=== PATIENT | female | born 1960 | race Caucasian/White ===

== ENCOUNTER → 2017-07-05 14:53 | Outpatient (CLI) | payer BC, SELFPAY ==
[2017-04-24 12:37] VITALS: BMI 36.2
[2017-06-26 14:19] VITALS: BP 177/77; BMI 33.5
--- NOTE | 2017-07-05 14:54 | HPBD_ITS ---
STUDY: DUAL ENERGY X-RAY ABSORPTIOMETRY / DXA REASON FOR EXAM: Female, 56 years old. The patient is postmenopausal. No loss of height. TECHNIQUE: Bone Mineral Density (BMD) measurements of lumbar spine and bilateral hips were obtained. COMPARISON: Comparison is made with prior study dated July 25, 2012. FINDINGS: Lumbar Spine (L1-L4): g/cm2 (1.067) / T-score (-1.1) / Z-score (-0.2) Findings are suggestive of osteopenia with a low fracture risk. Left Femur Total: g/cm2 (0.844) / T-score (-1.3) / Z-score (-0.6) Left Femoral Neck: g/cm2 (0.759) / T-score (-2.0) / Z-score (-0.9) Right Femur Total: g/cm2 (0.770) / T-score (-1.9) / Z-score (-1.1) Right Femoral Neck: g/cm2 (0.729) / T-score (-2.2) / Z-score (-1.1) The T-Scores on the most recent prior examination were: Lumbar Spine (L1-L4): There has been improvement of bone density since the previous examination. Left Femur Total: which represents a worsening of 3.5%. Right Femur Total: which represents a worsening of 6.4%. HPBD/Dexa Bone Density Study (HP) IMPRESSION: The patient is considered osteopenic as outlined below according to World [employer] Organization (WHO) criteria with a moderate fracture risk. There has been worsening of bone density since the previous examination. Reference Information: The T-score is the number of standard deviations above or below the standard which is normal for young adults at their peak bone mineral density. The World Health Organization (WHO) interprets the T-scores as follows: Above -1 Normal bone density Between -1 and -2.5 Osteopenia Equal to / or below -2.5 Osteoporosis As a practical clinical guideline, osteopenia may be graded as follows: Mild -1 through -1.5 Moderate -1.6 through -2.0 Severe -2.1 through -2.4 The Z-score is the number of standard deviations above or below age-matched controls. A Z-score of less than -1.5 would be considered abnormal. References: 1. NIH Osteoporosis and Related Bone Diseases http://www.osteo.org 2. International Society for Clinical Densitometry http://www.iscd.org 3. National Osteoporosis Foundation http://www.nof.org Electronically Signed: Bhavesh Arechiga MD at 15:40 EST Tel [phone], Service support ,
== END ==
LOC: BD 14:53
PROVIDERS: Family Provider Family Medicine; PCP Family Medicine; Visit Provider Internal Medicine Medical Oncology
DX: C50.911 Malignant neoplasm of unspecified site of right female breast (principal); C50.912 Malignant neoplasm of unspecified site of left female breast; Z79.899 Other long term (current) drug therapy
CPT/HCPCS: 77080

== ENCOUNTER → 2017-07-25 15:47 | Outpatient (CLI) | payer BC, SELFPAY ==
[2017-04-24 12:37] VITALS: BMI 36.2
--- NOTE | 2017-07-25 15:49 | US_ITS ---
STUDY: ULTRASOUND TRANSVAGINAL CLINICAL: Female, 56 years old. Post coital bleeding. TECHNIQUE: Transvaginal COMPARISON: None. FINDINGS: Surgically absent uterus. Normal right ovary, measuring 2.3 x 2 x 1.9 cm. There are multiple follicles without a dominant cyst. Nonvisualized left ovary. No left adnexal mass There is no free fluid in the pelvis. Polycystic ovary disease: No. US/Transvaginal Non- IMPRESSION: Status post partial hysterectomy. Nonvisualized left ovary. Normal appearance of the right ovary. No suspicious masses Electronically Signed: Amaury Adler DO at 9:01 EST Tel , Service support ,
[2017-07-27 11:33] LABS: Cancer Antigen 125 11.6 U/mL (0.0-38.1)
== END ==
PROVIDERS: Family Provider Family Medicine; PCP Family Medicine; Visit Provider Obstetrics & Gynecology
DX: N93.0 Postcoital and contact bleeding (principal); Z90.710 Acquired absence of both cervix and uterus
CPT/HCPCS: 36415; 76830; 86304

== ENCOUNTER 2017-09-06 05:51 | Day surgery (SDC) | payer BC, SELFPAY ==
[2017-04-24 12:37] VITALS: BMI 36.2
[2017-09-06] VITALS (7 sets, daily range): BP systolic 111–127; BP diastolic 51–76; PULSE 68–82; RESP 16–18; TEMP 36.2–36.4; O2SAT 91–97; BMI 34.7
--- NOTE | 2017-09-06 | OV_PTH ---
PATIENT: PARVIN [place] [facility] [id number] AGE/SX: 57/F ROOM: RE09/06/[address]: Dr. Sherrie Dias MD : 1960 BED: DIS: 09/06/2017 SPEC #: [id number] RECD: 09/06/17 13:20 STATUS: MERE EDUARDO #: [id number] AKUA: 09/06/17 00:[address]: Sherrie Dias DEPT: SURGICAL PATHOLOGY RECD BY: Jose Nguyen ENTERED: 09/06/17 13:21 SP TYPE: OVARY OTHR DR: Dr. Sandro Bland, Tissues: Right ovary Procedures: Surgery Specimen Level IV HEADER OPERATION: Laparoscopic right salpingo-oophorectomy with cytologic washing PRE-OP DIAGNOSIS: Bilateral breast cancer TISSUE SUBMITTED: Right fallopian tube and ovary MICROSCOPIC DIAGNOSIS Right fallopian tube and ovary, salpingo-oophorectomy: Ovary with benign epithelial inclusion cysts and corpora albicantia. Tubo-ovarian adhesions. Fallopian tube with benign paratubal cysts. AM:luc 09/07/17 COMMENT Please correlate with cytology case ([id number]). MICROSCOPIC DESCRIPTION Slides are reviewed. GROSS DESCRIPTION Received in fixative is one container labeled with the patient's name and designated right tube and ovary. The specimen consists of a fallopian tube and ovary. The fallopian tube and ovary show tubo-ovarian adhesions. The fallopian tube measures 2 cm in length and 0.5 cm in diameter and the ovary measures 2 x 1.5 x 1.5 cm. No mass lesion is identified. The entire specimen is submitted in three cassettes. / SJ:luc 09/06/17 TC:5 CPT: 40259
--- NOTE | 2017-09-06 | FLU_PTH ---
PATIENT: PARVIN [place]ARRIS [place] [facility] [id number] AGE/SX: 57/F ROOM: RE09/06/[address]: Dr. Sherrie Dias MD : 1960 BED: DIS: 09/06/2017 SPEC #: [id number] RECD: 09/06/17 13:19 STATUS: MERE EDUARDO #: [id number] AKUA: 09/06/17 00:[address]: Sherrie Dias DEPT: CYTOLOGY RECD BY: Jose Nguyen ENTERED: 09/06/17 13:20 SP TYPE: Fluid OTHR DR: Dr. Sandro Bland, Tissues: Pelvis, NOS Procedures: Special Stain Group II Surgery Specimen Level IV Cytospin Fluid Comments: @ Specimen number changed from [id number] to [id number] @ on 09/06/17 at 1401 by RGOOD. HEADER OPERATION: Laparoscopic right salpingo-oophorectomy with cytologic washing PRE-OP DIAGNOSIS: Bilateral breast cancer TISSUE SUBMITTED: Pelvic washings for cytology DIAGNOSIS CYTOLOGY Pelvic washings for cytology (cytospin and cell block): Negative for malignant cells. AM:luc 09/07/17 COMMENT The specimen contains reactive mesothelial cells and minimal chronic inflammatory cells. Immunohistochemistry ([id number]) supports the above diagnosis. Please see associated surgical case ([id number]). CYTOLOGY STUDY Slides are reviewed. CYTOLOGY GROSS Received is 2 ml of pink cloudy fluid labeled with the patient's name and and designated per the requisition as pelvic washing. Submitted for cytology preparation including cell block. / 09/06/17 TC:5 CPT: 24334, 76272
--- NOTE | 2017-09-06 | IMM_PTH ---
PATIENT: PARVIN HARRIS [place] [facility] [place][id number] AGE/SX: 57/F ROOM: RE09/06/[address]: Dr. Sherrie Dias MD : 1960 BED: DIS: 09/06/2017 SPEC #: [id number] RECD: 09/07/17 14:23 STATUS: MERE REQ #: [id number] AKUA: 09/06/17 00:[address]: Sherrie Dias DEPT: IMMUNOHISTOCHEMISTRY RECD BY: Ning Valerio ENTERED: 09/07/17 14:24 SP TYPE: IMMUNO OTHR DR: Dr. Sandro Bland, DO Tissues: Pelvis, NOS Procedures: Calretinin (initial) P53 (add) Vimentin (add) Pankeratin (add) PHYSICIAN & INSTITUTION [place] [id number] SPECIMEN INFORMATION: Tissue Source: Pelvic washings Clinical Info: Breast cancer Specimen Number: [id number] CPT code: 35171, 22199 x3 METHODOLOGY: Deparaffinized sections of prefer/formalin-fixed tissue or PAP/DQ stained slides are incubated with monoclonal/polyclonal antibodies/oligonucleotide probes. Localization is made via biotin free immunoperoxidase method. Appropriate controls are performed and reacted as expected. Results on target cell population are indicated in the following table: RESULTS: ANTIBODY / CLONE RESULT CALRET (polyclonal) positive, dim Vimentin (V9) positive AE1-3 (AE1/AE3/PCK26) positive P53 (DO-7) negative These tests were developed and their performance characteristics determined by [facility]. They may not have been cleared or approved by the U.S. Food and Drug Administration. The FDA has determined that such clearance or approval is not necessary. INTERPRETATION: Pelvic washings: No evidence of malignancy. AM:luc 09/10/17
--- NOTE | 2017-09-06 05:57 | RAD_ITS ---
STUDY: X-RAY CHEST REASON FOR EXAM: Female, 57 years old. Preop. Smoker. TECHNIQUE: Frontal and lateral views of the chest. COMPARISON: 02/05/2017. CT scan chest 01/16/2017. FINDINGS: There are surgical clips overlying the axillae bilaterally. Patient has apparently undergone previous mastectomies. There is mild fibrosis or atelectasis overlying the lung bases. There are no demonstrated acute pulmonary infiltrates. There is no demonstrated pleural abnormality. Normal size heart. Normal mediastinum and jake. Normal visualized pulmonary arteries. Normal visualized aortic arch and descending thoracic aorta. There are diffuse degenerative changes of the visualized thoracic spine. Normal visualized ribs, clavicles, and shoulders. There is no demonstrated abnormality of the visualized soft tissue structures of the upper abdomen. RAD/Chest PA and Lateral IMPRESSION: No evidence for acute cardiopulmonary pathology. Electronically Signed: Efren Simeon MD at 6:25 EDT , Service support ,
--- NOTE | 2017-09-06 06:00 | EKG12_ITS ---
Test Reason : PRE OP Blood Pressure : / mmHG Vent. Rate : 067 BPM Atrial Rate : 067 BPM P-R Int : 198 ms QRS Dur : 088 ms QT Int : 432 ms P-R-T Axes : 054 021 023 degrees QTc Int : 456 ms Normal sinus rhythm Normal ECG Confirmed by ROME KAN, ANALI ([id number]), supervising editor news reel MELY KUMAR ([id number]) on 09/07/2017 1:45:14 PM Referred By: Sherrie Dias Confirmed By:ANALI PETER MD
[2017-09-06 06:51] LABS: Hemoglobin 12.9 g/dl (12.0-15.0); Mean Corp Hgb Conc 33.1 g/gl (32-36); Mean Corpuscular Hgb 33.3 pg (27.0-32.0); Mean Corpuscular Volume 100.8 fL (81-99); Mean Platelet Vol. 10.2 fl (6.2-12.0); Platelet Count 250 K/mm3 (150-450); RBC Distribution Width CV 13.5 % (11.6-14.6); RBC Distribution Width SD 49.5 fl (35.1-43.9); Red Blood Count 3.87 M/mm3 (4.2-5.4); White Blood Count 3.6 K/mm3 (4.4-11.0)
[2017-09-06 06:54] LABS: Scan Indicated on CBC? Y/N NO
--- NOTE | 2017-09-06 07:23 | HP.PCM_ITS ---
- Problem List (1) Breast cancer, right Status: Resolved Qualifiers: History and Physical Date of Admission: 09/06/17 Intake Vital Signs 3 07/16/17 Body Mass Index (BMI) 33.8 07/16/17 Blood Pressure 122/71 07/16/17 Height 5 ft 2 in 07/16/17 Weight: 185 lb 07/16/17 Body Mass Index (BMI) 33.8 07/16/17 Blood Pressure 122/71 Intake Visit Reasons: REFERRAL FROM [facility]. 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 Is patient in pain?: No Allergies Penicillins Allergy (Unknown, Verified 07/16/17 13:47) Unknown acetaminophen [From Vicodin] Adverse Reaction (Severe, Verified 07/16/17 13:47) Nausea adhesive tape Adverse Reaction (Severe, Verified 07/16/17 13:47) Unknown cephalexin Adverse Reaction (Severe, Verified 07/16/17 13:47) Upset Stomach hydrocodone [From Vicodin] Adverse Reaction (Severe, Verified 07/16/17 13:47) Other oxycodone [From Percocet] Adverse Reaction (Severe, Verified 07/16/17 13:47) Vomiting prednisone Adverse Reaction (Severe, Verified 07/16/17 13:47) Nausea/vomiting Medications Atenolol [Tenormin] 25 mg PO QHS 10/25/16 [History Confirmed 07/16/17] Calcium Carbonate/Vitamin D3 [Calcium 600-Vit D3 200 Tablet] 1 ea PO DAILY 10/25 [History Confirmed 07/16/17] Clonazepam [Klonopin] 1 mg PO QHS 10/25/16 [History Confirmed 07/16/17] Cyclobenzaprine HCl 5 mg PO DAILY 10/25/16 [History Confirmed 07/16/17] Famotidine [Acid Director Meetings] 10 mg PO DAILY 10/25/16 [History Confirmed 07/16/17] Fingolimod HCl [Gilenya] 0.5 mg PO DAILY 10/25/16 [History Confirmed 07/16/17] Gabapentin [Gralise] 600 mg PO DAILY 10/25/16 [History Confirmed 07/16/17] Lisinopril [Zestril] 10 mg PO DAILY 10/25/16 [History Confirmed 07/16/17] Multivitamin [Daily Multiple Vitamin] 1 ea PO DAILY 10/25/16 [History Confirmed 07/16/17] Rosuvastatin Calcium [Crestor] 40 mg PO QHS 10/25/16 [History Confirmed 07/16/17 ] Venlafaxine HCl [Venlafaxine HCl ER] 300 mg PO DAILY 10/25/16 [History Confirmed 07/16/17] Amantadine [Symmetrel] 100 mg PO QHS 11/09/16 [History Confirmed 07/16/17] Lactobacillus Acidophilus [Acidophilus] 1 ea PO BID 11/09/16 [History Confirmed 07/16/17] Buspirone HCl 7.5 mg PO BID 02/02/17 [History Confirmed 07/16/17] Lidocaine/Prilocaine [Lidocaine-Prilocaine Cream] 30 gm TP DAILY PRN PRN #1 cream..g. 02/06/17 [Rx Confirmed 07/16/17] Diazepam [Valium] 5 mg PO 4X/DAY PRN PRN 02/12/17 [History Confirmed 07/16/17] TraMADol [Ultram] 50 - 100 mg PO Q6H PRN PRN #30 tab 02/14/17 [Rx Confirmed ] Acetaminophen [Tylenol Tablet] 650 mg PO Q6H PRN PRN tab 04/14/17 [Rx Confirmed 07/16/17] Silver Sulfadiazine 1% Crm [Silvadene (BKC)] 1 applic TOPICAL TID #1 bottle [Rx Confirmed 07/16/17] Is last menstrual period known: No Patient : No : No PFSH Medical History Breast cancer (Acute) Chicken pox (Acute) GERD (gastroesophageal reflux disease) (Acute) Headaches (Acute) History of stomach ulcers (Acute) Surgical History History of appendectomy (Acute) History of bilateral mastectomy (Acute) History of section (Acute) History of hysterectomy (Acute) History of lumpectomy (Acute) History of right breast biopsy (Acute) Family History Mother Kidney disease Hypertension Hyperlipidemia Heart disease Diabetes Depression Arthritis Social History Smoking Status: Current every day smoker alcohol intake: never substance use type: does not use caffeine: Yes what type of physical activity do you participate in: none seatbelt use: always do you feel safe at home: Yes additional social history: Jordy- Retired Patient works at [employer] Pregancy History 2 3 Elective abortions Hx Para 2 Spontaneous abortions Hx # Term Pregnancies Ectopic pregnancies Hx # Pregnancies Multiple births # of living children Past Pregnancies Del. Date Name GA/Weeks Outcome Route Bth Weight Gen Labor Lgth Anesthesia Del Locatn Provider FOB Unknown 1983 ariana 5 month loss CI Unknown 1984 Pietro Deborah Unknown 1986 Carlos [facility] RE[facility] FROM [facility]. ANNUAL: Details: LINDA HARRIS is a 56 year old who presents for referral from oncologist for removal of her ovary. She had bilateral breast cancers. she sees dr reich. she is also having postcoital bleeding but minimal pain. she has had a hsyterectomy when she was in her 20s. ROS Const Constitutional: Reports as per HPI; denies poor appetite, fatigue, increased appetite, weight gain or weight loss Eyes Eyes: Reports system reviewed and no additional complaints, except as docu Cardio Card: Denies chest pain Resp Resp: Denies dyspnea or cough GI GI: Reports as per HPI; denies bloating, abdominal pain, constipation, vomiting or nausea : Reports as per HPI and other; denies blood in urine, vaginal odor, vaginal itching, vaginal dryness, vaginal discharge, urinary urgency, urinary incontinence, urinary frequency, pelvic pain , painful urination, difficulty urinating, prolapse symptoms or nipple discharge Musc Musc: Reports system reviewed and no additional complaints, except as docu Skin Skin/Breast: Denies breast pain, breast skin changes, nipple discharge, breast lump or changing lesions Neuro Neuro: Reports system reviewed and no additional complaints, except as docu Psych Psych: Reports system reviewed and no additional complaints, except as docu Endo Endo: Reports system reviewed and no additional complaints, except as docu Kanu/Lymph Hematologic/Lymphatic: Reports system reviewed and no additional complaints, except as docu Exam Const General: cooperative, healthy appearing, comfortable, no acute distress, well developed, well groomed HENMT Head: normal to inspection, normocephalic Ears: hearing grossly normal bilaterally, external ears normal Nose: external nose normal Face and sinus: normal facial exam Neck Neck: normal visual inspection, full ROM, no lymphadenopathy Thyroid: thyroid normal Chest Chest palpation & inspection: normal inspection of the chest Breast inspection: normal inspection of the breasts, normal inspection of the axillae Breast palpation: normal palpation of the breasts, normal palpation of the axillae, no axillary lymphadenopathy Resp Effort & Inspection: normal respiratory effort GI Inspection: normal to inspection, non-distended Palpation: no guarding, soft, no hepatosplenomegaly General: bladder normal to palpation External Female Exam: normal external appearance, normal appearance of the urethra, no lesions Urethra: normal appearance of the urethra, normal palpation Speculum Exam - Vagina: normal appearance of the vagina, normal vaginal discharge Speculum Exam - Cervix: normal appearance of the cervix, no cervical discharge, no lesions, nontender Bimanual Exam- Vagina & Uterus: No cervical tenderness, normal bimanual exam, uterine size normal, bladder normal to palpation, uterine mobility normal, uterine consistency normal, uterus non-tender, no cervical motion tenderness Bimanual Exam- Adnexa, other: normal adnexae, no adnexal masses, adnexae non- tender Skin General: no rashes or lesions noted Neuro General: alert, moves all extremities, no focal motor deficits Extrem General: no pedal edema, normal to inspection Psych Appearance: grossly normal Mental Status: mental status grossly normal Affect: normal affect Speech and Movement: speech and movement normal Attitude: cooperative Assessment & Plan Problems 1. Bilateral malignant neoplasm of breast in female, unspecified estrogen receptor status, unspecified site of breast C50.911; C50.912 bilateral 2. Postcoital bleeding N93.0 atrophy discussed kamlesh linda touch Plan plan laparoscopic salpingoophorectomy. Coding Level of Care Code Off vis,new,level 4 Diagnoses Bilateral malignant neoplasm of breast in female, unspecified estrogen receptor status, unspecified site of breast C50.911; C50.912 ??Breast location: unspecified site of breast ??Estrogen receptor status: unspecified ??Patient sex: female ??Laterality: bilateral Postcoital bleeding N93.0 09/06/17 730 i have seen the patient and made any clinically relevant updates
[2017-09-06] MEDS: Bupivacaine 0.25% 30 ML Vial (08:09)
--- NOTE | 2017-09-06 09:04 | PCM.DC.TUB ---
Discharge Diet: No Restrictions - Increase fluid intake for the next 48 hours. Discharge Activity: Return to Normal Activity, May Drive - when you are no longer taking narcotic pain medications., May Shower, May Take a Tub Bath - in 7 days Additional Activity Instructions:: Ambulate often the next week after surgery. Nothing in the vagina for 5 days. Call your doctor if your incision/area has: Continuous Slow Oozing, Sudden Increased Bleeding, Increased Pain/ Swelling, Increased Redness, Foul Smelling Discharge Call your doctor if you observe: Fever of 101 or Higher Allergies/Adverse Reactions: Allergies Penicillins Allergy (Unknown, Verified 09/03/17 10:14) Unknown states that mother told her she was allergic acetaminophen [From Vicodin] Adverse Reaction (Severe, Verified 09/03/17 10:14) Nausea adhesive tape Adverse Reaction (Severe, Verified 09/03/17 10:14) Unknown tears skin cephalexin Adverse Reaction (Severe, Verified 09/03/17 10:14) Upset Stomach hydrocodone [From Vicodin] Adverse Reaction (Severe, Verified 09/03/17 10:14) Other NUMBNESS TO LIPS oxycodone [From Percocet] Adverse Reaction (Severe, Verified 09/03/17 10:14) Vomiting prednisone Adverse Reaction (Severe, Verified 09/03/17 10:14) Nausea/vomiting Medications to take at Discharge Atenolol [Tenormin] 25 mg PO QHS 10/25/16 Calcium Carbonate/Vitamin D3 [Calcium 600-Vit D3 200 Tablet] 1 ea PO DAILY 10/25/16 Clonazepam [Klonopin] 1 mg PO QHS 10/25/16 Cyclobenzaprine HCl 5 mg PO DAILY 10/25/16 Famotidine [Acid Global Mobility Specialist] 10 mg PO DAILY 10/25/16 Fingolimod HCl [Gilenya] 0.5 mg PO DAILY 10/25/16 Gabapentin [Gralise] 600 mg PO DAILY 10/25/16 Lisinopril [Zestril] 10 mg PO DAILY 10/25/16 Multivitamin [Daily Multiple Vitamin] 1 ea PO DAILY 10/25/16 Rosuvastatin Calcium [Crestor] 40 mg PO QHS 10/25/16 Venlafaxine HCl [Venlafaxine HCl ER] 300 mg PO DAILY 10/25/16 Amantadine [Symmetrel] 100 mg PO QHS 11/09/16 Lactobacillus Acidophilus [Acidophilus] 1 ea PO BID 11/09/16 Buspirone HCl 7.5 mg PO BID 02/02/17 traMADol [Ultram] 50 - 100 mg PO Q6H PRN PRN #30 tab 02/14/17 Acetaminophen [Tylenol Tablet] 650 mg PO Q6H PRN PRN tab 04/14/17 Tamoxifen Citrate 20 mg PO DAILY 14 Days #14 tab 07/19/17 Naproxen [Naprosyn] 250 - 500 mg PO Q8H PRN PRN #30 tab 09/06/17 Tramadol HCl [Ultram] 50 mg PO 4X/DAY PRN PRN 3 Days #15 tablet 09/06/17 The following prescriptions were given: Naproxen [Naprosyn] 250 - 500 mg PO Q8H PRN PRN #30 tab PRN Reason: MILD PAIN Tramadol HCl [Ultram] 50 mg PO 4X/DAY PRN PRN 3 Days #15 tablet PRN Reason: Pain Primary Care Physician: Sandro Bland DO [Primary Care Provider] - Please Follow Up With: Sherrie Dias MD - [phone] When: 2 weeks
--- NOTE | 2017-09-07 06:12 | PCM.OPRPT ---
Problem List (1) Breast cancer Status: Chronic Qualifiers: Breast location: unspecified site of breast Estrogen receptor status: unspecified Patient sex: female Laterality: bilateral Qualified Code(s): C50.911 - Malignant neoplasm of unspecified site of right female breast; C50.912 - Malignant neoplasm of unspecified site of left female breast Comment: bilateral Report of Operation Date of Procedure: 09/06/17 Pre-Operative Diagnosis: breast cancer Post-Operative Diagnosis: same Surgery/Procedure Performed:: laparoscopic right oophorectomy and cytologic washings Description of Surgical Findings:: normal ovary carpenter: Urszula Carroll Type of Anesthesia:: General Specimen's removed: ovary fallopian tube Drains: none Estimated Blood Loss (mL): minimal Fluids Replaced: crystalloid Description of Procedure: Patient was taken in the operating room and was placed under general anesthesia was prepped and draped in normal sterile fashion in the dorsal lithotomy position. Bladder was drained of clear urine and SCDs were on preoperatively. Attention was then paid to the abdominal portion of the procedure and the umbilicus was elevated with towel clamps and injected with Marcaine and after a 5 mm incision was made and the Veress needle was entered into the abdomen confirmed to be intra-abdominal with a low opening pressure of less than 5 mmHg. Abdomen was insufflated with CO2 gas and a 12 mm optical trocar was placed under direct visualization. A right lower quadrant 5 mm port and an aligator clamp suprapubically were placed placed under direct visualization. ovary and fallopian tube were well visualized, noted to be within normal limits, and the then transected across the IP ligament and pelvic side wall using the ligasure device. Excellent hemostasis was noted. ovary was removed through the 12 mm port site in a bag, washings were collected, and the 12 mm port was closed with a a rachael javier and an 0 vicryl. Liver and upper abdomen were visualized notably within normal limits and no other gross abnomalities were seen in the abdomen. All instruments removed from the abdomen after gas was desufflated. Port sites were closed with 3-0 Monocryl Steri's and op sites were applied. All instruments removed from the vagina and patient was awoken and taken recovery in stable condition. Grafts/Implants Used: none - Complications none - Admit VTE Documentation VTE Present on Admission: No VTE Mechan Device Prophylaxis: SCD's
--- NOTE | 2017-09-07 06:17 | OP.PCM_ITS ---
Problem List (1) Breast cancer Status: Chronic Qualifiers: Breast location: unspecified site of breast Estrogen receptor status: unspecified Patient sex: female Laterality: bilateral Qualified Code(s): C50.911 - Malignant neoplasm of unspecified site of right female breast; C50.912 - Malignant neoplasm of unspecified site of left female breast Comment: bilateral Report of Operation Date of Procedure: 09/06/17 Pre-Operative Diagnosis: breast cancer Post-Operative Diagnosis: same Surgery/Procedure Performed:: laparoscopic right oophorectomy and cytologic washings Description of Surgical Findings:: normal ovary dealer accounts 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 Bladder was drained of clear urine and SCDs were on preoperatively. Attention was then paid to the abdominal portion of the procedure and the umbilicus was elevated with towel clamps and injected with Marcaine and after a 5 mm incision was made and the Veress needle was entered into the abdomen confirmed to be intra-abdominal with a low opening pressure of less than 5 mmHg. Abdomen was insufflated with CO2 gas and a 12 mm optical trocar was placed under direct visualization. A right lower quadrant 5 mm port and an aligator clamp suprapubically were placed placed under direct visualization. ovary and fallopian tube were well visualized, noted to be within normal limits , and the then transected across the IP ligament and pelvic side wall using the ligasure device. Excellent hemostasis was noted. ovary was removed through the 12 mm port site in a bag, washings were collected, and the 12 mm port was closed with a a rachael javier and an 0 vicryl. Liver and upper abdomen were visualized notably within normal limits and no other gross abnomalities were seen in the abdomen. All instruments removed from the abdomen after gas was desufflated. Port sites were closed with 3-0 Monocryl Steri's and op sites were applied. All instruments removed from the vagina and patient was awoken and taken recovery in stable condition. Grafts/Implants Used: none - Complications none - Admit VTE Documentation VTE Present on Admission: No VTE Mechan Device Prophylaxis: SCD's
== END 2017-09-06 10:19 | disposition home or self-care (01) ==
LOC: SDC 05:51 → AC 05:53
PROVIDERS: Family Provider Family Medicine; PCP Family Medicine; Visit Provider Obstetrics & Gynecology
PROC: (CPT 58720; principal; 2017-09-06 07:15)
DX: C50.911 Malignant neoplasm of unspecified site of right female breast (principal); C50.912 Malignant neoplasm of unspecified site of left female breast; N73.6 Female pelvic peritoneal adhesions (postinfective); N83.8 Other noninflammatory disorders of ovary, fallopian tube and broad ligament; N93.0 Postcoital and contact bleeding; K21.9 Gastro-esophageal reflux disease without esophagitis; Z87.11 Personal history of peptic ulcer disease; Z90.13 Acquired absence of bilateral breasts and nipples; F17.200 Nicotine dependence, unspecified, uncomplicated; I10 Essential (primary) hypertension
CPT/HCPCS: 58661; 71046; 82378; 85027; 86850; 86900; 88108; 88305; 88313; 88341; 88342; 93005; J7120; J2405

== ENCOUNTER → 2017-10-25 08:45 | Outpatient (CLI) | payer BC, SELFPAY ==
[2017-04-24 12:37] VITALS: BMI 36.2
--- NOTE | 2017-10-25 08:45 | DT_ITS ---
This patient was seen during an EMR downtime October 22, 2017 - October 29, 2017. This patient may have a combination of paper and electronic documentation or all paper documentation. All documentation is viewable within the e-chart portion of [employer] for each patient visit.
--- NOTE | 2017-10-25 09:00 | NM_ITS ---
CLINICAL: Female, 57 years old. Breast cancer. Multiple sclerosis. WHOLE BODY NUCLEAR BONE SCAN TECHNIQUE: Following the IV administration of 25.7 mCi of Tc MDP, whole body bone imaging was performed with a gamma camera following a three hour delay. COMPARISON STUDIES : NM - January 12, 2017 bone scan CR - chest x-ray August 27, 2017 CT - Not available for review at this time. MR - Not available for review at this time. US - Not available for review at this time. FINDINGS: There is a normal concentration of radiopharmaceutical throughout the axial and appendicular skeletal system. There are regions of degenerative increased uptake including of the shoulders, elbows, wrists, spine, hips and knees. There is nonspecific increased radiotracer uptake of the sternum.. There is increased uptake at the right 12th rib with osseous abnormality versus focal dilatation of upper pole renal collecting system. There are photopenic regions at the anterior aspect suggesting external prostheses or soft tissue attenuation. NM/Bone Scan Whole Body IMPRESSION: Regions of degenerative increased uptake are present. There is nonspecific increased uptake of the sternum with possible degenerative change. There is nonspecific increased activity at the right 12th rib with prior trauma or focal dilatation of the renal collecting system or less likely metastatic disease. Electronically Signed: Carlos Christianson MD at 9:32 EDT , Service support ,
== END ==
PROVIDERS: Family Provider Family Medicine; PCP Family Medicine; Visit Provider Internal Medicine Medical Oncology
DX: C50.912 Malignant neoplasm of unspecified site of left female breast (principal); C50.911 Malignant neoplasm of unspecified site of right female breast
CPT/HCPCS: 78306

== ENCOUNTER → 2017-10-31 07:47 | Outpatient (CLI) | payer BC, SELFPAY ==
[2017-04-24 12:37] VITALS: BMI 36.2
--- NOTE | 2017-10-31 07:49 | CT_ITS ---
STUDY: CT ABDOMEN AND PELVIS WITH CONTRAST REASON FOR EXAM: Female, 57 years old. Breast cancer follow-up RADIATION DOSAGE (If Supplied By Facility): CTDIvol = ( 11.47 ) mGy, DLP = ( 1179.62 ) mGycm TECHNIQUE: Transaxial images were obtained from the dome of the diaphragm to the symphysis pubis with oral contrast. 100 ml of Isovue 300 contrast was administered. Sagittal and coronal images were reconstructed. Individualized dose optimization techniques were used for this CT. COMPARISON: CT abdomen and pelvis April 14, 2017; pelvic ultrasound July 25, 2017. FINDINGS: There is minor stranding subsegmental atelectasis or scarring in the anterior-inferior margin of the right middle lobe and posterolateral inferior left lower lobe. The visualized portions of the heart are within normal limits. Normal liver. The patent portal vein diameter is 13.5 mm. Normal gallbladder and extrahepatic biliary system. Normal spleen. Normal pancreas. Normal bilateral adrenal glands. 2.0 x 1.5 x 1.35 cm cortical cyst again seen in the posterior upper pole of the right kidney, and there is a stable 1.2 cm cortical cyst in the anterior midpole. Exophytic 12.5 mm cortical cyst at the lateral lower pole of the left kidney. There are 2 stable nonobstructing right kidney stones, the larger measuring 5 mm diameter. No hydronephrosis. Incidental note of 2 accessory left renal arteries perfusing the lower pole, arising from the abdominal aorta at the level of the inferior L3 endplate. Normal visualized stomach. Normal small intestine. Normal colon. There is non-visualization of the appendix. There is stable mild atherosclerotic calcification of the abdominal aorta and proximal iliac arteries, without a demonstrated aneurysm. Normal inferior vena cava. Normal retroperitoneum. Normal urinary bladder. There is absence of the uterus consistent with a prior hysterectomy. There is atrophy of the ovaries. Densely rim calcified 6 to 7 mm structure just above the vaginal cuff may be chronic postsurgical change. Normal abdominal wall. There are stable multilevel degenerative changes of the visualized spine, with anterior endplate spondylosis more prominent in the thoracic region, and facet arthrosis more prominent in the lower lumbar spine. CT/Abdomen/Pelvis WITH Contrast IMPRESSION: 1. No CT findings of abdominal or pelvic metastatic disease. 2. Bilateral renal cortical cysts as well as 2 nonobstructing right renal calculi again noted. No hydronephrosis. 3. The bowel is unremarkable without sign of obstruction. The appendix is not visualized. 4. Prior hysterectomy. 5. Mild aortoiliac atherosclerotic calcification. No demonstrated aneurysm. 6. Stable degenerative changes of the spine. Electronically Signed: Dave Espinal MD at 9:28 EDT , Service support ,
--- NOTE | 2017-10-31 07:50 | CT_ITS ---
STUDY: CT CHEST/THORAX WITH CONTRAST REASON FOR EXAM: Female, 57 years old. Breast cancer follow-up. RADIATION DOSAGE (If Supplied By Facility): CTDIvol = ( 11.47 ) mGy, DLP = ( 1179.62 ) mGycm TECHNIQUE: Transaxial imaging was performed following intravenous administration of 100 ml of Isovue 300 contrast material. Multiplanar coronal and sagittal images were reformatted. Individualized dose optimization techniques were used for this CT. COMPARISON: PA and lateral chest x-ray September 06, 2017; CT chest/thorax January 16, 2017 FINDINGS: Subsegmental atelectasis in the posterior right base is resolved, while subsegmental atelectasis in the posterolateral basilar left lower lobe is mildly worsened. Subsegmental atelectasis in the anterior inferior right middle lobe and lingula of left upper lobe is mildly improved. Additional ill-defined airspace disease of subsegmental atelectasis versus inflammatory change now present in the anterior periphery of the right upper and middle lobes. A pair of 4-5 mm noncalcified nodules are seen in the anterior right upper lobe on series 6 images 32-34, and there is a third 4 mm nodular density in the posterior periphery of the right upper lobe on image 41. A 3-4 mm nodule seen in the mid right upper lobe on image 22. These are new. What was a 7 mm groundglass nodule in the right upper lobe on prior study now appears as a 17 x 8 x 5 mm ill-defined groundglass density. A similar appearing 7.5 mm groundglass nodule with a spiculation that extends to the posterolateral pleural surface also now present in the right superior sulcus on series 6 image 15. There are centrilobular emphysematous changes in the superior segment of the right lower lobe. There is no demonstrated pleural abnormality. Normal heart and pericardium. Normal mediastinum. Normal hilar regions. Normal enhanced pulmonary arteries. Normal aorta arch and descending thoracic aorta. There are stable multi-level degenerative changes of the thoracic spine. There is stable sclerotic densities in the T8 and T9 vertebrae. Clusters of surgical clips again seen in the tissues of the bilateral axillae. The patient has undergone prior bilateral mastectomies There is no demonstrated abnormality of the visualized upper abdomen. CT/Chest WITH Contrast IMPRESSION: 1. 7 mm groundglass nodule described on previous exam now appears as a 17 mm ill-defined groundglass density, and a similar appearing 7.5 mm groundglass nodule with spiculation extending to the posterolateral pleural surface is also now seen in the right upper lobe. 2. There are four new 4-5 mm noncalcified nodules in the right upper lobe, as described. 3. Mildly irregular subsegmental airspace disease of atelectasis or inflammatory change also now seen in the anterior periphery of the right upper and middle lobes. 4. Resolved atelectasis in the posterior right base, but atelectasis in the posterolateral left lower lobe is mildly worsened. Mildly improved atelectasis in the anterior inferior right middle lobe and lingula of left upper lobe. 5. Changes of bilateral mastectomies and axillary node dissections again noted. Electronically Signed: Dave Espinal MD at 9:42 EDT , Service support ,
[2017-10-31 08:01] LABS: CREATININE FINGERSTICK 0.8 mg/dL (0.55-1.02); EGFR FINGERSTICK > 60.0000 mL/min (>60)
== END ==
PROVIDERS: Family Provider Family Medicine; PCP Family Medicine; Visit Provider Internal Medicine Medical Oncology
DX: C50.911 Malignant neoplasm of unspecified site of right female breast (principal); C50.912 Malignant neoplasm of unspecified site of left female breast
CPT/HCPCS: 71260; 74177; Q9967

== ENCOUNTER → 2017-11-12 10:51 | Outpatient (CLI) | payer BC, SELFPAY ==
[2017-04-24 12:37] VITALS: BMI 36.2
--- NOTE | 2017-11-12 12:00 | PET_ITS ---
EXAMINATION: FDG PET CT INDICATIONS: A 57-year-old female with history of carcinoma of the breast presenting for restaging examination. COMPARISON EXAMINATION: Prior FDG PET study dated 01/25/17, CT of the chest, abdomen and pelvis reports dated 10/31/17, whole body bone scintigraphy report dated 10/25/17. INDEX LESION SIZE SUV INTERPRETATION NEW: Right upper posterior hemithorax pulmonary parenchyma, right upper lobe 14.8 mm (frame 216) 3.2 Fulfills quantitative criteria for viable neoplasm, histopathologic analysis recommended NON-INDEX LESION SIZE SUV INTERPRETATION NEW: Additional right hemithorax pulmonary parenchymal hypermetabolic foci 2.1 (max) Quantitative criteria for viable neoplasm are not fulfilled TECHNIQUE: Following the intravenous administration of 15.5 mCi of F-18 deoxyglucose via the right antecubital fossa, multiplanar image acquisitions of the neck, chest, abdomen and pelvis to level of mid thigh, obtained at one hour post radiopharmaceutical administration contemporaneously interpreted with the current CT of the neck, chest, abdomen and pelvis to level of mid thigh, dated 11/12/17 via coregistration and prior FDG PET study dated 01/25/17, CT of the chest, abdomen and pelvis reports dated 10/31/17, whole body bone scintigraphy report dated 10/25/17 reveal: SERUM GLUCOSE LEVEL: 118 mg/dl. HEIGHT: 62 inches. WEIGHT: 173 lbs. FINDINGS: 1. Newly identified increased glucose metabolism is manifest in the right upper posterior hemithorax pulmonary parenchyma, right upper lobe generating a calculated maximum standard uptake value of 3.2. The maximal axial diameter of the corresponding parenchymal density on review of CT of the thorax dated 11/12/17 is 14.8 mm (AP). 2. Several additional foci of enhanced radiopharmaceutical concentration are manifest in the right upper-mid hemithorax pulmonary parenchyma with a calculated maximum standard uptake value of 2.1 with a linear density defined in the right mid anterior lung field. 3. Normal physiologic distribution of the radiopharmaceutical is apparent in the hepatic (3.3) and splenic parenchyma, both renal units, bladder and visualized intestinal tract. There is uniform distribution of the radiopharmaceutical concentration compared on the cerebellar hemispheres and cerebral cortex. Diffuse intestinal tract activity is noted throughout all four quadrants of the abdominal-pelvic retroperitoneum, mesentery consistent with normal physiologic distribution of the radiopharmaceutical. The prior defined morphologic-anatomic changes noted on CT of the neck, chest, abdomen and pelvis manifest on the FDG PET CT study dated 01/25/17 are essentially unchanged on the present examination. PET/PET/CT Tumor Base -Thigh Init IMPRESSION: 1. Increased glucose metabolism newly identified in the right upper posterior hemithorax pulmonary parenchyma, right upper lobe fulfills quantitative criteria for viable neoplasm. Definitive histopathologic analysis is recommended. 2. Additional foci of facilitated radiotracer uptake manifest within the right hemithorax pulmonary parenchyma do not fulfill quantitative criteria for malignant transformation. 3. 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 Electronic Signature Kd Cox D.O. Electronically Signed: Kd Cox DO at 23:29 EDT Tel , Service support ,
== END ==
PROVIDERS: Family Provider Family Medicine; PCP Family Medicine; Visit Provider Internal Medicine Medical Oncology
DX: R91.1 Solitary pulmonary nodule (principal); C50.911 Malignant neoplasm of unspecified site of right female breast; C50.912 Malignant neoplasm of unspecified site of left female breast
CPT/HCPCS: 78815; A9552; A4216

== ENCOUNTER → 2018-01-29 06:45 | Outpatient (CLI) | payer BC, SELFPAY ==
[2017-04-24 12:37] VITALS: BMI 36.2
--- NOTE | 2018-01-29 06:56 | CT_ITS ---
STUDY: CT CHEST WITH CONTRAST REASON FOR EXAM: Female, 57 years old. Lung cancer RADIATION DOSAGE (If Supplied By Facility): CTDIvol = ( 14.14 ) mGy, DLP = ( 399.19 ) mGycm TECHNIQUE: Transaxial imaging was performed following intravenous administration of 100 ml of Isovue 300 contrast material. Individualized dose optimization techniques were used for this CT. COMPARISON: Previous study of 10/31/2017 FINDINGS: There is a spiculated mass of the right upper lobe apex measuring 1.8 x 2.0 cm with a tail extending to the anterior pleural surface. This represents a new interval finding. No discrete pulmonary nodules are identified at this time. There is a moderate-sized right-sided effusion, new in the interval. The heart size is within normal limits. There is no pericardial effusion. Normal mediastinum. There is a right suprahilar mass and/or adenopathy measuring 2.5 x 2.1 cm. This is also new in the interval. Normal enhanced pulmonary arteries. Normal aorta arch and descending thoracic aorta. There are dense sclerotic foci of the T8 and T9 vertebral bodies, stable in the interval. There are findings of bilateral mastectomy. Surgical clips are seen in both axillae. CT/Chest WITH Contrast IMPRESSION: Spiculated right upper lobe mass measuring 1.8 x 2.0 cm with a tail extending to the anterior pleural surface. This represents a new interval finding. A previously noted ill-defined groundglass right apical density is not currently seen. There is a right suprahilar mass and/or adenopathy measuring 2.5 x 2.1 cm, new in the interval. No discrete pulmonary nodules are seen on the current study. There are dense sclerotic foci of the T8 and T9 vertebral bodies, stable in the interval. There is a moderate right-sided pleural effusion, new in the interval. Status post bilateral mastectomy. Electronically Signed: Shaji Madison MD at 16:57 EDT , Service support ,
[2018-01-29 07:06] LABS: Absolute Lymphocyte Count 0.34 X10^3/ul (0.83-4.51); Absolute Neutrophil Count 2.8 X10^3/uL (2.0-7.7); Basophil# 0.02 X10^3/uL; Basophil% 0.5 % (0-1); Eosinophil# 0.19 X10^3/uL; Eosinophils% 4.8 % (0-5); Hematocrit 37.7 % (37-47); Hemoglobin 12.4 g/dl (12.0-15.0); Lymphocyte # 0.34 X10^3/ul (4.0); Lymphocyte % 8.7 % (19-41); Mean Corp Hgb Conc 32.9 g/gl (32-36); Mean Corpuscular Hgb 34.6 pg (27.0-32.0); Mean Corpuscular Volume 105.3 fL (81-99); Monocyte# 0.54 X10^3/uL; Monocyte% 13.7 % (0-10); Neutrophil # 2.82 X10^3/uL (2.7-7.7); Neutrophil % 71.8 % (47-70); Platelet Count 320 K/mm3 (150-450); RBC Distribution Width CV 13.5 % (11.6-14.6); RBC Distribution Width SD 51.2 fl (35.1-43.9); Red Blood Count 3.58 M/mm3 (4.2-5.4); White Blood Count 3.9 K/mm3 (4.4-11.0)
[2018-01-29 07:07] LABS: Differential Indicated SCAN CRITERIA MET; POSITIVE COUNT NO; POSITIVE DIFFERENTIAL YES; POSITIVE MORPHOLOGY NO
[2018-01-29 07:17] LABS: ALB/GLOB Ratio 0.8 RATIO (0.9-2.4); AST(SGOT) 35 U/L (15-37); Alanine Aminotransfer ALT/SGPT 47 U/L (13-56); Albumin, Serum 2.8 g/dL (3.2-5.0); Alkaline Phosphatase 88 U/L (45-117); Anion Gap 7 (5-15); BUN 12 mg/dL (7-18); Chloride 110 mmol/L (98-107); EST Glomerular Filtration Rate 61 mL/min (>60); Est Glom Filt Rate - Afr Amer 74 mL/min (>60); Globulin 3.6 g/dL (2.2-4.2); Glucose 127 mg/dL (74-106); Potassium 5.3 mmol/L (3.5-5.1); Protein, Total 6.4 g/dL (6.4-8.2); Sodium Level 148 mmol/L (136-145)
[2018-01-29 14:51] LABS: Xtra Tube EP Lab EXTRA TUBE
== END ==
PROVIDERS: Family Provider Family Medicine; PCP Family Medicine; Visit Provider Internal Medicine Medical Oncology
DX: C50.911 Malignant neoplasm of unspecified site of right female breast (principal); C50.912 Malignant neoplasm of unspecified site of left female breast
CPT/HCPCS: 36415; 71260; 80053; 85025; Q9967

== ENCOUNTER 2018-02-01 08:20 | Day surgery (SDC) | payer BC, SELFPAY ==
[2017-04-24 12:37] VITALS: BMI 36.2
[2018-02-01 08:37] VITALS: BP 124/63; PULSE 73; RESP 16; TEMP 36.7; O2SAT 94; BMI 32.1
[2018-02-01] MEDS: Bupivacaine Mpf 0.5% 30 ML VIAL (10:10)
--- NOTE | 2018-02-01 10:29 | PCM.OPRPT ---
Problem List (1) Lung cancer Status: Chronic Qualifiers: Laterality: unspecified laterality Lung location: unspecified part of lung Qualified Code(s): C34.90 - Malignant neoplasm of unspecified part of unspecified bronchus or lung (2) Encounter for adjustment or management of vascular access device Status: Inactive Report of Operation Date of Procedure: 02/01/18 Pre-Operative Diagnosis: 1. Lung cancer. 2. Need for vascular access for chemotherapy Post-Operative Diagnosis: Same Surgery/Procedure Performed:: Ultrasound and fluoroscopy-guided right chest port placement utilizing right IJ Description of Procedure: After obtaining informed consent patient was brought back to the operating room MAC anesthesia was induced and the right chest and neck were prepped in normal sterile fashion. Ultrasound was used to evaluate both IJ is in the right IJ was selected. Next, using a needle, the right IJ was accessed and a guidewire was passed on into the superior vena cava under fluoroscopy guidance. A small incision was made over the puncture site and the dilator introducer was placed over the guidewire. Next this was capped and the pocket was made for the port. 1% lidocaine with epinephrine was injected in the proposed port site. An incision was made with scalpel. Electrocautery was used to make a pocket under the skin and subcutaneous tissue. Hemostasis was obtained. Next, the catheter was tunneled up to the neck incision site and placed through the introducer. The peel-away introducer was removed and the position of the catheter was confirmed on fluoroscopy. Next, the catheter was trimmed and attached to the port with the locking device. Interrupted 2-0 Vicryl's were used to anchor the port to the chest wall and then the port was placed inside the pocket. The pocket was then flushed with saline and the port irrigated with saline. There was good blood return and the port flushed easily. Next, heparin was injected into the port. The skin was closed with subcutaneous interrupted 3-0 Vicryl sutures and interrupted skin 3-0 nylon sutures. A single 3-0 Vicryl sutures placed under the skin at the neck incision site. Steri-Strips were placed as well as op sites. Patient tolerated procedure well, was taken to PACU in stable condition. Chest x-ray will be obtained. Grafts/Implants Used: 8 [employer]
--- NOTE | 2018-02-01 10:31 | PCM.DC.POR ---
Discharge Diet: No Restrictions - Pain medication may cause nausea. You should typically eat light foods as you take your pain medication. Discharge Activity: Return to Normal Activity, May Shower - with your bandage in place in 1-2 days after surgery. DO NOT SHOWER WHEN YOUR PORT IS ACCESSED. Call your doctor if your incision/area has: Continuous Slow Oozing, Sudden Increased Bleeding, Increased Pain/ Swelling, Increased Redness Call your doctor if you observe: Fever of 101 or Higher Remove Dressing in (days):: 3 - When you remove the bandage, leave the steri-strips intact until they fall off. Allergies/Adverse Reactions: Allergies Penicillins Allergy (Unknown, Verified 01/28/18 14:43) Unknown states that mother told her she was allergic adhesive tape Adverse Reaction (Severe, Verified 01/28/18 14:43) Unknown tears skin cephalexin Adverse Reaction (Severe, Verified 01/28/18 14:43) Upset Stomach hydrocodone [From Vicodin] Adverse Reaction (Severe, Verified 01/28/18 14:43) Other NUMBNESS TO LIPS oxycodone [From Percocet] Adverse Reaction (Severe, Verified 01/28/18 14:43) Vomiting prednisone Adverse Reaction (Severe, Verified 01/28/18 14:43) Nausea/vomiting Medications to take at Discharge Atenolol [Tenormin] 25 mg PO QHS 10/25/16 Calcium Carbonate/Vitamin D3 [Calcium 600-Vit D3 200 Tablet] 1 ea PO DAILY 10/25/16 Clonazepam [Klonopin] 1 mg PO QHS 10/25/16 Cyclobenzaprine HCl 5 mg PO DAILY 10/25/16 Famotidine [Acid Z [employer]] 10 mg PO DAILY 10/25/16 Fingolimod HCl [Gilenya] 0.5 mg PO DAILY 10/25/16 Gabapentin [Gralise] 600 mg PO DAILY 10/25/16 Lisinopril [Zestril] 10 mg PO DAILY 10/25/16 Multivitamin [Daily Multiple Vitamin] 1 ea PO DAILY 10/25/16 Rosuvastatin Calcium [Crestor] 40 mg PO QHS 10/25/16 Venlafaxine HCl [Venlafaxine HCl ER] 300 mg PO DAILY 10/25/16 Amantadine [Symmetrel] 100 mg PO QHS 11/09/16 Lactobacillus Acidophilus [Acidophilus] 1 ea PO BID 11/09/16 Buspirone HCl 7.5 mg PO BID 02/02/17 traMADol [Ultram] 50 - 100 mg PO Q6H PRN PRN #30 tab 02/14/17 Acetaminophen [Tylenol Tablet] 650 mg PO Q6H PRN PRN tab 04/14/17 Tamoxifen Citrate 20 mg PO DAILY 14 Days #14 tab 07/19/17 Tramadol HCl [Ultram] 50 mg PO 4X/DAY PRN PRN 3 Days #15 tab 09/06/17 Mirtazapine [Remeron] 15 mg PO QHS #30 tab 10/18/17 Primary Care Physician: Sandro Bland DO [Primary Care Provider] - Test Results: Test results from this visit will be discussed in further detail at your follow-up appointment, if applicable. Please Follow Up With: Nagi Carballo MD When: Please call to schedule 2 week follow up appointment. [phone]
[2018-02-01 10:35] VITALS: BP 123/70; BP 124/63; PULSE 74; RESP 16; TEMP 36.5; O2SAT 95
--- NOTE | 2018-02-01 10:35 | RAD_ITS ---
STUDY: X-RAY CHEST REASON FOR EXAM: Female, 57 years old. Port placement. TECHNIQUE: Single AP portable view of the chest. COMPARISON: Comparison is made with prior study dated September 06, 2017. FINDINGS: A right-sided robert catheter as been placed. The tip is at the junction of the superior vena cava and right atrium. Surgical clips are seen in the right and left axilla. There is evidence of elevation and tenting of the right hemidiaphragm. There is evidence of increased markings in the right upper lobe and medial aspect of the right lung base most likely secondary to post radiation fibrosis and/or pneumonitis. Mild increased markings at the left lung base suggestive linear scarring. Normal size heart. Normal mediastinum and jake. Normal visualized pulmonary arteries. Normal visualized aortic arch and descending thoracic aorta. Normal visualized thoracic spine. Normal visualized ribs, clavicles, and shoulders. There is no demonstrated abnormality of the visualized soft tissue structures of the upper abdomen. RAD/CXR for Line Placement IMPRESSION: The tip of the right robert catheter is at the junction of the superior vena cava and right atrium. Elevation and tenting of the right hemidiaphragm with increased markings in the right lung as described most likely secondary to post radiation fibrosis and/or pneumonitis. Electronically Signed: Bhavesh Arechiga MD at 11:04 EDT Tel [phone], Service support ,
[2018-02-01 10:40] VITALS: BP 119/74; BP 124/63; PULSE 72; RESP 16; O2SAT 96
[2018-02-01 10:45] VITALS: BP 124/63; PULSE 72; RESP 16; O2SAT 95
[2018-02-01 10:50] VITALS: BP 116/65; BP 124/63; PULSE 72; RESP 16; TEMP 36.4; O2SAT 96
[2018-02-01 11:36] VITALS: BP 124/63
== END 2018-02-01 11:38 | disposition home or self-care (01) ==
LOC: SDC 08:21 → AC 08:21
PROVIDERS: Family Provider Family Medicine; PCP Family Medicine; Visit Provider Surgery
PROC: (CPT 36561; principal; 2018-02-01 09:55)
DX: Z45.2 Encounter for adjustment and management of vascular access device (principal); C34.90 Malignant neoplasm of unspecified part of unspecified bronchus or lung; G35 Multiple sclerosis; I10 Essential (primary) hypertension; E78.5 Hyperlipidemia, unspecified; F32.9 Major depressive disorder, single episode, unspecified; K21.9 Gastro-esophageal reflux disease without esophagitis; Z87.891 Personal history of nicotine dependence; Z85.3 Personal history of malignant neoplasm of breast
CPT/HCPCS: 36561; 71045; 77001; J7120; C1788; J2405

== ENCOUNTER → 2018-03-26 07:37 | Outpatient (CLI) | payer BC, SELFPAY ==
[2017-04-24 12:37] VITALS: BMI 36.2
--- NOTE | 2018-03-26 07:40 | CT_ITS ---
STUDY: CT CHEST WITH CONTRAST REASON FOR EXAM: Female, 57 years old. Lung cancer for follow-up. History of breast cancer with bilateral mastectomy. RADIATION DOSAGE (If Supplied By Facility): CTDIvol = ( 11.79 ) mGy, DLP = ( 478.21 ) mGycm TECHNIQUE: Transaxial imaging was performed following intravenous administration of 100mL ml of Isovue 300 contrast material. Individualized dose optimization techniques were used for this CT. COMPARISON: January 16, 2017. January 29, 2018. CT abdomen on February 11, 2017. FINDINGS: Small right pleural effusion significantly decreased in size. Significant decrease in size of previously noted right apical mass as well as right suprahilar mass/adenopathy. There is now soft tissue stranding in the right lung apex extending to the anterior pleural surface without a focal mass. Normal heart and pericardium. Otherwise normal mediastinal and jake. Normal enhanced pulmonary arteries. Normal aorta arch and descending thoracic aorta. Stable sclerotic densities within T8 and T9 since December 2016. The patient is status post bilateral mastectomy. Right renal cyst unchanged since January 2017. CT/Chest WITH Contrast IMPRESSION: Significant decrease in size of right apical mass, right suprahilar mass/adenopathy and right pleural effusion. Stable right renal cyst. Stable sclerotic densities within T8 and T9. Electronically Signed: Rolly Matos MD at 1:42 EST , Service support ,
== END ==
PROVIDERS: Family Provider Family Medicine; PCP Family Medicine; Referring Provider Internal Medicine Medical Oncology; Visit Provider Internal Medicine Medical Oncology
DX: C34.11 Malignant neoplasm of upper lobe, right bronchus or lung (principal); Z79.899 Other long term (current) drug therapy
CPT/HCPCS: 71260; Q9967; A4216

== ENCOUNTER → 2018-05-17 07:49 | Outpatient (CLI) | payer BC, SELFPAY ==
[2017-04-24 12:37] VITALS: BMI 36.2
[2018-04-23 09:39] VITALS: BMI 33.7
[2018-05-15 09:33] VITALS: BMI 33.2
--- NOTE | 2018-05-17 07:52 | CT_ITS ---
STUDY: CT CHEST WITH CONTRAST REASON FOR EXAM: Female, 57 years old. Lung cancer. History of breast cancer. RADIATION DOSAGE (If Supplied By Facility): CTDIvol = ( 11.41 ) mGy, DLP = ( 454.83 ) mGycm TECHNIQUE: Transaxial imaging was performed following intravenous administration of 100ml ml of Isovue 300 contrast material. Coronal and sagittal reconstructions were performed. Individualized dose optimization techniques were used for this CT. COMPARISON: 03/26/2018. FINDINGS: Linear scarring in the right medial apical mass site extends into the anterior surface of the right upper lobe. No visible mass. More decrease in right suprahilar adenopathy. Persistent right pleural fluid. No left pleural fluid. Normal heart and pericardium. Normal mediastinum. Normal hilar regions. Normal enhanced pulmonary arteries. Normal aorta arch and descending thoracic aorta. T8 sclerotic bone metastases is unchanged. Cysts in the right kidney are unchanged. CT/Chest WITH Contrast IMPRESSION: 1. Linear scarring of the right medial apical mass extends into the anterior surface of the right upper lobe. 2. More decrease in right posterior suprahilar adenopathy. 3. T8 sclerotic bone metastases is unchanged. 4. Right renal cysts are unchanged. 5. No other additional findings or changes since 03/26/2018. Electronically Signed: Kade Mathias MD at 10:48 EST , Service support ,
== END ==
PROVIDERS: Family Provider Family Medicine; PCP Family Medicine; Referring Provider Internal Medicine Medical Oncology; Visit Provider Internal Medicine Medical Oncology
DX: C34.11 Malignant neoplasm of upper lobe, right bronchus or lung (principal); Z79.899 Other long term (current) drug therapy
CPT/HCPCS: 71260; Q9967; A4216

== ENCOUNTER → 2018-05-24 13:42 | Outpatient (CLI) | payer BC, SELFPAY ==
[2017-04-24 12:37] VITALS: BMI 36.2
[2018-05-22 09:15] VITALS: BMI 33.3
== END ==
LOC: BFHLAB 13:42
PROVIDERS: Family Provider Family Medicine; PCP Family Medicine; Visit Provider Family Medicine
DX: J20.9 Acute bronchitis, unspecified (principal)
CPT/HCPCS: 87070; 87205

== ENCOUNTER → 2018-09-05 07:30 | Outpatient (CLI) | payer BC, SELFPAY ==
[2017-04-24 12:37] VITALS: BMI 36.2
[2018-06-06 11:49] VITALS: BMI 32.2
--- NOTE | 2018-09-05 07:32 | CT_ITS ---
STUDY: CT CHEST WITH CONTRAST REASON FOR EXAM: Female, 58 years old. History of breast cancer and lung cancer. RADIATION DOSAGE (If Supplied By Facility): CTDIvol = ( 12.26 ) mGy, DLP = ( 470.51 ) mGycm TECHNIQUE: Transaxial imaging was performed following intravenous administration of 100 IV Isovue 300. Individualized dose optimization techniques were used for this CT. COMPARISON: PET/CT dated 06/03/2018 FINDINGS: Scar formation within the right upper lung, unchanged. Dependent atelectasis versus scar formation at the left lung base, unchanged. No new confluent airspace opacity. 4 mm noncalcified nodule abutting the posterior right major fissure, unchanged Small right pleural effusion. No pneumothorax. Minimal emphysematous change within the superior segment right lower lobe. Normal heart and pericardium. Normal mediastinum. Normal hilar regions. Normal enhanced pulmonary arteries. No central pulmonary embolism. Normal aorta arch and descending thoracic aorta. Blastic foci within the T8 and T9 vertebral bodies which are unchanged from prior imaging. No evidence of acute rib fracture. Thoracic spine demonstrates mild multilevel degenerative change. Visualized images of the upper abdomen demonstrate diffuse homogeneous hypoattenuation of the liver parenchyma. CT/Chest WITH Contrast IMPRESSION: 1. Scar formation within the right upper lobe and left posterior lung base, unchanged. 2. Small right pleural effusion. 3. Minimal emphysematous change within the superior segment right lower lobe. 4. 4 mm noncalcified nodule abutting the posterior right major fissure, unchanged. 5. Mild fatty infiltration of the liver. Electronically Signed: Jose Watkins MD at 4:38 EDT Tel , Service support ,
[2018-09-05 07:46] LABS: CREATININE FINGERSTICK 0.9 mg/dL (0.55-1.02); EGFR FINGERSTICK > 60.0000 mL/min (>60)
== END ==
PROVIDERS: Family Provider Family Medicine; PCP Family Medicine; Referring Provider Internal Medicine Medical Oncology; Visit Provider Internal Medicine Medical Oncology
DX: C34.11 Malignant neoplasm of upper lobe, right bronchus or lung (principal)
CPT/HCPCS: 71260; Q9967

== ENCOUNTER → 2018-11-28 07:21 | Outpatient (CLI) | payer BC, SELFPAY ==
[2017-04-24 12:37] VITALS: BMI 36.2
[2018-06-06 11:49] VITALS: BMI 32.2
--- NOTE | 2018-11-28 07:23 | CT_ITS ---
STUDY: CT CHEST WITH CONTRAST REASON FOR EXAM: Female, 58 years old. History of lung cancer. Follow-up examination. History of bilateral mastectomy and chemotherapy. RADIATION DOSAGE (If Supplied By Facility): CTDIvol = ( 10.94 ) mGy, DLP = ( 397.88 ) mGycm TECHNIQUE: Transaxial imaging was performed following intravenous administration of 100 Catheter Injection Isovue 300. Multiplanar coronal and sagittal images were reformatted. Individualized dose optimization techniques were used for this CT. COMPARISON: Comparison is made with prior study dated September 05, 2018. FINDINGS: A right-sided portacatheter is seen. Mild irregularity along the inferior aspect of the right lobe of the thyroid gland. Stable mild degree of increased linear markings in the right upper lobe suggestive of postradiation fibrosis. Stable mild degree of the emphysematous changes. Stable small right pleural effusion. Stable mild degree of increasing markings at the left lung base suggestive of scarring. Stable 4 mm noncalcified nodule abutting the lateral aspect of the right major fissure. Normal heart and pericardium. Normal mediastinum. Normal hilar regions. Normal enhanced pulmonary arteries. Normal aorta arch and descending thoracic aorta. There are multi-level degenerative changes of the thoracic spine. Stable focal areas of sclerosis within the T8 and T9 vertebral bodies posteriorly suggestive of metastatic disease. Fatty infiltration of the liver. CT/Chest WITH Contrast IMPRESSION: Stable examination. Electronically Signed: Bhavesh Arechiga, at 10:04 EDT , Service support ,
== END ==
PROVIDERS: Family Provider Family Medicine; PCP Family Medicine; Referring Provider Internal Medicine Medical Oncology; Visit Provider Internal Medicine Medical Oncology
DX: C34.90 Malignant neoplasm of unspecified part of unspecified bronchus or lung (principal); Z01.812 Encounter for preprocedural laboratory examination
CPT/HCPCS: 71260; Q9967; A4216

== ENCOUNTER → 2018-12-20 16:33 | Outpatient (CLI) | payer BC, SELFPAY ==
[2017-04-24 12:37] VITALS: BMI 36.2
[2018-12-20 14:22] VITALS: BMI 34.6
--- NOTE | 2018-12-20 14:45 | LES_PTH ---
PATIENT: PARVIN HARRIS LOC: [facility] U#:[id number] AGE/SX: 64/F ROOM: RE12/20/[address]: Dr. Nagi Carballo MD : 1960 BED: DIS: SPEC #: [id number] RECD: 12/20/18 16:18 STATUS: MERE EDUARDO #: [id number] AKUA: 12/20/18 14:[address]: Nagi Carballo DEPT: SURGICAL PATHOLOGY RECD BY: Albert Gordon ENTERED: 12/23/18 10:21 SP TYPE: Lesion OTHR DR: Dr. Sandro Bland, DO Tissues: Skin of chest Procedures: Surgery Specimen Level III HEADER OPERATION: Excision skin lesion left chest wall PRE-OP DIAGNOSIS: Skin lesion left chest wall; history breast and lung cancer TISSUE SUBMITTED: Skin lesion left chest wall MICROSCOPIC DIAGNOSIS Skin lesion left chest wall, excision: Consistent with epidermal inclusion cyst, fragmented. SJ:luc 12/24/18 MICROSCOPIC DESCRIPTION Slides are reviewed. GROSS DESCRIPTION Received in fixative is one container labeled with the patient's name and designated skin lesion left chest. The specimen consists of multiple fragments of skin and soft tissue that in aggregate measure 2 x 0.5 x 0.2 cm. The entire specimen is submitted in one cassette. / CHATO:luc 12/23/18 TC:5 CPT: 54335
== END ==
PROVIDERS: Family Provider Family Medicine; PCP Family Medicine; Referring Provider Surgery; Visit Provider Surgery
DX: L72.0 Epidermal cyst (principal)
CPT/HCPCS: 88304; 88305

== ENCOUNTER → 2019-03-24 07:22 | Outpatient (CLI) | payer BC, SELFPAY ==
[2017-04-24 12:37] VITALS: BMI 36.2
[2018-12-02 08:48] VITALS: BMI 34.6
[2018-12-20 14:22] VITALS: BMI 34.6
--- NOTE | 2019-03-24 07:23 | CT_ITS ---
STUDY: CT CHEST WITH CONTRAST REASON FOR EXAM: Female, 58 years old. The patient has a history of non-small cell lung cancer. Follow-up examination. RADIATION DOSAGE (If Supplied By Facility): CTDIvol = ( 14.57 ) mGy, DLP = ( 1251.54 ) mGycm TECHNIQUE: Transaxial imaging was performed following intravenous administration of IV 100mL Isovue-300 100. Multiplanar coronal and sagittal images were reformatted. Individualized dose optimization techniques were used for this CT. COMPARISON: Comparison is made with prior study dated November 28, 2018. FINDINGS: Surgical clips are seen in the axillary regions bilaterally. Small bilateral axillary lymph nodes. Mild degree of volume loss in the right upper lobe with mild increased markings suggestive of post radiation fibrosis and bronchiectasis more prominent in the medial right suprahilar region. Stable 4 mm noncalcified nodule along the lateral aspect of the right major fissure. Tiny right pleural effusion. Normal heart and pericardium. Normal mediastinum. Normal hilar regions. Normal enhanced pulmonary arteries. Normal aorta arch and descending thoracic aorta. There are multi-level degenerative changes of the thoracic spine. Stable focal area of sclerosis within the T8 and T9 vertebral bodies. Diffuse fatty infiltration of the liver. CT/Chest WITH Contrast IMPRESSION: Stable examination. Electronically Signed: Bhavesh Arechiga, at 12:49 EST , Service support ,
--- NOTE | 2019-03-24 07:23 | CT_ITS ---
STUDY: CT ABDOMEN WITH CONTRAST REASON FOR EXAM: Female, 58 years old. The patient has a history of non-small cell lung cancer. RADIATION DOSAGE (If Supplied By Facility): CTDIvol = ( 14.57 ) mGy, DLP = ( 1251.54 ) mGycm TECHNIQUE: Transaxial images were obtained post I.V. administration of IV 100mL Isovue-300 100, and without oral contrast. Sagittal and coronal images were reconstructed. Individualized dose optimization techniques were used for this CT. COMPARISON: Comparison is made with prior examination dated 07/03/2017. FINDINGS: Tiny right pleural effusion. Minimal increased markings at the lung bases suggestive of scarring. The visualized portions of the heart are within normal limits. There is decreased attenuation of the liver consistent with steatosis. Normal gallbladder and extrahepatic biliary system. Normal spleen. Normal pancreas. Normal bilateral adrenal glands. There is a 1.3 cm cyst in the anterior aspect of the mid kidney. This also evidence of a 1.9 cm cyst in the posterior upper aspect of the right kidney. Stable 4 mm nonobstructive calculus in the mid lower pole calyx of the right kidney. Stable left renal cyst. Normal visualized stomach. Normal small intestine. Normal colon. There is non-visualization of the appendix. There is scattered atherosclerotic calcification of the abdominal aorta, without a demonstrated aneurysm. Normal inferior vena cava. There is borderline retroperitoneal lymphadenopathy with enlarged nodes no greater than 10mm in the short axis diameter. Prior cholecystectomy. Surgical clips are seen along the anterior abdominal wall to the right of midline most likely representing prior hernia repair with a mesh. There are diffuse degenerative changes of the visualized lumbar spine. CT/Abdomen WITH IV Contrast IMPRESSION: Stable bilateral renal cysts. Fatty infiltration of the liver. Stable examination. Electronically Signed: Bhavesh Arechiga, at 12:54 EST , Service support ,
[2019-03-24 07:40] LABS: CREATININE FINGERSTICK 0.8 mg/dL (0.55-1.02)
== END ==
PROVIDERS: Family Provider Family Medicine; PCP Family Medicine; Referring Provider Internal Medicine Medical Oncology; Visit Provider Internal Medicine Medical Oncology
DX: C34.90 Malignant neoplasm of unspecified part of unspecified bronchus or lung (principal); C50.919 Malignant neoplasm of unspecified site of unspecified female breast
CPT/HCPCS: 71260; 74160; Q9965

== ENCOUNTER → 2019-05-22 16:25 | Outpatient (CLI) | payer BC, SELFPAY ==
[2017-04-24 12:37] VITALS: BMI 36.2
[2019-03-27 10:09] VITALS: BMI 34.4
== END ==
LOC: BFHLAB 16:25
PROVIDERS: Family Provider Family Medicine; PCP Family Medicine; Visit Provider Family Medicine
DX: N30.00 Acute cystitis without hematuria (principal)
CPT/HCPCS: 87086; 87088; 87186

== ENCOUNTER → 2019-05-29 16:22 | Outpatient (CLI) | payer BC, SELFPAY ==
[2017-04-24 12:37] VITALS: BMI 36.2
[2019-03-27 10:09] VITALS: BMI 34.4
--- NOTE | 2019-05-29 16:26 | MRI_ITS ---
STUDY: MRI BRAIN WITH AND WITHOUT CONTRAST REASON FOR EXAM: Female, 58 years old. f/u ms TECHNIQUE: Standardized multiplanar fat and water weighted pulse sequences were obtained. IV 17 CC DOTAREM was administered for the contrast portion of the examination. COMPARISON: July 28, 2016 FINDINGS: Normal size of the ventricles and extra-axial spaces for the patient''s age. Multiple small nonspecific bilateral periventricular white matter ischemic lesions without mass effect or restricted diffusion which may be consistent with clinical history of multiple sclerosis however cannot exclude coexisting deep white matter ischemic changes in patient of this age.. There are abnormal signal changes seen within the anne likely representing chronic ischemic disease. Normal bilateral basal ganglia. Normal thalami. There is no extra-axial fluid accumulation. Normal flow voids within the major intracranial circulation suggesting patency by spin echo criteria. Normal venous enhancement. There is no enhancing intra-axial or extra-axial abnormality. Normal sella turcica, pituitary gland, infundibular stalk, optic chiasm and hypothalamus. Normal tectal plate and pineal gland. Normal midbrain, and medulla. Normal cerebellum. Normal basal cisterns. Normal bilateral temporal bones. Normal bilateral internal auditory canals. No demonstrated orbital abnormality, within the constraints of a routine brain study. Severe mucosal thickening of the right maxillary sinus and to lesser extent the left maxillary antrum. There is moderate mucosal thickening of the anterior and mid ethmoid air cells. There is mild mucosal thickening in the right posterior sphenoid and ethmoid sinuses.. Normal calvarium and skull base. Normal visualized soft tissue structures. Normal visualized upper cervical spine. No enhancing lesions to suggest presence of active demyelination No significant change since prior exam MRI/Brain W/WO Contrast IMPRESSION: Findings which may be consistent with clinical history of multiple sclerosis although cannot definitively exclude coexisting deep white matter ischemic changes.. Findings are stable since prior exam and there is no evidence for active demyelination at this time Electronically Signed: Christopher Jacobo MD at 18:05 EST , Service support ,
== END ==
PROVIDERS: Family Provider Family Medicine; PCP Family Medicine; Referring Provider Family Medicine; Visit Provider Family Medicine
DX: G35 Multiple sclerosis (principal)
CPT/HCPCS: 70553; A9575

== ENCOUNTER → 2019-07-28 07:58 | Outpatient (CLI) | payer BC, SELFPAY ==
[2017-04-24 12:37] VITALS: BMI 36.2
[2019-03-27 10:09] VITALS: BMI 34.4
[2019-06-17 15:13] VITALS: BMI 34.4
--- NOTE | 2019-07-28 08:00 | CT_ITS ---
STUDY: CT CHEST/THORAX WITH CONTRAST REASON FOR EXAM: Female, 58 years old. BREAST/LUNG CANCER, hysterectomy, appendectomy, bilateral mastectomy and lymph node removal RADIATION DOSAGE (If Supplied By Facility): CTDIvol = ( 11.70 ) mGy, DLP = ( 1186.75 ) mGycm TECHNIQUE: Transaxial imaging was performed following intravenous administration of IV and amp;amp; 100mL Isovue-300. Multiplanar coronal and sagittal images were reformatted. Individualized dose optimization techniques were used for this CT. COMPARISON: CT chest with IV contrast September 05, 2018 FINDINGS: Mild deformity of the anterior chest wall tissues, more prominent on the left, consistent with prior mastectomy. Clusters of surgical clips are also again noted in the bilateral axillary regions. Again seen is a suture line in the medial right suprahilar region with anteromedial right upper lobe scarring. There are stable emphysematous changes in the superior segment of the right upper lobe. Curvilinear subsegmental atelectasis now present in the left base. There is no demonstrated pleural abnormality. Normal heart and pericardium. Normal mediastinum. Normal hilar regions. Normal enhanced pulmonary arteries. There is stable mild atherosclerotic calcification of the posterior aortic arch. No demonstrated aortic aneurysm or dissection.. There are stable degenerative changes of the thoracic spine with multilevel bridging or near bridging spondylotic endplate osteophytes. Stable, irregular shape sclerotic density in the posterior aspect of the T8 vertebra. Liver density is difficult to accurately assessed after IV contrast, but there is question of fatty infiltration. CT/Chest WITH Contrast IMPRESSION: 1. Right suprahilar/upper lobe postsurgical changes again noted. There is no sign of recurrent mass or metastatic disease. 2. There is subsegmental atelectasis now in the left lung base. Stable emphysematous changes in the superior segment of the right lower lobe. 3. Stable sclerotic density in the posterior aspect of the T8 vertebra. Multilevel degenerative changes of the spine also again noted. 4. Stable deformities of the anterior chest wall consistent with prior mastectomies. 5. Probable fatty infiltration of liver. Electronically Signed: Dave Espinal MD at 14:35 EDT , Service support ,
--- NOTE | 2019-07-28 08:00 | CT_ITS ---
STUDY: CT ABDOMEN WITH CONTRAST REASON FOR EXAM: Female, 58 years old. BREAST/LUNG CA, hysterectomy, appendectomy, bilateral mastectomy and lymph node removal RADIATION DOSAGE (If Supplied By Facility): CTDIvol = ( 11.70 ) mGy, DLP = ( 1186.75 ) mGycm TECHNIQUE: Transaxial images were obtained post I.V. administration of IV and 100mL Isovue-300, and without oral contrast. Sagittal and coronal images were reconstructed. Individualized dose optimization techniques were used for this CT. COMPARISON: PET CT June 03, 2018 FINDINGS: There is curvilinear subsegmental atelectasis in the basilar left lower lobe. Mild elevation of right diaphragm unchanged. The visualized portions of the heart are within normal limits. Although liver density is difficult to accurately assess post-IV contrast, there is strong suggestion of stable fatty infiltration, and minor sparing along the gallbladder fossa. No acute focal hepatic lesion. The patent portal vein diameter is 10 mm. Normal gallbladder and extrahepatic biliary system. Normal spleen. Normal pancreas. Normal bilateral adrenal glands. Rounded 11 mm hypodense cortical cyst in the anterior upper to mid pole of the right kidney and a 1.55 x 1.2 x 1.3 cm cortical cyst in the posterior upper to mid pole are better defined in this study with IV contrast. Normal left kidney. No hydronephrosis. Normal visualized stomach. Normal small intestine. Normal colon. There is non-visualization of the appendix. There is stable atherosclerotic calcification of the abdominal aorta and proximal iliac arteries, without a demonstrated aneurysm. Normal inferior vena cava. There are a few nonspecific periaortic lymph nodes of the retroperitoneum. Normal abdominal wall. There are minimal degenerative changes of the visualized lumbar spine. Osteophytic degenerative changes are seen again in the lower thoracic spine, and there are stable sclerotic lesions in the T8 and T9 vertebrae. CT/Abdomen WITH IV Contrast IMPRESSION: 1. No CT findings of intra-abdominal metastatic disease. 2. Probable fatty infiltration of liver, grossly unchanged. 3. Cortical cyst near the mid pole of the right kidney are better seen here with IV contrast. No hydronephrosis. 4. Stable aorta iliac atherosclerotic calcific plaquing. No demonstrated aneurysm. 5. Curvilinear subsegmental atelectasis in the left lung base. 6. Stable degenerative changes of the spine, as well as sclerotic areas in the T8 and T9 vertebrae. Electronically Signed: Dave Espinal MD at 14:40 EDT , Service support ,
== END ==
LOC: CT 08:00
PROVIDERS: Family Provider Family Medicine; PCP Family Medicine; Referring Provider Internal Medicine Medical Oncology; Visit Provider Internal Medicine Medical Oncology
DX: C34.11 Malignant neoplasm of upper lobe, right bronchus or lung (principal); C50.911 Malignant neoplasm of unspecified site of right female breast; C50.912 Malignant neoplasm of unspecified site of left female breast
CPT/HCPCS: 71260; 74160; Q9967

== ENCOUNTER 2019-09-30 05:59 | Day surgery (SDC) | payer BC, SELFPAY ==
[2017-04-24 12:37] VITALS: BMI 36.2
[2019-07-31 10:24] VITALS: BMI 34.6
--- NOTE | 2019-09-30 | IMM_PTH ---
PATIENT: PARVIN HARRIS LOC: [facility] – [place] U#:[id number] AGE/SX: 59/F ROOM: RE09/30/[address]: Dr. Eden Boothe MD : 1960 BED: DIS: 09/30/2019 SPEC #: [id number] RECD: 10/01/19 11:41 STATUS: MERE REQ #: [id number] AKUA: 09/30/19 00:[address]: Eden Boothe DEPT: IMMUNOHISTOCHEMISTRY RECD BY: Ning Valerio ENTERED: 10/01/19 11:42 SP TYPE: IMMUNO OTHR DR: Dr. Sandro Bland, DO Tissues: Vagina, NOS Procedures: p16 (initial) KI-67 (add) PHYSICIAN & INSTITUTION [facility] [id number] SPECIMEN INFORMATION: Tissue Source: Vaginal mass biopsy Clinical Info: Postmenopausal bleeding; vaginal mass Specimen Number: [id number] CPT code: 77300, 49798 METHODOLOGY: Deparaffinized sections of prefer/formalin-fixed tissue or PAP/DQ stained slides are incubated with monoclonal/polyclonal antibodies/oligonucleotide probes. Localization is made via biotin free immunoperoxidase method. Appropriate controls are performed and reacted as expected. Results on target cell population are indicated in the following table: RESULTS: ANTIBODY / CLONE RESULT P16 (E6H4) positive, block staining Ki-67 (30-9) positive, moderate to high These tests were developed and their performance characteristics determined by [facility]. They may not have been cleared or approved by the U.[place]. Food and Drug Administration. The FDA has determined that such clearance or approval is not necessary. The above immunohistochemical/dualISH markers are ordered and reviewed by the Pathologist. INTERPRETATION: Vaginal mass, biopsy: Mild, moderate and severe squamous dysplasia. CHATO:luc 10/02/19
--- NOTE | 2019-09-30 | VAGW_PTH ---
PATIENT: PARVIN HARRIS LOC: [facility] – [place] U#:[id number] AGE/SX: 59/F ROOM: RE09/30/[address]: Dr. Eden Boothe MD : 1960 BED: DIS: 09/30/2019 SPEC #: [id number] RECD: 09/30/19 12:31 STATUS: MERE REKishan #: [id number] AKUA: 09/30/19 00:[address]: Eden Boothe DEPT: SURGICAL PATHOLOGY RECD BY: Jose Nguyen ENTERED: 09/30/19 12:32 SP TYPE: VAG WALL OTHR DR: Dr. 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 Negative for invasive malignancy. See comment. CHATO:luc 10/01/19 COMMENT Immunohistochemistry ([id number]) for surrogate HPV marker (p16) supports the above diagnosis. If there is a residual lesion is present, complete excision of the lesion is suggested if clinically indicated. Case has been reviewed in consultation with Dr. Brownlee who concurs with the above diagnosis. IDC:AM MICROSCOPIC DESCRIPTION Slides are reviewed. GROSS DESCRIPTION Received in fixative is one container labeled with the patient's name and designated vaginal mass biopsy. The specimen consists of a piece of reed mucosal tissue measuring 0.7 x 0.5 x 0.2 cm. The entire specimen is submitted in one cassette. / CHATO:luc 09/30/19 TC:5 CPT: 65902
[2019-09-30 06:35] VITALS: BP 129/60; PULSE 65; RESP 14; TEMP 35.9; O2SAT 96; BMI 34.7
[2019-09-30 06:55] LABS: Bedside Glucose 127 mg/dL (70-110)
[2019-09-30] MEDS: Ciprofloxacin 400 MG/200 ML BAG 200 MG IV (07:08)
[2019-09-30] MEDS: Lactated Ringers 1,000 ML 100 ML IV (07:08)
--- NOTE | 2019-09-30 07:30 | PCM.HP.STD ---
Problem List (1) Post-menopausal bleeding Status: Acute (2) Dyspareunia due to medical condition in female Status: Acute Comment: refer PFPT (3) Vaginal mass Status: Acute History of Present Illness Date of Admission: 09/30/19 Chief Complaint: Dyspareunia, post-menopausal bleeding, vaginal mass The patient is a 59 year old F seen in the office for evaluation of bleeding, dyspareunia. She was found to have a vaginal mass on pelvic exam along with bleeding secondary to perineal skin being tight at the area of the perineal body. She also had significant scar tissue in the rectovaginal fascia specifically on her right side causing obstruction during intercourse with pain. She has a history of breast cancer and is on tamoxifen and we are unable to use vaginal estrogen. We discussed the risks of surgical intervention including the risks of COVID-19. Her was present for the discussion. They decided to proceed with surgical intervention. Past Medical History Past Medical History (Chronic Problems): Chronic Problems (Last Reviewed 09/30/19 @ 07:[address] Eden Boothe MD) Pleural effusion (Chronic) History of bilateral breast cancer (Chronic) Lung cancer (Chronic) Postcoital bleeding (Chronic) atrophy discussed kamlesh linda touch Lung nodules (Chronic) Breast cancer, right (Chronic) Cancer of left breast (Chronic) Anemia (Chronic) Depression (Chronic) HLD (hyperlipidemia) (Chronic) HTN (hypertension) (Chronic) Multiple sclerosis (Chronic) Breast cancer (Chronic) bilateral Medical History: Medical History (Last Reviewed 09/30/19 @ 07:[address] Eden Boothe MD) Adjustment disorder (Acute) F43.20 Lung cancer (Chronic) C34.90 Postcoital bleeding (Chronic) N93.0 atrophy discussed kamlesh linda touch Drug induced neutropenia (Resolved) D70.2 Educational circumstance (Inactive) Z55.9 Encounter for adjustment or management of vascular access device (Inactive) Z45.2 Breast cancer, right (Resolved) C50.911 Lung nodules (Chronic) Breast cancer, right (Chronic) C50.911 Cancer of left breast (Chronic) C50.912 Anemia (Chronic) D64.9 Colitis (Acute) K52.9 Depression (Chronic) F32.9 HLD (hyperlipidemia) (Chronic) E78.5 HTN (hypertension) (Chronic) I10 Multiple sclerosis (Chronic) G35 Breast cancer (Chronic) C50.919 bilateral Breast cancer C50.919 Chicken pox B01.9 GERD (gastroesophageal reflux disease) K21.9 Headaches History of stomach ulcers Z87.19 Allergies Penicillins Allergy (Unknown, Verified 09/30/19 06:35) Unknown states that mother told her she was allergic adhesive tape Adverse Reaction (Severe, Verified 09/30/19 06:35) Unknown tears skin cephalexin Adverse Reaction (Severe, Verified 09/30/19 06:35) Upset Stomach hydrocodone [From Vicodin] Adverse Reaction (Severe, Verified 09/30/19 06:35) Other NUMBNESS TO LIPS oxycodone [From Percocet] Adverse Reaction (Severe, Verified 09/30/19 06:35) Vomiting prednisone Adverse Reaction (Severe, Verified 09/30/19 06:35) Nausea/vomiting Home Medications: Ambulatory Orders Medication Instructions Recorded Atenolol [Tenormin] 25 mg PO QHS 10/25/16 Calcium Carbonate/Vitamin D3 1 ea PO DAILY 10/25/16 [Calcium 600-Vit D3 200 Tablet] Clonazepam [Klonopin] 1 mg PO QHS 10/25/16 Cyclobenzaprine HCl 5 mg PO QHS 10/25/16 Famotidine [Acid Overlock Collar Setter] 10 mg PO DAILY 10/25/16 Fingolimod HCl [Gilenya] 0.5 mg PO DAILY 10/25/16 Gabapentin [Gralise] 600 mg PO QHS 10/25/16 Lisinopril [Zestril] 10 mg PO DAILY 10/25/16 Multivitamin [Daily Multiple 1 ea PO DAILY 10/25/16 Vitamin] Rosuvastatin Calcium [Crestor] 40 mg PO QHS 10/25/16 Venlafaxine HCl [Venlafaxine HCl 300 mg PO DAILY 10/25/16 ER] Amantadine [Symmetrel] 100 mg PO QHS 11/09/16 Lactobacillus Acidophilus 1 ea PO BID 11/09/16 [Acidophilus] Buspirone HCl 7.5 mg PO BID 02/02/17 Acetaminophen [Tylenol Tablet] 650 mg PO Q6H PRN PRN tab 04/14/17 Albuterol IH (ProAir) 2 puff INHALATION PRN PRN 03/12/18 Sitagliptin Phosphate [Januvia] 100 mg PO DAILY 09/29/19 Tamoxifen Citrate 20 mg PO QHS 09/29/19 Surgical History: Surgical History (Last Reviewed 07/31/19 @ 10:27 by Marion Carrillo) History of appendectomy Z98.890, Z90.49 History of bilateral mastectomy Z98.890, Z90.13 History of section Z98.891 History of hysterectomy Z98.890, Z90.710 History of lumpectomy Z98.890 History of right breast biopsy Z98.890 laparoscopic salpingectomy oophorectomy with cytologic washi Smoking Status: Former smoker - *Family History Sibling Family History: Family History (Last Reviewed 07/31/19 @ 10:27 by Marion Carrillo) Mother Kidney disease Hypertension Hyperlipidemia Heart disease Diabetes Depression Arthritis History Items: Cancer Maternal Family History: Family History (Last Reviewed 07/31/19 @ 10:27 by Marion Carrillo) Mother Kidney disease Hypertension Hyperlipidemia Heart disease Diabetes Depression Arthritis History Items: Heart Disease Review of Systems Constitutional: Denies: Anorexia, Chills, Fever, Weakness Eyes: Denies: Vision Change HEENT: Denies: Difficulty Hearing, Difficulty Swallowing Cardiovascular: Denies: Chest Pain, Chest Pressure, Chest Tightness Respiratory: Denies: Cough, Shortness of Breath Gastrointestinal: Denies: Abdominal Pain, Nausea, Vomiting Genitourinary: Reports: Incontinence, Urgency. Denies: Dysuria Gynecological: Reports: Sexual concerns, Vaginal bleeding Musculoskeletal: Denies: Muscle pain Skin: Denies: Wounds Neurological: Denies: Balance problems, Difficulty swallowing Hematologic/ Lymphatic: Denies: Petechiae VTE Information - Inpt Only VTE Present on Admission: Yes VTE Mechan Device Prophylaxis: SCD's VTE Pharm Prophylaxis ordered?: Yes Reason prophylaxis not ordered:: Treatment Not Indicated Patient Problems: Active and Suspected Problems (Last Reviewed 09/30/19 @ 07:[address] Eden Boothe MD) Post-menopausal bleeding (Acute) Vaginal mass (Acute) - Physical Exam Vitals/I&O's: Vital Signs Temp Pulse Resp BP Pulse Ox 96.7 F L 65 14 129/60 H 96 09/30/19 06:35 09/30/19 06:35 09/30/19 06:35 09/30/19 06:35 09/30/19 06:35 Oxygen Delivery Method Room Air Weight: 83.4 kg Body Mass Index (BMI) 34.7 General: Alert, Oriented x3, Cooperative HEENT: Atraumatic, Normocephalic Oral: Moist Mucosa Neck: Supple, Trachea Midline Lungs: Clear to auscultation, Normal air movement Cardiovascular: Regular rate, Regular Rhythm Abdomen: Soft, Non Tender, Non-Distended Extremities: No Calf Tenderness Skin: No rashes Musculoskeletal: No Muscle Wasting Neurological: Cranial nerves II-XII grossly intact Psych/Mental Status: Normal Affect Laboratory Results 09/30/19 06:43: POC Glucose 127 H Current Medications Ciprofloxacin (Cipro) 400 mg in 200 mls @ 200 mls/hr IV PREOP ONE Stop: 09/30/19 08:29 Last Admin: 09/30/19 07:08 Dose: 200 mls/hr Documented by: Lactated Ringer's () 1,000 mls @ 100 mls/hr IV .Q10H MARIA ELENA Last Admin: 09/30/19 07:08 Dose: 100 mls/hr Documented by: Assessment/Plan All Active Problems (Last Reviewed 09/30/19 @ 07:[address] Eden Boothe MD) Post-menopausal bleeding (Acute) Vaginal mass (Acute) Urge and stress incontinence (Acute) Dyspareunia due to medical condition in female (Acute) Chemotherapy management, encounter for (Acute) Neutropenia (Acute) Adjustment disorder (Acute) Drug induced neutropenia (Resolved) Breast cancer, right (Resolved) Colitis (Acute) excisional biopsy vaginal mass, perineoplasty Essential Procedure Criteria Procedure Essential: Yes Criteria Note: On 08/05/2019 the [place] Department of [facility] ([facility]) Public Order signed by [facility] Director Martine Hudson M.D., regarding the Management of Non-Essential Surgeries and Procedures for the purpose of preserving Personal Protective Equipment (PPE) and critical hospital capacity and resources within [place] went into effect as of 08/06/2019 at 5:00PM. According to the [facility] Public Order: This action will remain in full force and effect until the State of Emergency declared by the Governor no longer exists or the Director of the [facility] rescinds or modifies this Order.. This [facility] order stated all non-essential or elective surgeries and procedures that utilize PPE should be delayed unless there is undue risk to the current or future health of a patient. After reviewing the aforementioned [facility] Public Order and the patients clinical case, I have determined that the scheduled procedure meets the criteria to go forward. Risk to Patient if Procedure Delayed: Risk of metastasis or progression of staging if delayed - vaginal mass with bleeding
[2019-09-30] MEDS: Lubricating Jelly 60 GM Tube 30 GM TOPICAL (08:15)
[2019-09-30 08:45] VITALS: BP 129/60; BP 132/88; PULSE 87; RESP 16; TEMP 36.4; O2SAT 95
--- NOTE | 2019-09-30 08:59 | OP.PCM_ITS ---
Problem List (1) Post-menopausal bleeding Status: Acute (2) Dyspareunia due to medical condition in female Status: Acute Comment: refer PFPT (3) Vaginal mass Status: Acute Report of Operation Date of Procedure: 09/30/19 Pre-Operative Diagnosis: vaginal mass, dyspareunia and post-menopausal bleeding Post-Operative Diagnosis: same Surgery/Procedure Performed:: excisional biopsy vaginal mass, perineoplasty Type of Anesthesia:: General Specimen's removed: vaginal mass Estimated Blood Loss (mL): 25cc Description of Procedure: The patient is a 59-year-old female with a history of breast cancer on tamox ifen. She developed significant dyspareunia with vaginal bleeding and on exam was found to have an approximately 7 to 8 mm vaginal mucosal mass at the introitus. She also had significant scar tissue posteriorly approximately 2 cm apical to the hymenal ring, and bleeding and tearing at the perineal skin even with just a speculum exam. Her discussing the risks benefits and alternatives with the patient and her , we agreed to proceed with surgical intervention with biopsy and perineoplasty. The risks of COVID-19 were also discussed and they decided to proceed. The patient was taken to the operating room and placed on the operating room table. Anesthesia monitored the head, neck, airway, IV access, and vital signs throughout the case. Once anesthesia was appropriately administered the patient was placed into dorsal lithotomy position and was prepped and draped in usual sterile fashion. The vaginal mucosa was injected in the sub-mucosal region with lidocaine. A full-thickness vaginal excisional biopsy was then performed of the approximately 1 cm mucosal mass. The perineal skin was opened and closed using the Heineke-Mikulicz's maneuver and 4-0 chromic suture. The same technique was performed on the patient's scar tissue in the rectovaginal fascia. Care was taken during dissection to avoid entry into the rectum. The fascia and vaginal mucosa here were closed with 2-0 Vicryl. At the conclusion of the case there was no longer any obstruction from scar tissue palpable. The patient was then awakened and taken to the recovery room in good condition. There were no complications during the procedure. Grafts/Implants Used: none - Complications none - Admit VTE Documentation VTE Present on Admission: Yes VTE Mechan Device Prophylaxis: SCD's VTE Pharm Prophylaxis ordered?: No Reason prophylaxis not ordered:: Treatment Not Indicated
[2019-09-30 09:00] VITALS: BP 110/59; BP 129/60; PULSE 79; RESP 16; O2SAT 94
[2019-09-30 09:15] VITALS: BP 113/60; BP 129/60; PULSE 82; RESP 18; O2SAT 94
--- NOTE | 2019-09-30 09:20 | DCINST_ITS ---
Discharge Diet: No Restrictions Discharge Activity: May not drive while taking narcotic pain medications. Call your doctor if your incision/area has: Continuous Slow Oozing, Sudden Increased Bleeding, Increased Pain/ Swelling, Foul Smelling Discharge Call your doctor if you observe: Fever of 101 or Higher, Inability to urinate, Inability to have a bowel movement, Uncontrolled pain Allergies/Adverse Reactions: Allergies Penicillins Allergy (Unknown, Verified 09/30/19 06:35) Unknown states that mother told her she was allergic adhesive tape Adverse Reaction (Severe, Verified 09/30/19 06:35) Unknown tears skin cephalexin Adverse Reaction (Severe, Verified 09/30/19 06:35) Upset Stomach hydrocodone [From Vicodin] Adverse Reaction (Severe, Verified 09/30/19 06:35) Other NUMBNESS TO LIPS oxycodone [From Percocet] Adverse Reaction (Severe, Verified 09/30/19 06:35) Vomiting prednisone Adverse Reaction (Severe, Verified 09/30/19 06:35) Nausea/vomiting Medications to take at Discharge RX: Atenolol [Tenormin] 25 mg PO QHS 10/25/16 RX: Calcium Carbonate/Vitamin D3 [Calcium 600-Vit D3 200 Tablet] 1 ea PO DAILY 10/25/16 RX: Clonazepam [Klonopin] 1 mg PO QHS 10/25/16 RX: Cyclobenzaprine HCl 5 mg PO QHS 10/25/16 RX: Famotidine [Acid Batter Scaler] 10 mg PO DAILY 10/25/16 RX: Fingolimod HCl [Gilenya] 0.5 mg PO DAILY 10/25/16 RX: Gabapentin [Gralise] 600 mg PO QHS 10/25/16 RX: Lisinopril [Zestril] 10 mg PO DAILY 10/25/16 RX: Multivitamin [Daily Multiple Vitamin] 1 ea PO DAILY 10/25/16 RX: Rosuvastatin Calcium [Crestor] 40 mg PO QHS 10/25/16 RX: Venlafaxine HCl [Venlafaxine HCl ER] 300 mg PO DAILY 10/25/16 RX: Amantadine [Symmetrel] 100 mg PO QHS 11/09/16 RX: Lactobacillus Acidophilus [Acidophilus] 1 ea PO BID 11/09/16 RX: Buspirone HCl 7.5 mg PO BID 02/02/17 RX: Acetaminophen [Tylenol Tablet] 650 mg PO Q6H PRN PRN tab 04/14/17 Albuterol IH (ProAir) 2 puff INHALATION PRN PRN 03/12/18 RX: Sitagliptin Phosphate [Januvia] 100 mg PO DAILY 09/29/19 RX: Tamoxifen Citrate 20 mg PO QHS 09/29/19 RX: Lidocaine 2% Jelly [Xylocaine 2% Jelly] 5 ml OPERA.SITE TID 5 Days tube 09/30/19 RX: traMADol [Ultram] 50 mg PO Q4H PRN PRN 7 Days #20 tablet 09/30/19 The following prescriptions were given: RX: traMADol [Ultram] 50 mg PO Q4H PRN PRN 7 Days #20 tablet PRN Reason: Pain Or Fever Transmission Status: Sent to [facility] RX: Lidocaine 2% Jelly [Xylocaine 2% Jelly] 5 ml OPERA.SITE TID 5 Days tube Primary Care Physician: Sandro Bland DO [Primary Care Provider] - Test Results: Test results from this visit will be discussed in further detail at your follow- up appointment, if applicable. Please Follow Up With: Eden Boothe MD When: 1 week telemed visit, call for appt Proposed Discharge Date: 09/30/19
[2019-09-30 09:28] VITALS: BP 122/66; BP 129/60; PULSE 77; RESP 18; TEMP 36.6; O2SAT 96
[2019-09-30 10:52] VITALS: BP 118/74; BP 129/60; PULSE 84; RESP 18; TEMP 36.3; O2SAT 96
== END 2019-09-30 10:55 | disposition home or self-care (01) ==
LOC: SDC 05:59 → AC 06:00
PROVIDERS: PCP Family Medicine; Referring Provider Family Medicine; Visit Provider Urology
PROC: (CPT 57260; principal; 2019-09-30 07:15)
DX: N89.9 Noninflammatory disorder of vagina, unspecified (principal); N95.0 Postmenopausal bleeding; N94.10 Unspecified dyspareunia; Z85.3 Personal history of malignant neoplasm of breast; F32.9 Major depressive disorder, single episode, unspecified; E78.5 Hyperlipidemia, unspecified; I10 Essential (primary) hypertension; G35 Multiple sclerosis; Z79.810 Long term (current) use of selective estrogen receptor modulators (SERMs); Z82.49 Family history of ischemic heart disease and other diseases of the circulatory system; Z85.118 Personal history of other malignant neoplasm of bronchus and lung; Z87.891 Personal history of nicotine dependence; Z88.0 Allergy status to penicillin; Z88.1 Allergy status to other antibiotic agents; Z88.5 Allergy status to narcotic agent; Z90.13 Acquired absence of bilateral breasts and nipples; Z90.710 Acquired absence of both cervix and uterus; K21.9 Gastro-esophageal reflux disease without esophagitis
CPT/HCPCS: 00400; 56810; 57105; 82962; 88305; 88341; 88342; J7120; J0744; J2405

== ENCOUNTER → 2020-02-02 08:11 | Outpatient (CLI) | payer BC, SELFPAY ==
[2017-04-24 12:37] VITALS: BMI 36.2
[2019-07-31 10:24] VITALS: BMI 34.6
--- NOTE | 2020-02-02 08:30 | CT_ITS ---
STUDY: CT CHEST WITH CONTRAST REASON FOR EXAM: Female, 59 years old. FOLLOW UP. HX OF LUNG CA AND BREAST CA. HTN RADIATION DOSAGE (If Supplied By Facility): CTDIvol = ( 13.78 ) mGy, DLP = ( 873.23 ) mGycm TECHNIQUE: Transaxial imaging was performed following intravenous administration of IV 100mL Isovue-300. Multiplanar coronal and sagittal images were reformatted. Individualized dose optimization techniques were used for this CT. COMPARISON: Comparison is made with prior study of 07/28/2019. FINDINGS: The patient is status post bilateral mastectomy. Stable linear scarring in the right upper lobe and suprahilar region of the right lung. This is in keeping with prior surgery. Stable mild increased markings at the lung bases suggestive of scarring. There is no demonstrated pleural abnormality. Normal heart and pericardium. Normal mediastinum. Normal hilar regions. Normal enhanced pulmonary arteries. Normal aorta arch and descending thoracic aorta. There are multi-level degenerative changes of the thoracic spine. Stable focal sclerotic density in the posterior aspect of the T8 vertebrae. Diffuse fatty infiltration of the liver. CT/Chest WITH Contrast IMPRESSION: Stable examination. Electronically Signed: Bhavesh Arechiga, at 13:03 EDT , Service support ,
--- NOTE | 2020-02-02 08:30 | CT_ITS ---
STUDY: CT ABDOMEN WITH CONTRAST REASON FOR EXAM: Female, 59 years old. FOLLOW UP. HX OF LUNG AND BREAST CA. HX OF HTN GERD AND STOMACH ULCERS. APPENDECTOMY BILATERAL MASTECTOMY AND HYSTERECTOMY RADIATION DOSAGE (If Supplied By Facility): CTDIvol = ( 13.78 ) mGy, DLP = ( 873.23 ) mGycm TECHNIQUE: Transaxial images were obtained post I.V. administration of IV 100mL Isovue-300, and without oral contrast. Sagittal and coronal images were reconstructed. Individualized dose optimization techniques were used for this CT. COMPARISON: Comparison is made with prior study dated 07/28/2019. FINDINGS: The visualized lung bases are unremarkable. The visualized portions of the heart are within normal limits. There is decreased attenuation of the liver consistent with steatosis. Normal gallbladder and extrahepatic biliary system. Normal spleen. Normal pancreas. Normal bilateral adrenal glands. 11 mm cyst in the anterior aspect of the right kidney. 3 mm nonobstructive calculus in the lower pole calyx of the right kidney. Normal left kidney. Normal visualized stomach. Normal small intestine. Normal colon. There are surgical clips in the region of the appendix consistent with a prior appendectomy. There is scattered atherosclerotic calcification of the abdominal aorta, without a demonstrated aneurysm. Normal inferior vena cava. There is borderline retroperitoneal lymphadenopathy with enlarged nodes no greater than 10mm in the short axis diameter. Normal abdominal wall. Stable 4 mm sclerotic focus in the anterior aspect of the T8 and L1ttfsobrld. CT/Abdomen WITH IV Contrast IMPRESSION: Stable examination. Electronically Signed: Bhavesh Arechiga, at 13:06 EDT , Service support ,
[2020-02-02 08:31] LABS: CREATININE FINGERSTICK 0.9 mg/dL (0.55-1.02)
== END ==
PROVIDERS: PCP Family Medicine; Referring Provider Internal Medicine Medical Oncology; Visit Provider Internal Medicine Medical Oncology
DX: C34.11 Malignant neoplasm of upper lobe, right bronchus or lung (principal); Z85.3 Personal history of malignant neoplasm of breast
CPT/HCPCS: 71260; 74160; Q9967

== ENCOUNTER → 2020-05-27 17:16 | Outpatient (CLI) | payer BC, SELFPAY ==
[2017-04-24 12:37] VITALS: BMI 36.2
[2020-05-27 13:07] VITALS: BMI 35.5
== END ==
LOC: LABSPEC 17:16
PROVIDERS: PCP Family Medicine; Visit Provider Obstetrics & Gynecology
DX: R30.0 Dysuria (principal)
CPT/HCPCS: 87086; 87088; 87186

== ENCOUNTER → 2020-08-02 07:53 | Outpatient (CLI) | payer BC, SELFPAY ==
[2017-04-24 12:37] VITALS: BMI 36.2
[2020-05-27 13:07] VITALS: BMI 35.5
--- NOTE | 2020-08-02 07:55 | CT_ITS ---
STUDY: CT CHEST T ABDOMEN WITH CONTRAST REASON FOR EXAM: Female, 59 years old. MONITORING LUNG CANCER RADIATION DOSAGE (If Supplied By Facility): CTDIvol = ( 16.29 ) mGy, DLP = ( 1003.01 ) mGycm TECHNIQUE: Transaxial imaging was performed following intravenous administration of IV 100mL Isovue-300. Individualized dose optimization techniques were used for this CT. COMPARISON: 09/05/2018 FINDINGS: CHEST Status post bilateral axillary lymph node dissection. Mild emphysematous changes. Bilateral linear scarring. No noncalcified nodule or mass. There is no demonstrated pleural abnormality. Normal heart and pericardium. Normal mediastinum. Normal hilar regions. Normal unenhanced pulmonary arteries. Normal aorta arch and descending thoracic aorta. Normal osseous structures. There is no demonstrated abnormality of the visualized upper abdomen. ABDOMEN The visualized lung bases are unremarkable. The visualized portions of the heart are within normal limits. Normal liver. Normal gallbladder and extrahepatic biliary system. Normal spleen. Normal pancreas. Normal bilateral adrenal glands. Normal right kidney. Normal left kidney. Normal visualized stomach. Normal small intestine. Normal colon. The appendix is visualized and appears normal. Normal abdominal aorta. Normal inferior vena cava. Normal retroperitoneum. Normal abdominal wall. Normal osseous structures. CT/CT Chest AND Abd W/ Contrast IMPRESSION: No CT evidence of residual, recurrent, or metastatic bronchogenic carcinoma. Electronically Signed: Kd Barakat MD at 15:35 EDT Tel , Service support ,
[2020-08-02 08:20] LABS: CREATININE FINGERSTICK 1.2 mg/dL (0.55-1.02)
== END ==
LOC: CT 07:55
PROVIDERS: PCP Family Medicine; Referring Provider Internal Medicine Medical Oncology; Visit Provider Internal Medicine Medical Oncology
DX: Z85.3 Personal history of malignant neoplasm of breast (principal); Z85.118 Personal history of other malignant neoplasm of bronchus and lung
CPT/HCPCS: 71260; 74160

== ENCOUNTER → 2020-08-19 15:38 | Outpatient (CLI) | payer BC, SELFPAY ==
[2017-04-24 12:37] VITALS: BMI 36.2
[2020-08-05 14:08] VITALS: BMI 35.5
--- NOTE | 2020-08-19 15:49 | RAD_ITS ---
STUDY: X-RAY - LUMBAR SPINE REASON FOR EXAM: Female, 60 years old. SUSPECTED R LUMBAR RADICULOPATHY TECHNIQUE: 5 view(s) of the lumbar spine were obtained. COMPARISON: None FINDINGS: Normal lumbar lordosis. There is no substantial scoliosis. There is a normal alignment of the vertebrae. There is diffuse demineralization with multi-level endplate spondylosis. Mild loss of disc height at L5-S1. There is no demonstrated fracture. There is no demonstrated spondylolysis of the pars interarticulares. Facet arthropathy L4-L5 and L5-S1. The soft tissue structures are unremarkable. RAD/L/S Spine Min 4 Views IMPRESSION: L5-S1 degenerative disc disease. Lower level facet arthropathy. Electronically Signed: Teddy Nguyen MD ([place]) at 17:41 EDT , Service support ,
== END ==
LOC: RAD 15:39
PROVIDERS: PCP Family Medicine; Referring Provider Family Medicine; Visit Provider Family Medicine
DX: M54.17 Radiculopathy, lumbosacral region (principal)
CPT/HCPCS: 72110

== ENCOUNTER → 2020-11-18 08:00 | Outpatient (CLI) | payer BC, SELFPAY ==
[2017-04-24 12:37] VITALS: BMI 36.2
[2020-11-11 14:23] VITALS: BMI 34.5
[2020-11-18] VITALS (9 sets, daily range): BP systolic 102–141; BP diastolic 35–96; PULSE 73–80; RESP 12–21; TEMP 36.8; O2SAT 92–100; BMI 34.0
--- NOTE | 2020-11-18 | IMM_PTH ---
PATIENT: PARVIN HARRIS LOC: CT U#:[id number] AGE/SX: 64/F ROOM: RE11/18/[address]: Dr. Charles Gresham MD : 1960 BED: DIS: SPEC #: [id number] RECD: 11/19/20 12:47 STATUS: MERE REQ #: [id number] AKUA: 11/18/20 00:[address]: Charles Gresham DEPT: IMMUNOHISTOCHEMISTRY RECD BY: Ning Valerio ENTERED: 11/19/20 12:48 SP TYPE: IMMUNO OTHR DR: Dr. Sandro Bland, Tissues: A - Bone marrow of iliac crest Procedures: NAPSIN A (add) CA-125 (add) CEA (add) CK20 (add) CK5-6 (add) CK7 (add) CK8 (add) SILAS (add) HER2 COREY (add) MAMM (add) P53 (add) IL (add) TTF1 (add) Pankeratin (add) GATA3 (add) P40 (add) ER (initial) PHYSICIAN [facility] INSTITUTION [address] [address] SPECIMEN INFORMATION: Tissue Source: A ? Right iliac bone marrow biopsy - core Clinical Info: History of lung and breast cancer Specimen Number: [id number] CPT code: 68676, 39776 x16 METHODOLOGY: Deparaffinized sections of prefer/formalin-fixed tissue or PAP/DQ stained slides are incubated with monoclonal/polyclonal antibodies/oligonucleotide probes. Localization is made via biotin free immunoperoxidase method. Appropriate controls are performed and reacted as expected. Results on target cell population are indicated in the following table: RESULTS: ANTIBODY / CLONE RESULT Block A ER (6F11) positive, rare, dim IL (1E2) negative Mammaglobin (31A5) negative GATA3 (L50-823) positive AE1-3 (AE1/AE3/PCK26) positive CK7 (OV-TL12/30) positive CK8 (64gfhkO60) positive CK20 (KS20.8) negative TTF-1 (8G7G3/1) negative Napsin A (Rabbit Polyclonal) negative CEA (11-7/TF-3HB-1) negative P53 (DO-7) negative SILAS (E29) positive CA125 (OC125) negative CK5-6 (D5 & 1684) negative P40 (BC28) negative These tests were developed and their performance characteristics determined by [facility]. They may not have been cleared or approved by the U.S. Food and Drug Administration. The FDA has determined that such clearance or approval is not necessary. The above immunohistochemical/dualISH markers are ordered and reviewed by the Pathologist. INTERPRETATION: A. Right iliac bone marrow biopsy, core: Metastatic non-small cell carcinoma. See comment. AM:luc 11/24/2020 Comment: A breast primary is favored. ADDENDUM ADDENDUM ADDENDUM ADDENDUM ADDENDUM ADDENDUM ADDENDUM ADDENDUM ADDENDUM 11/29/2020 10:08 ADDENDUM 11/29/2020 10:08 ADDENDUM 11/29/2020 10:08 ADDENDUM 11/29/2020 10:08 ADDENDUM 11/29/2020 10:08 ANTIBODY / CLONE RESULT Block A Her-2neu (CB11) negative The above immunohistochemical/dualISH marker is ordered by Dr. Gresham and reviewed by the pathologist. AM:luc 11/29/2020
--- NOTE | 2020-11-18 08:12 | CT_ITS ---
PROCEDURE: CT GUIDED BONE marrow biopsy and aspirate of the anterior right iliac bone. DATE: 11/18/2020. INDICATION: Female, 60 years old. Metastatic breast carcinoma. PHYSICIAN: Bhavesh Arechiga M.D. RADIATION DOSAGE (If Supplied By Facility): CTDIvol = ( 27 ) mGy, DLP = ( 386.99 ) mGycm. Individualized dose optimization techniques were utilized. PROCEDURE: The risks, benefits, and alternatives to the procedure were explained to the patient. The specific risk of hemorrhage requiring further treatment or intervention was detailed and accepted. Follow-up instructions were discussed with the patient as well. Written informed consent was obtained. The patient was brought into the CT suite and placed in the supine position. . An appropriate entry site was identified. The overlying skin was prepped and draped in the usual sterile fashion. 1% lidocaine was administered subcutaneously for local anesthesia. Conscious sedation was performed. The patient received 2 mg of VERSED and 50 mcg of FENTANYL intravenously. Conscious sedation was started at 9:17 AM and terminated at 949. The patient was independently monitored by the department nurse. Under CT guidance, a bone marrow biopsy and bone marrow aspirate of the anterior aspect of the right iliac bone were performed with an 11-gauge bone marrow biopsy kit. The specimens were then placed in the appropriate fluid transported to the laboratory for analysis. Hemostasis was obtained. The patient tolerated the procedure well without immediate complications. CT/Biopsy/Inj or Needle Placement IMPRESSION: Successful CT guided bone marrow biopsy and aspirate of the anterior aspect of the right iliac bone utilizing an 11-gauge bone marrow biopsy kit, as described above. Conscious sedation was performed. Electronically Signed: Bhavesh Arechiga MD at 11:01 EDT , Service support ,
[2020-11-18 08:18] LABS: Absolute Lymphocyte Count 0.34 X10^3/uL (0.83-4.51); Absolute Neutrophil Count 3.5 X10^3/uL (2.0-7.7); Basophil# 0.01 X10^3/uL; Basophil% 0.2 % (0-1); Eosinophil# 0.07 X10^3/uL; Eosinophils% 1.6 % (0-5); Hemoglobin 11.6 g/dL (12.0-15.0); Lymphocyte # 0.34 X10^3/ul (0.83-4.51); Lymphocyte % 7.7 % (19-41); Mean Corp Hgb Conc 32.2 g/dL (32-36); Mean Corpuscular Hgb 34.4 pg (27.0-32.0); Mean Corpuscular Volume 106.8 fL (81-99); Mean Platelet Vol. 10.2 fl (6.2-12.0); Monocyte# 0.48 X10^3/uL; Monocyte% 10.9 % (0-10); NRBC Flagged by Analyzer 0 % (0-5); Neutrophil # 3.46 X10^3/uL (2.7-7.7); Neutrophil % 78.5 % (47-70); POSITIVE DIFFERENTIAL YES; Platelet Count 251 K/mm3 (150-450); RBC Distribution Width CV 13.1 % (11.6-14.6); RBC Distribution Width SD 51.8 fl (35.1-43.9); Red Blood Count 3.37 M/mm3 (4.2-5.4); White Blood Count 4.4 K/mm3 (4.4-11.0)
[2020-11-18 08:23] LABS: Differential Indicated SCAN CRITERIA MET
[2020-11-18 08:32] LABS: International Normalized Ratio 0.9; Partial Thromboplast Time 29.8 Seconds (24.1-36.2); Prothrombin Time (Protime)PT. 11.9 SECONDS (11.7-14.9)
[2020-11-18 08:39] LABS: Differential Comment SCANNED
[2020-11-18] MEDS: fentaNYL 100 MCG/2 ML Ampul IV ×2 (09:17→09:59)
[2020-11-18] MEDS: Midazolam 2 MG/2 ML Syringe IV (09:17)
--- NOTE | 2020-11-18 09:45 | BMB_PTH ---
PATIENT: PARVIN HARRIS LOC: CT U#:[id number] AGE/SX: 64/F ROOM: RE11/18/[address]: Dr. Charles Gresham MD : 1960 BED: DIS: SPEC #: [id number] RECD: 11/18/20 10:19 STATUS: MERE REQ #: [id number] AKUA: 11/18/20 09:[address]: Charles Gresham DEPT: BONE MARROW RECD BY: Renetta Greer ENTERED: 11/18/20 10:19 SP TYPE: BMB BRANDON DR: Dr. Sandro Bland DO Tissues: A - Bone marrow, NOS B - Bone marrow, NOS C - Bone marrow, NOS Procedures: Decalcification bone/plaque Bone Marrow Aspiration Bone Marrow Core Biopsy Iron Stain Bone Marrow HEADER OPERATION: Right iliac bone marrow biopsy and aspiration, CT-guided PRE-OP DIAGNOSIS: History of lung and breast cancer TISSUE SUBMITTED: A - Core, B - Clot, C - Smears BONE MARROW DIAGNOSIS Bone marrow biopsy, clot and aspiration: Metastatic non-small cell carcinoma. See comment. AM:luc 11/19/2020 COMMENT Immunohistochemistry ([id number]) supports the above diagnosis and favors a breast primary. Clinical correlation is suggested. Case has been reviewed in consultation with Dr. Urrutia who concurs with the above diagnosis. IDC:CHATO BONE MARROW STUDY Slides are reviewed. BONE MARROW GROSS A - Received is a container labeled with the patient's name and designated bone marrow. The specimen consists multiple fragments of blood clots mixed with fragments of bone measuring in aggregate 1.5 x 0.5 x 0.1 cm. The specimen is totally submitted in one cassette after decalcification. B - Received labeled with the patient's name and designated bone marrow is a specimen that consists of approximately 3 cc of bloody fluid that on filtration yields multiple minute fragments of blood clots measuring in aggregate 3 x 2.5 x 0.3 cm. The specimen is totally submitted in one cassette. C - Also received are 12 unstained and 1 peripheral stained slides. The unstained slides are submitted for appropriate staining. Also received is 1 green top tube. / SJ:rg 11/18/20 TC:0 CPT: 58197, 34233, 75428 x2, 98222 x2, 09560 ADDENDUM ADDENDUM ADDENDUM ADDENDUM ADDENDUM ADDENDUM ADDENDUM ADDENDUM ADDENDUM ADDENDUM 01/17/2021 11:14 ADDENDUM 01/17/2021 11:14 ADDENDUM 01/17/2021 11:14 ADDENDUM 01/17/2021 11:14 ADDENDUM 01/17/2021 11:14 ONKOSIGHT ADVANCED SOLID TUMOR NGS EGFR REPORT FROM [facility] RESULT SUMMARY: QNS INTERPRETATION SUMMARY: Upon DNA extraction, sufficient DNA quantity was not obtained from the submitted specimen; therefore, testing has been canceled. If additional material is available and submitted, sample re-analysis can be performed. Please see complete report in e-chart or EMR
== END | disposition home or self-care (01) ==
PROVIDERS: PCP Family Medicine; Referring Provider Internal Medicine Medical Oncology; Visit Provider Internal Medicine Medical Oncology
DX: M89.8X5 Other specified disorders of bone, thigh (principal); I10 Essential (primary) hypertension; R10.2 Pelvic and perineal pain; E78.5 Hyperlipidemia, unspecified; Z87.891 Personal history of nicotine dependence; Z85.3 Personal history of malignant neoplasm of breast; Z85.118 Personal history of other malignant neoplasm of bronchus and lung
CPT/HCPCS: 38221; 36415; 77012; 85025; 85610; 85730; 88305; 88311; 88313; 88341; 88342; 99156; 99157; J7040; A4216

== ENCOUNTER 2020-11-27 17:33 | Emergency (ER) | payer BC, SELFPAY ==
[2017-04-24 12:37] VITALS: BMI 36.2
[2020-11-25 11:02] VITALS: BMI 34.6
[2020-11-27 17:35] VITALS: BP 100/61; PULSE 85; RESP 14; TEMP 36.3; O2SAT 95; BMI 34.1
--- NOTE | 2020-11-27 17:55 | EDS_ITS ---
HPI History of Present Illness Chief Complaint: Fall Narrative Narrative: Patient presenting with right knee and hip pain after mechanical fall today. She was able to get up and bear weight. She has pain in the anterior knee on the right as well as the calf on the left. She also has chronic pain in her right hip but was told that she has metastases there and if her hip gets broken it would change her plan given that she has metastatic cancer. She has no numbness or tingling. She did not hit her head or lose consciousness. [facility] Medical History Adjustment disorder Anemia Breast cancer Breast cancer Breast cancer, right Breast cancer, right Cancer of left breast Chicken pox Colitis Depression Drug induced neutropenia Educational circumstance Encounter for adjustment or management of vascular access device Frequent headaches GERD (gastroesophageal reflux disease) History of stomach ulcers HLD (hyperlipidemia) HTN (hypertension) Lung cancer Lung nodules Multiple sclerosis Postcoital bleeding Home Medications atenolol 25 mg PO QHS 10/25/16 [History Last Taken 09/29/19 21:10 25 MG] calcium carbonate-vitamin D3 1 ea PO DAILY 10/25/16 [History Last Taken 02/11/17] clonazepam 1 mg PO QHS 10/25/16 [History Last Taken 02/11/17] cyclobenzaprine 5 mg PO QHS 10/25/16 [History Last Taken 02/11/17] famotidine 10 mg PO DAILY 10/25/16 [History Last Taken 09/30/19 05:30 10 MG] fingolimod 0.5 mg PO DAILY 10/25/16 [History Last Taken 09/06/17 05:00] gabapentin 600 mg PO QHS 10/25/16 [History Last Taken 02/11/17] lisinopril 10 mg PO DAILY 10/25/16 [History Last Taken 09/30/19 05:30 10 MG] multivitamin 1 ea PO DAILY 10/25/16 [History Last Taken 02/11/17] rosuvastatin 40 mg PO QHS 10/25/16 [History Last Taken 02/11/17] venlafaxine 300 mg PO DAILY 10/25/16 [History Last Taken 09/05/17 22:00] Lactobacillus acidophilus 1 ea PO BID 11/09/16 [History Last Taken 02/11/17] amantadine HCl 100 mg PO QHS 11/09/16 [History Last Taken 02/11/17] buspirone 7.5 mg PO BID 02/02/17 [History Last Taken 09/06/17 05:00] acetaminophen 650 mg PO Q6H PRN PRN tab 04/14/17 [Rx Last Taken Unknown] Albuterol IH (ProAir) 2 puff INHALATION PRN PRN 03/12/18 [History Last Taken Unknown] sitagliptin 100 mg PO DAILY 09/29/19 [History Last Taken Unknown] tamoxifen 20 mg PO DAILY 30 Days #30 tab 06/07/20 [Rx Last Taken Unknown] Disability Placard #1 ea 11/01/20 [Rx Last Taken Unknown] fentanyl 12 mcg/hr transdermal patch 1 patch TRANSDERMAL Q72H 30 Days #10 ea 11/16/20 [Rx Last Taken Unknown] Wheelchair #1 ea 11/23/20 [Rx Last Taken Unknown] Allergy/AdvReac Type Severity Reaction Status Date / Time Penicillins Allergy Unknown Unknown Verified 11/27/20 17:38 adhesive tape AdvReac Severe Unknown Verified 11/27/20 17:38 cephalexin AdvReac Severe Upset Verified 11/27/20 17:38 Stomach hydrocodone [From Vicodin] AdvReac Severe Other Verified 11/27/20 17:38 oxycodone [From Percocet] AdvReac Severe Vomiting Verified 11/27/20 17:38 prednisone AdvReac Severe Nausea/vomi Verified 11/27/20 17:38 ting Family History Mother Kidney disease Hypertension Hyperlipidemia Heart disease Diabetes Depression Arthritis Surgical History H/O bilateral oophorectomy H/O bilateral salpingectomy History of appendectomy History of bilateral mastectomy History of section History of hysterectomy History of lumpectomy History of right breast biopsy Social History Smoking Status: Current every day smoker tobacco type: cigarettes alcohol intake: never substance use type: does not use caffeine: Yes what type of physical activity do you participate in: none seatbelt use: always do you feel safe at home: Yes additional social history: Jordy- Retired Patient works at [employer] ROS ROS ED Constitutional Constitutional ED: Denies chills, fever(s) or subjective Eyes Eyes: Denies blurry vision or change in vision ENT ENT ED: Denies ear pain or rhinorrhea Cardiovascular Cardiovascular: Denies chest pain or palpitations Respiratory/Chest Respiratory/Chest: Denies cough, dyspnea or sputum Gastrointestinal Gastrointestinal: Denies abdominal pain, nausea or vomiting Genitourinary Genitourinary ED: Denies dysuria or hematuria Musculoskeletal Musculoskeletal: Reports other Details: Right hip and knee pain Integumentary Denies abscess or rash Neurologic Neurologic: Denies headache(s) or paresthesias Psychiatric Psychiatric: Denies anxiety or depression EXAM Physical Exam Const Vital Signs: 11/27/20 17:35 11/27/20 18:01 11/27/20 18:04 Temperature 97.4 F L Temperature Source Temporal Pulse Rate 85 84 Respiratory Rate 14 17 Respiratory Effort Normal Respiratory Depth Normal Respiratory Pattern Normal Blood Pressure 100/61 108/49 L Blood Pressure Mean 74 68 Pulse Ox 95 97 96 Oxygen Delivery Method Room Air Room Air Room Air 11/27/20 19:32 Temperature Temperature Source Pulse Rate 85 Respiratory Rate 15 Respiratory Effort Respiratory Depth Respiratory Pattern Blood Pressure 100/46 L Blood Pressure Mean 64 Pulse Ox 94 Oxygen Delivery Method Room Air Positive well nourished General Appearance ED: NAD HEENT atraumatic Eyes PERRL Resp normal respiratory effort, no retractions and no use of accessory muscles Effort and Inspection: able to speak in complete sentences Cardio regular rhythm Rate: regular rate Extremity Extremity Narrative: Tenderness to palpation of her right hip and inguinal r egion. Negative logroll. There is also tenderness over the right patella without deformity. There is no significant effusion on exam. Patient also has pain on the right posterior calf. There is no ecchymosis or swelling. Neuro oriented x3 Sensorium / Orientation: alert Psych mental status grossly normal and thought process normal Skin no rashes or lesions noted MDM MDM MDM Narrative Medical decision making narrative: Patient presenting for right hip and right knee pain. She had a mechanical fall at home. I did obtain images of the right hip and the right knee and on my interpretation there is no acute fracture or subluxation. The radiologist does agree. There is degenerative changes of the right knee. Patient counseled on findings. Patient already has fentanyl patch that she uses for pain. I do not believe she needs extra medication. Patient stable for discharge. Impression: 1. Mechanical fall 2. Right hip strain 3. Right knee contusion Radiography Diagnostic Testing: Radiology Impression Hip/Pelvis X-Ray 11/27/20 18:04 IMPRESSION: Normal x-ray examination of the pelvis and hip. Electronically Signed: Denys DO David at 19:45 EDT Tel [phone], Service support , Knee X-Ray 11/27/20 18:04 IMPRESSION: Mild degenerative changes of the knee. Electronically Signed: Denys Hernandez DO at 19:44 EDT Tel [phone], Service support , Discharge Plan Triage Chief Complaint: Fall ED Provider: Zackary Davis Dx/Rx/DC Orders Instructions: ED Contusion, Lower Extremity, ED Fall Prevention Prescriptions: No Action fentanyl 12 mcg/hr patch 72 hour 1 patch transdermal Q72H 30 Days Qty: 10 RF: 0 multivitamin 1 EACH tablet 1 ea PO DAILY RF: 0 famotidine 10 MG tablet 10 mg PO DAILY RF: 0 clonazepam 1 MG tablet 1 mg PO QHS RF: 0 atenolol 25 MG tablet 25 mg PO QHS RF: 0 calcium carbonate-vitamin D3 1 EACH tablet 1 ea PO DAILY RF: 0 lisinopril 10 MG tablet 10 mg PO DAILY RF: 0 cyclobenzaprine 5 MG tablet 5 mg PO QHS RF: 0 rosuvastatin 40 MG tablet 40 mg PO QHS RF: 0 venlafaxine 150 MG tablet extended release 24 hr 300 mg PO DAILY RF: 0 fingolimod 0.5 MG capsule 0.5 mg PO DAILY RF: 0 gabapentin 600 MG tablet extended release 24 hr 600 mg PO QHS RF: 0 amantadine HCl 100 MG capsule 100 mg PO QHS RF: 0 Lactobacillus acidophilus 1 EACH capsule 1 ea PO BID RF: 0 Albuterol IH (ProAir) 2 puff inhalation PRN PRN (Reason: breathing) RF: 0 tamoxifen 20 MG tablet 20 mg PO DAILY 30 Days Qty: 30 RF: 0 buspirone 7.5 MG tablet 7.5 mg PO BID RF: 0 acetaminophen 325 MG tablet 650 mg PO Q6H PRN PRN (Reason: Mild Pain (scale 0-3)/T>100.7) RF: 0 sitagliptin 100 MG tablet 100 mg PO DAILY RF: 0 (DME) Disability Placard See Rx Instructions .Route .MEDSUPPLY Qty: 1 RF: 0 (DME) Wheelchair See Rx Instructions .Route .MEDSUPPLY Qty: 1 RF: 0 Primary Care Provider: Sandro Bland Referrals: Sandro Bland DO [Primary Care Provider] - Disposition Disposition: Home, Self Care Discharge Date/Time: 11/27/20 20:35
[2020-11-27 18:01] VITALS: O2SAT 97
[2020-11-27 18:04] VITALS: BP 108/49; PULSE 84; RESP 17; O2SAT 96
--- NOTE | 2020-11-27 18:04 | RAD_ITS ---
STUDY: X-RAY - PELVIS AND RIGHT HIP REASON FOR EXAM: Female, 60 years old. Hip pain TECHNIQUE: 3 views of the pelvis and hip. COMPARISON: None. FINDINGS: There is a non-specific bowel gas pattern. Normal visualized soft tissue structures. Normal bilateral iliac wings, sacroiliac joints and visualized sacrum. Normal bilateral superior and inferior pubic rami. Normal pubic symphysis. Normal bilateral ischial tuberosities. Normal visualized femoral head. Normal acetabulum. Normal hip joint. RAD/HIP, UNI W/ Pelvis 2-3 Views IMPRESSION: Normal x-ray examination of the pelvis and hip. Electronically Signed: Denys Hernandez DO at 19:45 EDT Tel [phone], Service support ,
--- NOTE | 2020-11-27 18:04 | RAD_ITS ---
STUDY: X-RAY - RIGHT KNEE REASON FOR EXAM: Female, 60 years old. Knee pain TECHNIQUE: 4 view(s) of the knee. COMPARISON: None. FINDINGS: Normal visualized distal femur. Normal visualized proximal tibia and fibula. Normal proximal tibiofibular articulation. Normal medial femorotibial compartment. Normal lateral femorotibial compartment. Mild spurring and narrowing at the patellofemoral articulation. The soft tissue structures are unremarkable. RAD/Knee 4 or More Views IMPRESSION: Mild degenerative changes of the knee. Electronically Signed: Denys Hernandez DO at 19:44 EDT Tel [phone], Service support ,
[2020-11-27] MEDS: Morphine 4 MG/ML Syringe IM (18:35)
[2020-11-27 19:32] VITALS: BP 100/46; PULSE 85; RESP 15; O2SAT 94
== END 2020-11-27 20:35 | disposition home or self-care (01) ==
PROVIDERS: Emergency Provider Student in an Organized Health Care Education/Training Program; PCP Family Medicine
DX: S76.011A Strain of muscle, fascia and tendon of right hip, initial encounter (principal); S80.01XA Contusion of right knee, initial encounter; F17.210 Nicotine dependence, cigarettes, uncomplicated; W19.XXXA Unspecified fall, initial encounter
CPT/HCPCS: 73502; 73564; 96372; 99282

== ENCOUNTER → 2020-12-20 09:02 | Outpatient (CLI) | payer BC, SELFPAY ==
[2017-04-24 12:37] VITALS: BMI 36.2
[2020-12-09 09:06] VITALS: BMI 34.7
--- NOTE | 2020-12-20 09:03 | NM_ITS ---
CLINICAL: 60-year-old female with reported history of carcinoma of the breast. WHOLE BODY 99m Tc MDP RADIONUCLIDE BONE SCINTIGRAPHY COMPARISON: Whole body bone scintigraphy study dated 10/25/2017 FINDINGS: Following the intravenous administration of 24.9 mCi of 99m Tc MDP, whole body bone images reveal: 1. On the current examination there is multifocal increased radiopharmaceutical concentration demonstrated in the bilateral hemipelvic calvarium, the proximal-distal sternum, multiple bilateral ribs, the right scapula, multifocally defined in the thoracic and lumbar spine, the right hemipelvis to include the posterior ilium, iliac wing and acetabulum, coracoid process of the left scapula. 2. Facilitated uptake is observed in the bilateral wrist articulations, the right knee, acromioclavicular compartments of both shoulders, the glenohumeral compartment of the left shoulder. 3. The remaining skeletal structures are scintigraphically unremarkable with normal-appearing renal images and urinary bladder activity identified. NM/Bone Scan Whole Body IMPRESSION: 1. The multifocal increase in radiopharmaceutical concentration defined in the axial skeletal structures, right-left calvarium is consistent with diffuse osseous metastatic disease. 2. Degenerative arthritis appears expressed in the both wrists, shoulders bilaterally. 3. Overall compared to the previous whole body bone scintigraphy study dated 10/25/2017, there is interim development of multifocal skeletal metastatic disease. Electronically Signed: Kd Cox DO at 22:45 EDT Tel , Service support ,
--- NOTE | 2020-12-20 10:31 | ECHOCSONC_ITS ---
Reason For Study: PRE-CHEMO Procedure This was a 2D Doppler, Color Flow transthoracic echocardiogram. Strain was difficult to assess due to suboptimal image quality. Myocardial strain analysis was performed in this exam to aid in the assessment of cardiac function. The study was technically difficult. Contrast injection was performed. Pt has pain in lower back and Iliac due to mets- difficult to lay in LLD position. Exam performed in department. Left Ventricle Normal LV size. Left ventricular systolic function is normal. The estimated ejection fraction is 65 %. The global longitudinal strain = -19 % (normal). No evidence for diastolic dysfunction. No regional wall motion abnormalities noted. Right Ventricle Normal RV size. Normal systolic function. Atria Normal left atrium. Normal right atrium. No doppler evidence for ASD. Mitral Valve There is no mitral annular calcification. Normal mitral valve. Trivial mitral valve insufficiency. Tricuspid Valve Normal tricuspid valve. Trivial tricuspid valve insufficiency. Right ventricular systolic pressure estimated to be 33 mmHg. Aortic Valve Trisinus/trileaflet aortic valve. Normal aortic valve. Pulmonic Valve The pulmonic valve is not well visualized. Great Vessels Normal sized aortic root. Pericardium/Pleural No pericardial effusion. Medication 22 gauge I.V. with prn adaptor inserted into right arm. Diluted definity 3.4ml given slow IV push to enhance endocardial definition. MMode/2D Measurements & Calculations LVIDd: 4.1 cm IVSd: 0.76 cm Ao root diam: 3.4 cm LVIDs: 2.5 cm LVPWd: 0.82 cm RVDd: 3.6 cm FS: 38.5 % LAV(MOD-bp): 32.5 ml LA A4 area: 12.7 cm2 LA dimension(2D): 3.1 cm LAV(MOD-bp) Indexed: 17.9 ml/m2 LAV(MOD-sp2): 30.7 ml LAV(MOD-sp4): 31.2 ml RA A4 area: 10.1 cm2 Time Measurements MV dec time: 0.14 sec Doppler Measurements & Calculations MV E max dionicio: 80.0 cm/sec Lat Peak E' Dionicio: 11.0 cm/sec Med Peak E' Dionicio: 9.6 cm/sec MV A max dionicio: 57.7 cm/sec E/E' lat: 7.3 E/E' med: 8.3 MV E/A: 1.4 Ao V2 max: 103.6 cm/sec LV V1 max: 93.7 cm/sec TR max dionicio: 275.0 cm/sec Ao max P.3 mmHg LV V1 max P.5 mmHg TR max P.2 mmHg ECHO/ONC Echo Complete W/ Contrast Interpretation Summary The study was technically difficult. Contrast injection was performed. Left ventricular systolic function is normal. The estimated ejection fraction is 65 %. The global longitudinal strain = -19 % (normal). Trivial mitral valve insufficiency. Trivial tricuspid valve insufficiency. Right ventricular systolic pressure estimated to be 33 mmHg. No evidence for diastolic dysfunction. Ordering Physician: Charles Gresham Referring Physician: REBECCA HAHN Performed By: Joslyn Dueñas RDCS, RVT
== END ==
PROVIDERS: PCP Family Medicine; Referring Provider Internal Medicine Medical Oncology; Visit Provider Internal Medicine Medical Oncology
DX: C79.51 Secondary malignant neoplasm of bone (principal); Z85.3 Personal history of malignant neoplasm of breast
CPT/HCPCS: 78306; 93306; 93356; A9503; Q9957; A4216; C8929; J3490

== ENCOUNTER → 2021-01-14 15:42 | Outpatient (CLI) | payer BC, SELFPAY ==
[2017-04-24 12:37] VITALS: BMI 36.2
[2021-01-03 09:57] VITALS: BMI 34.0
--- NOTE | 2021-01-14 15:44 | MRI_ITS ---
STUDY: MRI BRAIN WITH AND WITHOUT CONTRAST REASON FOR EXAM: Female, 60 years old. METASTOTIC BREAST CANCER TECHNIQUE: Standardized multiplanar fat and water weighted pulse sequences were obtained. 17CC IV DOTAREM was administered for the contrast portion of the examination. COMPARISON: 05/29/2019 FINDINGS: Normal size of the ventricles and extra-axial spaces for the patient''s age. Mild nonspecific periventricular white matter disease without mass effect or restricted diffusion.. Chronic ischemic changes are seen within the anne Normal bilateral basal ganglia. Normal thalami. There is no extra-axial fluid accumulation. Normal flow voids within the major intracranial circulation suggesting patency by spin echo criteria. Normal venous enhancement. There is no enhancing intra-axial or extra-axial abnormality. Normal sella turcica, pituitary gland, infundibular stalk, optic chiasm and hypothalamus. Normal tectal plate and pineal gland. Normal midbrain, anne and medulla. Normal cerebellum. Normal basal cisterns. Normal bilateral temporal bones. Normal bilateral internal auditory canals. No demonstrated orbital abnormality, within the constraints of a routine brain study. Normal visualized paranasal sinuses. Normal calvarium and skull base. Normal visualized soft tissue structures. Normal visualized upper cervical spine. No significant change from prior exam MRI/Brain W/WO Contrast IMPRESSION: Persistent mild nonspecific periventricular white matter disease and chronic ischemic changes within the anne. No evidence for acute infarct No evidence for metastatic disease Electronically Signed: Christopher Jacobo MD at 20:43 EDT , Service support ,
--- NOTE | 2021-01-14 15:44 | MRI_ITS ---
STUDY: MRI CERVICAL SPINE WITH AND WITHOUT CONTRAST REASON FOR EXAM: Female, 60 years old. BONE METS, H/O BREAST CA TECHNIQUE: Standardized fat and water weighted pulse sequences were obtained in the sagittal and axial following administration of IV 17cc Dotarem. COMPARISON: None FINDINGS: Normal foramen magnum and brainstem-cervical cord junction. Normal craniovertebral junction. Normal anterior atlantoaxial articulation. Normal odontoid process. Normal cervical lordosis. Abnormal T1 hypointense bone metastatic disease involving at least C6, C7, T2, T3, T4 and T5 vertebral bodies. There are also lytic metastases to the posterior elements of C6, T1, T2 and T3. C2-3: Normal endplates. Normal disc height, signal and morphology. Normal central canal and intervertebral neural foramina. C3-4: Normal endplates. Normal disc height, signal and morphology. Normal central canal and intervertebral neural foramina. C4-5: Normal endplates. Normal disc height, signal and morphology. Normal central canal and intervertebral neural foramina. C5-6: Normal endplates. Normal disc height, signal and morphology. Normal central canal and intervertebral neural foramina. C6-7: Normal endplates. Normal disc height, signal and morphology. Normal central canal and intervertebral neural foramina. C7-T1: Normal endplates. Normal disc height, signal and morphology. Normal central canal and intervertebral neural foramina. T1-T2: (Sagittal only). Normal T1 inferior endplate. Normal disc height but there is pathologic compression fracture of the T2 vertebral body with mild retropulsion causing mild indentation of the thoracic cord but no displacement. Normal central canal and bilateral intervertebral neural foramina. T2-3: (Sagittal only). Normal endplates. Normal disc height. Normal central canal and intervertebral neural foramina. T3-T4: (Sagittal only). Normal endplates. Normal disc height and morphology. Normal central canal and intervertebral neural foramina. T4-T5: (Sagittal only). Normal endplates. Normal disc height and morphology. Normal central canal and intervertebral neural foramina. Normal cervical cord. Normal upper thoracic spinal cord. Normal included portions of the brainstem and cerebellum. Normal visualized soft tissue structures. MRI/Spine Cervical W/WO Contrast IMPRESSION: 1. Multiple enhancing lytic metastases involving at least C6, C7, T2, T3, T4 and T5 vertebral bodies and the posterior elements of C6, T1, T2 and T3. 2. Pathologic T2 compression fracture with mild retropulsion touching the ventral cord surface but no cord displacement or cord compression. 3. No MRI evidence of intradural or intramedullary metastases in the cervical spine. Electronically Signed: Kade Mathias MD at 12:24 EDT , Service support ,
--- NOTE | 2021-01-14 15:44 | MRI_ITS ---
STUDY: MRI THORACIC SPINE WITH AND WITHOUT CONTRAST REASON FOR EXAM: Female, 60 years old. BONE METS TECHNIQUE: IV DOTAREM 17cc was administered for the contrast portion of the examination. COMPARISON: None. FINDINGS: Normal kyphosis of the thoracic spine. There is no substantial scoliosis. T1-2, T2-3, T3-4, T4-5, T5-6, T6-7, T7-8, T8-9, T9-10, T10-11, T11-12: Diffuse enhancing lytic metastases throughout the thoracic spine and the included portions of the cervical spine and upper lumbar spine. There is pathologic fracture of the T2 vertebral body with mild retropulsion touching the ventral cord surface but no cord displacement. The lytic metastases include the posterior elements of the thoracic spine. Normal visualized thoracic cord. Normal conus medullaris that terminates at the T12-L1 disc level. The soft tissue structures are unremarkable. No intradural enhancing mass and no intramedullary enhancing lesions. MRI/Spine Thoracic W/WO Contrast IMPRESSION: 1. Enhancing pathologic compression fracture T2 vertebral body with mild retropulsion touching the ventral cord surface but no cord compression or cord displacement. 2. Varying degrees of enhancing lytic metastases throughout the thoracic spine, the included lower cervical spine and the included upper lumbar spine. They involve the vertebral bodies and their posterior elements. 3. No intradural or intramedullary enhancing metastatic disease. Electronically Signed: Kade Mathias MD at 12:34 EDT , Service support ,
== END ==
PROVIDERS: PCP Family Medicine; Referring Provider Internal Medicine Medical Oncology; Visit Provider Internal Medicine Medical Oncology
DX: C50.412 Malignant neoplasm of upper-outer quadrant of left female breast (principal); C79.51 Secondary malignant neoplasm of bone; Z17.0 Estrogen receptor positive status [ER+]
CPT/HCPCS: 70553; 72156; 72157; A9575

== ENCOUNTER → 2021-03-03 08:55 | Outpatient (CLI) | payer BC, SELFPAY ==
[2017-04-24 12:37] VITALS: BMI 36.2
[2021-02-22 11:15] VITALS: BMI 36.2
--- NOTE | 2021-03-03 08:58 | NM_ITS ---
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 WHOLE BODY 99m Tc MDP RADIONUCLIDE BONE SCINTIGRAPHY COMPARISON: Previous whole body bone scintigraphy study dated 12/20/2020 FINDINGS: Following the intravenous administration of 26.8 mCi of 99m Tc MDP, whole body bone images reveal: 1. Both redefined and newly apparent foci of increased radiopharmaceutical concentration are demonstrated in the axial skeletal structures and bilateral hemicalvarium, too many to individually articulate. 2. Facilitated uptake is currently defined in the visualized right wrist, posterior compartments of the bilateral ankles. 3. The remaining skeletal structures are scintigraphically unremarkable with normal-appearing renal images and urinary bladder activity identified. NM/Bone Scan Whole Body IMPRESSION: 1. The increase in radiopharmaceutical concentration identified in the axial skeleton, right and left calvarium is consistent with osseous metastatic disease. 2. Degenerative arthritis appears currently expressed in the right wrist and bilateral ankle articulations. 3. Overall compared to the previous whole body bone scintigraphy study dated 12/20/2020, there is interval progression of defined skeletal metastatic disease. If flare phenomenon is a diagnostic consideration, correlation with repeat bone scintigraphy in 12-16 weeks is recommended. (Kelly et al, Radiology 175: 229, 1990). Electronically Signed: Kd Cox DO at 8:04 EDT Tel , Service support ,
== END ==
PROVIDERS: PCP Family Medicine; Referring Provider Internal Medicine Medical Oncology; Visit Provider Internal Medicine Medical Oncology
DX: C79.51 Secondary malignant neoplasm of bone (principal); M89.8X5 Other specified disorders of bone, thigh
CPT/HCPCS: 78306; A9503

== ENCOUNTER 2021-03-22 09:32 | Inpatient (IN) | payer BC, SELFPAY ==
[2021-02-22 11:15] VITALS: BMI 36.2
[2021-03-22] VITALS (8 sets, daily range): BP systolic 106–178; BP diastolic 37–84; PULSE 73–95; RESP 16–26; TEMP 36.6–36.9; O2SAT 96–99; BMI 32.6; BMI 31.5
--- NOTE | 2021-03-22 09:50 | EX.ED.DYSGE1 ---
HPI History of Present Illness Chief Complaint: Abn Labs Detail of Chief Complaint: Blood sugar greater than 600. Informant: patient and spouse/S.O. Onset/Context/Timing Onset: Days Context: Gradual Onset Timing: Continuous Current Severity: Mild Maximum Severity: Moderate Narrative Narrative: 60-year-old female history of prior lung cancer with a wedge resection and metastatic breast cancer. Currently on oral chemotherapy. Patient's blood sugars have been high in the last several days. She had a history of being a borderline diabetic in the past with well-controlled blood sugars. She states urinary frequency. No diarrhea. No fever. Limited vomiting. Prior similar symptoms: No Recent Illness/Hospitalization: No PFSH PFSH Medical History Adjustment disorder Anemia Breast cancer Breast cancer Breast cancer, right Breast cancer, right Cancer of left breast Chicken pox Colitis Depression Drug induced neutropenia Educational circumstance Encounter for adjustment or management of vascular access device Frequent headaches GERD (gastroesophageal reflux disease) History of stomach ulcers HLD (hyperlipidemia) HTN (hypertension) Hyperglycemia Lung cancer Lung nodules Multiple sclerosis Postcoital bleeding UTI (urinary tract infection) Home Medications atenolol 25 mg PO QHS 10/25/16 [History Last Taken 09/29/19 21:10 25 MG] calcium carbonate-vitamin D3 1 ea PO DAILY 10/25/16 [History Last Taken 02/11/17] clonazepam 1 mg PO QHS 10/25/16 [History Last Taken 02/11/17] cyclobenzaprine 5 mg PO QHS 10/25/16 [History Last Taken 02/11/17] famotidine 10 mg PO DAILY 10/25/16 [History Last Taken 09/30/19 05:30 10 MG] fingolimod 0.5 mg PO DAILY 10/25/16 [History Last Taken 09/06/17 05:00] gabapentin 600 mg PO QHS 10/25/16 [History Last Taken 02/11/17] lisinopril 10 mg PO DAILY 10/25/16 [History Last Taken 09/30/19 05:30 10 MG] multivitamin 1 ea PO DAILY 10/25/16 [History Last Taken 02/11/17] rosuvastatin 40 mg PO QHS 10/25/16 [History Last Taken 02/11/17] venlafaxine 300 mg PO DAILY 10/25/16 [History Last Taken 09/05/17 22:00] Lactobacillus acidophilus 1 ea PO BID 11/09/16 [History Last Taken 02/11/17] amantadine HCl 100 mg PO QHS 11/09/16 [History Last Taken 02/11/17] buspirone 7.5 mg PO BID 02/02/17 [History Last Taken 09/06/17 05:00] acetaminophen 650 mg PO Q6H PRN PRN tab 04/14/17 [Rx Last Taken Unknown] Albuterol IH (ProAir) 2 puff INHALATION PRN PRN 03/12/18 [History Last Taken Unknown] sitagliptin 100 mg PO DAILY 09/29/19 [History Last Taken Unknown] Disability Placard #1 ea 11/01/20 [Rx Last Taken Unknown] Wheelchair #1 ea 11/23/20 [Rx Last Taken Unknown] tramadol 50 mg tablet 50 mg PO Q6H PRN #30 tab 12/14/20 [Rx Last Taken Unknown] letrozole 2.5 mg tablet 2.5 mg PO DAILY #30 tab 01/03/21 [Rx Last Taken Unknown] diazepam 10 mg tablet 10 mg PO TID PRN 01/18/21 [History Last Taken Unknown] tizanidine 4 mg capsule 4 mg PO Q4H PRN cap 01/18/21 [History Last Taken Unknown] fentanyl 25 mcg/hr transdermal patch 1 patch TRANSDERMAL Q72H 30 Days #10 ea 02/23/21 [Rx Last Taken Unknown] blood sugar diagnostic #30 ea 03/15/21 [Rx Last Taken Unknown] blood-glucose meter #1 ea 03/15/21 [Rx Last Taken Unknown] Allergy/AdvReac Type Severity Reaction Status Date / Time Penicillins Allergy Unknown Unknown Verified 03/22/21 09:35 adhesive tape AdvReac Severe Unknown Verified 03/22/21 09:35 cephalexin AdvReac Severe Upset Verified 03/22/21 09:35 Stomach hydrocodone [From Vicodin] AdvReac Severe Other Verified 03/22/21 09:35 oxycodone [From Percocet] AdvReac Severe Vomiting Verified 03/22/21 09:35 prednisone AdvReac Severe Nausea/vomi Verified 03/22/21 09:35 ting Family History Mother Kidney disease Hypertension Hyperlipidemia Heart disease Diabetes Depression Arthritis Surgical History H/O bilateral oophorectomy H/O bilateral salpingectomy History of appendectomy History of bilateral mastectomy History of section History of hysterectomy History of lumpectomy History of right breast biopsy Social History Smoking Status: Current every day smoker tobacco type: cigarettes alcohol intake: never substance use type: does not use caffeine: Yes what type of physical activity do you participate in: none seatbelt use: always do you feel safe at home: Yes additional social history: Jordy- Retired Patient works at [employer] ROS ROS ED ROS Narrative Urinary frequency. Weakness. Nausea and vomiting x1. Review of Systems ROS Unobtainable: Denies due to encephalopathy Constitutional Constitutional ED: Denies chills or fever(s) Eyes Eyes: Denies change in vision ENT ENT ED: Denies ear pain Cardiovascular Cardiovascular: Denies chest pain or palpitations Respiratory/Chest Respiratory/Chest: Denies cough or dyspnea Gastrointestinal Gastrointestinal: Reports nausea and vomiting; Denies abdominal pain Genitourinary Genitourinary ED: Reports urinary frequency; Denies dysuria Musculoskeletal Musculoskeletal: Denies myalgias Integumentary Denies rash Neurologic Neurologic: Denies headache(s) Psychiatric Psychiatric: Denies depression Endocrine Endocrinology: Denies polyuria Allergic/Immunologic Allergic/Immunologic ED: Denies urticaria EXAM Physical Exam Narrative Exam Narrative: 60-year-old female vital signs stable. Afebrile. Pulse ox 9 9% on room air no signs hypoxia. HEENT exam dry extremities. Neck nontender no JVD. Lungs clear to auscultation bilaterally. Heart regular rhythm no murmur rate about 80. Abdomen soft nontender normal bowel sounds no peritoneal signs. Moving all 4 extremities. Nontender no edema. Normal double end sewer strength. Normal dorsi plantar flexion. Back nontender. Const Vital Signs: 03/22/21 09:33 03/22/21 09:57 Temperature 98.4 F Temperature Source Temporal Pulse Rate 75 Respiratory Rate 16 Respiratory Effort Normal Non-Labored Respiratory Pattern Normal Blood Pressure 178/84 H Blood Pressure Mean 115 Pulse Ox 99 Oxygen Delivery Method Room Air Positive well nourished and well developed; Negative for obese, cachectic, contractures or unkempt General Appearance ED: well developed and NAD; Negative for unkempt, cachectic, contractures or pallor Nutritional Appearance: Negative for cachectic or obese HEENT Reports dry mucous membranes Negative for trauma or tenderness Mouth ED: Yes dry mucous membranes Mouth: dry mucous membranes Eyes PERRL and EOMs intact bilaterally Neck no lymphadenopathy, supple and no JVD General: Negative for tenderness Chest Wall inspection of chest normal and palpation of chest normal Resp normal respiratory effort and clear to auscultation bilaterally Cardio regular rate, regular rhythm, S1 normal heart sound, S2 normal heart sound and no murmurs GI normal to inspection, nondistended, normoactive bowel sounds, non-tender and non-distended Auscultation: normoactive bowel sounds Palpation: soft Back/Spine no CVA tenderness General Back: Negative for CVA tenderness Cervical Spine: Negative for cervical spine tenderness Thoracic Spine / Upper Back: Negative for thoracic spinal tenderness Extremity normal to inspection General Extremety ED: Negative for edema or tenderness General Extremity: Negative for edema Neuro oriented x3 and CN's II-XII intact bilaterally Sensorium / Orientation: alert; Negative for orientation impaired, lethargic or stuporous Motor Exam: strength 5/5 throughout Psych mental status grossly normal Appearance: Negative for unkempt Mood & Affect: Negative for depressed or tearful Skin no rashes or lesions noted and no wounds General Skin Exam: Negative for jaundice or pallor MDM MDM MDM Narrative Medical decision making narrative: 60-year-old female with metastatic breast cancer being treated with oral chemotherapy. History of borderline diabetes with blood sugars greater than 600 the last several days. IV fluids and labs are being obtained. Diabetic hyperglycemia versus DKA. Repeat exam patient is doing well at 1055. She has obvious diabetic hyperglycemia she is not in DKA. She has been ordered 2 L IV fluids the nurses are adjusting her IV to get the flow better. She will be admitted due to the blood sugar being 813 I will speak to the hospitalist that they want to do an insulin drip versus insulin shots. Lab Data Attestation: I reviewed the patient's lab results. Lab results narrative: CBC shows white count 2.7. Hemoglobin 11.8. Urinalysis shows glucose but no signs of infection. Electrolytes sodium 125. Gap of 8. Blood sugar 813. BUN 11 creatinine 1.61. Serum ketones negative. Labs: Laboratory Results - last 24 hr 03/22/21 03/22/21 03/22/21 09:45 09:46 10:11 WBC 2.7 L RBC 3.11 L Hgb 11.8 L Hct 34.5 L MCV 110.9 H MCH 37.9 H MCHC 34.2 RDW Std Deviation 72.3 H RDW Coeff of Moises 17.2 H Plt Count 318 MPV 11.0 Immature Gran % (Auto) 0.400 Neut % (Auto) 81.3 H Lymph % (Auto) 5.2 L [place] % (Auto) 10.9 H Eos % (Auto) 1.5 Baso % (Auto) 0.7 Absolute Neuts (auto) 2.2 Absolute Lymphs (auto) 0.14 L Nucleated RBC % 0 Sodium Potassium Chloride Carbon Dioxide Anion Gap BUN Creatinine Estim Creat Clear Calc Est GFR (MDRD) Af Amer Est GFR (MDRD) Non-Af BUN/Creatinine Ratio Glucose Calcium Total Bilirubin AST ALT Alkaline Phosphatase Total Protein Albumin Globulin Albumin/Globulin Ratio Urine Color Straw Urine Clarity Clear Urine pH 6.0 Ur Specific [place] 1.010 Urine Protein 30 H Urine Glucose (UA) 1000 H Urine Ketones Negative Urine Occult Blood 25 H Urine Nitrite Negative Urine Bilirubin Negative Urine Urobilinogen Normal Ur Leukocyte Esterase 100 H Urine RBC 0 SEEN Urine WBC 0-5 SEEN Ur Squamous Epith Cells 0 SEEN Urine Bacteria 0 SEEN Urine Mucus 0 SEEN Acetone Level POC Glucose > 500 H* 03/22/21 03/22/21 10:11 10:11 WBC RBC Hgb Hct MCV MCH MCHC RDW Std Deviation RDW Coeff of Moises Plt Count MPV Immature Gran % (Auto) Neut % (Auto) Lymph % (Auto) [place] % (Auto) Eos % (Auto) Baso % (Auto) Absolute Neuts (auto) Absolute Lymphs (auto) Nucleated RBC % Sodium 125 L Potassium 3.9 Chloride 91 L Carbon Dioxide 26.0 Anion Gap 8 BUN 11 Creatinine 1.61 H Estim Creat Clear Calc 28.04 Est GFR (MDRD) Af Amer 42 L Est GFR (MDRD) Non-Af 35 L BUN/Creatinine Ratio 6.8 L Glucose 813 H* Calcium 9.8 Total Bilirubin 0.50 AST 20 ALT 34 Alkaline Phosphatase 140 H Total Protein 8.1 Albumin 3.6 Globulin 4.5 H Albumin/Globulin Ratio 0.8 L Urine Color Urine Clarity Urine pH Ur Specific [place] Urine Protein Urine Glucose (UA) Urine Ketones Urine Occult Blood Urine Nitrite Urine Bilirubin Urine Urobilinogen Ur Leukocyte Esterase Urine RBC Urine WBC Ur Squamous Epith Cells Urine Bacteria Urine Mucus Acetone Level NEGATIVE POC Glucose Discharge Plan Triage Chief Complaint: Abn Labs ED Provider: Kenneth Shelton Dx/Rx/DC Orders Clinical Impression: Hyperglycemia due to type 2 diabetes mellitus, History of breast cancer Prescriptions: No Action letrozole [Femara] 2.5 mg tablet 2.5 mg PO DAILY Qty: 30 RF: 5 tizanidine 4 mg capsule 4 mg PO Q4H PRNRF: 0 diazepam 10 mg tablet 10 mg PO TID PRNRF: 0 fentanyl 25 mcg/hr patch 72 hour 1 patch transdermal Q72H 30 Days Qty: 10 RF: 0 multivitamin 1 EACH tablet 1 ea PO DAILY RF: 0 famotidine 10 MG tablet 10 mg PO DAILY RF: 0 clonazepam 1 MG tablet 1 mg PO QHS RF: 0 atenolol 25 MG tablet 25 mg PO QHS RF: 0 calcium carbonate-vitamin D3 1 EACH tablet 1 ea PO DAILY RF: 0 lisinopril 10 MG tablet 10 mg PO DAILY RF: 0 cyclobenzaprine 5 MG tablet 5 mg PO QHS RF: 0 rosuvastatin 40 MG tablet 40 mg PO QHS RF: 0 venlafaxine 150 MG tablet extended release 24 hr 300 mg PO DAILY RF: 0 fingolimod 0.5 MG capsule 0.5 mg PO DAILY RF: 0 gabapentin 600 MG tablet extended release 24 hr 600 mg PO QHS RF: 0 amantadine HCl 100 MG capsule 100 mg PO QHS RF: 0 Lactobacillus acidophilus 1 EACH capsule 1 ea PO BID RF: 0 Albuterol IH (ProAir) 2 puff inhalation PRN PRN (Reason: breathing) RF: 0 buspirone 7.5 MG tablet 7.5 mg PO BID RF: 0 acetaminophen 325 MG tablet 650 mg PO Q6H PRN PRN (Reason: Mild Pain (scale 0-3)/T>100.7) RF: 0 sitagliptin 100 MG tablet 100 mg PO DAILY RF: 0 (DME) Disability Placard See Rx Instructions .Route .MEDSUPPLY Qty: 1 RF: 0 (DME) Wheelchair See Rx Instructions .Route .MEDSUPPLY Qty: 1 RF: 0 tramadol 50 mg tablet 50 mg PO Q6H PRN (Reason: pain) Qty: 30 RF: 0 (DME) blood sugar diagnostic Strip See Rx Instructions .ROUTE .MEDSUPPLY Qty: 30 RF: 1 (DME) blood-glucose meter Kit See Rx Instructions .ROUTE .MEDSUPPLY Qty: 1 RF: 0 Primary Care Provider: Sandro Bland Referrals: Sandro Bland DO [Primary Care Provider] - Disposition Disposition: Acute Care Hospital [facility]
[2021-03-22 09:51] LABS: Bedside Glucose > 500 mg/dL (70-110)
[2021-03-22 09:56] LABS: Bacteria 0 SEEN /hpf (None Seen); Mucous, Urine 0 SEEN /hpf (<or=2+); Red Blood Cells-Urine 0 SEEN /hpf (0-5); Squamous Epithelial Cells - UA 0 SEEN /hpf (5-10)
[2021-03-22 09:58] LABS: Color, Urine Straw (Yellow); Glucose, Dipstick 1000 mg/dl (Normal); Ketone-Dipstick Negative (Negative); Leukocyte Esterase-Dipstick 100 /ul (Negative); Nitrite-Dipstick Negative (Negative); Occult Blood-Urine 25 /ul (Negative); Protein-Dipstick 30 mg/dl (Negative); Urine Bilirubin Dipstick Negative (Negative); Urine Clarity Clear (Clear); Urine Urobilinogen Normal (Normal)
[2021-03-22 10:04] LABS: White Blood Cells 0-5 SEEN /hpf (0-5)
[2021-03-22] MEDS: 0.9% Normal Saline 1,000 ML 1000 ML IV ×2 (10:19→11:47)
[2021-03-22 10:25] LABS: Absolute Lymphocyte Count 0.14 X10^3/uL (0.83-4.51); Absolute Neutrophil Count 2.2 X10^3/uL (2.0-7.7); Basophil# 0.02 X10^3/uL; Basophil% 0.7 % (0-1); Eosinophil# 0.04 X10^3/uL; Eosinophils% 1.5 % (0-5); Hematocrit 34.5 % (37-47); Hemoglobin 11.8 g/dL (12.0-15.0); Lymphocyte # 0.14 X10^3/ul (0.83-4.51); Lymphocyte % 5.2 % (19-41); Mean Corp Hgb Conc 34.2 g/dL (32-36); Mean Corpuscular Hgb 37.9 pg (27.0-32.0); Mean Corpuscular Volume 110.9 fL (81-99); Monocyte# 0.29 X10^3/uL; Monocyte% 10.9 % (0-10); NRBC Flagged by Analyzer 0 % (0-5); Neutrophil # 2.17 X10^3/uL (2.7-7.7); Neutrophil % 81.3 % (47-70); POSITIVE DIFFERENTIAL YES; POSITIVE MORPHOLOGY YES; Platelet Count 318 K/mm3 (150-450); RBC Distribution Width CV 17.2 % (11.6-14.6); RBC Distribution Width SD 72.3 fl (35.1-43.9); Red Blood Count 3.11 M/mm3 (4.2-5.4); White Blood Count 2.7 K/mm3 (4.4-11.0)
[2021-03-22 10:37] LABS: Differential Indicated SCAN CRITERIA MET
[2021-03-22 10:47] LABS: ALB/GLOB Ratio 0.8 RATIO (0.9-2.4); AST(SGOT) 20 U/L (15-37); Alanine Aminotransfer ALT/SGPT 34 U/L (13-56); Albumin, Serum 3.6 g/dL (3.2-5.0); Alkaline Phosphatase 140 U/L (45-117); Anion Gap 8 (5-15); BUN 11 mg/dL (7-18); BUN/Creat Ratio 6.8 RATIO (10-20); Calcium,Total 9.8 mg/dL (8.5-10.1); Chloride 91 mmol/L (98-107); Creatinine, Serum 1.61 mg/dL (0.55-1.02); EST Glomerular Filtration Rate 35 mL/min (>60); Est Glom Filt Rate - Afr Amer 42 mL/min (>60); Estimated Creatinine Clearance 28.04 ml/min; Globulin 4.5 g/dL (2.2-4.2); Glucose 813 mg/dL (74-106); Potassium 3.9 mmol/L (3.5-5.1); Protein, Total 8.1 g/dL (6.4-8.2); Sodium Level 125 mmol/L (136-145)
[2021-03-22 10:57] LABS: Anisocytosis 1+
--- NOTE | 2021-03-22 11:21 | HP.PCM.HOS_ITS ---
HPI - General General Date of Admission: 03/22/21 HPI Narrative PARVIN HARRIS, is a 60 F with an extensive PMH as outlined who presents via the ED with a complaint of elevated blood sugars. Apparently her blood sugars have been elevated in the last several days. She has borderline diabetes which have been well controlled. She denied any shortness of breath, fever, chills, nausea, vomiting or diarrhea, but does admit to urinary frequency. Review of systems was otherwise negative. Patient was recently started on oral chemotherapy for breast cancer. On admission, vitals were BP of 178/84, CA of 75, RR of 16 and temperature of 98.4F, with oxygen sats of 99% on room air. Chemistry showed wbc of 2.7, Hb of 11.8, platelets of 318; chemistries showed sodium of 125, with Cr of 1.61 and eGFR of 35. Glucose was 813. Urinalysis showed negative bacteria and ketones were negative. She is being admitted to be managed for elevated blood sugar, with no evidence of DKA. [facility] Medical History Adjustment disorder Anemia Breast cancer Breast cancer Breast cancer, right Breast cancer, right Cancer of left breast Chicken pox Colitis Depression Drug induced neutropenia Educational circumstance Encounter for adjustment or management of vascular access device Frequent headaches GERD (gastroesophageal reflux disease) History of stomach ulcers HLD (hyperlipidemia) HTN (hypertension) Hyperglycemia Lung cancer Lung nodules Multiple sclerosis Postcoital bleeding UTI (urinary tract infection) Home Medications atenolol 25 mg PO QHS 10/25/16 [History Last Taken 09/29/19 21:10 25 MG] calcium carbonate-vitamin D3 1 ea PO DAILY 10/25/16 [History Last Taken 02/11/17] clonazepam 1 mg PO QHS 10/25/16 [History Last Taken 02/11/17] cyclobenzaprine 5 mg PO QHS 10/25/16 [History Last Taken 02/11/17] famotidine 10 mg PO DAILY 10/25/16 [History Last Taken 09/30/19 05:30 10 MG] fingolimod 0.5 mg PO DAILY 10/25/16 [History Last Taken 09/06/17 05:00] gabapentin 600 mg PO QHS 10/25/16 [History Last Taken 02/11/17] lisinopril 10 mg PO DAILY 10/25/16 [History Last Taken 09/30/19 05:30 10 MG] multivitamin 1 ea PO DAILY 10/25/16 [History Last Taken 02/11/17] rosuvastatin 40 mg PO QHS 10/25/16 [History Last Taken 02/11/17] venlafaxine 300 mg PO DAILY 10/25/16 [History Last Taken 09/05/17 22:00] Lactobacillus acidophilus 1 ea PO BID 11/09/16 [History Last Taken 02/11/17] amantadine HCl 100 mg PO QHS 11/09/16 [History Last Taken 02/11/17] buspirone 7.5 mg PO BID 02/02/17 [History Last Taken 09/06/17 05:00] acetaminophen 650 mg PO Q6H PRN PRN tab 04/14/17 [Rx Last Taken Unknown] Albuterol IH (ProAir) 2 puff INHALATION PRN PRN 03/12/18 [History Last Taken Unknown] sitagliptin 100 mg PO DAILY 09/29/19 [History Last Taken Unknown] Disability Placard #1 ea 11/01/20 [Rx Last Taken Unknown] Wheelchair #1 ea 11/23/20 [Rx Last Taken Unknown] tramadol 50 mg tablet 50 mg PO Q6H PRN #30 tab 12/14/20 [Rx Last Taken Unknown] letrozole 2.5 mg tablet 2.5 mg PO DAILY #30 tab 01/03/21 [Rx Last Taken Unknown] diazepam 10 mg tablet 10 mg PO TID PRN 01/18/21 [History Last Taken Unknown] tizanidine 4 mg capsule 4 mg PO Q4H PRN cap 01/18/21 [History Last Taken Unknown] fentanyl 25 mcg/hr transdermal patch 1 patch TRANSDERMAL Q72H 30 Days #10 ea 1 [Rx Last Taken 03/19/21 22:00] blood sugar diagnostic #30 ea 03/15/21 [Rx Last Taken Unknown] blood-glucose meter #1 ea 03/15/21 [Rx Last Taken Unknown] alpelisib [Piqray] 150 mg PO DAILY 03/22/21 [History Last Taken Unknown] fulvestrant [Faslodex] 500 mg IM Q14D 03/22/21 [History Last Taken 03/15/21] Allergy/AdvReac Type Severity Reaction Status Date / Time Penicillins Allergy Unknown Unknown Verified 03/22/21 09:35 adhesive tape AdvReac Severe Unknown Verified 03/22/21 09:35 cephalexin AdvReac Severe Upset Verified 03/22/21 09:35 Stomach hydrocodone [From Vicodin] AdvReac Severe Other Verified 03/22/21 09:35 oxycodone [From Percocet] AdvReac Severe Vomiting Verified 03/22/21 09:35 prednisone AdvReac Severe Nausea/vomi Verified 03/22/21 09:35 ting Family History Mother Kidney disease Hypertension Hyperlipidemia Heart disease Diabetes Depression Arthritis Surgical History H/O bilateral oophorectomy H/O bilateral salpingectomy History of appendectomy History of bilateral mastectomy History of section History of hysterectomy History of lumpectomy History of right breast biopsy Social History Smoking Status: Former smoker alcohol intake: never substance use type: does not use caffeine: Yes what type of physical activity do you participate in: none seatbelt use: always do you feel safe at home: Yes additional social history: Jordy- Retired Patient works at [email or web address] Constitutional Constitutional: Denies anorexia, change in weight, chills, fatigue, fever(s), malaise or weakness Eyes Eyes: Denies change in vision ENT HEENT: Denies dysphagia Cardiovascular Cardiovascular: Denies chest pain, dyspnea on exertion, edema, lightheadedness, orthopnea, palpitations, rapid heart rate or syncope Respiratory/Chest Respiratory/Chest: Denies cough, dyspnea, productive cough, shortness of breath at rest or shortness of breath with exertion Gastrointestinal Gastrointestinal: Denies abdominal pain, diarrhea, dyspepsia, nausea or vomiting Genitourinary Genitourinary: Reports urinary frequency; Denies dysuria Musculoskeletal Musculoskeletal: Denies back pain, joint pain or joint swelling Neurologic Neurologic: Denies confusion, dizziness, focal weakness, numbness or seizures Psychiatric Psychiatric: Denies anxiety or depression Vital Signs Vital Signs Vital Signs: 03/22/21 09:33 03/22/21 09:57 Temperature 98.4 F Temperature Source Temporal Pulse Rate 75 Respiratory Rate 16 Respiratory Effort Normal Non-Labored Respiratory Pattern Normal Blood Pressure 178/84 H Blood Pressure Mean 115 Pulse Ox 99 Oxygen Delivery Method Room Air Weight Weight: 173 lb Body Mass Index (BMI) 32.6 Physical Exam Const alert, oriented x3 and no apparent distress General Appearance: cooperative HEENT normocephalic and moist oral mucous membranes Eyes PERRL Neck no lymphadenopathy Resp normal respiratory effort, no retractions, no use of accessory muscles and clear to auscultation bilaterally Cardio regular rate, regular rhythm, S1 normal heart sound, S2 normal heart sound and no murmurs GI normal to inspection, nondistended, normoactive bowel sounds, soft to palpation, non-tender and non-distended Extremity normal to inspection Peripheral Pulses: Yes pulses 2+ throughout Skin no rashes or lesions noted Neuro oriented x3, CN's II-XII intact bilaterally and moves all extremities Sensorium / Orientation: awake and alert Psych affect normal Results Lab / Micro Data Result Diagrams: 03/22/21 10:11 03/22/21 10:11 Labs: Laboratory Results - last 24 hr 03/22/21 09:45: Urine Color Straw, Urine Clarity Clear, Urine pH 6.0, Ur Specific [place] 1.010, Urine Protein 30 H, Urine Glucose (UA) 1000 H, Urine Ketones Negative, Urine Occult Blood 25 H, Urine Nitrite Negative, Urine Bilirubin Negative, Urine Urobilinogen Normal, Ur Leukocyte Esterase 100 H, Urine RBC 0 SEEN, Urine WBC 0-5 SEEN, Ur Squamous Epith Cells 0 SEEN, Urine Bacteria 0 SEEN, Urine Mucus 0 SEEN 03/22/21 09:46: POC Glucose > 500 H* 03/22/21 10:11: WBC 2.7 L, RBC 3.11 L, Hgb 11.8 L, Hct 34.5 L, MCV 110.9 H, MCH 37.9 H, MCHC 34.2, RDW Std Deviation 72.3 H, RDW Coeff of Moises 17.2 H, Plt Count 318, MPV 11.0, Immature Gran % (Auto) 0.400, Neut % (Auto) 81.3 H, Lymph % (Aut o) 5.2 L, [place] % (Auto) 10.9 H, Eos % (Auto) 1.5, Baso % (Auto) 0.7, Absolute Neuts (auto) 2.2, Absolute Lymphs (auto) 0.14 L, Nucleated RBC % 0, Differential Comment COMMENT, Diff Path Review May foll, Anisocytosis 1+ 03/22/21 10:11: Sodium 125 L, Potassium 3.9, Chloride 91 L, Carbon Dioxide 26.0, Anion Gap 8, BUN 11, Creatinine 1.61 H, Estim Creat Clear Calc 28.04, Est GFR (MDRD) Af Amer 42 L, Est GFR (MDRD) Non-Af 35 L, BUN/Creatinine Ratio 6.8 L, Glucose 813 H*, Calcium 9.8, Total Bilirubin 0.50, AST 20, ALT 34, Alkaline Phosphatase 140 H, Total Protein 8.1, Albumin 3.6, Globulin 4.5 H, Alb umin/Globulin Ratio 0.8 L 03/22/21 10:11: Acetone Level NEGATIVE Assessment & Plan Assessment/Plan (1) Hyperglycemia due to type 2 diabetes mellitus: PLAN: #Hyperglycemia in a known diabetic * admit to PCU with telemetry * blood sugar was 213, but no evidence of DKA. * hydrate aggressively with IVF * give SQ insulin lispro 0.1mg/kg and check blood sugar q1hrly * patient currently on Piqray (Alpelisib) as oral chemotherapy. Hyperglycemia is a common side effect of Piqray. Will discuss with her oncologist about whether to continue this or otherwise. * PEr discussion with her oncologist, will continue the Piqray at half her dose, and so she will be on 150mg daily. Will consider adding on insulin to help control her blood sugars better and also get dietitian consult to help advice about diabetic diet. * hold sitagliptin * #History of metastatic breast cancer * s/p right axillary dissection and left mastectomy and radiation * on oral chemotherapy * has mets to the cervical and thoracic spine. * to follow up with oncology on outpatient basis * #Hypertension: on atenolol and lisinopril #Hyperlipidemia: on statin #Multiple sclerosis: on fingolimod. #History of lung cancer: stable #Depression: on venlafaxine. DVT prophylaxis:L lovenox Code status:full code * Patient and her counseled extensively about different types of CODE STATUS including full code, DNR CCA and DNR CCA. Patient elects to be full code. * Total [id number] time 17 minutes. Charges/Coding Visit Charges Inpatient E&M: 90563 Init Hosp L3
[2021-03-22] MEDS: Insulin Lispro 100 UNIT/ML INSULN.PEN 12 UNIT SC (11:41)
[2021-03-22 13:20] LABS: Bedside Glucose > 500 mg/dL (70-110)
[2021-03-22] MEDS: Insulin Lispro 100 UNIT/ML INSULN.PEN 10 UNIT SC (13:27)
[2021-03-22] MEDS: 0.9% Normal Saline 1,000 ML 150 ML IV ×2 (13:36→20:38)
[2021-03-22 13:52] LABS: Pathologist Review Reviewed
[2021-03-22 15:21] LABS: Bedside Glucose 428 mg/dL (70-110)
[2021-03-22 18:16] LABS: Bedside Glucose 378 mg/dL (70-110)
[2021-03-22] MEDS: fentaNYL 25 MCG Patch TD (18:45)
[2021-03-22] MEDS: Insulin Lispro 100 UNIT/ML INSULN.PEN SC ×2 (18:53→20:58)
[2021-03-22 18:56] LABS: Bedside Glucose 351 mg/dL (70-110)
[2021-03-22] MEDS: cycloBENZAPRine HCl 5 MG TABLET PO (20:53)
[2021-03-22] MEDS: DiphenhydrAMINE 25 MG Capsule PO (20:53)
[2021-03-22] MEDS: busPIRone 15 MG TABLET 7.5 MG PO (20:53)
[2021-03-22] MEDS: Atenolol 25 MG Tablet PO (20:54)
[2021-03-22] MEDS: Atorvastatin Calcium 80 MG Tablet PO (20:54)
[2021-03-22] MEDS: Amantadine 100 MG Capsule PO (20:54)
[2021-03-22] MEDS: Gabapentin 600 MG Tablet PO (20:54)
[2021-03-22] MEDS: clonazePAM 1 MG Tablet PO ×2 (21:05)
[2021-03-22 21:06] LABS: Bedside Glucose 304 mg/dL (70-110)
[2021-03-23] VITALS (10 sets, daily range): BP systolic 110–139; BP diastolic 52–75; PULSE 63–90; RESP 14–18; TEMP 36.6–36.7; O2SAT 94–98
[2021-03-23] MEDS: traMADol 50 MG Tablet PO ×2 (04:35→20:13)
[2021-03-23] MEDS: Acetaminophen 325 MG Tablet 650 MG PO (05:59)
[2021-03-23] MEDS: Insulin Lispro 100 UNIT/ML INSULN.PEN SC ×3 (06:30→20:17)
[2021-03-23 06:50] LABS: Bedside Glucose 406 mg/dL (70-110)
[2021-03-23 08:07] LABS: Absolute Lymphocyte Count 0.16 X10^3/uL (0.83-4.51); Absolute Neutrophil Count 2.2 X10^3/uL (2.0-7.7); Basophil# 0.02 X10^3/uL; Basophil% 0.7 % (0-1); Eosinophil# 0.09 X10^3/uL; Eosinophils% 3.3 % (0-5); Hematocrit 33.7 % (37-47); Hemoglobin 11.3 g/dL (12.0-15.0); Lymphocyte # 0.16 X10^3/ul (0.83-4.51); Lymphocyte % 5.8 % (19-41); Mean Corp Hgb Conc 33.5 g/dL (32-36); Mean Corpuscular Hgb 36.7 pg (27.0-32.0); Mean Corpuscular Volume 109.4 fL (81-99); Mean Platelet Vol. 10.8 fl (6.2-12.0); Monocyte# 0.26 X10^3/uL; Monocyte% 9.5 % (0-10); NRBC Flagged by Analyzer 0 % (0-5); Neutrophil # 2.21 X10^3/uL (2.7-7.7); Neutrophil % 80.3 % (47-70); POSITIVE DIFFERENTIAL YES; POSITIVE MORPHOLOGY YES; Platelet Count 284 K/mm3 (150-450); RBC Distribution Width CV 17.3 % (11.6-14.6); RBC Distribution Width SD 69.9 fl (35.1-43.9); Red Blood Count 3.08 M/mm3 (4.2-5.4); White Blood Count 2.8 K/mm3 (4.4-11.0)
[2021-03-23 08:15] LABS: Differential Indicated SCAN CRITERIA MET
[2021-03-23 08:33] LABS: Anion Gap 6 (5-15); BUN 8 mg/dL (7-18); BUN/Creat Ratio 6.7 RATIO (10-20); Calcium,Total 8.3 mg/dL (8.5-10.1); Chloride 107 mmol/L (98-107); Creatinine, Serum 1.19 mg/dL (0.55-1.02); EST Glomerular Filtration Rate 49 mL/min (>60); Est Glom Filt Rate - Afr Amer 59 mL/min (>60); Estimated Creatinine Clearance 37.94 ml/min; Glucose 448 mg/dL (74-106); Potassium 3.8 mmol/L (3.5-5.1); Sodium Level 135 mmol/L (136-145)
[2021-03-23 08:53] LABS: Hemoglobin A1c 8.5 % (3.8-5.6)
[2021-03-23 09:32] LABS: Anisocytosis 1+; Differential Comment SCANNED; Polychromasia RARE
[2021-03-23] MEDS: Multivitamins,Therapeutic Tablet 1 TABLET PO (09:47)
[2021-03-23] MEDS: busPIRone 15 MG TABLET 7.5 MG PO ×2 (09:48→20:08)
[2021-03-23] MEDS: Famotidine 20 MG Tablet 10 MG PO (09:48)
[2021-03-23] MEDS: Venlafaxine XR 150 MG Capsule 300 MG PO (09:48)
[2021-03-23] MEDS: LINAGLIPTIN 5 MG TABLET PO (09:50)
[2021-03-23] MEDS: Lisinopril 10 MG Tablet PO (09:50)
[2021-03-23] MEDS: Enoxaparin 30 MG/0.3 ML Syringe SC (09:51)
--- NOTE | 2021-03-23 10:05 | CASEMGMT ---
RN CM Assessment Introduced role of RN CM to patient and her [place].? Patient is alert, oriented and able?to participate in RN CM Assessment. ?Care providers, pharmacy, and demographics verified. Admit Dx: Hyperglycemia Re-Admit: No Barriers/Issues: None. Patient has a good family support. States someone is with her most of the time between her children and . PCP: Sandro Bland Specialists: Onc-Marga Preferred [facility]acy: [facility] Insurance: [place] [facility] Benefit:?Yes- [employer] LNOK: [facility] LW/HPOA: None. Both patient and her [place]ur at bedside state interested in completing AD's. Carito- social media marketing specialist informed. Living Arrangements:? Lives with her and adult son in a 2SH. Bedroom on ground level. 2 steps to enter home. ADL?s: Ambulates using a rollator. assists with medication management, Bathing and assisting with putting on socks. Patient is otherwise Independent. Transportation: Patient no longer drives, does the driving. DME: Rollator, Glucometer, BSC, Bed rails, hand rails in bathroom- shower and toilet, 2WW, straight cane (does not use), Daren [place], [place]. HHC: None SNF: None Goal: Home and does not think will need anything upon DC. Denies any issues, concerns or questions with going home- anticipated tomorrow DC 11.4.21. Aware RNCM will continue to follow should any needs arise. DC PLAN: Home with no anticipated needs identified at this time. KASH Lee
[2021-03-23] MEDS: Calcium Carbonate 500 MG Tablet PO (11:40)
[2021-03-23 11:56] LABS: Bedside Glucose > 500 mg/dL (70-110)
[2021-03-23] MEDS: metFORMIN HCl 850 MG Tablet PO ×2 (12:03→17:22)
[2021-03-23] MEDS: Insulin Lispro 100 UNIT/ML INSULN.PEN 15 UNIT SC (12:03)
[2021-03-23] MEDS: Calcium Carb/Vitamin D 1 TABLET Tablet PO (12:05)
--- NOTE | 2021-03-23 12:51 | PN.HOSP_ITS ---
Subjective Subjective Patient seen and examined. She is feeling better today. Her blood sugars have trended down both although still elevated in the 300s and 400s. Review of systems otherwise negative. She has otherwise remained stable. Objective Data Objective Data Vital Signs: Vital Signs Temp Pulse Resp BP Pulse Ox 98 F 73 14 117/52 L 96 03/23/21 09:56 03/23/21 11:03 03/23/21 09:56 03/23/21 09:56 03/23/21 09:56 Oxygen Delivery Method Room Air Weight: 167 lb 1.766 oz Body Mass Index (BMI) 31.5 Intake & Output: Intake and Output for Last 24 Hours 03/21/21 03/22/21 03/23/21 23:59 23:59 23:59 Intake Total 3240 / 3240 1919 Output Total 550 / 550 Balance 2690 / 2690 1919 Medical Nutrition Assessment Dietitian: Malnutrition Criteria Met Start: 03/22/21 17:13 Freq: Status: Active Protocol: Document 03/22/21 17:13 RMA (Rec: 03/22/21 17:14 RMA [id number]) Nutrition Malnutrition Evidence of Malnutrition Exists Yes Malnutrition (severe): Acute Illness/Injury,Chronic Evidenced By Suboptimal Energy Intake ( Severe),Weight Loss (Severe) Clinical Problem Chronic Disease or Condition Related Malnutrition Etiology Severe protein/calorie malnutrition in the context of acute on chronic disease related to metastatic disease/ chemo and poor appetite/ inadequate oral intake Signs/Symptoms as evidenced by ~5% wt loss x past 1 month and PO meeting less than 75% estimated nutrition needs Status Active Problem Recommendation Dietitian Recommendations/Changes Recommend advance diet as medically able to Carbohydrate -Controlled (no caloric restrictions) with 120ml glucerna shake TID w/ meals as tolerated. Provided diet education to pt and spouse today regarding carbohydrate-controlled diet/ avoiding conc sweets, simple sugars and sweets--? understanding and compliance with diet especially given ongoing poor appetite and weight loss. Lab / Micro Data Result Diagrams: 03/23/21 07:32 03/23/21 07:32 Labs: Laboratory Results - last 24 hr 03/22/21 10:11: Diff Path Review Reviewed 03/22/21 13:11: POC Glucose > 500 H* 03/22/21 15:18: POC Glucose 428 H 03/22/21 17:20: POC Glucose 378 H 03/22/21 18:44: POC Glucose 351 H 03/22/21 20:58: POC Glucose 304 H 03/23/21 06:29: POC Glucose 406 H 03/23/21 07:32: WBC 2.8 L, RBC 3.08 L, Hgb 11.3 L, Hct 33.7 L, MCV 109.4 H, MCH 36.7 H, MCHC 33.5, RDW Std Deviation 69.9 H, RDW Coeff of Moises 17.3 H, Plt Count 284, MPV 10.8, Immature Gran % (Auto) 0.400, Neut % (Auto) 80.3 H, Lymph % (Auto) 5.8 L, Grimes % (Auto) 9.5, Eos % (Auto) 3.3, Baso % (Auto) 0.7, Absolute Neuts (auto) 2.2, Absolute Lymphs (auto) 0.16 L, Nucleated RBC % 0, Differential Comment SCANNED, Diff Path Review May foll, Polychromasia RARE, Anisocytosis 1+ 03/23/21 07:32: Sodium 135 L, Potassium 3.8, Chloride 107, Carbon Dioxide 22.0, Anion Gap 6, BUN 8, Creatinine 1.19 H, Estim Creat Clear Calc 37.94, Est GFR (MDRD) Af Amer 59 L, Est GFR (MDRD) Non-Af 49 L, BUN/Creatinine Ratio 6.7 L, Glucose 448 H, Calcium 8.3 L 03/23/21 07:32: Hemoglobin A1c 8.5 H 03/23/21 11:43: POC Glucose > 500 H* Physical Exam Const alert, oriented x3 and no apparent distress General Appearance: cooperative Exam Limitations: no limitations HEENT normocephalic, head/scalp atraumatic and moist oral mucous membranes Head and Scalp: normocephalic Eyes PERRL Neck no lymphadenopathy Resp normal respiratory effort, no retractions, no use of accessory muscles and clear to auscultation bilaterally Cardio regular rate, regular rhythm, S1 normal heart sound, S2 normal heart sound and no murmurs GI normal to inspection, nondistended, normoactive bowel sounds, soft to palpation, non-tender and non-distended Extremity normal to inspection, full ROM and no clubbing, cyanosis or edema Peripheral Pulses: Yes pulses 2+ throughout Skin no rashes or lesions noted Neuro oriented x3, CN's II-XII intact bilaterally and moves all extremities Sensorium / Orientation: awake and alert Psych affect normal Assessment & Plan Assessment/Plan (1) Hyperglycemia due to type 2 diabetes mellitus: PLAN: #Hyperglycemia in a known diabetic * likely due to side effect of Piqray, her chemotherapy medication * blood sugars now down to the 300s and 400s * patient also admits to drinking lots of pop drinks at home. * on SQ insulin slidiing scale * A1C is 8.5. 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 * per discussion with her oncologist, hip Piqray dose reduced to half to 150 mg daily. * * #History of metastatic breast cancer * s/p right axillary dissection and left mastectomy and radiation * on oral chemotherapy * has mets to the cervical and thoracic spine. * to follow up with oncology on outpatient basis * #Hypertension: on atenolol and lisinopril #Hyperlipidemia: on statin #Multiple sclerosis: on fingolimod. #History of lung cancer: stable #Depression: on venlafaxine. DVT prophylaxis:L lovenox Code status:full code * Charges/Coding Visit Charges Inpatient E&M: 20051 Subs Hosp L2
[2021-03-23 17:30] LABS: Bedside Glucose 394 mg/dL (70-110)
[2021-03-23] MEDS: cycloBENZAPRine HCl 5 MG TABLET PO (20:08)
[2021-03-23] MEDS: DiphenhydrAMINE 25 MG Capsule PO (20:08)
[2021-03-23] MEDS: Gabapentin 600 MG Tablet PO (20:09)
[2021-03-23] MEDS: Amantadine 100 MG Capsule PO (20:09)
[2021-03-23] MEDS: Atorvastatin Calcium 80 MG Tablet PO (20:09)
[2021-03-23] MEDS: Atenolol 25 MG Tablet PO (20:10)
[2021-03-23 20:51] LABS: Bedside Glucose 271 mg/dL (70-110)
[2021-03-24 03:16] VITALS: PULSE 73
[2021-03-24] MEDS: traMADol 50 MG Tablet PO (04:16)
[2021-03-24 04:21] VITALS: BP 133/66; PULSE 76; RESP 18; TEMP 37; O2SAT 94
[2021-03-24 05:55] LABS: Absolute Lymphocyte Count 0.17 X10^3/uL (0.83-4.51); Absolute Neutrophil Count 1.8 X10^3/uL (2.0-7.7); Basophil# 0.01 X10^3/uL; Basophil% 0.4 % (0-1); Eosinophil# 0.05 X10^3/uL; Eosinophils% 2.2 % (0-5); Hematocrit 31.5 % (37-47); Hemoglobin 10.8 g/dL (12.0-15.0); Lymphocyte # 0.17 X10^3/ul (0.83-4.51); Lymphocyte % 7.4 % (19-41); Mean Corp Hgb Conc 34.3 g/dL (32-36); Mean Corpuscular Hgb 36.5 pg (27.0-32.0); Mean Corpuscular Volume 106.4 fL (81-99); Monocyte# 0.29 X10^3/uL; Monocyte% 12.6 % (0-10); NRBC Flagged by Analyzer 0 % (0-5); Neutrophil # 1.76 X10^3/uL (2.7-7.7); Neutrophil % 76.5 % (47-70); POSITIVE DIFFERENTIAL YES; POSITIVE MORPHOLOGY YES; Platelet Count 276 K/mm3 (150-450); RBC Distribution Width CV 17.2 % (11.6-14.6); RBC Distribution Width SD 67.5 fl (35.1-43.9); Red Blood Count 2.96 M/mm3 (4.2-5.4); White Blood Count 2.3 K/mm3 (4.4-11.0)
[2021-03-24] MEDS: Insulin Lispro 100 UNIT/ML INSULN.PEN SC ×3 (06:29→16:41)
[2021-03-24 06:30] LABS: Bedside Glucose 397 mg/dL (70-110)
[2021-03-24 06:34] LABS: Differential Indicated SCAN CRITERIA MET
[2021-03-24 06:46] LABS: Anion Gap 6 (5-15); BUN 7 mg/dL (7-18); BUN/Creat Ratio 6.5 RATIO (10-20); Calcium,Total 8.3 mg/dL (8.5-10.1); Chloride 107 mmol/L (98-107); Creatinine, Serum 1.08 mg/dL (0.55-1.02); EST Glomerular Filtration Rate 55 mL/min (>60); Est Glom Filt Rate - Afr Amer 66 mL/min (>60); Glucose 404 mg/dL (74-106); Potassium 3.7 mmol/L (3.5-5.1); Sodium Level 135 mmol/L (136-145)
[2021-03-24 07:01] LABS: Anisocytosis 2+
[2021-03-24 07:03] VITALS: PULSE 84
[2021-03-24] MEDS: Famotidine 20 MG Tablet 10 MG PO (09:18)
[2021-03-24] MEDS: Venlafaxine XR 150 MG Capsule 300 MG PO (09:18)
[2021-03-24] MEDS: busPIRone 15 MG TABLET 7.5 MG PO (09:19)
[2021-03-24] MEDS: metFORMIN HCl 850 MG Tablet PO ×2 (09:20→16:42)
[2021-03-24] MEDS: Multivitamins,Therapeutic Tablet 1 TABLET PO (09:20)
[2021-03-24] MEDS: Lisinopril 10 MG Tablet PO (09:28)
[2021-03-24] MEDS: LINAGLIPTIN 5 MG TABLET PO (09:28)
[2021-03-24 09:29] VITALS: BP 130/77; PULSE 90; RESP 14; TEMP 36.6; O2SAT 95
--- NOTE | 2021-03-24 11:22 | PCM.DC.SUM ---
Providers Date of Admission: 03/22/21 Primary Care Physician: Dr. Sandro Balnd DO Reason For Visit: HYPERGLYCEMIA Diagnosis Discharge Diagnosis (1) Hyperglycemia due to type 2 diabetes mellitus: Status: Acute Code(s): E11.65 - Type 2 diabetes mellitus with hyperglycemia Medications at Discharge Home Medications atenolol 25 mg PO QHS 10/25/16 calcium carbonate-vitamin D3 1 ea PO DAILY 10/25/16 clonazepam 1 mg PO QHS 10/25/16 cyclobenzaprine 5 mg PO QHS 10/25/16 famotidine 10 mg PO DAILY 10/25/16 fingolimod 0.5 mg PO DAILY 10/25/16 gabapentin 600 mg PO QHS 10/25/16 lisinopril 10 mg PO DAILY 10/25/16 multivitamin 1 ea PO DAILY 10/25/16 rosuvastatin 40 mg PO QHS 10/25/16 venlafaxine 300 mg PO DAILY 10/25/16 Lactobacillus acidophilus 1 ea PO BID 11/09/16 amantadine HCl 100 mg PO QHS 11/09/16 buspirone 7.5 mg PO BID 02/02/17 acetaminophen 650 mg PO Q6H PRN PRN tab 04/14/17 Albuterol IH (ProAir) 2 puff INHALATION PRN PRN 03/12/18 sitagliptin 100 mg PO DAILY 09/29/19 Disability Placard #1 ea 11/01/20 Wheelchair #1 ea 11/23/20 tramadol 50 mg tablet 50 mg PO Q6H PRN #30 tab 12/14/20 letrozole 2.5 mg tablet 2.5 mg PO DAILY #30 tab 01/03/21 diazepam 10 mg tablet 10 mg PO TID PRN 01/18/21 tizanidine 4 mg capsule 4 mg PO Q4H PRN cap 01/18/21 fentanyl 25 mcg/hr transdermal patch 1 patch TRANSDERMAL Q72H 30 Days #10 ea 02/23/21 blood sugar diagnostic #30 ea 03/15/21 blood-glucose meter #1 ea 03/15/21 fulvestrant [Faslodex] 500 mg IM Q14D 03/22/21 alpelisib [Piqray] 150 mg PO 2000 #30 tab 03/24/21 insulin glargine [Lantus Solostar U-100 Insulin] 10 unit SUBCUT QPM #15 ml 03/24/21 Hospital Course Operations None Procedures None Summary of Care Provided Minutes Spent on Discharge: 45 Hospital Course: PARVIN HARRIS, is a 60 F with an extensive PMH as outlined who presents via the ED with a complaint of elevated blood sugars. Apparently her blood sugars have been elevated in the last several days. She has borderline diabetes which have been well controlled. She denied any shortness of breath, fever, chills, nausea, vomiting or diarrhea, but does admit to urinary frequency. Review of systems was otherwise negative. Patient was recently started on oral chemotherapy for breast cancer. On admission, vitals were BP of 178/84, OH of 75, RR of 16 and temperature of 98.4F, with oxygen sats of 99% on room air. Chemistry showed wbc of 2.7, Hb of 11.8, platelets of 318; chemistries showed sodium of 125, with Cr of 1.61 and eGFR of 35. Glucose was 813. Urinalysis showed negative bacteria and ketones were negative. She was admitted to be managed for hyperglycemia, likely precipitated by her chemotherapy medication. Patient had recently been started on Piqray (alpelisib) which has a known side effect of significant hyperglycemia. She was hydrated with IV fluids and was given subcu insulin lispro. Blood sugars gradually trended down. She was put back on her Januvia. Patient's blood sugars to remain poorly controlled so in light of her still continuing on Piqray albeit at half her previous dose as recommended by oncology, decision was made to start patient on Lantus 10 units daily to help combat the hyperglycemia. Patient also admitted to a history of drinking a lot of pop and was counseled about importance of cutting down on the amount of pop that she drinks. Dietitian was consulted counseled patient about diabetic diet. Patient remained stable and was discharged on 03/24/2021. She was discharged on Piqray 150 mg daily as well as Lantus 10 units daily and Januvia 100 mg daily. I did call her PCP Dr. Sandro Streeter to update him about patient's stay in the hospital and plan of care, for medications to be adjusted in outpatient basis as needed. Patient was counseled to keep a blood sugar log namely checking blood sugar before and after meals and presenting the results to her PCP for dose of insulin to be adjusted as needed. Patient seen and examined prior to discharge. She had no complaints and felt well. Review of systems otherwise negative. Labs and vitals reviewed. Home medication reviewed and reconciled. Physical Exam Const alert, oriented x3 and no apparent distress General Appearance: cooperative and comfortable Exam Limitations: no limitations HEENT normocephalic, head/scalp atraumatic and moist oral mucous membranes Eyes PERRL Neck no lymphadenopathy Resp normal respiratory effort, no retractions, no use of accessory muscles and clear to auscultation bilaterally Cardio regular rate, regular rhythm, S1 normal heart sound, S2 normal heart sound and no murmurs GI normal to inspection, nondistended, normoactive bowel sounds, soft to palpation, non-tender and non-distended Extremity normal to inspection, full ROM and no clubbing, cyanosis or edema Skin no rashes or lesions noted Neuro oriented x3, CN's II-XII intact bilaterally and moves all extremities Sensorium / Orientation: awake and alert Psych affect normal Medical Records Data Medical Nutrition Assessment Dietitian: Malnutrition Criteria Met Start: 03/22/21 17:13 Freq: Status: Active Protocol: Document 03/22/21 17:13 RMA (Rec: 03/22/21 17:14 RMA [id number]) Nutrition Malnutrition Evidence of Malnutrition Exists Yes Malnutrition (severe): Acute Illness/Injury,Chronic Evidenced By Suboptimal Energy Intake ( Severe),Weight Loss (Severe) Clinical Problem Chronic Disease or Condition Related Malnutrition Etiology Severe protein/calorie malnutrition in the context of acute on chronic disease related to metastatic disease/ chemo and poor appetite/ inadequate oral intake Signs/Symptoms as evidenced by ~5% wt loss x past 1 month and PO meeting less than 75% estimated nutrition needs Status Active Problem Recommendation Dietitian Recommendations/Changes Recommend advance diet as medically able to Carbohydrate -Controlled (no caloric restrictions) with 120ml glucerna shake TID w/ meals as tolerated. Provided diet education to pt and spouse today regarding carbohydrate-controlled diet/ avoiding conc sweets, simple sugars and sweets--? understanding and compliance with diet especially given ongoing poor appetite and weight loss. Weight / BMI Weight Weight: 167 lb 1.766 oz Body Mass Index (BMI) 31.5 ABG / Lab / Microbiology Data Result Diagrams: 03/24/21 04:58 03/24/21 12:03 Laboratory: Laboratory Results - last 24 hr 03/23/21 11:43: POC Glucose > 500 H* 03/23/21 17:19: POC Glucose 394 H 03/23/21 20:15: POC Glucose 271 H 03/24/21 04:58: WBC 2.3 L, RBC 2.96 L, Hgb 10.8 L, Hct 31.5 L, MCV 106.4 H, MCH 36.5 H, MCHC 34.3, RDW Std Deviation 67.5 H, RDW Coeff of Moises 17.2 H, Plt Count 276, MPV 11.0, Immature Gran % (Auto) 0.900, Neut % (Auto) 76.5 H, Lymph % (Auto) 7.4 L, Charles % (Auto) 12.6 H, Eos % (Auto) 2.2, Baso % (Auto) 0.4, Absolute Neuts (auto) 1.8 L, Absolute Lymphs (auto) 0.17 L, Nucleated RBC % 0, Diff Path Review May foll, Anisocytosis 2+ 03/24/21 04:58: Sodium 135 L, Potassium 3.7, Chloride 107, Carbon Dioxide 22.0, Anion Gap 6, BUN 7, Creatinine 1.08 H, Estim Creat Clear Calc 41.80, Est GFR (MDRD) Af Amer 66, Est GFR (MDRD) Non-Af 55 L, BUN/Creatinine Ratio 6.5 L, Glucose 404 H, Calcium 8.3 L 03/24/21 06:24: POC Glucose 397 H D/C Instructions Discharge Diet: 1800 Calorie Control Diet Discharge Activity: Return to Normal Activity Weight Bearing Status: Weight bearing as tolerated Call your doctor if you observe: Fever of 101 or Higher, Shortness of breath, Swelling in the ankles and - (elevated blood sugars) Meaningful Use Info Meaningful Use Diagnoses (Choose all that apply): None applicable Discharge Plan Admission Admit Date/Time: 03/22/21 11:37 Primary Reason for Your Visit: hyperglycemia Attending Provider: Nessa Dacosta Primary Care Provider: Sandro Bland Instructions Patient Instructions: Blood Sugar Monitoring and ..., ED Diabetic Hyperglycemia Additional Instructions / Restrictions: check blood sugars before and after meals and keep a blood sugar log. Discharge Orders/Prescriptions Prescriptions: New Lantus Solostar U-100 Insulin 100 unit/mL (3 mL) insulin pen 10 unit subcut QPM Qty: 15 RF: 0 Piqray 300 mg/day (150 mg x 2) Tablet 150 mg PO 1999 Qty: 30 RF: 0 Continued letrozole [Femara] 2.5 mg tablet 2.5 mg PO DAILY Qty: 30 RF: 5 tizanidine 4 mg capsule 4 mg PO Q4H PRN (Reason: Muscle Spasm) RF: 0 diazepam 10 mg tablet 10 mg PO TID PRN (Reason: Anxiety) RF: 0 fentanyl 25 mcg/hr patch 72 hour 1 patch transdermal Q72H 30 Days Qty: 10 RF: 0 multivitamin 1 EACH tablet 1 ea PO DAILY RF: 0 famotidine 10 MG tablet 10 mg PO DAILY RF: 0 clonazepam 1 MG tablet 1 mg PO QHS RF: 0 atenolol 25 MG tablet 25 mg PO QHS RF: 0 calcium carbonate-vitamin D3 1 EACH tablet 1 ea PO DAILY RF: 0 lisinopril 10 MG tablet 10 mg PO DAILY RF: 0 cyclobenzaprine 5 MG tablet 5 mg PO QHS RF: 0 rosuvastatin 40 MG tablet 40 mg PO QHS RF: 0 venlafaxine 150 MG tablet extended release 24 hr 300 mg PO DAILY RF: 0 fingolimod 0.5 MG capsule 0.5 mg PO DAILY RF: 0 gabapentin 600 MG tablet extended release 24 hr 600 mg PO QHS RF: 0 amantadine HCl 100 MG capsule 100 mg PO QHS RF: 0 Lactobacillus acidophilus 1 EACH capsule 1 ea PO BID RF: 0 Albuterol IH (ProAir) 2 puff inhalation PRN PRN (Reason: breathing) RF: 0 buspirone 7.5 MG tablet 7.5 mg PO BID RF: 0 acetaminophen 325 MG tablet 650 mg PO Q6H PRN PRN (Reason: Mild Pain (scale 0-3)/T>100.7) RF: 0 sitagliptin 100 MG tablet 100 mg PO DAILY RF: 0 fulvestrant [Faslodex] 250 mg/5 mL Syringe 500 mg IM Q14D RF: 0 (DME) Disability Placard See Rx Instructions .Route .MEDSUPPLY Qty: 1 RF: 0 (DME) Wheelchair See Rx Instructions .Route .MEDSUPPLY Qty: 1 RF: 0 tramadol 50 mg tablet 50 mg PO Q6H PRN (Reason: pain) Qty: 30 RF: 0 (DME) blood sugar diagnostic Strip See Rx Instructions .ROUTE .MEDSUPPLY Qty: 30 RF: 1 (DME) blood-glucose meter Kit See Rx Instructions .ROUTE .MEDSUPPLY Qty: 1 RF: 0 Discontinued Piqray 300 mg/day (150 mg x 2) Tablet 150 mg PO DAILY RF: 0 Referrals / Follow Up: Charles Gresham MD [NON-STAFF] - In 1 Week Sandro Bland DO [Primary Care Provider] - 03/30/21 10:50 am Disposition Disposition (needs filled in before D/C Order can be placed): Home, Self Care Charges/Coding Visit Charges Inpatient E&M: 59032 Disch Hosp
[2021-03-24 11:31] LABS: Bedside Glucose 500 mg/dL (70-110)
[2021-03-24] MEDS: Calcium Carbonate 500 MG Tablet PO (12:08)
[2021-03-24] MEDS: Calcium Carb/Vitamin D 1 TABLET Tablet PO (12:08)
[2021-03-24 12:33] LABS: Glucose 493 mg/dL (74-106)
--- NOTE | 2021-03-24 12:55 | CCN.REFER ---
Per therapy, no further therapy needs. Pt to be placed on Lantus but has given self subq injections in the past and Aleena COLLAZO went over with pt. Pt stated no further concerns/needs with going home. David COLLAZO CM
[2021-03-24 13:26] LABS: Bedside Glucose 436 mg/dL (70-110)
[2021-03-24 15:46] LABS: Bedside Glucose 324 mg/dL (70-110)
[2021-03-24 16:35] VITALS: BP 117/61; PULSE 98; RESP 15; TEMP 37.2; O2SAT 95
[2021-03-24 17:05] LABS: Bedside Glucose 366 mg/dL (70-110)
[2021-03-25 09:16] LABS: Pathologist Review Reviewed
[2021-03-25 09:37] LABS: Pathologist Review Reviewed
--- NOTE | 2021-03-25 20:11 | CASEMGMT ---
Addendum entered and electronically signed by Louise Fitzgerald 03/25/21 20:27: Intervention occurred on 03/24/2021. -ngoc Original Note: Social Work PCU Referral received for completion of advance directives. Presented to patient's room and spoke with the patient's, and patient's . Introduced to self and reason for visit. Patient reports would prefer just to take the forms home rather than completing advanced directives at this time. Provided 2 copies of advance directive information and verbally reviewed what the living will and power of trial attorney for healthcare meeting. Provided this promotion writer's contact number if the patient chooses to complete these forms in the future. No other services requested. Patient will be discharging home with . -Louise Fitzgerald, JESSICA, STRIKER OUT *This note was generated with [employer] dictation software. It may contain incorrect words, spelling, and punctuation that were not noted in review of the chart prior to signing*
== END 2021-03-24 17:11 | disposition home or self-care (01) | DRG 638 ==
LOC: ED 10:59 → PCU 03-23 07:58
PROVIDERS: Admitting Provider Student in an Organized Health Care Education/Training Program; Emergency Provider Emergency Medicine; PCP Family Medicine; Visit Provider Student in an Organized Health Care Education/Training Program
DX: E11.65 Type 2 diabetes mellitus with hyperglycemia (principal); C79.51 Secondary malignant neoplasm of bone; E78.5 Hyperlipidemia, unspecified; C50.919 Malignant neoplasm of unspecified site of unspecified female breast; I10 Essential (primary) hypertension; Z85.118 Personal history of other malignant neoplasm of bronchus and lung; F32.A Depression, unspecified; G35 Multiple sclerosis; Z66 Do not resuscitate; F43.20 Adjustment disorder, unspecified; D63.0 Anemia in neoplastic disease; K21.9 Gastro-esophageal reflux disease without esophagitis; Z88.0 Allergy status to penicillin; Z85.3 Personal history of malignant neoplasm of breast; Z90.13 Acquired absence of bilateral breasts and nipples; F17.210 Nicotine dependence, cigarettes, uncomplicated; Z90.49 Acquired absence of other specified parts of digestive tract; Z87.11 Personal history of peptic ulcer disease; Z90.710 Acquired absence of both cervix and uterus
CPT/HCPCS: 36415; 80048; 80053; 81001; 82009; 82947; 82962; 83036; 85025; 97162; 97802; 97803; 99284; 99406; J7030; 90686; A4216

== ENCOUNTER 2021-05-18 08:46 | Outpatient (RCR) | payer BC, SELFPAY ==
[2021-02-22 11:15] VITALS: BMI 36.2
[2021-05-18 09:15] VITALS: BP 112/78; PULSE 86; RESP 20; TEMP 36.5; BMI 30.6
--- NOTE | 2021-05-18 11:48 | HP.PCM_ITS ---
History of Present Illness Date of Service: 05/18/21 Chief Complaint: Follow-up bilateral heel blisters History of Wound: 60-year-old white female with an aggressive breast cancer that is receiving chemotherapy. The chemotherapy is causing her to develop blisters and they have developed on her heels. It is also caused her to become diabetic and has caused her sugars to shoot up to 800 and is currently on insulin her last hemoglobin A1c was 8.5. She is here today to continue treatment for the heel blisters. She has been putting antibiotic ointment on her heels and the left heel became mushy and the scab came off so now she has an open wound on the left heel but the right heel still has a hardened scab on it. FORMERLY [facility], [facility] Medical History Adjustment disorder Anemia Breast cancer Breast cancer Breast cancer, right Breast cancer, right Cancer of left breast Chicken pox Colitis Depression Drug induced neutropenia Educational circumstance Encounter for adjustment or management of vascular access device Frequent headaches GERD (gastroesophageal reflux disease) History of breast cancer History of stomach ulcers HLD (hyperlipidemia) HTN (hypertension) Hyperglycemia Hyperglycemia due to type 2 diabetes mellitus Lung cancer Lung nodules Multiple sclerosis Postcoital bleeding UTI (urinary tract infection) Home Medications atenolol 25 mg PO QHS 10/25/16 [History Last Taken 09/29/19 21:10 25 MG] calcium carbonate-vitamin D3 1 ea PO DAILY 10/25/16 [History Last Taken 02/11/17] clonazepam 1 mg PO QHS 10/25/16 [History Last Taken 02/11/17] cyclobenzaprine 5 mg PO QHS 10/25/16 [History Last Taken 02/11/17] famotidine 10 mg PO DAILY 10/25/16 [History Last Taken 09/30/19 05:30 10 MG] fingolimod 0.5 mg PO DAILY 10/25/16 [History Last Taken 09/06/17 05:00] gabapentin 600 mg PO QHS 10/25/16 [History Last Taken 02/11/17] lisinopril 10 mg PO DAILY 10/25/16 [History Last Taken 09/30/19 05:30 10 MG] multivitamin 1 ea PO DAILY 10/25/16 [History Last Taken 02/11/17] rosuvastatin 40 mg PO QHS 10/25/16 [History Last Taken 02/11/17] venlafaxine 300 mg PO DAILY 10/25/16 [History Last Taken 09/05/17 22:00] Lactobacillus acidophilus 1 ea PO BID 11/09/16 [History Last Taken 02/11/17] amantadine HCl 100 mg PO QHS 11/09/16 [History Last Taken 02/11/17] buspirone 7.5 mg PO BID 02/02/17 [History Last Taken 09/06/17 05:00] acetaminophen 650 mg PO Q6H PRN PRN tab 04/14/17 [Rx Last Taken Unknown] Albuterol IH (ProAir) 2 puff INHALATION PRN PRN 03/12/18 [History Last Taken Unknown] sitagliptin 100 mg PO DAILY 09/29/19 [History Last Taken Unknown] Disability Placard #1 ea 11/01/20 [Rx Last Taken Unknown] Wheelchair #1 ea 11/23/20 [Rx Last Taken Unknown] tramadol 50 mg tablet 50 mg PO Q6H PRN #30 tab 12/14/20 [Rx Last Taken Unknown] letrozole 2.5 mg tablet 2.5 mg PO DAILY #30 tab 01/03/21 [Rx Last Taken Unknown] diazepam 10 mg tablet 10 mg PO TID PRN 01/18/21 [History Last Taken Unknown] tizanidine 4 mg capsule 4 mg PO Q4H PRN cap 01/18/21 [History Last Taken Unknown] blood sugar diagnostic #30 ea 03/15/21 [Rx Last Taken Unknown] blood-glucose meter #1 ea 03/15/21 [Rx Last Taken Unknown] fulvestrant [Faslodex] 500 mg IM Q14D 03/22/21 [History Last Taken 03/15/21] insulin glargine [Lantus Solostar U-100 Insulin] 10 unit SUBCUT QPM #15 ml 03/24/21 [Rx Last Taken Unknown] potassium chloride 20 mEq tablet,extended release 20 meq PO DAILY #14 tab 04/25/21 [Rx Last Taken Unknown] fentanyl 25 mcg/hr transdermal patch 1 patch TRANSDERMAL Q72H 30 Days #10 ea 05/10/21 [Rx Last Taken Unknown] Lactobacillus acidophilus [Acidophilus] 500 mmu cells PO DAILY 05/18/21 [History Last Taken Unknown] cyclobenzaprine [Flexeril] 10 mg PO TID 05/18/21 [History Last Taken Unknown] fentanyl 1 patch TRANSDERMAL Q72H 05/18/21 [History Last Taken Unknown] fingolimod [Gilenya] 0.5 mg PO DAILY 05/18/21 [History Last Taken Unknown] gabapentin 600 mg PO DAILY 05/18/21 [History Last Taken Unknown] insulin glargine [Lantus U-100 Insulin] 20 unit SUBCUT DAILY 05/18/21 [History Last Taken Unknown] lisinopril 10 mg PO DAILY 05/18/21 [History Last Taken Unknown] rosuvastatin [Crestor] 40 mg PO DAILY 05/18/21 [History Last Taken Unknown] Allergy/AdvReac Type Severity Reaction Status Date / Time Penicillins Allergy Unknown Unknown Verified 05/10/21 09:26 adhesive tape AdvReac Severe Unknown Verified 05/10/21 09:26 cephalexin AdvReac Severe Upset Verified 05/10/21 09:26 Stomach hydrocodone [From Vicodin] AdvReac Severe Other Verified 05/10/21 09:26 oxycodone [From Percocet] AdvReac Severe Vomiting Verified 05/10/21 09:26 prednisone AdvReac Severe Nausea/vomi Verified 05/10/21 09:26 ting Family History Mother Kidney disease Hypertension Hyperlipidemia Heart disease Diabetes Depression Arthritis Surgical History H/O bilateral oophorectomy H/O bilateral salpingectomy History of appendectomy History of bilateral mastectomy History of section History of hysterectomy History of lumpectomy History of right breast biopsy Social History Smoking Status: Former smoker alcohol intake: never substance use type: does not use caffeine: Yes what type of physical activity do you participate in: none seatbelt use: always do you feel safe at home: Yes additional social history: Jordy- Retired Patient works at [employer] Constitutional Constitutional: Reports systems reviewed and no addt'l complaints, except as documented Eyes Eyes: Reports systems reviewed and no addt'l complaints, except as documented ENT HEENT: Reports systems reviewed and no addt'l complaints, except as documented Cardiovascular Cardiovascular: Reports systems reviewed and no addt'l complaints, except as documented Respiratory/Chest Respiratory/Chest: Reports systems reviewed and no addt'l complaints, except as documented Gastrointestinal Gastrointestinal: Reports systems reviewed and no addt'l complaints, except as documented Genitourinary Genitourinary: Reports systems reviewed and no addt'l complaints, except as documented Musculoskeletal Musculoskeletal: Reports systems reviewed and no addt'l complaints, except as documented Integumentary Integumentary: Reports skin ulcer, wounds and other Details: Bilateral heels Neurologic Neurologic: Reports systems reviewed and no addt'l complaints, except as documented Psychiatric Psychiatric: Reports systems reviewed and no addt'l complaints, except as documented Endocrine Endocrinology: Reports systems reviewed and no addt'l complaints, except as documented Hematologic/Lymphatic Hematologic/Lymphatic: Reports systems reviewed and no addt'l complaints, except as documented Allergic/Immunologic Allergic/Immunologic: Reports systems reviewed and no addt'l complaints, except as documented Vital Signs Vital Signs Vital Signs: 05/18/21 09:15 Temperature 97.7 F L Temperature Source Temporal Pulse Rate 86 Respiratory Rate 20 H Blood Pressure 112/78 Blood Pressure Mean 89 Blood Pressure Source Monitor Weight Weight: 161 lb 15.108 oz Body Mass Index (BMI) 30.6 Physical Exam Const oriented x3 General Appearance: cooperative Exam Limitations: no limitations HEENT normocephalic Head and Scalp: normal to inspection Face and Sinus: normal facial exam Nose: external nose normal General Ear: hearing grossly impaired External Ear: external ears normal Mouth: oral and palatal mucosa normal Eyes PERRL General Eye: normal appearance of both eyes Neck full ROM General: normal visual inspection Resp normal respiratory effort Effort and Inspection: able to speak in complete sentences Auscultation: clear to auscultation bilaterally Cardio regular rate and regular rhythm Palpation: normal PMI Rate: regular rate Rhythm: regular rhythm GI Auscultation: normoactive bowel sounds Palpation: soft and no hepatosplenomegaly external exam normal Back/Spine Cervical Spine: cervical ROM normal Thoracic Spine / Upper Back: normal to inspection Lumbar Spine / Lower Back: normal to inspection Extremity normal to inspection General Extremity: normal exam except as noted Skin Wounds: wounds noted Wound Narrative: Bilateral heel wounds left heel open right heel has a hardened scab from blister both wounds developed from blood blisters that developed on her heels Neuro oriented x3 Psych Appearance: grossly normal Speech: normal speech Thought Content: normal thought content Judgement: judgement good Debridement Note Debridement Note Wound debrided: Left heel ulcer diabetic Laterality: Left Wound Grade/Stage: Stage II Type of Debridement: Excisional debridement Anesthesia Used: 5% Lidocaine Gel Depth: Down to and including healthy tissue Percentage of wound debrided: 100 Instrument Used: 5mm curette Tissue Removed: Fibrin and some slough Severity: Fat Layer Exposed Amount of bleeding with debridement: Mild Bleeding Controlled with: Compression and gauze Patient tolerated procedure: Patient tolerated procedure well Post-Debridement Measurements and Additional Note: Post-Debridement Measurements/Treatment - Nurse 1 - General Ulcer Assessment Start: 05/18/21 08:47 Freq: Status: Active Protocol: NAYELI Activity Type Activity Date Activity User E-Sign Co-Sign Detail Recorded Client Recorded Date Recorded By Document 05/18/21 09:15 DL [id number] 05/18/21 09:37 DL Edit Result 05/18/21 09:15 DL (1) [id number] 05/18/21 10:05 DL (1) Height => 5 ft 1 in Weight => 161 lb 15.108 oz Weight in Pounds => 161.9 lbs Body Mass Index (BMI) => 30.6 BMI Classification => Obese BSA - Wendy => 1.73 05/18/21 09:15 - Today's Visit Information Type of service Initial Visit Arrival Mode Ambulatory, Wheelchair Transfer Assistance None Patient Identification Verified (Name & Yes ) Patient Requires Transmission-Based No Precautions Finger Stick Blood Sugar(mg/dl) (if not checked indicated): Blood Sugar Stated by Patient Height and Weight Height 5 ft 1 in Weight 161 lb 15.108 oz Weight in Pounds 161.9 lbs Body Mass Index (BMI) 30.6 BMI Classification Obese BSA - Wendy 1.73 Vital Signs Temperature (97.8 F-99.1 F) 97.7 F L Temperature Source Temporal Pulse Rate (60-100) 86 Pulse Location Monitor Respiratory Rate (12-18) 20 H Respiratory rate source Observation Blood Pressure (90/60-120/80) 112/78 Blood Pressure Mean (mm Hg) 89 Source Monitor History Since Last Visit- (Skip if this is Patient's initial visit) Left Footwear Regular Shoe Right Footwear Regular Shoe Pain Scale: 0-10 Numeric Is Patient Pain Free? Yes Lower Extremity Assessment/ Foot Assessment/ Toe Nail Assessment Left -Posterior Tibial Palpable Yes -Posterior Tibial Doppler Multiphasic -Dorsalis Pedis Palpable Yes -Dorsalis Pedis Doppler Multiphasic -Extremity Color Normal -Hair Growth on Legs Yes -Hair Growth on Toes No -Temperature of Extremity Warm -Capillary Refill Less than 3 Seconds -Dependent Rubor No -Blanched when Elevated No -Lipodermatosclerosis No -Other Deformity No -Prior Foot Ulcer No -Charcot Joint No -Prior Amputation No -Thick No -Discolored No -Deformed No -Improper Length & Hygeine No Right -Posterior Tibial Palpable Yes -Posterior Tibial Doppler Multiphasic -Dorsalis Pedis Palpable Yes -Dorsalis Pedis Doppler Multiphasic -Extremity Color Normal -Hair Growth on Legs Yes -Hair Growth on Toes No -Temperature of Extremity Warm -Capillary Refill Less than 3 Seconds -Dependent Rubor No -Blanched when Elevated No -Lipodermatosclerosis No -Other Deformity No -Prior Foot Ulcer No -Charcot Joint No -Prior Amputation No -Thick No -Discolored No -Deformed No -Improper Length & Hygeine No Neuropathy Assessment Feet - Top Side and Bottom <Entered> (a) Communication Assessment Preferred language Bur[place]ian Able to Read Yes Able to Write Yes Communication Tools None Right Hearing Abillity Normal Left Hearing Abillity Normal Visual Assistive Devices Glasses Teaching Assessment Preferences Verbal,Written, Demonstration Barriers to Learning None Readiness To Learn Good Willingness to Engage in Self Management Med Activies Readiness to Engage in Self Management Med Activities Anxiety Level Calm Cooperation Cooperative Perception Coherent Interest in Health Problem Asks Questions Education Importance Acknowledges Need Does Patient Smoke tobacco or other No substances Smoking Status Former smoker Is Patient Diabetic Yes Functional Assessment Recent Decline in Ability to Perform Denies Any Declines Culture/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 Balloon Artist to contact place of [facility] No Teaching: Wound Center Dressing Your Wound -Person Taught Patient, Significant Other *Welcome to the Wound Center -Person Taught Patient, Significant Other (a) 1 - + WC - Nurse 1 - General Ulcer Measurement Start: 05/18/21 08:47 Freq: Status: Active Protocol: Activity Type Activity Date Activity User E-Sign Co-Sign Detail Recorded Client Recorded Date Recorded By Document 05/18/21 09:15 DL [id number] 05/18/21 09:37 DL 05/18/21 09:15 Wound Center Nurse 1 #2 L Heel -Current Size (cm) - Length 2.2 -Current Size (cm) - Width 1.5 -Current Size (cm) - Depth 0.3 -Total Square Cm 3.30 -Photo Taken Yes -Classification - Thickness Full Thickness without Exposed Support Structure -Exudate Amt Medium -Exudate Type Serosanguineous -Wound Margin Distinct, Outline Attached -Granulation Amt Medium (34-66%) -Granulation Quality Pale,Hutto -Necrosis Amt Medium (34-66%) -Necrotic Tissue Type Adherent Slough -Structure Exposed N/A -Texture (Chelsie-wound Skin Appearance) Scarring -Moisture (Chelsei-wound Skin Appearance) No Abnormality -Color (Chelsie-wound Skin Appearance) No Abnormality -Temperature (Chelsie-wound Skin No Abnormality Appearance) (Pt Warm) -Tenderness on Palpation (Chelsie-wound No Skin Appearance) -Ulcer Cleansing Soap and Water -Foul Odor after Cleansing No -Anesthetic Used 5% Lidocaine Gel #1 R Heel -Current Size (cm) - Length 2 -Current Size (cm) - Width 2.3 -Current Size (cm) - Depth 0.1 -Total Square Cm 4.6 -Photo Taken Yes -Classification - Thickness Unclassifiable (Eschar Covered ) -Exudate Amt Small -Exudate Type Serosanguineous -Wound Margin Thickened -Granulation Amt None Present (0 %) -Necrosis Amt Small (1-33%) -Necrotic Tissue Type Eschar -Structure Exposed N/A -Texture (Chelsie-wound Skin Appearance) Scarring -Moisture (Chelsie-wound Skin Appearance) No Abnormality -Color (Chelsie-wound Skin Appearance) No Abnormality -Tenderness on Palpation (Chelsie-wound No Skin Appearance) -Ulcer Cleansing Soap and Water -Foul Odor after Cleansing No -Anesthetic Used 5% Lidocaine Gel WC - Nurse 2 - General Ulcer CM Notes Start: 05/18/21 08:47 Freq: Status: Active Protocol: Activity Type Activity Date Activity User E-Sign Co-Sign Detail Recorded Client Recorded Date Recorded By Document 05/18/21 10:03 MW [id number] 05/18/21 10:18 MW 05/18/21 10:03 Wound Center Nurse 2 #2 L Heel -Time 10:04 -Correct Patient Yes -Correct Side, Site, Position Yes -Correct Procedure Yes -Procedure Performed Yes -Type of Procedure Debridement -Clinical Debridement Subcutaneous -Tissue Removed Subcutaneous -Post Debridement (cm) - Length 2.4 -Post Debridement (cm) - Width 1.5 -Post Debridement (cm) - Depth 0.2 -Total Square (Post) (cm) 3.60 -Area of Debridement (cm) - Length 2.4 -Area of Debridement (cm) - Width 1.5 -Total Square (Area) (cm) 3.60 -Tunneling No -Undermining/Tunneling No -Circular Undermining No -Wound/Ulcer Outcome Not Healed -Ulcer Cleansing Rinsed/ Irrigated with Saline -Foul Odor after Cleansing No -Bioengineered Tissue No -Bleeding Controlled with Pressure -Offloading No -Treatment Response Procedure Tolerated Well -Debridement - Subq, 1st 20sq cm Yes #1 R Heel -Time 10:08 -Correct Patient Yes -Correct Side, Site, Position Yes -Correct Procedure Yes -Procedure Performed No -Post Debridement (cm) - Length 4.0 -Post Debridement (cm) - Width 2.5 -Post Debridement (cm) - Depth 0.1 -Total Square (Post) (cm) 10.00 -Tunneling No -Undermining/Tunneling No -Circular Undermining No -Wound/Ulcer Outcome Not Healed Pain Scale: 0-10 Numeric Is Patient Pain Free? Yes WC - Nurse 3 - General Ulcer D/C NN Start: 05/18/21 08:47 Freq: Status: Active Protocol: Activity Type Activity Date Activity User E-Sign Co-Sign Detail Recorded Client Recorded Date Recorded By Document 05/18/21 10:41 DL [id number] 05/18/21 10:42 DL 05/18/21 10:41 Wound Care Nurse 3 #2 L Heel -Ulcer Cleansing Rinsed/ Irrigated with Saline -Foul Odor after Cleansing No -Primary Dressing Applied Aquacel Extra -Primary Dressing Covered/Secured with Dry Gauze & Roll Gauze, Secured with Tape -Other Covering nurses hat -Aquacel Extra 1 #1 R Heel -Foul Odor after Cleansing No -Other Dressing Betadine, skin prep -Primary Dressing Covered/Secured with Dry Gauze & Roll Gauze, Secured with Tape -Other Covering nurses hat Treatment Response Procedure Tolerated Well Pain Scale: 0-10 Numeric Is Patient Pain Free? Yes WC - Visit Discharge Discharge Condition Stable Ambulatory Status Ambulatory Transportation Private Auto Accompanied by Notes: R Heel dressing applied per [place]. Additional Wound Wound debrided: Right heel ulcer Operative Diagnosis: No debridement Assessment/Plan Assessment/Plan (1) Decubitus ulcer, stage 2 with infection: CODE(S): L89.92 - Pressure ulcer of unspecified site, stage 2; L08.9 - Local infection of the skin and subcutaneous tissue, unspecified PLAN: Wash both feet with antibacterial soap left heel Aquacel extra moistened Adaptic and gauze dressing with padded heel. Right heel paint with povidone then Skin-Prep air dry and keep covered with padded heel dressing Follow-up 1 week (2) Diabetic foot ulcer: CODE(S): E11.621 - Type 2 diabetes mellitus with foot ulcer; L97.509 - Non-pressure chronic ulcer of other part of unspecified foot with unspecified severity QUALIFIERS: Diabetic foot ulcer location: heel Diabetes mellitus type: drug or chemical induced Laterality: unspecified laterality Non-pressure ulcer stage: unspecified non-pressure ulcer stage Qualified Code(s): E09.621 - Drug or chemical induced diabetes mellitus with foot ulcer; L97.409 - Non- pressure chronic ulcer of unspecified heel and midfoot with unspecified severity
== END 2021-05-20 23:59 ==
LOC: WC 08:46
PROVIDERS: PCP Family Medicine; Visit Provider Nurse Practitioner
DX: E11.621 Type 2 diabetes mellitus with foot ulcer (principal); L89.612 Pressure ulcer of right heel, stage 2; L08.9 Local infection of the skin and subcutaneous tissue, unspecified; Z87.891 Personal history of nicotine dependence; Z79.4 Long term (current) use of insulin; Z85.3 Personal history of malignant neoplasm of breast; E78.5 Hyperlipidemia, unspecified; D64.9 Anemia, unspecified; F32.A Depression, unspecified; G35 Multiple sclerosis; I10 Essential (primary) hypertension; K21.9 Gastro-esophageal reflux disease without esophagitis; Z79.52 Long term (current) use of systemic steroids
CPT/HCPCS: 11042; 87070; 87075; 87077; 87186; 87205; 99203; G0463

== ENCOUNTER 2021-06-15 09:45 | Outpatient (RCR) | payer BC, SELFPAY ==
[2021-02-22 11:15] VITALS: BMI 36.2
[2021-05-21 00:39] VITALS: BP 112/78; PULSE 86; RESP 20; TEMP 36.5; BMI 30.6
[2021-06-01 10:45] VITALS: BP 90/29; PULSE 68; RESP 16; TEMP 36.2; BMI 30.6
--- NOTE | 2021-06-01 12:44 | PCM.WC.PN ---
History of Present Illness Date of Service: 06/01/21 Chief Complaint: Follow-up bilateral heel blisters History of Wound: 60-year-old white female with an aggressive breast cancer that is receiving chemotherapy. The chemotherapy is causing her to develop blisters and they have developed on her heels. It is also caused her to become diabetic and has caused her sugars to shoot up to 800 and is currently on insulin her last hemoglobin A1c was 8.5. She is here today to continue treatment for the heel blisters. She has been putting antibiotic ointment on her heels and the left heel became mushy and the scab came off so now she has an open wound on the left heel but the right heel still has a hardened scab on it. Progress of Wound: Both heels are doing well and are smaller eschar on the left heel it was completely removed. Right heel took off is much as I could at this point but doing well. Patient was approved for epi fix will apply epi fix to her left heel. Right heel continue using Aquacel extra Subjective Subjective and are pleased with care and that the wounds are getting smaller. is the dressing change or Objective Data Objective Data Doing well on care and wounds are smaller patient just complains it is very painful to walk. We applied epi fix #1 today to the left heel tolerated well wound veil was applied with Steri-Strips and Aquacel over top padding of course to the heel. Right heel was treated with Aquacel extra and padding with extra gauze Vital Signs: Vital Signs Temp Pulse Resp BP 97.2 F L 68 16 90/29 L 06/01/21 10:45 06/01/21 10:45 06/01/21 10:45 06/01/21 10:45 Oxygen Delivery Method Room Air Weight: 161 lb 15.108 oz Body Mass Index (BMI) 30.6 Lab / Micro Data Attestation: I reviewed the patient's lab results. Physical Exam Const oriented x3 General Appearance: cooperative Exam Limitations: no limitations HEENT normocephalic Head and Scalp: normal to inspection Face and Sinus: normal facial exam Nose: external nose normal General Ear: hearing grossly impaired External Ear: external ears normal Mouth: oral and palatal mucosa normal Eyes PERRL General Eye: normal appearance of both eyes Neck full ROM General: normal visual inspection Resp normal respiratory effort Effort and Inspection: able to speak in complete sentences Auscultation: clear to auscultation bilaterally Cardio regular rate and regular rhythm Palpation: normal PMI Rate: regular rate Rhythm: regular rhythm GI Auscultation: normoactive bowel sounds Palpation: soft and no hepatosplenomegaly external exam normal Back/Spine Cervical Spine: cervical ROM normal Thoracic Spine / Upper Back: normal to inspection Lumbar Spine / Lower Back: normal to inspection Extremity normal to inspection General Extremity: normal exam except as noted Skin Wounds: wounds noted Wound Narrative: Bilateral heel wounds left heel open right heel has a hardened scab from blister both wounds developed from blood blisters that developed on her heels Neuro oriented x3 Psych Appearance: grossly normal Speech: normal speech Thought Content: normal thought content Judgement: judgement good Debridement Note Debridement Note Wound debrided: Left heel ulcer Laterality: Left Wound Grade/Stage: Stage II Type of Debridement: Excisional debridement Anesthesia Used: 5% Lidocaine Gel Depth: in the subcutaneous layer Percentage of wound debrided: 100 Instrument Used: 5mm curette, #15 blade, Forceps and - Tissue Removed: Eschar slough fibrin Severity: Fat Layer Exposed Amount of bleeding with debridement: Mild Bleeding Controlled with: Pressure Patient tolerated procedure: Patient tolerated procedure well Post-Debridement Measurements and Additional Note: Post-Debridement Measurements/Treatment - Nurse 1 - General Ulcer Assessment Start: 06/01/21 10:43 Freq: Status: Active Protocol: NAYELI Activity Type Activity Date Activity User E-Sign Co-Sign Detail Recorded Client Recorded Date Recorded By Document 06/01/21 10:45 [facility] [id number] 06/01/21 10:53 [facility] 06/01/21 10:45 - Today's Visit Information Type of service Follow-up Visit (Physician/[employer] ) Arrival Mode Wheelchair Accompanied by Patient Identification Verified (Name & Yes ) Finger Stick Blood Sugar(mg/dl) (if 108 indicated): Blood Sugar Stated by Patient Height and Weight Body Mass Index (BMI) 30.6 BMI Classification Obese Vital Signs Temperature (97.8 F-99.1 F) 97.2 F L Temperature Source Temporal Pulse Rate (60-100) 68 Pulse Location Monitor Respiratory Rate (12-18) 16 Respiratory rate source Observation Oxygen Delivery Method Room Air Blood Pressure (90/60-120/80) 90/29 L Blood Pressure Mean (mm Hg) 49 Source Monitor Position Supine Blood Pressure Location Right Arm Comment RECHK RUE BP 90 /28, PULSE 65; WILL UPDATE CM AND DIRECTOR RECORDS MANAGEMENT LUE RECHK 85/38, PULSE History Since Last Visit- (Skip if this is Patient's initial visit) Have you changed medications since your No last visit? Any new allergies or adverse reactions No Had a fall/change in ADL's that may No increase risk of falls Signs or symptoms of abuse and/or No neglect since last visit Have you been in the hospital since your No last visit? Has dressing in place as prescribed Yes Has compression in place as prescribed N/A Has offloadiing in place as prescribed Yes Experienced any changes in pain level or No management Left Footwear Regular Shoe Right Footwear Regular Shoe Pain Scale: 0-10 Numeric Is Patient Pain Free? Yes WC - Nurse 1 - General Ulcer Measurement Start: 06/01/21 10:43 Freq: Status: Active Protocol: Activity Type Activity Date Activity User E-Sign Co-Sign Detail Recorded Client Recorded Date Recorded By Document 06/01/21 10:45 [facility] [id number] 06/01/21 10:53 [facility] 06/01/21 10:45 Wound Center Nurse 1 #2 L Heel -Combined with other wound No -Current Size (cm) - Length 1.7 -Current Size (cm) - Width 1.5 -Current Size (cm) - Depth 0.1 -Total Square Cm 2.55 -Photo Taken No -Epithelialization None Present -Tunneling No -Undermining/Tunneling No -Circular Undermining No -Exudate Amt Small -Exudate Type Serosanguineous -Wound Margin Distinct, Outline Attached -Granulation Amt Medium (34-66%) -Granulation Quality [place] -Slough/Fibrin Yes -Necrosis Amt Small (1-33%) -Necrotic Tissue Type Eschar -Texture (Chelsie-wound Skin Appearance) Assessed, Scarring -Moisture (Chelsie-wound Skin Appearance) Assessed,Dry/ Scaly -Color (Chelsie-wound Skin Appearance) Assessed -Temperature (Chelsie-wound Skin No Abnormality Appearance) (Pt Warm) -Tenderness on Palpation (Chelsie-wound No Skin Appearance) -Ulcer Cleansing Rinsed/ Irrigated with Saline -Foul Odor after Cleansing No -Anesthetic Used 5% Lidocaine Gel #1 R Heel -Combined with other wound No -Current Size (cm) - Length 3.5 -Current Size (cm) - Width 1.9 -Current Size (cm) - Depth 0.1 -Total Square Cm 6.65 -Photo Taken No -Epithelialization None Present -Tunneling No -Undermining/Tunneling No -Circular Undermining No -Exudate Amt Medium -Exudate Type Serosanguineous -Wound Margin Distinct, Outline Attached -Granulation Amt None Present (0 %) -Slough/Fibrin Yes -Necrosis Amt Large (67-100%) -Necrotic Tissue Type Eschar -Texture (Chelsie-wound Skin Appearance) Assessed, Scarring -Moisture (Chelsie-wound Skin Appearance) Assessed -Color (Chelsie-wound Skin Appearance) Assessed -Temperature (Chelsie-wound Skin No Abnormality Appearance) (Pt Warm) -Tenderness on Palpation (Chelsie-wound No Skin Appearance) -Ulcer Cleansing Rinsed/ Irrigated with Saline -Foul Odor after Cleansing No -Anesthetic Used 5% Lidocaine Gel WC - Nurse 2 - General Ulcer CM Notes Start: 06/01/21 10:43 Freq: Status: Active Protocol: Activity Type Activity Date Activity User E-Sign Co-Sign Detail Recorded Client Recorded Date Recorded By Document 06/01/21 11:08 [facility] [id number] 06/01/21 11:36 [facility] 06/01/21 11:08 Wound Center Nurse 2 #2 L Heel -Time 11:08 -Correct Patient Yes -Correct Side, Site, Position Yes -Correct Procedure Yes -Procedure Performed Yes -Type of Procedure Debridement -Clinical Debridement Subcutaneous -Tissue Removed Subcutaneous -Post Debridement (cm) - Length 1.8 -Post Debridement (cm) - Width 1.2 -Post Debridement (cm) - Depth 0.3 -Total Square (Post) (cm) 2.16 -Area of Debridement (cm) - Length 1.8 -Area of Debridement (cm) - Width 1.2 -Total Square (Area) (cm) 2.16 -Tunneling No -Undermining/Tunneling No -Circular Undermining No -Wound/Ulcer Outcome Not Healed -Ulcer Cleansing Rinsed/ Irrigated with Saline -Foul Odor after Cleansing No -Bioengineered Tissue Yes -Type of Bioengineered Tissue Epifix -Expiration Date 01/19/26 -Product Lot Number [id number] -Percent Used 100 -Lot number of Saline Used [id number] -Bleeding Controlled with Pressure -Offloading No -Treatment Response Procedure Tolerated Well -Debridement - Subq, 1st 20sq cm No -Apply Skin Sub - 1st 25 sq cm - Feet 1 -Epifix (per sq cm) 4 #1 R Heel -Time 11:11 -Correct Patient Yes -Correct Side, Site, Position Yes -Correct Procedure Yes -Procedure Performed Yes -Type of Procedure Debridement -Clinical Debridement Subcutaneous -Tissue Removed Subcutaneous -Post Debridement (cm) - Length 3.4 -Post Debridement (cm) - Width 1.8 -Post Debridement (cm) - Depth 0.2 -Total Square (Post) (cm) 6.12 -Area of Debridement (cm) - Length 3.4 -Area of Debridement (cm) - Width 1.8 -Total Square (Area) (cm) 6.12 -Tunneling No -Undermining/Tunneling No -Circular Undermining No -Wound/Ulcer Outcome Not Healed -Ulcer Cleansing Rinsed/ Irrigated with Saline -Foul Odor after Cleansing No -Bioengineered Tissue No -Bleeding Controlled with Pressure -Offloading No -Treatment Response Procedure Tolerated Well -Debridement - Subq, 1st 20sq cm Yes Pain Scale: 0-10 Numeric Is Patient Pain Free? Yes - Nurse 3 - General Ulcer D/C NN Start: 06/01/21 10:43 Freq: Status: Active Protocol: Activity Type Activity Date Activity User E-Sign Co-Sign Detail Recorded Client Recorded Date Recorded By Document 06/01/21 11:43 [facility] [id number] 06/01/21 11:46 [facility] 06/01/21 11:43 Wound Care Nurse 3 #2 L Heel -Ulcer Cleansing Rinsed/ Irrigated with Saline -Primary Dressing Applied Aquacel Extra -Primary Dressing Covered/Secured with Dry Gauze & Roll Gauze, Secured with Tape -Aquacel Extra 1 #1 R Heel -Ulcer Cleansing Rinsed/ Irrigated with Saline -Other Dressing nurses hat -Primary Dressing Covered/Secured with Dry Gauze & Roll Gauze, Secured with Tape Pain Scale: 0-10 Numeric Is Patient Pain Free? Yes WC - Visit Discharge Discharge Condition Stable Ambulatory Status Wheelchair Medication Reconcilliation completed & No provided to patient/care provider Clinical Summary of Care Provided Yes Additional Wound Wound debrided: Right heel Wound Grade/Stage: Unstageable Type of Debridement: Excisional debridement Anesthesia Used: 5% Lidocaine Gel Depth: in the subcutaneous layer Percentage of wound debrided: 100 Instrument Used: #15 blade and Forceps Tissue Removed: Partial eschar Severity: Fat Layer Exposed Amount of bleeding with debridement: None Bleeding Controlled with: Compression and gauze Patient tolerated procedure: Patient tolerated procedure well Assessment/Plan Assessment/Plan (1) Decubitus ulcer, stage 2 with infection: CODE(S): L89.92 - Pressure ulcer of unspecified site, stage 2; L08.9 - Local infection of the skin and subcutaneous tissue, unspecified PLAN: Epi fix #1 2 left heel applied with wound veil Steri-Strips and Aquacel extra over top with gauze padded dressing. Same for the right heel. Patient was instructed not to get either dressings wet and to follow-up in 1 week (2) Diabetic foot ulcer: CODE(S): E11.621 - Type 2 diabetes mellitus with foot ulcer; L97.509 - Non-pressure chronic ulcer of other part of unspecified foot with unspecified severity QUALIFIERS: Diabetic foot ulcer location: heel Diabetes mellitus type: drug or chemical induced Laterality: unspecified laterality Non-pressure ulcer stage: unspecified non-pressure ulcer stage Qualified Code(s): E09.621 - Drug or chemical induced diabetes mellitus with foot ulcer; L97.409 - Non-pressure chronic ulcer of unspecified heel and midfoot with unspecified severity (3) Metastatic breast cancer: CODE(S): C50.919 - Malignant neoplasm of unspecified site of unspecified female breast (4) Ulcer of skin: CODE(S): L98.499 - Non-pressure chronic ulcer of skin of other sites with unspecified severity QUALIFIERS: Non-pressure ulcer stage: unspecified non-pressure ulcer stage Qualified Code(s): L98.499 - Non-pressure chronic ulcer of skin of other sites with unspecified severity
[2021-06-08 09:54] VITALS: BP 123/48; PULSE 66; RESP 16; TEMP 36; O2SAT 91; BMI 30.6
--- NOTE | 2021-06-08 12:54 | PN.PCM_ITS ---
History of Present Illness Date of Service: 06/08/21 Chief Complaint: Follow-up bilateral heel blisters History of Wound: 60-year-old white female with an aggressive breast cancer that is receiving chemotherapy. The chemotherapy is causing her to develop blisters and they have developed on her heels. It is also caused her to become diabetic and has caused her sugars to shoot up to 800 and is currently on insulin her last hemoglobin A1c was 8.5. She is here today to continue treatment for the heel blisters. She has been putting antibiotic ointment on her heels and the left heel became mushy and the scab came off so now she has an open wound on the left heel but the right heel still has a hardened scab on it. Progress of Wound: Both heels are doing well and are smaller eschar on the left heel it was completely removed. Right heel took off is much as I could at this point but doing well. Patient was approved for epi fix will apply epi fix to her left heel. Right heel continue using Aquacel extra Objective Data Objective Data Vital Signs: Vital Signs Temp Pulse Resp BP Pulse Ox 96.8 F L 66 16 123/48 H 91 06/08/21 09:54 06/08/21 09:54 06/08/21 09:54 06/08/21 09:54 06/08/21 09:54 Oxygen Delivery Method Room Air Weight: 161 lb 15.108 oz Body Mass Index (BMI) 30.6 Physical Exam Const oriented x3 General Appearance: cooperative Exam Limitations: no limitations HEENT normocephalic Head and Scalp: normal to inspection Face and Sinus: normal facial exam Nose: external nose normal General Ear: hearing grossly impaired External Ear: external ears normal Mouth: oral and palatal mucosa normal Eyes PERRL General Eye: normal appearance of both eyes Neck full ROM General: normal visual inspection Resp normal respiratory effort Effort and Inspection: able to speak in complete sentences Auscultation: clear to auscultation bilaterally Cardio regular rate and regular rhythm Palpation: normal PMI Rate: regular rate Rhythm: regular rhythm GI Auscultation: normoactive bowel sounds Palpation: soft and no hepatosplenomegaly external exam normal Back/Spine Cervical Spine: cervical ROM normal Thoracic Spine / Upper Back: normal to inspection Lumbar Spine / Lower Back: normal to inspection Extremity normal to inspection General Extremity: normal exam except as noted Skin Wounds: wounds noted Wound Narrative: Bilateral heel wounds left heel open right heel has a hardened scab from blister both wounds developed from blood blisters that developed on her heels Neuro oriented x3 Psych Appearance: grossly normal Speech: normal speech Thought Content: normal thought content Judgement: judgement good Debridement Note Debridement Note Wound debrided: Left heel decubitus ulcer Type of Debridement: Excisional debridement Anesthesia Used: 5% Lidocaine Gel Depth: in the subcutaneous layer Severity: Fat Layer Exposed Amount of bleeding with debridement: None Bleeding Controlled with: Pressure Patient tolerated procedure: Patient tolerated procedure well Post-Debridement Measurements and Additional Note: Post-Debridement Measurements/Treatment - Nurse 1 - General Ulcer Assessment Start: 06/01/21 10:43 Freq: Status: Active Protocol: NAYELI Activity Type Activity Date Activity User E-Sign Co-Sign Detail Recorded Client Recorded Date Recorded By Document 06/01/21 10:45 [facility] [id number] 06/01/21 10:53 [facility] Document 06/08/21 09:54 [facility] [id number] 06/08/21 10:02 [facility] 06/01/21 06/08/21 10:45 09:54 - Today's Visit Information Type of service Follow-up Visit Follow-up Visit (Physician/LABOURERS (Physician/LABOURERS ) ) Arrival Mode Wheelchair Wheelchair Transfer Assistance Other Transfer Assist (Other) stand by assist Accompanied by Patient Identification Verified (Name & Yes Yes ) Patient Requires Transmission-Based No Precautions Finger Stick Blood Sugar(mg/dl) (if 108 153 indicated): Blood Sugar Stated by Stated by Patient Patient Height and Weight Body Mass Index (BMI) 30.6 30.6 BMI Classification Obese Obese Vital Signs Temperature (97.8 F-99.1 F) 97.2 F L 96.8 F L Temperature Source Temporal Temporal Pulse Rate (60-100) 68 66 Pulse Location Monitor Monitor Respiratory Rate (12-18) 16 16 Respiratory rate source Observation Observation Pulse Oximetry 91 Oxygen Delivery Method Room Air Room Air Blood Pressure (90/60-120/80) 90/29 L 123/48 H Blood Pressure Mean (mm Hg) 49 73 Source Monitor Monitor Position Supine Sitting Blood Pressure Location Right Arm Right Arm Comment RECHK RUE BP 90 /28, PULSE 65; WILL UPDATE CM AND RN RADIATION LUE RECHK 85/38, PULSE History Since Last Visit- (Skip if this is Patient's initial visit) Have you changed medications since your No No last visit? Any new allergies or adverse reactions No No Had a fall/change in ADL's that may No No increase risk of falls Signs or symptoms of abuse and/or No No neglect since last visit Have you been in the hospital since your No No last visit? Has dressing in place as prescribed Yes Yes Has compression in place as prescribed N/A N/A Has offloadiing in place as prescribed Yes Yes Experienced any changes in pain level or No No management Left Footwear Regular Shoe Regular Shoe Right Footwear Regular Shoe Regular Shoe Pain Scale: 0-10 Numeric Is Patient Pain Free? Yes Yes - Nurse 1 - General Ulcer Measurement Start: 06/01/21 10:43 Freq: Status: Active Protocol: Activity Type Activity Date Activity User E-Sign Co-Sign Detail Recorded Client Recorded Date Recorded By Document 06/01/21 10:45 [facility] [id number] 06/01/21 10:53 [facility] Document 06/08/21 09:54 [facility] [id number] 06/08/21 10:02 BMF 06/01/21 06/08/21 10:45 09:54 Wound Center Nurse 1 #2 L Heel -Combined with other wound No No -Current Size (cm) - Length 1.7 1.7 -Current Size (cm) - Width 1.5 1.3 -Current Size (cm) - Depth 0.1 0.1 -Total Square Cm 2.55 2.21 -Photo Taken No -Epithelialization None Present Small 1-33% -Tunneling No No -Undermining/Tunneling No No -Circular Undermining No No -Exudate Amt Small Large -Exudate Type Serosanguineous Serosanguineous -Wound Margin Distinct, Distinct, Outline Outline Attached Attached -Granulation Amt Medium (34-66%) Small (1-33%) -Granulation Quality [place] -Slough/Fibrin Yes Yes -Necrosis Amt Small (1-33%) Large (67-100%) -Necrotic Tissue Type Eschar Adherent Slough -Texture (Chelsie-wound Skin Appearance) Assessed, Assessed, Scarring Scarring -Moisture (Chelsie-wound Skin Appearance) Assessed,Dry/ Assessed, Scaly Maceration -Color (Chelsie-wound Skin Appearance) Assessed Assessed,Palor -Temperature (Chelsie-wound Skin No Abnormality No Abnormality Appearance) (Pt Warm) (Pt Warm) -Tenderness on Palpation (Chelsie-wound No No Skin Appearance) -Ulcer Cleansing Rinsed/ Soap and Water Irrigated with Saline -Foul Odor after Cleansing No No -Anesthetic Used 5% Lidocaine 5% Lidocaine Gel Gel #1 R Heel -Combined with other wound No No -Current Size (cm) - Length 3.5 3.1 -Current Size (cm) - Width 1.9 1.6 -Current Size (cm) - Depth 0.1 0.1 -Total Square Cm 6.65 4.96 -Photo Taken No No -Epithelialization None Present None Present -Tunneling No No -Undermining/Tunneling No No -Circular Undermining No No -Exudate Amt Medium Medium -Exudate Type Serosanguineous Serosanguineous -Wound Margin Distinct, Distinct, Outline Outline Attached Attached -Granulation Amt None Present (0 Small (1-33%) %) -Granulation Quality [place] -Slough/Fibrin Yes Yes -Necrosis Amt Large (67-100%) Large (67-100%) -Necrotic Tissue Type Eschar Adherent Slough -Texture (Chelsie-wound Skin Appearance) Assessed, Assessed, Scarring Scarring -Moisture (Chelsie-wound Skin Appearance) Assessed Assessed, Maceration -Color (Chelsie-wound Skin Appearance) Assessed Assessed,Palor -Temperature (Chelsie-wound Skin No Abnormality No Abnormality Appearance) (Pt Warm) (Pt Warm) -Tenderness on Palpation (Chelsie-wound No No Skin Appearance) -Ulcer Cleansing Rinsed/ Soap and Water Irrigated with Saline -Foul Odor after Cleansing No No -Anesthetic Used 5% Lidocaine 5% Lidocaine Gel Gel WC - Nurse 2 - General Ulcer CM Notes Start: 06/01/21 10:43 Freq: Status: Active Protocol: Activity Type Activity Date Activity User E-Sign Co-Sign Detail Recorded Client Recorded Date Recorded By Document 06/01/21 11:08 MW [id number] 06/01/21 11:36 MW Document 06/08/21 10:10 MW [id number] 06/08/21 10:25 MW 06/01/21 06/08/21 11:08 10:10 Wound Center Nurse 2 #2 L Heel -Time 11:08 10:12 -Correct Patient Yes Yes -Correct Side, Site, Position Yes Yes -Correct Procedure Yes Yes -Procedure Performed Yes Yes -Type of Procedure Debridement Debridement -Clinical Debridement Subcutaneous Subcutaneous -Tissue Removed Subcutaneous Subcutaneous -Post Debridement (cm) - Length 1.8 1.8 -Post Debridement (cm) - Width 1.2 1.1 -Post Debridement (cm) - Depth 0.3 0.2 -Total Square (Post) (cm) 2.16 1.98 -Area of Debridement (cm) - Length 1.8 1.8 -Area of Debridement (cm) - Width 1.2 1.1 -Total Square (Area) (cm) 2.16 1.98 -Tunneling No No -Undermining/Tunneling No No -Circular Undermining No No -Wound/Ulcer Outcome Not Healed Not Healed -Ulcer Cleansing Rinsed/ Rinsed/ Irrigated with Irrigated with Saline Saline -Foul Odor after Cleansing No No -Bioengineered Tissue Yes Yes -Type of Bioengineered Tissue Epifix Epifix -Expiration Date 01/19/26 01/19/26 -Product Lot Number [id number] -Percent Used 100 100 -Lot number of Saline Used [id number] -Bleeding Controlled with Pressure Pressure -Offloading No No -Treatment Response Procedure Procedure Tolerated Well Tolerated Well -Debridement - Subq, 1st 20sq cm No No -Apply Skin Sub - 1st 25 sq cm - Feet 1 1 -Epifix (per sq cm) 4 4 #1 R Heel -Time 11:11 10:13 -Correct Patient Yes Yes -Correct Side, Site, Position Yes Yes -Correct Procedure Yes Yes -Procedure Performed Yes Yes -Type of Procedure Debridement Debridement -Clinical Debridement Subcutaneous Subcutaneous -Tissue Removed Subcutaneous Subcutaneous -Post Debridement (cm) - Length 3.4 3.2 -Post Debridement (cm) - Width 1.8 1.5 -Post Debridement (cm) - Depth 0.2 0.2 -Total Square (Post) (cm) 6.12 4.80 -Area of Debridement (cm) - Length 3.4 3.2 -Area of Debridement (cm) - Width 1.8 1.5 -Total Square (Area) (cm) 6.12 4.80 -Tunneling No No -Undermining/Tunneling No No -Circular Undermining No No -Wound/Ulcer Outcome Not Healed Not Healed -Ulcer Cleansing Rinsed/ Rinsed/ Irrigated with Irrigated with Saline Saline -Foul Odor after Cleansing No No -Bioengineered Tissue No No -Bleeding Controlled with Pressure Pressure -Offloading No No -Treatment Response Procedure Procedure Tolerated Well Tolerated Well -Debridement - Subq, 1st 20sq cm Yes Yes Pain Scale: 0-10 Numeric Is Patient Pain Free? Yes Yes - Nurse 3 - General Ulcer D/C NN Start: 06/01/21 10:43 Freq: Status: Active Protocol: Activity Type Activity Date Activity User E-Sign Co-Sign Detail Recorded Client Recorded Date Recorded By Document 06/01/21 11:43 [place] [id number] 06/01/21 11:46 [place] Document 06/08/21 12:22 [place] [id number] 06/08/21 12:23 [place] 06/01/21 06/08/21 11:43 12:22 Wound Care Nurse 3 #2 L Heel -Ulcer Cleansing Rinsed/ Rinsed/ Irrigated with Irrigated with Saline Saline -Foul Odor after Cleansing No -Negative Pressure Wound Therapy N/A -Primary Dressing Applied Aquacel Extra Aquacel Extra -Other Dressing nurses hat -Primary Dressing Covered/Secured with Dry Gauze & Dry Gauze & Roll Gauze, Roll Gauze, Secured with Secured with Tape Tape -Aquacel Extra 1 1 #1 R Heel -Ulcer Cleansing Rinsed/ Rinsed/ Irrigated with Irrigated with Saline Saline -Foul Odor after Cleansing No -Negative Pressure Wound Therapy N/A -Primary Dressing Applied Aquacel Extra -Other Dressing nurses hat nurses hat -Primary Dressing Covered/Secured with Dry Gauze & Dry Gauze & Roll Gauze, Roll Gauze, Secured with Secured with Tape Tape -Aquacel Extra 0 Pain Scale: 0-10 Numeric Is Patient Pain Free? Yes Yes - Visit Discharge Discharge Condition Stable Stable Ambulatory Status Wheelchair Ambulatory Transportation Private Auto Medication Reconcilliation completed & No No provided to patient/care provider Clinical Summary of Care Provided Yes Yes Additional Wound Wound debrided: Right heel decubitus ulcer Type of Debridement: Excisional debridement Anesthesia Used: 5% Lidocaine Gel Depth: Down to and including healthy tissue Percentage of wound debrided: 100 Instrument Used: #15 blade and Forceps Tissue Removed: Devitalized tissue slough Severity: Fat Layer Exposed Amount of bleeding with debridement: Mild Bleeding Controlled with: Compression and gauze Patient tolerated procedure: Patient tolerated procedure well Assessment/Plan Assessment/Plan (1) Decubitus ulcer, stage 2 with infection: CODE(S): L89.92 - Pressure ulcer of unspecified site, stage 2; L08.9 - Local infection of the skin and subcutaneous tissue, unspecified PLAN: Epi fix #2 2 left heel applied with wound veil Steri-Strips and Aquacel extra over top with gauze padded dressing. Same for the right heel. Patient was instructed not to get either dressings wet and to follow-up in 1 week (2) Diabetic foot ulcer: CODE(S): E11.621 - Type 2 diabetes mellitus with foot ulcer; L97.509 - Non-pressure chronic ulcer of other part of unspecified foot with unspecified severity QUALIFIERS: Diabetic foot ulcer location: heel Diabetes mellitus type: drug or chemical induced Laterality: unspecified laterality Non-pressure ulcer stage: unspecified non-pressure ulcer stage Qualified Code(s): E09.621 - Drug or chemical induced diabetes mellitus with foot ulcer; L97.409 - Non- pressure chronic ulcer of unspecified heel and midfoot with unspecified severity (3) Metastatic breast cancer: CODE(S): C50.919 - Malignant neoplasm of unspecified site of unspecified female breast (4) Ulcer of skin: CODE(S): L98.499 - Non-pressure chronic ulcer of skin of other sites with unspecified severity QUALIFIERS: Non-pressure ulcer stage: unspecified non-pressure ulcer stage Qualified Code(s): L98.499 - Non-pressure chronic ulcer of skin of other sites with unspecified severity
[2021-06-15 10:01] VITALS: BP 128/48; PULSE 81; RESP 18; TEMP 36.1; BMI 30.6
--- NOTE | 2021-06-15 10:33 | PN.PCM_ITS ---
History of Present Illness Date of Service: 06/15/21 Chief Complaint: Follow-up bilateral heel blisters History of Wound: 60-year-old white female with an aggressive breast cancer that is receiving chemotherapy. The chemotherapy is causing her to develop blisters and they have developed on her heels. It is also caused her to become diabetic and has caused her sugars to shoot up to 800 and is currently on insulin her last hemoglobin A1c was 8.5. She is here today to continue treatment for the heel blisters. She has been putting antibiotic ointment on her heels and the left heel became mushy and the scab came off so now she has an open wound on the left heel but the right heel still has a hardened scab on it. Progress of Wound: The left heel is almost healed using epi fix which is applied #3 to the left heel tolerated well probably her last week she is completely healing. Noticed some maceration around the edge might be from the Adaptic will not use at this time right heel is improving getting smaller slightly more shallow she has new skin growth in the base. Less pain using Aquacel extra. We are going to apply for epi fix for the right heel now Subjective Subjective Patient will be happy to get the left heel healed and only had the right heel to worry about Objective Data Objective Data Both right and left heels measuring smaller more skin is developed in the base of the right heel left heel is basically were just can I do 1 more week of epi fix to make sure she is got a good solid skin over top doing very well just macerated wearing a watch how much we use on it. And have her change the dressing outer dressing more often Vital Signs: Vital Signs Temp Pulse Resp BP Pulse Ox 97 F L 81 18 128/48 H 91 06/15/21 10:01 06/15/21 10:06/15/21 10:06/15/21 10:06/08/21 09:54 Oxygen Delivery Method Room Air Weight: 161 lb 15.108 oz Body Mass Index (BMI) 30.6 Lab / Micro Data Attestation: I reviewed the patient's lab results. Physical Exam Const oriented x3 General Appearance: cooperative Exam Limitations: no limitations HEENT normocephalic Head and Scalp: normal to inspection Face and Sinus: normal facial exam Nose: external nose normal General Ear: hearing grossly impaired External Ear: external ears normal Mouth: oral and palatal mucosa normal Eyes PERRL General Eye: normal appearance of both eyes Neck full ROM General: normal visual inspection Resp normal respiratory effort Effort and Inspection: able to speak in complete sentences Auscultation: clear to auscultation bilaterally Cardio regular rate and regular rhythm Palpation: normal PMI Rate: regular rate Rhythm: regular rhythm GI Auscultation: normoactive bowel sounds Palpation: soft and no hepatosplenomegaly external exam normal Back/Spine Cervical Spine: cervical ROM normal Thoracic Spine / Upper Back: normal to inspection Lumbar Spine / Lower Back: normal to inspection Extremity normal to inspection General Extremity: normal exam except as noted Skin Wounds: wounds noted Wound Narrative: Bilateral heel wounds left heel open right heel has a hardened scab from blister both wounds developed from blood blisters that developed on her heels Neuro oriented x3 Psych Appearance: grossly normal Speech: normal speech Thought Content: normal thought content Judgement: judgement good Debridement Note Debridement Note Wound debrided: Left heel Laterality: Left Type of Debridement: Excisional debridement Anesthesia Used: 5% Lidocaine Gel Depth: Down to and including healthy tissue Percentage of wound debrided: 100 Instrument Used: 5mm curette Tissue Removed: Maceration and devitalized tissue Severity: Limited To Skin Breakdown Amount of bleeding with debridement: None Bleeding Controlled with: Pressure Patient tolerated procedure: Patient tolerated procedure well Post-Debridement Measurements and Additional Note: Post-Debridement Measurements/Treatment - Nurse 1 - General Ulcer Assessment Start: 06/01/21 10:43 Freq: Status: Active Protocol: JOSE [email or web address].CRISTINA Activity Type Activity Date Activity User E-Sign Co-Sign Detail Recorded Client Recorded Date Recorded By Document 06/01/21 10:45 [facility] [id number] 06/01/21 10:53 [facility] Document 06/08/21 09:54 [facility] [id number] 06/08/21 10:02 [facility] Document 06/15/21 10:01 SD [id number] 06/15/21 10:07 SD 06/01/21 06/08/21 06/15/21 10:45 09:54 10:01 - Today's Visit Information Type of service Follow-up Visit Follow-up Visit Follow-up Visit (Physician/GRAY MIXING OPERATOR (Physician/GRAY MIXING OPERATOR (Physician/GRAY MIXING OPERATOR ) ) ) Arrival Mode Wheelchair Wheelchair Wheelchair Transfer Assistance Other Transfer Assist (Other) stand by assist Accompanied by Patient Identification Verified (Name & Yes Yes Yes ) Patient Requires Transmission-Based No Precautions Finger Stick Blood Sugar(mg/dl) (if 108 153 indicated): Blood Sugar Stated by Stated by Patient Patient Height and Weight Body Mass Index (BMI) 30.6 30.6 30.6 BMI Classification Obese Obese Obese Vital Signs Temperature (97.8 F-99.1 F) 97.2 F L 96.8 F L 97 F L Temperature Source Temporal Temporal Temporal Pulse Rate (60-100) 68 66 81 Pulse Location Monitor Monitor Monitor Respiratory Rate (12-18) 16 16 18 Respiratory rate source Observation Observation Observation Pulse Oximetry 91 Oxygen Delivery Method Room Air Room Air Room Air Blood Pressure (90/60-120/80) 90/29 L 123/48 H 128/48 H Blood Pressure Mean (mm Hg) 49 73 74 Source Monitor Monitor Monitor Position Supine Sitting Semi-Fowlers Blood Pressure Location Right Arm Right Arm Left Arm Comment RECHK RUE BP 90 /28, PULSE 65; WILL UPDATE CM AND COLLAR TACKER VALERIAE RECHK 85/38, PULSE History Since Last Visit- (Skip if this is Patient's initial visit) Have you changed medications since your No No last visit? Any new allergies or adverse reactions No No Had a fall/change in ADL's that may No No increase risk of falls Signs or symptoms of abuse and/or No No neglect since last visit Have you been in the hospital since your No No last visit? Has dressing in place as prescribed Yes Yes Yes Has compression in place as prescribed N/A N/A Yes Has offloadiing in place as prescribed Yes Yes Experienced any changes in pain level or No No management Left Footwear Regular Shoe Regular Shoe Regular Shoe Right Footwear Regular Shoe Regular Shoe Regular Shoe Pain Scale: 0-10 Numeric Is Patient Pain Free? Yes Yes Yes WC - Nurse 1 - General Ulcer Measurement Start: 06/01/21 10:43 Freq: Status: Active Protocol: Activity Type Activity Date Activity User E-Sign Co-Sign Detail Recorded Client Recorded Date Recorded By Document 06/01/21 10:45 [facility] [id number] 06/01/21 10:53 [facility] Document 06/08/21 09:54 [facility] [id number] 06/08/21 10:02 [facility] Document 06/15/21 10:01 SD [id number] 06/15/21 10:07 SD 06/01/21 06/08/21 06/15/21 10:45 09:54 10:01 Wound Center Nurse 1 #2 L Heel -Combined with other wound No No -Current Size (cm) - Length 1.7 1.7 1.9 -Current Size (cm) - Width 1.5 1.3 1.5 -Current Size (cm) - Depth 0.1 0.1 0.1 -Total Square Cm 2.55 2.21 2.85 -Photo Taken No -Epithelialization None Present Small 1-33% -Tunneling No No -Undermining/Tunneling No No -Circular Undermining No No -Exudate Amt Small Large None Present -Exudate Type Serosanguineous Serosanguineous -Wound Margin Distinct, Distinct, Flat & Intact Outline Outline Attached Attached -Granulation Amt Medium (34-66%) Small (1-33%) Large (67-100%) -Granulation Quality [place] Pale,[place] -Slough/Fibrin Yes Yes No -Necrosis Amt Small (1-33%) Large (67-100%) -Necrotic Tissue Type Eschar Adherent Slough -Texture (Chelsie-wound Skin Appearance) Assessed, Assessed, Assessed Scarring Scarring -Moisture (Chelsie-wound Skin Appearance) Assessed,Dry/ Assessed, Assessed, Scaly Maceration Maceration -Color (Chelsie-wound Skin Appearance) Assessed Assessed,Palor Assessed -Temperature (Chelsie-wound Skin No Abnormality No Abnormality No Abnormality Appearance) (Pt Warm) (Pt Warm) (Pt Warm) -Tenderness on Palpation (Chelsie-wound No No No Skin Appearance) -Ulcer Cleansing Rinsed/ Soap and Water Rinsed/ Irrigated with Irrigated with Saline Saline -Foul Odor after Cleansing No No No -Anesthetic Used 5% Lidocaine 5% Lidocaine 4% Lidocaine Gel Gel Solution #1 R Heel -Combined with other wound No No -Current Size (cm) - Length 3.5 3.1 3.4 -Current Size (cm) - Width 1.9 1.6 1.9 -Current Size (cm) - Depth 0.1 0.1 0.2 -Total Square Cm 6.65 4.96 6.46 -Photo Taken No No -Epithelialization None Present None Present -Tunneling No No -Undermining/Tunneling No No -Circular Undermining No No -Exudate Amt Medium Medium Small -Exudate Type Serosanguineous Serosanguineous -Wound Margin Distinct, Distinct, Flat & Intact Outline Outline Attached Attached -Granulation Amt None Present (0 Small (1-33%) Large (67-100%) %) -Granulation Quality [place] Pale,[place] -Slough/Fibrin Yes Yes No -Necrosis Amt Large (67-100%) Large (67-100%) -Necrotic Tissue Type Eschar Adherent Slough -Texture (Chelsie-wound Skin Appearance) Assessed, Assessed, Assessed Scarring Scarring -Moisture (Chelsie-wound Skin Appearance) Assessed Assessed, Assessed, Maceration Maceration -Color (Chelsie-wound Skin Appearance) Assessed Assessed,Palor Assessed -Temperature (Chelsie-wound Skin No Abnormality No Abnormality No Abnormality Appearance) (Pt Warm) (Pt Warm) (Pt Warm) -Tenderness on Palpation (Chelsie-wound No No No Skin Appearance) -Ulcer Cleansing Rinsed/ Soap and Water Rinsed/ Irrigated with Irrigated with Saline Saline -Foul Odor after Cleansing No No No -Anesthetic Used 5% Lidocaine 5% Lidocaine 4% Lidocaine Gel Gel Solution Lower Limb Edema Present NA WC - Nurse 2 - General Ulcer CM Notes Start: 06/01/21 10:43 Freq: Status: Active Protocol: Activity Type Activity Date Activity User E-Sign Co-Sign Detail Recorded Client Recorded Date Recorded By Document 06/01/21 11:08 MW [id number] 06/01/21 11:36 MW Document 06/08/21 10:10 MW [id number] 06/08/21 10:25 MW Document 06/15/21 10:18 MW [id number] 06/15/21 10:30 MW 06/01/21 06/08/21 06/15/21 11:08 10:10 10:18 Wound Center Nurse 2 #2 L Heel -Time 11:08 10:12 10:19 -Correct Patient Yes Yes Yes -Correct Side, Site, Position Yes Yes Yes -Correct Procedure Yes Yes Yes -Procedure Performed Yes Yes Yes -Type of Procedure Debridement Debridement Debridement -Clinical Debridement Subcutaneous Subcutaneous Subcutaneous -Tissue Removed Subcutaneous Subcutaneous Subcutaneous -Post Debridement (cm) - Length 1.8 1.8 1.8 -Post Debridement (cm) - Width 1.2 1.1 1.1 -Post Debridement (cm) - Depth 0.3 0.2 0.2 -Total Square (Post) (cm) 2.16 1.98 1.98 -Area of Debridement (cm) - Length 1.8 1.8 1.8 -Area of Debridement (cm) - Width 1.2 1.1 1.1 -Total Square (Area) (cm) 2.16 1.98 1.98 -Tunneling No No No -Undermining/Tunneling No No No -Circular Undermining No No No -Wound/Ulcer Outcome Not Healed Not Healed Not Healed -Ulcer Cleansing Rinsed/ Rinsed/ Rinsed/ Irrigated with Irrigated with Irrigated with Saline Saline Saline -Foul Odor after Cleansing No No No -Bioengineered Tissue Yes Yes Yes -Type of Bioengineered Tissue Epifix Epifix Epifix -Expiration Date 01/19/26 01/19/26 01/19/26 -Product Lot Number [id number] -Percent Used 100 100 100 -Lot number of Saline Used [id number] -Bleeding Controlled with Pressure Pressure Pressure -Offloading No No No -Treatment Response Procedure Procedure Procedure Tolerated Well Tolerated Well Tolerated Well -Debridement - Subq, 1st 20sq cm No No No -Apply Skin Sub - 1st 25 sq cm - Feet 1 1 1 -Epifix (per sq cm) 4 4 4 #1 R Heel -Time 11:11 10:13 10:20 -Correct Patient Yes Yes Yes -Correct Side, Site, Position Yes Yes Yes -Correct Procedure Yes Yes Yes -Procedure Performed Yes Yes Yes -Type of Procedure Debridement Debridement Debridement -Clinical Debridement Subcutaneous Subcutaneous Subcutaneous -Tissue Removed Subcutaneous Subcutaneous Subcutaneous -Post Debridement (cm) - Length 3.4 3.2 3.0 -Post Debridement (cm) - Width 1.8 1.5 1.6 -Post Debridement (cm) - Depth 0.2 0.2 0.2 -Total Square (Post) (cm) 6.12 4.80 4.80 -Area of Debridement (cm) - Length 3.4 3.2 3.0 -Area of Debridement (cm) - Width 1.8 1.5 1.6 -Total Square (Area) (cm) 6.12 4.80 4.80 -Tunneling No No No -Undermining/Tunneling No No No -Circular Undermining No No No -Wound/Ulcer Outcome Not Healed Not Healed Not Healed -Ulcer Cleansing Rinsed/ Rinsed/ Rinsed/ Irrigated with Irrigated with Irrigated with Saline Saline Saline -Foul Odor after Cleansing No No No -Bioengineered Tissue No No No -Bleeding Controlled with Pressure Pressure Pressure -Offloading No No No -Treatment Response Procedure Procedure Procedure Tolerated Well Tolerated Well Tolerated Well -Debridement - Subq, 1st 20sq cm Yes Yes Yes Pain Scale: 0-10 Numeric Is Patient Pain Free? Yes Yes Yes - Nurse 3 - General Ulcer D/C NN Start: 06/01/21 10:43 Freq: Status: Active Protocol: Activity Type Activity Date Activity User E-Sign Co-Sign Detail Recorded Client Recorded Date Recorded By Document 06/01/21 11:43 SD [id number] 06/01/21 11:46 SD Document 06/08/21 12:22 MD [id number] 06/08/21 12:23 MD 06/01/21 06/08/21 11:43 12:22 Wound Care Nurse 3 #2 L Heel -Ulcer Cleansing Rinsed/ Rinsed/ Irrigated with Irrigated with Saline Saline -Foul Odor after Cleansing No -Negative Pressure Wound Therapy N/A -Primary Dressing Applied Aquacel Extra Aquacel Extra -Other Dressing nurses hat -Primary Dressing Covered/Secured with Dry Gauze & Dry Gauze & Roll Gauze, Roll Gauze, Secured with Secured with Tape Tape -Aquacel Extra 1 1 #1 R Heel -Ulcer Cleansing Rinsed/ Rinsed/ Irrigated with Irrigated with Saline Saline -Foul Odor after Cleansing No -Negative Pressure Wound Therapy N/A -Primary Dressing Applied Aquacel Extra -Other Dressing nurses hat nurses hat -Primary Dressing Covered/Secured with Dry Gauze & Dry Gauze & Roll Gauze, Roll Gauze, Secured with Secured with Tape Tape -Aquacel Extra 0 Pain Scale: 0-10 Numeric Is Patient Pain Free? Yes Yes - Visit Discharge Discharge Condition Stable Stable Ambulatory Status Wheelchair Ambulatory Transportation Private Auto Medication Reconcilliation completed & No No provided to patient/care provider Clinical Summary of Care Provided Yes Yes Additional Wound Wound debrided: Right heel Wound Grade/Stage: Stage II Type of Debridement: Excisional debridement Anesthesia Used: 5% Lidocaine Gel Depth: in the subcutaneous layer Percentage of wound debrided: 100 Instrument Used: 5mm curette Tissue Removed: Fibrin Severity: Limited To Skin Breakdown Amount of bleeding with debridement: None Bleeding Controlled with: Compression and gauze Patient tolerated procedure: Patient tolerated procedure well Assessment/Plan Assessment/Plan (1) Decubitus ulcer, stage 2 with infection: CODE(S): L89.92 - Pressure ulcer of unspecified site, stage 2; L08.9 - Local infection of the skin and subcutaneous tissue, unspecified PLAN: Epi fix #2 2 left heel applied with wound veil Steri-Strips and Aquacel extra over top with gauze padded dressing. Aquacel extra for the right heel. Patient was instructed not to get either dressings wet and to follow-up in 1 week (2) Diabetic foot ulcer: CODE(S): E11.621 - Type 2 diabetes mellitus with foot ulcer; L97.509 - Non-pressure chronic ulcer of other part of unspecified foot with unspecified severity QUALIFIERS: Diabetic foot ulcer location: heel Diabetes mellitus type: drug or chemical induced Laterality: unspecified laterality Non-pressure ulcer stage: unspecified non-pressure ulcer stage Qualified Code(s): E09.621 - Drug or chemical induced diabetes mellitus with foot ulcer; L97.409 - Non- pressure chronic ulcer of unspecified heel and midfoot with unspecified severity (3) Metastatic breast cancer: CODE(S): C50.919 - Malignant neoplasm of unspecified site of unspecified female breast (4) Ulcer of skin: CODE(S): L98.499 - Non-pressure chronic ulcer of skin of other sites with unspecified severity QUALIFIERS: Non-pressure ulcer stage: unspecified non-pressure ulcer stage Qualified Code(s): L98.499 - Non-pressure chronic ulcer of skin of other sites with unspecified severity
== END 2021-06-20 23:59 ==
LOC: WC 09:45
PROVIDERS: PCP Family Medicine; Visit Provider Nurse Practitioner
DX: L08.9 Local infection of the skin and subcutaneous tissue, unspecified (principal); E11.621 Type 2 diabetes mellitus with foot ulcer; E09.621 Drug or chemical induced diabetes mellitus with foot ulcer; L98.499 Non-pressure chronic ulcer of skin of other sites with unspecified severity; L89.619 Pressure ulcer of right heel, unspecified stage
CPT/HCPCS: 11042; 15275; Q4186

== ENCOUNTER 2021-06-30 09:01 | Outpatient (CLI) | payer BC, SELFPAY ==
[2021-02-22 11:15] VITALS: BMI 36.2
--- NOTE | 2021-06-30 09:02 | NM_ITS ---
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 WHOLE BODY 99m Tc MDP RADIONUCLIDE BONE SCINTIGRAPHY COMPARISON: None available FINDINGS: Following the intravenous administration of 20.8 mCi of 99m Tc MDP, whole body bone images reveal: 1. Multiple foci of increased radiopharmaceutical concentration remain apparent in the bilateral hemicalvarium, axial skeletal structures with a decrease in the overall number of defined foci and intensity of uptake in multiple locations on the present examination. 2. Increased radiotracer distribution is defined in the upper and lower cervical spine posteriorly on the left and right, shoulders bilaterally, the visualized wrists, medial compartment of the right ankle. 3. The remaining skeletal structures are scintigraphically unremarkable with normal-appearing renal images and urinary bladder activity identified. NM/Bone Scan Whole Body IMPRESSION: 1. Multifocal increased radiopharmaceutical redemonstrated in the axial skeletal structures as well as right-left hemipelvic calvarium remains consistent with skeletal metastatic disease. 2. Degenerative arthritis appears currently expressed in the cervical spine, bilateral shoulders and wrists, the right ankle articulation. 3. Overall compared to the previous whole body bone scintigraphy study dated 03/03/2021, there is continued demonstration of diffuse skeletal metastatic disease with an interval decrease in the overall number of defined foci and intensity of uptake in multiple locations consistent with interim improvement. Electronically Signed: Kd Cox DO at 23:47 EST ,
== END 2021-06-30 23:59 | disposition home or self-care (01) ==
LOC: NM 09:01
PROVIDERS: PCP Family Medicine; Referring Provider Internal Medicine Medical Oncology; Visit Provider Internal Medicine Medical Oncology
DX: C50.919 Malignant neoplasm of unspecified site of unspecified female breast (principal); C79.51 Secondary malignant neoplasm of bone
CPT/HCPCS: 15275; 78306; A9503; Q4186

== ENCOUNTER 2021-07-13 11:15 | Outpatient (RCR) | payer BC, SELFPAY ==
[2021-02-22 11:15] VITALS: BMI 36.2
[2021-06-21 00:44] VITALS: BP 128/48; PULSE 81; RESP 18; TEMP 36.1; O2SAT 91; BMI 30.6
[2021-06-22 10:07] VITALS: BP 111/33; PULSE 80; TEMP 36.2; BMI 30.6
--- NOTE | 2021-06-22 12:08 | PCM.WC.PN ---
History of Present Illness Date of Service: 06/22/21 Chief Complaint: Follow-up bilateral heel blisters History of Wound: 60-year-old white female with an aggressive breast cancer that is receiving chemotherapy. The chemotherapy is causing her to develop blisters and they have developed on her heels. It is also caused her to become diabetic and has caused her sugars to shoot up to 800 and is currently on insulin her last hemoglobin A1c was 8.5. She is here today to continue treatment for the heel blisters. She has been putting antibiotic ointment on her heels and the left heel became mushy and the scab came off so now she has an open wound on the left heel but the right heel still has a hardened scab on it. Progress of Wound: Wounds are progressing well with the epi fix left heel is healed right heel is much smaller. We just got approval for the right heel for epi fix will start today with #1 Subjective Subjective Patient has a lot of back pain and spends most of her days in bed but she digs with her heels so we are going to look at padding heels better Objective Data Objective Data Left heel is closed we will use a pad and then then we want him to buy heel pads for her in bed because of her taking her heels down to roll from side to side. Right heel is still open but looks much better producing new cell growth in the base applied epi fix #1 today should heal quickly Vital Signs: Vital Signs Temp Pulse Resp BP Pulse Ox 97.2 F L 80 18 111/33 L 91 06/22/21 10:07 06/22/21 10:06/21/21 00:44 06/22/21 10:06/21/21 00:44 Weight: 161 lb 15.108 oz Body Mass Index (BMI) 30.6 Lab / Micro Data Attestation: I reviewed the patient's lab results. Physical Exam Const oriented x3 General Appearance: cooperative Exam Limitations: no limitations HEENT normocephalic Head and Scalp: normal to inspection Face and Sinus: normal facial exam Nose: external nose normal General Ear: hearing grossly impaired External Ear: external ears normal Mouth: oral and palatal mucosa normal Eyes PERRL General Eye: normal appearance of both eyes Neck full ROM General: normal visual inspection Resp normal respiratory effort Effort and Inspection: able to speak in complete sentences Auscultation: clear to auscultation bilaterally Cardio regular rate and regular rhythm Palpation: normal PMI Rate: regular rate Rhythm: regular rhythm GI Auscultation: normoactive bowel sounds Palpation: soft and no hepatosplenomegaly external exam normal Back/Spine Cervical Spine: cervical ROM normal Thoracic Spine / Upper Back: normal to inspection Lumbar Spine / Lower Back: normal to inspection Extremity normal to inspection General Extremity: normal exam except as noted Skin Wounds: wounds noted Wound Narrative: Bilateral heel wounds left heel open right heel has a hardened scab from blister both wounds developed from blood blisters that developed on her heels Neuro oriented x3 Psych Appearance: grossly normal Speech: normal speech Thought Content: normal thought content Judgement: judgement good Debridement Note Debridement Note Wound debrided: Right heel Type of Debridement: Excisional debridement Anesthesia Used: 5% Lidocaine Gel Depth: Down to and including healthy tissue Instrument Used: 5mm curette Tissue Removed: Macerated, fibrin Amount of bleeding with debridement: Mild Bleeding Controlled with: Pressure Patient tolerated procedure: Patient tolerated procedure well Post-Debridement Measurements and Additional Note: Post-Debridement Measurements/Treatment - Nurse 1 - General Ulcer Assessment Start: 06/22/21 10:07 Freq: Status: Active Protocol: JOSE [email or web address] Activity Type Activity Date Activity User E-Sign Co-Sign Detail Recorded Client Recorded Date Recorded By Document 06/22/21 10:07 TEJINDER [id number] 06/22/21 10:24 TEJINDER 06/22/21 10:07 - Today's Visit Information Type of service Follow-up Visit (Physician/[employer] ) Arrival Mode Wheelchair Accompanied by Patient Identification Verified (Name & Yes ) Patient Requires Transmission-Based No Precautions Safety Precautions NA Height and Weight Body Mass Index (BMI) 30.6 BMI Classification Obese Vital Signs Temperature (97.8 F-99.1 F) 97.2 F L Temperature Source Temporal Pulse Rate (60-100) 80 Pulse Location Monitor Blood Pressure (90/60-120/80) 111/33 L Blood Pressure Mean (mm Hg) 59 Source Monitor History Since Last Visit- (Skip if this is Patient's initial visit) Have you changed medications since your No last visit? Any new allergies or adverse reactions No Had a fall/change in ADL's that may No increase risk of falls Signs or symptoms of abuse and/or No neglect since last visit Have you been in the hospital since your No last visit? Has dressing in place as prescribed Yes Has compression in place as prescribed Yes Has offloadiing in place as prescribed N/A Experienced any changes in pain level or No management Left Footwear Regular Shoe Right Footwear Regular Shoe Pain Scale: 0-10 Numeric Is Patient Pain Free? Yes WC - Nurse 1 - General Ulcer Measurement Start: 06/22/21 10:07 Freq: Status: Active Protocol: Activity Type Activity Date Activity User E-Sign Co-Sign Detail Recorded Client Recorded Date Recorded By Document 06/22/21 10:07 NC [id number] 06/22/21 10:24 TEJINDER 06/22/21 10:07 Wound Center Nurse 1 #2 L Heel -Combined with other wound No -Current Size (cm) - Length 0.1 -Current Size (cm) - Width 0.1 -Current Size (cm) - Depth 0.1 -Total Square Cm 0.01 -Photo Taken No -Tunneling No -Undermining/Tunneling No -Circular Undermining No -Exudate Amt Medium -Exudate Type Purulent -Wound Margin Distinct, Outline Attached -Granulation Amt Large (67-100%) -Slough/Fibrin Yes -Necrosis Amt Large (67-100%) -Necrotic Tissue Type Adherent Slough -Structure Exposed N/A -Texture (Chelsie-wound Skin Appearance) No Abnormality, Assessed -Moisture (Chelsie-wound Skin Appearance) No Abnormality, Assessed -Color (Chelsie-wound Skin Appearance) No Abnormality, Assessed -Temperature (Chelsie-wound Skin No Abnormality Appearance) (Pt Warm) -Tenderness on Palpation (Chelsie-wound No Skin Appearance) -Ulcer Cleansing Rinsed/ Irrigated with Saline -Foul Odor after Cleansing No -Anesthetic Used 4% Lidocaine Solution #1 R Heel -Combined with other wound No -Current Size (cm) - Length 3 -Current Size (cm) - Width 2 -Current Size (cm) - Depth 0.1 -Total Square Cm 6 -Photo Taken No -Epithelialization None Present -Tunneling No -Undermining/Tunneling No -Circular Undermining No -Change in Wound Grade/Stage No -Exudate Amt Medium -Exudate Type Serosanguineous -Wound Margin Distinct, Outline Attached -Granulation Amt None Present (0 %) -Granulation Quality N/A -Slough/Fibrin No -Necrosis Amt Large (67-100%) -Necrotic Tissue Type Adherent Slough -Structure Exposed N/A -Texture (Chelsie-wound Skin Appearance) No Abnormality, Assessed -Moisture (Chelsie-wound Skin Appearance) No Abnormality, Assessed -Color (Chelsie-wound Skin Appearance) No Abnormality, Assessed -Temperature (Chelsie-wound Skin No Abnormality Appearance) (Pt Warm) -Tenderness on Palpation (Chelsie-wound No Skin Appearance) -Ulcer Cleansing Rinsed/ Irrigated with Saline -Foul Odor after Cleansing No -Anesthetic Used 4% Lidocaine Solution WC - Nurse 2 - General Ulcer CM Notes Start: 06/22/21 10:07 Freq: Status: Active Protocol: Activity Type Activity Date Activity User E-Sign Co-Sign Detail Recorded Client Recorded Date Recorded By Document 06/22/21 10:31 MW [id number] 06/22/21 10:47 MW 06/22/21 10:31 Wound Center Nurse 2 #2 L Heel -Time 10:35 -Correct Patient Yes -Correct Side, Site, Position Yes -Correct Procedure Yes -Procedure Performed No -Post Debridement (cm) - Length 0 -Post Debridement (cm) - Width 0 -Post Debridement (cm) - Depth 0 -Total Square (Post) (cm) 0 -Tunneling No -Undermining/Tunneling No -Circular Undermining No -Wound/Ulcer Outcome Healed- Epithelialized #1 R Heel -Time 10:35 -Correct Patient Yes -Correct Side, Site, Position Yes -Correct Procedure Yes -Procedure Performed Yes -Type of Procedure Debridement -Clinical Debridement Subcutaneous -Tissue Removed Subcutaneous -Post Debridement (cm) - Length 1.5 -Post Debridement (cm) - Width 3.0 -Post Debridement (cm) - Depth 0.2 -Total Square (Post) (cm) 4.50 -Area of Debridement (cm) - Length 1.5 -Area of Debridement (cm) - Width 3.0 -Total Square (Area) (cm) 4.50 -Tunneling No -Undermining/Tunneling No -Circular Undermining No -Wound/Ulcer Outcome Not Healed -Ulcer Cleansing Rinsed/ Irrigated with Saline -Foul Odor after Cleansing No -Bioengineered Tissue Yes -Type of Bioengineered Tissue Epifix -Expiration Date 02/18/26 -Product Lot Number [id number] -Percent Used 100 -Lot number of Saline Used [id number] -Bleeding Controlled with Pressure -Offloading No -Treatment Response Procedure Tolerated Well -Debridement - Subq, 1st 20sq cm No -Apply Skin Sub - 1st 25 sq cm - Feet 1 -Epifix (per sq cm) 4 Pain Scale: 0-10 Numeric Is Patient Pain Free? Yes - Nurse 3 - General Ulcer D/C NN Start: 06/22/21 10:07 Freq: Status: Active Protocol: Activity Type Activity Date Activity User E-Sign Co-Sign Detail Recorded Client Recorded Date Recorded By Document 06/22/21 11:05 [facility] [id number] 06/22/21 11:06 [facility] 06/22/21 11:05 Wound Care Nurse 3 #2 L Heel -Primary Dressing Applied Mepilex Border -Mepilex Border 1 #1 R Heel -Primary Dressing Applied Aquacel Extra -Other Dressing EPIFIX -Primary Dressing Covered/Secured with Dry Gauze & Roll Gauze, Secured with Tape,Other -Other Covering HEEL HAT -Aquacel Extra 1 Treatment Response Procedure Tolerated Well Pain Scale: 0-10 Numeric Is Patient Pain Free? Yes - Visit Discharge Discharge Condition Stable Ambulatory Status Wheelchair Transportation Private Auto Accompanied by Additional Wound Wound debrided: Left heel Additional Wound Operative Diagnosis: No debridement needed pain it is resolved Assessment/Plan Assessment/Plan (1) Decubitus ulcer, stage 2 with infection: CODE(S): L89.92 - Pressure ulcer of unspecified site, stage 2; L08.9 - Local infection of the skin and subcutaneous tissue, unspecified PLAN: Epi fix #1 right heel applied with wound veil Steri-Strips and Aquacel extra over top with gauze foam dressing dressing. Foam dressing to left heel Patient to buy on [email or web address] some padded heel Patient was instructed not to get either dressings wet and to follow-up in 1 week (2) Diabetic foot ulcer: CODE(S): E11.621 - Type 2 diabetes mellitus with foot ulcer; L97.509 - Non-pressure chronic ulcer of other part of unspecified foot with unspecified severity QUALIFIERS: Diabetic foot ulcer location: heel Diabetes mellitus type: drug or chemical induced Laterality: unspecified laterality Non-pressure ulcer stage: unspecified non-pressure ulcer stage Qualified Code(s): E09.621 - Drug or chemical induced diabetes mellitus with foot ulcer; L97.409 - Non-pressure chronic ulcer of unspecified heel and midfoot with unspecified severity (3) Metastatic breast cancer: CODE(S): C50.919 - Malignant neoplasm of unspecified site of unspecified female breast (4) Ulcer of skin: CODE(S): L98.499 - Non-pressure chronic ulcer of skin of other sites with unspecified severity QUALIFIERS: Non-pressure ulcer stage: unspecified non-pressure ulcer stage Qualified Code(s): L98.499 - Non-pressure chronic ulcer of skin of other sites with unspecified severity
[2021-06-30 13:07] VITALS: BP 143/53; PULSE 70; RESP 16; TEMP 36.7; BMI 30.6
--- NOTE | 2021-06-30 17:00 | PCM.WC.PN ---
History of Present Illness Date of Service: 06/30/21 Chief Complaint: Follow-up bilateral heel blisters History of Wound: 60-year-old white female with an aggressive breast cancer that is receiving chemotherapy. The chemotherapy is causing her to develop blisters and they have developed on her heels. It is also caused her to become diabetic and has caused her sugars to shoot up to 800 and is currently on insulin her last hemoglobin A1c was 8.5. She is here today to continue treatment for the heel blisters. She has been putting antibiotic ointment on her heels and the left heel became mushy and the scab came off so now she has an open wound on the left heel but the right heel still has a hardened scab on it. Progress of Wound: Wounds are stable courtesy visit for Petrona MICHELLE , wounds are progressing well with the epi fix left heel is healed right heel is much smaller. Epifix # 2 today Objective Data Objective Data Vital Signs: Vital Signs Temp Pulse Resp BP Pulse Ox 98.1 F 70 16 143/53 H 91 06/30/21 13:07 06/30/21 13:07 06/30/21 13:07 06/30/21 13:07 06/21/21 00:44 Weight: 161 lb 15.108 oz Body Mass Index (BMI) 30.6 Charges/Coding Procedures Integumentary 150xxx-152xx: 28293 Skin sub graft face/nk/hf/g Physical Exam Const oriented x3 General Appearance: cooperative Exam Limitations: no limitations HEENT normocephalic Head and Scalp: normal to inspection Face and Sinus: normal facial exam Nose: external nose normal General Ear: hearing grossly impaired External Ear: external ears normal Mouth: oral and palatal mucosa normal Eyes PERRL General Eye: normal appearance of both eyes Neck full ROM General: normal visual inspection Resp normal respiratory effort Effort and Inspection: able to speak in complete sentences Auscultation: clear to auscultation bilaterally Cardio regular rate and regular rhythm Palpation: normal PMI Rate: regular rate Rhythm: regular rhythm GI Auscultation: normoactive bowel sounds Palpation: soft and no hepatosplenomegaly external exam normal Back/Spine Cervical Spine: cervical ROM normal Thoracic Spine / Upper Back: normal to inspection Lumbar Spine / Lower Back: normal to inspection Extremity normal to inspection General Extremity: normal exam except as noted Skin Wounds: wounds noted Wound Narrative: Bilateral heel wounds left heel open right heel has a hardened scab from blister both wounds developed from blood blisters that developed on her heels Neuro oriented x3 Psych Appearance: grossly normal Speech: normal speech Thought Content: normal thought content Judgement: judgement good Debridement Note Debridement Note Wound debrided: Right heel ulcer Laterality: Right Type of Debridement: Excisional debridement Anesthesia Used: 5% Lidocaine Gel Depth: Down to and including healthy tissue and in the subcutaneous layer Percentage of wound debrided: 100 Instrument Used: 3mm curette Tissue Removed: Slough and devitalized tissue Severity: Fat Layer Exposed Amount of bleeding with debridement: Mild Bleeding Controlled with: Pressure Patient tolerated procedure: Patient tolerated procedure well Post-Debridement Measurements and Additional Note: Post-Debridement Measurements/Treatment - Nurse 1 - General Ulcer Assessment Start: 06/22/21 10:07 Freq: Status: Active Protocol: NAYELI Activity Type Activity Date Activity User E-Sign Co-Sign Detail Recorded Client Recorded Date Recorded By Document 06/22/21 10:07 AK [id number] 06/22/21 10:24 AK Document 06/30/21 13:07 ML [id number] 06/30/21 13:18 ML 06/22/21 06/30/21 10:07 13:07 - Today's Visit Information Type of service Follow-up Visit Follow-up Visit (Physician/RETAIL SERVICE SPECIALIST (Physician/RETAIL SERVICE SPECIALIST ) ) Arrival Mode Wheelchair Wheelchair Transfer Assistance None Accompanied by Patient Identification Verified (Name & Yes Yes ) Patient Requires Transmission-Based No No Precautions Safety Precautions NA NA Height and Weight Body Mass Index (BMI) 30.6 30.6 BMI Classification Obese Obese Vital Signs Temperature (97.8 F-99.1 F) 97.2 F L 98.1 F Temperature Source Temporal Temporal Pulse Rate (60-100) 80 70 Pulse Location Monitor Monitor Respiratory Rate (12-18) 16 Respiratory rate source Observation Blood Pressure (90/60-120/80) 111/33 L 143/53 H Blood Pressure Mean (mm Hg) 59 83 Source Monitor Monitor Position Sitting Blood Pressure Location Right Arm History Since Last Visit- (Skip if this is Patient's initial visit) Have you changed medications since your No No last visit? Any new allergies or adverse reactions No No Had a fall/change in ADL's that may No No increase risk of falls Signs or symptoms of abuse and/or No No neglect since last visit Have you been in the hospital since your No No last visit? Has dressing in place as prescribed Yes Yes Has compression in place as prescribed Yes N/A Has offloadiing in place as prescribed N/A N/A Experienced any changes in pain level or No No management Left Footwear Regular Shoe Slipper Right Footwear Regular Shoe Slipper Pain Scale: 0-10 Numeric Is Patient Pain Free? Yes Yes WC - Nurse 1 - General Ulcer Measurement Start: 06/22/21 10:07 Freq: Status: Active Protocol: Activity Type Activity Date Activity User E-Sign Co-Sign Detail Recorded Client Recorded Date Recorded By Document 06/22/21 10:07 AK [id number] 06/22/21 10:24 AK Document 06/30/21 13:07 ML [id number] 06/30/21 13:18 ML 06/22/21 06/30/21 10:07 13:07 Wound Center Nurse 1 #2 L Heel -Combined with other wound No -Current Size (cm) - Length 0.1 0.1 -Current Size (cm) - Width 0.1 0.1 -Current Size (cm) - Depth 0.1 0.1 -Total Square Cm 0.01 0.01 -Photo Taken No -Tunneling No -Undermining/Tunneling No -Circular Undermining No -Exudate Amt Medium Medium -Exudate Type Purulent -Wound Margin Distinct, Distinct, Outline Outline Attached Attached -Granulation Amt Large (67-100%) -Slough/Fibrin Yes Yes -Necrosis Amt Large (67-100%) Medium (34-66%) -Necrotic Tissue Type Adherent Slough Adherent Slough -Structure Exposed N/A -Texture (Chelsie-wound Skin Appearance) No Abnormality, Assessed Assessed -Moisture (Chelsie-wound Skin Appearance) No Abnormality, Dry/Scaly Assessed -Color (Chelsie-wound Skin Appearance) No Abnormality, Assessed Assessed -Temperature (Chelsie-wound Skin No Abnormality No Abnormality Appearance) (Pt Warm) (Pt Warm) -Tenderness on Palpation (Chelsie-wound No No Skin Appearance) -Ulcer Cleansing Rinsed/ Soap and Water Irrigated with Saline -Foul Odor after Cleansing No No -Anesthetic Used 4% Lidocaine 5% Lidocaine Solution Gel #1 R Heel -Combined with other wound No -Current Size (cm) - Length 3 2 -Current Size (cm) - Width 2 1.8 -Current Size (cm) - Depth 0.1 0.2 -Total Square Cm 6 3.6 -Photo Taken No -Epithelialization None Present -Tunneling No -Undermining/Tunneling No -Circular Undermining No -Change in Wound Grade/Stage No -Exudate Amt Medium -Exudate Type Serosanguineous -Wound Margin Distinct, Distinct, Outline Outline Attached Attached -Granulation Amt None Present (0 Medium (34-66%) %) -Granulation Quality N/A -Slough/Fibrin No Yes -Necrosis Amt Large (67-100%) Medium (34-66%) -Necrotic Tissue Type Adherent Slough Adherent Slough -Structure Exposed N/A -Texture (Chelsie-wound Skin Appearance) No Abnormality, Assessed Assessed -Moisture (Chelsie-wound Skin Appearance) No Abnormality, Maceration Assessed -Color (Chelsie-wound Skin Appearance) No Abnormality, Assessed Assessed -Temperature (Chelsie-wound Skin No Abnormality No Abnormality Appearance) (Pt Warm) (Pt Warm) -Tenderness on Palpation (Chelsie-wound No No Skin Appearance) -Ulcer Cleansing Rinsed/ Rinsed/ Irrigated with Irrigated with Saline Saline -Foul Odor after Cleansing No No -Anesthetic Used 4% Lidocaine 5% Lidocaine Solution Gel WC - Nurse 2 - General Ulcer CM Notes Start: 06/22/21 10:07 Freq: Status: Active Protocol: Activity Type Activity Date Activity User E-Sign Co-Sign Detail Recorded Client Recorded Date Recorded By Document 06/22/21 10:31 MW [id number] 06/22/21 10:47 MW Document 06/30/21 14:12 MW [id number] 06/30/21 14:21 MW 06/22/21 06/30/21 10:31 14:12 Wound Center Nurse 2 #2 L Heel -Time 10:35 14:13 -Correct Patient Yes Yes -Correct Side, Site, Position Yes Yes -Correct Procedure Yes Yes -Procedure Performed No No -Post Debridement (cm) - Length 0 -Post Debridement (cm) - Width 0 -Post Debridement (cm) - Depth 0 -Total Square (Post) (cm) 0 -Tunneling No -Undermining/Tunneling No -Circular Undermining No -Wound/Ulcer Outcome Healed- Epithelialized -Apply Skin Sub - 1st 25 sq cm - Feet 1 #1 R Heel -Time 10:35 14:14 -Correct Patient Yes Yes -Correct Side, Site, Position Yes Yes -Correct Procedure Yes Yes -Procedure Performed Yes Yes -Type of Procedure Debridement Debridement -Clinical Debridement Subcutaneous Subcutaneous -Tissue Removed Subcutaneous Subcutaneous -Post Debridement (cm) - Length 1.5 3.0 -Post Debridement (cm) - Width 3.0 1.5 -Post Debridement (cm) - Depth 0.2 0.1 -Total Square (Post) (cm) 4.50 4.50 -Area of Debridement (cm) - Length 1.5 3.0 -Area of Debridement (cm) - Width 3.0 1.5 -Total Square (Area) (cm) 4.50 4.50 -Tunneling No No -Undermining/Tunneling No No -Circular Undermining No No -Wound/Ulcer Outcome Not Healed Not Healed -Ulcer Cleansing Rinsed/ Rinsed/ Irrigated with Irrigated with Saline Saline -Foul Odor after Cleansing No No -Bioengineered Tissue Yes Yes -Type of Bioengineered Tissue Epifix Epifix -Expiration Date 02/18/26 02/18/26 -Product Lot Number [id number] -Percent Used 100 100 -Lot number of Saline Used [id number] -Bleeding Controlled with Pressure Pressure -Offloading No No -Treatment Response Procedure Procedure Tolerated Well Tolerated Well -Debridement - Subq, 1st 20sq cm No No -Apply Skin Sub - 1st 25 sq cm - Feet 1 1 -Epifix (per sq cm) 4 4 Pain Scale: 0-10 Numeric Is Patient Pain Free? Yes Yes - Nurse 3 - General Ulcer D/C NN Start: 06/22/21 10:07 Freq: Status: Active Protocol: Activity Type Activity Date Activity User E-Sign Co-Sign Detail Recorded Client Recorded Date Recorded By Document 06/22/21 11:05 [facility] [id number] 06/22/21 11:06 BM Document 06/30/21 14:35 PL [id number] 06/30/21 14:36 PL 06/22/21 06/30/21 11:05 14:35 Wound Care Nurse 3 #2 L Heel -Primary Dressing Applied Mepilex Border -Mepilex Border 1 #1 R Heel -Ulcer Cleansing Rinsed/ Irrigated with Saline -Foul Odor after Cleansing No -Primary Dressing Applied Aquacel Extra -Other Dressing EPIFIX ABD -Primary Dressing Covered/Secured with Dry Gauze & Secured with Roll Gauze, Tape Secured with Tape,Other -Other Covering HEEL HAT Kerlix -Aquacel Extra 1 Treatment Response Procedure Tolerated Well Pain Scale: 0-10 Numeric Is Patient Pain Free? Yes Yes WC - Visit Discharge Discharge Condition Stable Stable Ambulatory Status Wheelchair Wheelchair Transportation Private Auto Accompanied by Assessment/Plan Assessment/Plan (1) Decubitus ulcer, stage 2 with infection: CODE(S): L89.92 - Pressure ulcer of unspecified site, stage 2; L08.9 - Local infection of the skin and subcutaneous tissue, unspecified (2) Diabetic foot ulcer: CODE(S): E11.621 - Type 2 diabetes mellitus with foot ulcer; L97.509 - Non-pressure chronic ulcer of other part of unspecified foot with unspecified severity QUALIFIERS: Diabetic foot ulcer location: heel Diabetes mellitus type: drug or chemical induced Laterality: unspecified laterality Non-pressure ulcer stage: unspecified non-pressure ulcer stage Qualified Code(s): E09.621 - Drug or chemical induced diabetes mellitus with foot ulcer; L97.409 - Non-pressure chronic ulcer of unspecified heel and midfoot with unspecified severity (3) Metastatic breast cancer: CODE(S): C50.919 - Malignant neoplasm of unspecified site of unspecified female breast (4) Ulcer of skin: CODE(S): L98.499 - Non-pressure chronic ulcer of skin of other sites with unspecified severity QUALIFIERS: Non-pressure ulcer stage: unspecified non-pressure ulcer stage Qualified Code(s): L98.499 - Non-pressure chronic ulcer of skin of other sites with unspecified severity PLAN: Courtesy visit for Petrona MICHELLE, epi fix #2 right heel applied with wound veil Steri-Strips and Aquacel extra over top with gauze foam dressing dressing. 2 x 2 Epifix utilized 100% used Foam dressing to left heel Patient to buy on [employer] some padded heel Patient was instructed not to get either dressings wet and to follow-up in 1 week
[2021-07-06 09:58] VITALS: BP 129/46; PULSE 77; RESP 16; TEMP 36.1; BMI 30.6
--- NOTE | 2021-07-06 11:03 | PCM.WC.PN ---
History of Present Illness Date of Service: 07/06/21 Chief Complaint: Follow-up bilateral heel blisters History of Wound: 60-year-old white female with an aggressive breast cancer that is receiving chemotherapy. The chemotherapy is causing her to develop blisters and they have developed on her heels. It is also caused her to become diabetic and has caused her sugars to shoot up to 800 and is currently on insulin her last hemoglobin A1c was 8.5. She is here today to continue treatment for the heel blisters. She has been putting antibiotic ointment on her heels and the left heel became mushy and the scab came off so now she has an open wound on the left heel but the right heel still has a hardened scab on it. Progress of Wound: Left heel wound resolved scabbed only noticing it starting to left leg around the edges. Right heel smaller tolerating epi fix well. No sign of infection we will continue with same treatment Subjective Subjective Patient is happy that they are healing well Objective Data Objective Data Measurements are smaller the depth is better. Patient is having less pain. Still needs to get the heel pads ordered for when she is in bed so she is not digging into the bed to move. Vital Signs: Vital Signs Temp Pulse Resp BP Pulse Ox 97 F L 77 16 129/46 H 91 07/06/21 09:58 07/06/21 09:58 07/06/21 09:58 07/06/21 09:58 06/21/21 00:44 Oxygen Delivery Method Room Air Weight: 161 lb 15.108 oz Body Mass Index (BMI) 30.6 Lab / Micro Data Attestation: I reviewed the patient's lab results. Physical Exam Const oriented x3 General Appearance: cooperative Exam Limitations: no limitations HEENT normocephalic Head and Scalp: normal to inspection Face and Sinus: normal facial exam Nose: external nose normal General Ear: hearing grossly impaired External Ear: external ears normal Mouth: oral and palatal mucosa normal Eyes PERRL General Eye: normal appearance of both eyes Neck full ROM General: normal visual inspection Resp normal respiratory effort Effort and Inspection: able to speak in complete sentences Auscultation: clear to auscultation bilaterally Cardio regular rate and regular rhythm Palpation: normal PMI Rate: regular rate Rhythm: regular rhythm GI Auscultation: normoactive bowel sounds Palpation: soft and no hepatosplenomegaly external exam normal Back/Spine Cervical Spine: cervical ROM normal Thoracic Spine / Upper Back: normal to inspection Lumbar Spine / Lower Back: normal to inspection Extremity normal to inspection General Extremity: normal exam except as noted Skin Wounds: wounds noted Wound Narrative: Bilateral heel wounds left heel open right heel has a hardened scab from blister both wounds developed from blood blisters that developed on her heels Neuro oriented x3 Psych Appearance: grossly normal Speech: normal speech Thought Content: normal thought content Judgement: judgement good Debridement Note Debridement Note Wound debrided: Right heel decubitus ulcer Wound Grade/Stage: Stage II Type of Debridement: Excisional debridement Anesthesia Used: 5% Lidocaine Gel Depth: Down to and including healthy tissue Percentage of wound debrided: 100 Instrument Used: 3mm curette Tissue Removed: Devitalized tissue and fibrin Severity: Limited To Skin Breakdown Amount of bleeding with debridement: Mild Bleeding Controlled with: Compression and gauze Patient tolerated procedure: Patient tolerated procedure well Post-Debridement Measurements and Additional Note: Post-Debridement Measurements/Treatment - Nurse 1 - General Ulcer Assessment Start: 06/22/21 10:07 Freq: Status: Active Protocol: NAYELI Activity Type Activity Date Activity User E-Sign Co-Sign Detail Recorded Client Recorded Date Recorded By Document 06/22/21 10:07 ME [id number] 06/22/21 10:24 AK Document 06/30/21 13:07 [id number] 06/30/21 13:18 ML Document 07/06/21 09:58 [facility] [id number] 07/06/21 10:05 BM 06/22/21 06/30/21 07/06/21 10:07 13:07 09:58 - Today's Visit Information Type of service Follow-up Visit Follow-up Visit Follow-up Visit (Physician/[employer] (Physician/[employer] (Physician/[employer] ) ) ) Arrival Mode Wheelchair Wheelchair Wheelchair Transfer Assistance None Other Transfer Assist (Other) 2 stand by assist Accompanied by Patient Identification Verified (Name & Yes Yes Yes ) Patient Requires Transmission-Based No No No Precautions Safety Precautions NA NA Height and Weight Body Mass Index (BMI) 30.6 30.6 30.6 BMI Classification Obese Obese Obese Vital Signs Temperature (97.8 F-99.1 F) 97.2 F L 98.1 F 97 F L Temperature Source Temporal Temporal Temporal Pulse Rate (60-100) 80 70 77 Pulse Location Monitor Monitor Monitor Respiratory Rate (12-18) 16 16 Respiratory rate source Observation Observation Oxygen Delivery Method Room Air Blood Pressure (90/60-120/80) 111/33 L 143/53 H 129/46 H Blood Pressure Mean (mm Hg) 59 83 73 Source Monitor Monitor Monitor Position Sitting Supine Blood Pressure Location Right Arm Right Arm History Since Last Visit- (Skip if this is Patient's initial visit) Have you changed medications since your No No No last visit? Any new allergies or adverse reactions No No No Had a fall/change in ADL's that may No No No increase risk of falls Signs or symptoms of abuse and/or No No No neglect since last visit Have you been in the hospital since your No No No last visit? Has dressing in place as prescribed Yes Yes Yes Has compression in place as prescribed Yes N/A N/A Has offloadiing in place as prescribed N/A N/A Yes Experienced any changes in pain level or No No No management Left Footwear Regular Shoe Slipper Regular Shoe Right Footwear Regular Shoe Slipper Regular Shoe Pain Scale: 0-10 Numeric Is Patient Pain Free? Yes Yes Yes WC - Nurse 1 - General Ulcer Measurement Start: 06/22/21 10:07 Freq: Status: Active Protocol: Activity Type Activity Date Activity User E-Sign Co-Sign Detail Recorded Client Recorded Date Recorded By Document 06/22/21 10:07 AK [id number] 06/22/21 10:24 AK Document 06/30/21 13:07 ML [id number] 06/30/21 13:18 ML Document 07/06/21 09:58 [facility] [id number] 07/06/21 10:05 BMF 06/22/21 06/30/21 07/06/21 10:07 13:07 09:58 Wound Center Nurse 1 #2 L Heel -Combined with other wound No -Current Size (cm) - Length 0.1 0.1 -Current Size (cm) - Width 0.1 0.1 -Current Size (cm) - Depth 0.1 0.1 -Total Square Cm 0.01 0.01 -Photo Taken No -Tunneling No -Undermining/Tunneling No -Circular Undermining No -Exudate Amt Medium Medium -Exudate Type Purulent -Wound Margin Distinct, Distinct, Outline Outline Attached Attached -Granulation Amt Large (67-100%) -Slough/Fibrin Yes Yes -Necrosis Amt Large (67-100%) Medium (34-66%) -Necrotic Tissue Type Adherent Slough Adherent Slough -Structure Exposed N/A -Texture (Chelsie-wound Skin Appearance) No Abnormality, Assessed Assessed -Moisture (Chelsie-wound Skin Appearance) No Abnormality, Dry/Scaly Assessed -Color (Chelsie-wound Skin Appearance) No Abnormality, Assessed Assessed -Temperature (Chelsie-wound Skin No Abnormality No Abnormality Appearance) (Pt Warm) (Pt Warm) -Tenderness on Palpation (Chelsie-wound No No Skin Appearance) -Ulcer Cleansing Rinsed/ Soap and Water Irrigated with Saline -Foul Odor after Cleansing No No -Anesthetic Used 4% Lidocaine 5% Lidocaine Solution Gel #1 R Heel -Combined with other wound No No -Current Size (cm) - Length 3 2 2.5 -Current Size (cm) - Width 2 1.8 1 -Current Size (cm) - Depth 0.1 0.2 0.1 -Total Square Cm 6 3.6 2.5 -Date of Last Picture (Recall this 07/06/21 field) -Photo Taken No Yes -Epithelialization None Present Small 1-33% -Tunneling No No -Undermining/Tunneling No No -Circular Undermining No No -Change in Wound Grade/Stage No -Exudate Amt Medium Medium -Exudate Type Serosanguineous Serosanguineous -Wound Margin Distinct, Distinct, Distinct, Outline Outline Outline Attached Attached Attached -Granulation Amt None Present (0 Medium (34-66%) Medium (34-66%) %) -Granulation Quality N/A [place] -Slough/Fibrin No Yes Yes -Necrosis Amt Large (67-100%) Medium (34-66%) Medium (34-66%) -Necrotic Tissue Type Adherent Slough Adherent Slough Adherent Slough -Structure Exposed N/A -Texture (Chelsie-wound Skin Appearance) No Abnormality, Assessed Assessed, Assessed Scarring -Moisture (Chelsie-wound Skin Appearance) No Abnormality, Maceration Assessed Assessed -Color (Chelsie-wound Skin Appearance) No Abnormality, Assessed Assessed Assessed -Temperature (Chelsie-wound Skin No Abnormality No Abnormality No Abnormality Appearance) (Pt Warm) (Pt Warm) (Pt Warm) -Tenderness on Palpation (Chelsie-wound No No No Skin Appearance) -Ulcer Cleansing Rinsed/ Rinsed/ Soap and Water Irrigated with Irrigated with Saline Saline -Foul Odor after Cleansing No No No -Anesthetic Used 4% Lidocaine 5% Lidocaine 5% Lidocaine Solution Gel Gel WC - Nurse 2 - General Ulcer CM Notes Start: 06/22/21 10:07 Freq: Status: Active Protocol: Activity Type Activity Date Activity User E-Sign Co-Sign Detail Recorded Client Recorded Date Recorded By Document 06/22/21 10:31 MW [id number] 06/22/21 10:47 MW Document 06/30/21 14:12 MW [id number] 06/30/21 14:21 MW Edit Result 06/30/21 14:12 MW (1) [id number] 07/01/21 06:56 PL Document 07/06/21 10:09 MW [id number] 07/06/21 10:19 MW (1) #2 L Heel - Apply Skin Sub - 1st 25 sq cm - Feet 1 => 06/22/21 06/30/21 07/06/21 10:31 14:12 10:09 Wound Center Nurse 2 #2 L Heel -Time 10:35 14:13 -Correct Patient Yes Yes -Correct Side, Site, Position Yes Yes -Correct Procedure Yes Yes -Procedure Performed No No -Post Debridement (cm) - Length 0 -Post Debridement (cm) - Width 0 -Post Debridement (cm) - Depth 0 -Total Square (Post) (cm) 0 -Tunneling No -Undermining/Tunneling No -Circular Undermining No -Wound/Ulcer Outcome Healed- Epithelialized #1 R Heel -Time 10:35 14:14 10:10 -Correct Patient Yes Yes Yes -Correct Side, Site, Position Yes Yes Yes -Correct Procedure Yes Yes Yes -Procedure Performed Yes Yes Yes -Type of Procedure Debridement Debridement Debridement -Clinical Debridement Subcutaneous Subcutaneous Subcutaneous -Tissue Removed Subcutaneous Subcutaneous Subcutaneous -Post Debridement (cm) - Length 1.5 3.0 0.9 -Post Debridement (cm) - Width 3.0 1.5 2.2 -Post Debridement (cm) - Depth 0.2 0.1 0.1 -Total Square (Post) (cm) 4.50 4.50 1.98 -Area of Debridement (cm) - Length 1.5 3.0 0.9 -Area of Debridement (cm) - Width 3.0 1.5 2.2 -Total Square (Area) (cm) 4.50 4.50 1.98 -Tunneling No No No -Undermining/Tunneling No No No -Circular Undermining No No No -Wound/Ulcer Outcome Not Healed Not Healed Not Healed -Ulcer Cleansing Rinsed/ Rinsed/ Rinsed/ Irrigated with Irrigated with Irrigated with Saline Saline Saline -Foul Odor after Cleansing No No No -Bioengineered Tissue Yes Yes Yes -Type of Bioengineered Tissue Epifix Epifix Epifix 18mm Disc -Expiration Date 02/18/26 02/18/26 03/21/26 -Product Lot Number [id number] -Percent Used 100 100 100 -Lot number of Saline Used [id number] -Bleeding Controlled with Pressure Pressure Pressure -Offloading No No No -Treatment Response Procedure Procedure Procedure Tolerated Well Tolerated Well Tolerated Well -Debridement - Subq, 1st 20sq cm No No No -Apply Skin Sub - 1st 25 sq cm - Feet 1 1 1 -Epifix (per sq cm) 4 4 -Epifix 18mm Disc 3 Pain Scale: 0-10 Numeric Is Patient Pain Free? Yes Yes Yes - Nurse 3 - General Ulcer D/C NN Start: 06/22/21 10:07 Freq: Status: Active Protocol: Activity Type Activity Date Activity User E-Sign Co-Sign Detail Recorded Client Recorded Date Recorded By Document 06/22/21 11:05 [facility] [id number] 06/22/21 11:06 [facility] Document 06/30/21 14:35 PL [id number] 06/30/21 14:36 PL 06/22/21 06/30/21 11:05 14:35 Wound Care Nurse 3 #2 L Heel -Primary Dressing Applied Mepilex Border -Mepilex Border 1 #1 R Heel -Ulcer Cleansing Rinsed/ Irrigated with Saline -Foul Odor after Cleansing No -Primary Dressing Applied Aquacel Extra -Other Dressing EPIFIX ABD -Primary Dressing Covered/Secured with Dry Gauze & Secured with Roll Gauze, Tape Secured with Tape,Other -Other Covering HEEL HAT Kerlix -Aquacel Extra 1 Treatment Response Procedure Tolerated Well Pain Scale: 0-10 Numeric Is Patient Pain Free? Yes Yes WC - Visit Discharge Discharge Condition Stable Stable Ambulatory Status Wheelchair Wheelchair Transportation Private Auto Accompanied by Assessment/Plan Assessment/Plan (1) Decubitus ulcer, stage 2 with infection: CODE(S): L89.92 - Pressure ulcer of unspecified site, stage 2; L08.9 - Local infection of the skin and subcutaneous tissue, unspecified PLAN: Epi fix #3 right heel applied with wound veil Steri-Strips and Aquacel extra over top with gauze foam dressing dressing. Foam dressing to left heel Patient to buy on [employer] some padded heel Patient was instructed not to get either dressings wet and to follow-up in 1 week (2) Diabetic foot ulcer: CODE(S): E11.621 - Type 2 diabetes mellitus with foot ulcer; L97.509 - Non-pressure chronic ulcer of other part of unspecified foot with unspecified severity QUALIFIERS: Diabetic foot ulcer location: heel Diabetes mellitus type: drug or chemical induced Laterality: unspecified laterality Non-pressure ulcer stage: unspecified non-pressure ulcer stage Qualified Code(s): E09.621 - Drug or chemical induced diabetes mellitus with foot ulcer; L97.409 - Non-pressure chronic ulcer of unspecified heel and midfoot with unspecified severity (3) Metastatic breast cancer: CODE(S): C50.919 - Malignant neoplasm of unspecified site of unspecified female breast (4) Ulcer of skin: CODE(S): L98.499 - Non-pressure chronic ulcer of skin of other sites with unspecified severity QUALIFIERS: Non-pressure ulcer stage: unspecified non-pressure ulcer stage Qualified Code(s): L98.499 - Non-pressure chronic ulcer of skin of other sites with unspecified severity
[2021-07-13 10:57] VITALS: BP 140/66; PULSE 83; RESP 16; TEMP 35.9; BMI 30.6
--- NOTE | 2021-07-13 11:51 | PCM.WC.PN ---
History of Present Illness Date of Service: 07/13/21 Chief Complaint: Follow-up bilateral heel blisters History of Wound: 60-year-old white female with an aggressive breast cancer that is receiving chemotherapy. The chemotherapy is causing her to develop blisters and they have developed on her heels. It is also caused her to become diabetic and has caused her sugars to shoot up to 800 and is currently on insulin her last hemoglobin A1c was 8.5. She is here today to continue treatment for the heel blisters. She has been putting antibiotic ointment on her heels and the left heel became mushy and the scab came off so now she has an open wound on the left heel but the right heel still has a hardened scab on it. Progress of Wound: Left heel wound resolved scabbed only noticing it starting to lift around the edges. Pare down the extra callusing that that developed. Right heel smaller tolerating epi fix well. No sign of infection we will continue with same treatment becoming much smaller Subjective Subjective Patient finally got her heel pads to protect her heels from digging into the bed when she turns Objective Data Objective Data Measurements much smaller pared down the left heel right heel is very flat reapplied epi fix today #4 should be done soon Vital Signs: Vital Signs Temp Pulse Resp BP Pulse Ox 96.7 F L 83 16 140/66 H 91 07/13/21 10:57 07/13/21 10:57 07/13/21 10:57 07/13/21 10:57 06/21/21 00:44 Oxygen Delivery Method Room Air Weight: 161 lb 15.108 oz Body Mass Index (BMI) 30.6 Physical Exam Const oriented x3 General Appearance: cooperative Exam Limitations: no limitations HEENT normocephalic Head and Scalp: normal to inspection Face and Sinus: normal facial exam Nose: external nose normal General Ear: hearing grossly impaired External Ear: external ears normal Mouth: oral and palatal mucosa normal Eyes PERRL General Eye: normal appearance of both eyes Neck full ROM General: normal visual inspection Resp normal respiratory effort Effort and Inspection: able to speak in complete sentences Auscultation: clear to auscultation bilaterally Cardio regular rate and regular rhythm Palpation: normal PMI Rate: regular rate Rhythm: regular rhythm GI Auscultation: normoactive bowel sounds Palpation: soft and no hepatosplenomegaly external exam normal Back/Spine Cervical Spine: cervical ROM normal Thoracic Spine / Upper Back: normal to inspection Lumbar Spine / Lower Back: normal to inspection Extremity normal to inspection General Extremity: normal exam except as noted Skin Wounds: wounds noted Wound Narrative: Bilateral heel wounds left heel open right heel has a hardened scab from blister both wounds developed from blood blisters that developed on her heels Neuro oriented x3 Psych Appearance: grossly normal Speech: normal speech Thought Content: normal thought content Judgement: judgement good Debridement Note Debridement Note Wound debrided: Right heel decubitus ulcer Laterality: Right Wound Grade/Stage: Stage II Type of Debridement: Excisional debridement Anesthesia Used: 5% Lidocaine Gel Depth: Down to and including healthy tissue Percentage of wound debrided: 100 Instrument Used: 5mm curette Tissue Removed: Devitalized tissue fibrin Severity: Limited To Skin Breakdown Amount of bleeding with debridement: None Bleeding Controlled with: Pressure Patient tolerated procedure: Patient tolerated procedure well Post-Debridement Measurements and Additional Note: Post-Debridement Measurements/Treatment - Nurse 1 - General Ulcer Assessment Start: 06/22/21 10:07 Freq: Status: Active Protocol: NAYELI Activity Type Activity Date Activity User E-Sign Co-Sign Detail Recorded Client Recorded Date Recorded By Document 06/22/21 10:07 PA [id number] 06/22/21 10:24 [place] Document 06/30/21 13:07 ML [id number] 06/30/21 13:18 ML Document 07/06/21 09:58 [facility] [id number] 07/06/21 10:05 [facility] Document 07/13/21 10:57 [facility] [id number] 07/13/21 11:13 [facility] 06/22/21 06/30/21 07/06/21 10:07 13:07 09:58 - Today's Visit Information Type of service Follow-up Visit Follow-up Visit Follow-up Visit (Physician/CONSTRUCTION IRONWORKER (Physician/CONSTRUCTION IRONWORKER (Physician/CONSTRUCTION IRONWORKER ) ) ) Arrival Mode Wheelchair Wheelchair Wheelchair Transfer Assistance None Other Transfer Assist (Other) 2 stand by assist Accompanied by Patient Identification Verified (Name & Yes Yes Yes ) Patient Requires Transmission-Based No No No Precautions Safety Precautions NA NA Height and Weight Body Mass Index (BMI) 30.6 30.6 30.6 BMI Classification Obese Obese Obese Vital Signs Temperature (97.8 F-99.1 F) 97.2 F L 98.1 F 97 F L Temperature Source Temporal Temporal Temporal Pulse Rate (60-100) 80 70 77 Pulse Location Monitor Monitor Monitor Respiratory Rate (12-18) 16 16 Respiratory rate source Observation Observation Oxygen Delivery Method Room Air Blood Pressure (90/60-120/80) 111/33 L 143/53 H 129/46 H Blood Pressure Mean (mm Hg) 59 83 73 Source Monitor Monitor Monitor Position Sitting Supine Blood Pressure Location Right Arm Right Arm History Since Last Visit- (Skip if this is Patient's initial visit) Have you changed medications since your No No No last visit? Any new allergies or adverse reactions No No No Had a fall/change in ADL's that may No No No increase risk of falls Signs or symptoms of abuse and/or No No No neglect since last visit Have you been in the hospital since your No No No last visit? Has dressing in place as prescribed Yes Yes Yes Has compression in place as prescribed Yes N/A N/A Has offloadiing in place as prescribed N/A N/A Yes Experienced any changes in pain level or No No No management Left Footwear Regular Shoe Slipper Regular Shoe Right Footwear Regular Shoe Slipper Regular Shoe Pain Scale: 0-10 Numeric Is Patient Pain Free? Yes Yes Yes 07/13/21 10:57 WC - Today's Visit Information Type of service Follow-up Visit (Physician/CONSTRUCTION IRONWORKER ) Arrival Mode Wheelchair Transfer Assistance Other Transfer Assist (Other) stand by assist Accompanied by Patient Identification Verified (Name & Yes ) Patient Requires Transmission-Based No Precautions Safety Precautions Height and Weight Body Mass Index (BMI) 30.6 BMI Classification Obese Vital Signs Temperature (97.8 F-99.1 F) 96.7 F L Temperature Source Temporal Pulse Rate (60-100) 83 Pulse Location Monitor Respiratory Rate (12-18) 16 Respiratory rate source Observation Oxygen Delivery Method Room Air Blood Pressure (90/60-120/80) 140/66 H Blood Pressure Mean (mm Hg) 90 Source Monitor Position Sitting Blood Pressure Location Right Forearm History Since Last Visit- (Skip if this is Patient's initial visit) Have you changed medications since your No last visit? Any new allergies or adverse reactions No Had a fall/change in ADL's that may No increase risk of falls Signs or symptoms of abuse and/or No neglect since last visit Have you been in the hospital since your No last visit? Has dressing in place as prescribed Yes Has compression in place as prescribed N/A Has offloadiing in place as prescribed Yes Experienced any changes in pain level or No management Left Footwear Regular Shoe Right Footwear Regular Shoe Pain Scale: 0-10 Numeric Is Patient Pain Free? Yes WC - Nurse 1 - General Ulcer Measurement Start: 06/22/21 10:07 Freq: Status: Active Protocol: Activity Type Activity Date Activity User E-Sign Co-Sign Detail Recorded Client Recorded Date Recorded By Document 06/22/21 10:07 AK [id number] 06/22/21 10:24 AK Document 06/30/21 13:07 ML [id number] 06/30/21 13:18 ML Document 07/06/21 09:58 BMF [id number] 07/06/21 10:05 BMF Document 07/13/21 10:57 BMF [id number] 07/13/21 11:13 BMF 06/22/21 06/30/21 07/06/21 10:07 13:07 09:58 Wound Center Nurse 1 #2 L Heel -Combined with other wound No -Current Size (cm) - Length 0.1 0.1 -Current Size (cm) - Width 0.1 0.1 -Current Size (cm) - Depth 0.1 0.1 -Total Square Cm 0.01 0.01 -Photo Taken No -Tunneling No -Undermining/Tunneling No -Circular Undermining No -Exudate Amt Medium Medium -Exudate Type Purulent -Wound Margin Distinct, Distinct, Outline Outline Attached Attached -Granulation Amt Large (67-100%) -Slough/Fibrin Yes Yes -Necrosis Amt Large (67-100%) Medium (34-66%) -Necrotic Tissue Type Adherent Slough Adherent Slough -Structure Exposed N/A -Texture (Chelsie-wound Skin Appearance) No Abnormality, Assessed Assessed -Moisture (Chelsie-wound Skin Appearance) No Abnormality, Dry/Scaly Assessed -Color (Chelsie-wound Skin Appearance) No Abnormality, Assessed Assessed -Temperature (Chelsie-wound Skin No Abnormality No Abnormality Appearance) (Pt Warm) (Pt Warm) -Tenderness on Palpation (Chelsie-wound No No Skin Appearance) -Ulcer Cleansing Rinsed/ Soap and Water Irrigated with Saline -Foul Odor after Cleansing No No -Anesthetic Used 4% Lidocaine 5% Lidocaine Solution Gel #1 R Heel -Combined with other wound No No -Current Size (cm) - Length 3 2 2.5 -Current Size (cm) - Width 2 1.8 1 -Current Size (cm) - Depth 0.1 0.2 0.1 -Total Square Cm 6 3.6 2.5 -Date of Last Picture (Recall this 07/06/21 field) -Photo Taken No Yes -Epithelialization None Present Small 1-33% -Tunneling No No -Undermining/Tunneling No No -Circular Undermining No No -Change in Wound Grade/Stage No -Exudate Amt Medium Medium -Exudate Type Serosanguineous Serosanguineous -Wound Margin Distinct, Distinct, Distinct, Outline Outline Outline Attached Attached Attached -Granulation Amt None Present (0 Medium (34-66%) Medium (34-66%) %) -Granulation Quality N/A [place] -Slough/Fibrin No Yes Yes -Necrosis Amt Large (67-100%) Medium (34-66%) Medium (34-66%) -Necrotic Tissue Type Adherent Slough Adherent Slough Adherent Slough -Structure Exposed N/A -Texture (Chelsie-wound Skin Appearance) No Abnormality, Assessed Assessed, Assessed Scarring -Moisture (Chelsie-wound Skin Appearance) No Abnormality, Maceration Assessed Assessed -Color (Chelsie-wound Skin Appearance) No Abnormality, Assessed Assessed Assessed -Temperature (Chelsie-wound Skin No Abnormality No Abnormality No Abnormality Appearance) (Pt Warm) (Pt Warm) (Pt Warm) -Tenderness on Palpation (Chelsie-wound No No No Skin Appearance) -Ulcer Cleansing Rinsed/ Rinsed/ Soap and Water Irrigated with Irrigated with Saline Saline -Foul Odor after Cleansing No No No -Anesthetic Used 4% Lidocaine 5% Lidocaine 5% Lidocaine Solution Gel Gel 07/13/21 10:57 Wound Center Nurse 1 #2 L Heel -Combined with other wound -Current Size (cm) - Length -Current Size (cm) - Width -Current Size (cm) - Depth -Total Square Cm -Photo Taken -Tunneling -Undermining/Tunneling -Circular Undermining -Exudate Amt -Exudate Type -Wound Margin -Granulation Amt -Slough/Fibrin -Necrosis Amt -Necrotic Tissue Type -Structure Exposed -Texture (Chelsie-wound Skin Appearance) -Moisture (Chelsie-wound Skin Appearance) -Color (Chelsie-wound Skin Appearance) -Temperature (Chelsie-wound Skin Appearance) -Tenderness on Palpation (Chelsie-wound Skin Appearance) -Ulcer Cleansing -Foul Odor after Cleansing -Anesthetic Used #1 R Heel -Combined with other wound No -Current Size (cm) - Length 2.3 -Current Size (cm) - Width 1 -Current Size (cm) - Depth 0.1 -Total Square Cm 2.3 -Date of Last Picture (Recall this 07/13/21 field) -Photo Taken Yes -Epithelialization Small 1-33% -Tunneling No -Undermining/Tunneling No -Circular Undermining No -Change in Wound Grade/Stage -Exudate Amt Medium -Exudate Type Serosanguineous -Wound Margin Flat & Intact -Granulation Amt Medium (34-66%) -Granulation Quality [place] -Slough/Fibrin Yes -Necrosis Amt Medium (34-66%) -Necrotic Tissue Type Adherent Slough -Structure Exposed -Texture (Chelsie-wound Skin Appearance) Assessed, Scarring -Moisture (Chelsie-wound Skin Appearance) Assessed, Maceration -Color (Chelsie-wound Skin Appearance) Assessed,Palor -Temperature (Chelsie-wound Skin No Abnormality Appearance) (Pt Warm) -Tenderness on Palpation (Chelsie-wound Yes Skin Appearance) -Ulcer Cleansing Soap and Water -Foul Odor after Cleansing No -Anesthetic Used 5% Lidocaine Gel WC - Nurse 2 - General Ulcer CM Notes Start: 06/22/21 10:07 Freq: Status: Active Protocol: Activity Type Activity Date Activity User E-Sign Co-Sign Detail Recorded Client Recorded Date Recorded By Document 06/22/21 10:31 MW [id number] 06/22/21 10:47 MW Document 06/30/21 14:12 MW [id number] 06/30/21 14:21 MW Edit Result 06/30/21 14:12 MW (1) [id number] 07/01/21 06:56 PL Document 07/06/21 10:09 MW [id number] 07/06/21 10:19 MW Document 07/13/21 11:22 MW [id number] 07/13/21 11:35 MW (1) #2 L Heel - Apply Skin Sub - 1st 25 sq cm - Feet 1 => 06/22/21 06/30/21 07/06/21 10:31 14:12 10:09 Wound Center Nurse 2 #2 L Heel -Time 10:35 14:13 -Correct Patient Yes Yes -Correct Side, Site, Position Yes Yes -Correct Procedure Yes Yes -Procedure Performed No No -Post Debridement (cm) - Length 0 -Post Debridement (cm) - Width 0 -Post Debridement (cm) - Depth 0 -Total Square (Post) (cm) 0 -Tunneling No -Undermining/Tunneling No -Circular Undermining No -Wound/Ulcer Outcome Healed- Epithelialized #1 R Heel -Time 10:35 14:14 10:10 -Correct Patient Yes Yes Yes -Correct Side, Site, Position Yes Yes Yes -Correct Procedure Yes Yes Yes -Procedure Performed Yes Yes Yes -Type of Procedure Debridement Debridement Debridement -Clinical Debridement Subcutaneous Subcutaneous Subcutaneous -Tissue Removed Subcutaneous Subcutaneous Subcutaneous -Post Debridement (cm) - Length 1.5 3.0 0.9 -Post Debridement (cm) - Width 3.0 1.5 2.2 -Post Debridement (cm) - Depth 0.2 0.1 0.1 -Total Square (Post) (cm) 4.50 4.50 1.98 -Area of Debridement (cm) - Length 1.5 3.0 0.9 -Area of Debridement (cm) - Width 3.0 1.5 2.2 -Total Square (Area) (cm) 4.50 4.50 1.98 -Tunneling No No No -Undermining/Tunneling No No No -Circular Undermining No No No -Wound/Ulcer Outcome Not Healed Not Healed Not Healed -Ulcer Cleansing Rinsed/ Rinsed/ Rinsed/ Irrigated with Irrigated with Irrigated with Saline Saline Saline -Foul Odor after Cleansing No No No -Bioengineered Tissue Yes Yes Yes -Type of Bioengineered Tissue Epifix Epifix Epifix 18mm Disc -Expiration Date 02/18/26 02/18/26 03/21/26 -Product Lot Number [id number] -Percent Used 100 100 100 -Lot number of Saline Used [id number] -Bleeding Controlled with Pressure Pressure Pressure -Offloading No No No -Treatment Response Procedure Procedure Procedure Tolerated Well Tolerated Well Tolerated Well -Debridement - Subq, 1st 20sq cm No No No -Apply Skin Sub - 1st 25 sq cm - Feet 1 1 1 -Epifix (per sq cm) 4 4 -Epifix 18mm Disc 3 Pain Scale: 0-10 Numeric Is Patient Pain Free? Yes Yes Yes 07/13/21 11:22 Wound Center Nurse 2 #2 L Heel -Time -Correct Patient -Correct Side, Site, Position -Correct Procedure -Procedure Performed -Post Debridement (cm) - Length -Post Debridement (cm) - Width -Post Debridement (cm) - Depth -Total Square (Post) (cm) -Tunneling -Undermining/Tunneling -Circular Undermining -Wound/Ulcer Outcome #1 R Heel -Time 11:22 -Correct Patient Yes -Correct Side, Site, Position Yes -Correct Procedure Yes -Procedure Performed Yes -Type of Procedure Debridement -Clinical Debridement Subcutaneous -Tissue Removed Subcutaneous -Post Debridement (cm) - Length 1.0 -Post Debridement (cm) - Width 0.7 -Post Debridement (cm) - Depth 0.1 -Total Square (Post) (cm) 0.70 -Area of Debridement (cm) - Length 1.0 -Area of Debridement (cm) - Width 0.7 -Total Square (Area) (cm) 0.70 -Tunneling No -Undermining/Tunneling No -Circular Undermining No -Wound/Ulcer Outcome Not Healed -Ulcer Cleansing Rinsed/ Irrigated with Saline -Foul Odor after Cleansing No -Bioengineered Tissue Yes -Type of Bioengineered Tissue Epifix 18mm Disc -Expiration Date 03/21/26 -Product Lot Number [id number] -Percent Used 100 -Lot number of Saline Used [id number] -Bleeding Controlled with Pressure -Offloading No -Treatment Response Procedure Tolerated Well -Debridement - Subq, 1st 20sq cm No -Apply Skin Sub - 1st 25 sq cm - Feet 1 -Epifix (per sq cm) -Epifix 18mm Disc 3 Pain Scale: 0-10 Numeric Is Patient Pain Free? Yes - Nurse 3 - General Ulcer D/C NN Start: 02/02/22 10:07 Freq: Status: Active Protocol: Activity Type Activity Date Activity User E-Sign Co-Sign Detail Recorded Client Recorded Date Recorded By Document 06/22/21 11:05 [facility] [id number] 06/22/21 11:06 [facility] Document 06/30/21 14:35 PL [id number] 06/30/21 14:36 PL Document 07/06/21 12:31 MT [id number] 07/06/21 12:32 MT Document 07/13/21 11:39 [facility] [id number] 07/13/21 11:40 [facility] 06/22/21 06/30/21 07/06/21 11:05 14:35 12:31 Wound Care Nurse 3 #2 L Heel -Primary Dressing Applied Mepilex Border -Mepilex Border 1 #1 R Heel -Ulcer Cleansing Rinsed/ Rinsed/ Irrigated with Irrigated with Saline Saline -Foul Odor after Cleansing No -Primary Dressing Applied Aquacel Extra Aquacel Extra, Mepilex Border -Other Dressing EPIFIX ABD -Primary Dressing Covered/Secured with Dry Gauze & Secured with Dry Gauze & Roll Gauze, Tape Roll Gauze, Secured with Secured with Tape,Other Tape -Other Covering HEEL HAT Kerlix -Aquacel Extra 1 1 -Mepilex Border 1 Treatment Response Procedure Tolerated Well Pain Scale: 0-10 Numeric Is Patient Pain Free? Yes Yes Yes WC - Visit Discharge Discharge Condition Stable Stable Ambulatory Status Wheelchair Wheelchair Transportation Private Auto Accompanied by 07/13/21 11:39 Wound Care Nurse 3 #2 L Heel -Primary Dressing Applied -Mepilex Border #1 R Heel -Ulcer Cleansing -Foul Odor after Cleansing -Primary Dressing Applied Aquacel Extra, Mepilex Border -Other Dressing epifix; mepilex foam to left heel per order -Primary Dressing Covered/Secured with Dry Gauze & Roll Gauze, Secured with Tape,Other -Other Covering heel hat, drsg per ak silverware cleaner -Aquacel Extra 1 -Mepilex Border 1 Treatment Response Procedure Tolerated Well Pain Scale: 0-10 Numeric Is Patient Pain Free? Yes WC - Visit Discharge Discharge Condition Stable Ambulatory Status Wheelchair Transportation Private Auto Accompanied by Assessment/Plan Assessment/Plan (1) Decubitus ulcer, stage 2 with infection: CODE(S): L89.92 - Pressure ulcer of unspecified site, stage 2; L08.9 - Local infection of the skin and subcutaneous tissue, unspecified PLAN: Epi fix #4 right heel applied with wound veil Steri-Strips and Aquacel extra over top with gauze foam dressing dressing. Foam dressing to left heel Patient to buy on [employer] some padded heel Patient was instructed not to get either dressings wet and to follow-up in 1 week (2) Diabetic foot ulcer: CODE(S): E11.621 - Type 2 diabetes mellitus with foot ulcer; L97.509 - Non-pressure chronic ulcer of other part of unspecified foot with unspecified severity QUALIFIERS: Diabetic foot ulcer location: heel Diabetes mellitus type: drug or chemical induced Laterality: unspecified laterality Non-pressure ulcer stage: unspecified non-pressure ulcer stage Qualified Code(s): E09.621 - Drug or chemical induced diabetes mellitus with foot ulcer; L97.409 - Non-pressure chronic ulcer of unspecified heel and midfoot with unspecified severity (3) Metastatic breast cancer: CODE(S): C50.919 - Malignant neoplasm of unspecified site of unspecified female breast (4) Ulcer of skin: CODE(S): L98.499 - Non-pressure chronic ulcer of skin of other sites with unspecified severity QUALIFIERS: Non-pressure ulcer stage: unspecified non-pressure ulcer stage Qualified Code(s): L98.499 - Non-pressure chronic ulcer of skin of other sites with unspecified severity
== END 2021-07-18 23:59 | disposition home or self-care (01) ==
LOC: WC 11:15
PROVIDERS: PCP Family Medicine; Visit Provider Nurse Practitioner
DX: E11.621 Type 2 diabetes mellitus with foot ulcer (principal); E09.621 Drug or chemical induced diabetes mellitus with foot ulcer; L89.612 Pressure ulcer of right heel, stage 2; C50.919 Malignant neoplasm of unspecified site of unspecified female breast; L08.9 Local infection of the skin and subcutaneous tissue, unspecified; M54.9 Dorsalgia, unspecified
CPT/HCPCS: 15275; Q4186

== ENCOUNTER 2021-07-27 09:00 | Outpatient (RCR) | payer BC, SELFPAY ==
[2021-02-22 11:15] VITALS: BMI 36.2
[2021-07-19 00:35] VITALS: BP 140/66; PULSE 83; RESP 16; TEMP 35.9; O2SAT 91; BMI 30.6
[2021-07-20 08:54] VITALS: BP 110/74; PULSE 76; RESP 16; TEMP 36.2; BMI 30.6
--- NOTE | 2021-07-20 11:06 | PCM.WC.PN ---
History of Present Illness Date of Service: 07/20/21 Chief Complaint: Follow-up bilateral heel blisters History of Wound: 60-year-old white female with an aggressive breast cancer that is receiving chemotherapy. The chemotherapy is causing her to develop blisters and they have developed on her heels. It is also caused her to become diabetic and has caused her sugars to shoot up to 800 and is currently on insulin her last hemoglobin A1c was 8.5. She is here today to continue treatment for the heel blisters. She has been putting antibiotic ointment on her heels and the left heel became mushy and the scab came off so now she has an open wound on the left heel but the right heel still has a hardened scab on it. Progress of Wound: Left heel is still has a scab and is still doing well healed. Right heel is filling in nicely very small area left to be covered she only probably has another week or 2. Subjective Subjective She is also complaining of less pain Objective Data Objective Data No sign of infection in the right heel healing well with the epi fix will continue #5 today doing well no complaints of any Vital Signs: Vital Signs Temp Pulse Resp BP Pulse Ox 97.2 F L 76 16 110/74 91 07/20/21 08:54 07/20/21 08:54 07/20/21 08:54 07/20/21 08:54 07/19/21 00:35 Oxygen Delivery Method Room Air Weight: 161 lb 15.108 oz Body Mass Index (BMI) 30.6 Physical Exam Const oriented x3 General Appearance: cooperative Exam Limitations: no limitations HEENT normocephalic Head and Scalp: normal to inspection Face and Sinus: normal facial exam Nose: external nose normal General Ear: hearing grossly impaired External Ear: external ears normal Mouth: oral and palatal mucosa normal Eyes PERRL General Eye: normal appearance of both eyes Neck full ROM General: normal visual inspection Resp normal respiratory effort Effort and Inspection: able to speak in complete sentences Auscultation: clear to auscultation bilaterally Cardio regular rate and regular rhythm Palpation: normal PMI Rate: regular rate Rhythm: regular rhythm GI Auscultation: normoactive bowel sounds Palpation: soft and no hepatosplenomegaly external exam normal Back/Spine Cervical Spine: cervical ROM normal Thoracic Spine / Upper Back: normal to inspection Lumbar Spine / Lower Back: normal to inspection Extremity normal to inspection General Extremity: normal exam except as noted Skin Wounds: wounds noted Wound Narrative: Bilateral heel wounds left heel open right heel has a hardened scab from blister both wounds developed from blood blisters that developed on her heels Neuro oriented x3 Psych Appearance: grossly normal Speech: normal speech Thought Content: normal thought content Judgement: judgement good Debridement Note Debridement Note Wound debrided: Right heel decubitus ulcer Wound Grade/Stage: Stage II Type of Debridement: Selective debridement Anesthesia Used: 5% Lidocaine Gel Depth: in the subcutaneous layer Percentage of wound debrided: 100 Instrument Used: 3mm curette Tissue Removed: Callus and fibrin Severity: Limited To Skin Breakdown Amount of bleeding with debridement: None Bleeding Controlled with: Compression and gauze Patient tolerated procedure: Patient tolerated procedure well Post-Debridement Measurements and Additional Note: Post-Debridement Measurements/Treatment - Nurse 1 - General Ulcer Assessment Start: 07/20/21 08:53 Freq: Status: Active Protocol: NAYELI Activity Type Activity Date Activity User E-Sign Co-Sign Detail Recorded Client Recorded Date Recorded By Document 07/20/21 08:54 [facility] [id number] 07/20/21 09:01 [facility] 07/20/21 08:54 - Today's Visit Information Type of service Follow-up Visit (Physician/COMMUNITY SUPPORT PROFESSIONAL ) Arrival Mode Wheelchair Transfer Assistance Other Transfer Assist (Other) 1 assist Patient Identification Verified (Name & Yes ) Patient Requires Transmission-Based No Precautions Height and Weight Body Mass Index (BMI) 30.6 BMI Classification Obese Vital Signs Temperature (97.8 F-99.1 F) 97.2 F L Temperature Source Temporal Pulse Rate (60-100) 76 Pulse Location Monitor Respiratory Rate (12-18) 16 Respiratory rate source Observation Oxygen Delivery Method Room Air Blood Pressure (90/60-120/80) 110/74 Blood Pressure Mean (mm Hg) 86 Source Monitor Position Sitting Blood Pressure Location Right Arm History Since Last Visit- (Skip if this is Patient's initial visit) Have you changed medications since your No last visit? Any new allergies or adverse reactions No Had a fall/change in ADL's that may No increase risk of falls Signs or symptoms of abuse and/or No neglect since last visit Have you been in the hospital since your No last visit? Has dressing in place as prescribed Yes Has compression in place as prescribed N/A Has offloadiing in place as prescribed Yes Experienced any changes in pain level or No management Left Footwear Regular Shoe Right Footwear Regular Shoe Pain Scale: 0-10 Numeric Is Patient Pain Free? Yes - Nurse 1 - General Ulcer Measurement Start: 07/20/21 08:53 Freq: Status: Active Protocol: Activity Type Activity Date Activity User E-Sign Co-Sign Detail Recorded Client Recorded Date Recorded By Document 07/20/21 08:54 [facility] [id number] 07/20/21 09:01 [facility] 07/20/21 08:54 Wound Center Nurse 1 #1 R Heel -Combined with other wound No -Current Size (cm) - Length 1 -Current Size (cm) - Width 0.8 -Current Size (cm) - Depth 0.1 -Total Square Cm 0.8 -Date of Last Picture (Recall this 07/20/21 field) -Photo Taken Yes -Epithelialization Small 1-33% -Tunneling No -Undermining/Tunneling No -Circular Undermining No -Exudate Amt Medium -Exudate Type Serosanguineous -Wound Margin Distinct, Outline Attached -Granulation Amt Small (1-33%) -Granulation Quality Red -Slough/Fibrin Yes -Necrosis Amt Medium (34-66%) -Necrotic Tissue Type Adherent Slough -Texture (Chelsie-wound Skin Appearance) Assessed, Scarring -Moisture (Chelsie-wound Skin Appearance) Maceration,Dry/ Scaly -Color (Chelsie-wound Skin Appearance) Assessed,Palor -Temperature (Chelsie-wound Skin No Abnormality Appearance) (Pt Warm) -Tenderness on Palpation (Chelsie-wound Yes Skin Appearance) -Ulcer Cleansing Soap and Water -Anesthetic Used 5% Lidocaine Gel - Nurse 2 - General Ulcer CM Notes Start: 07/20/21 08:53 Freq: Status: Active Protocol: Activity Type Activity Date Activity User E-Sign Co-Sign Detail Recorded Client Recorded Date Recorded By Document 07/20/21 09:10 MW [id number] 07/20/21 09:19 MW 07/20/21 09:10 Wound Center Nurse 2 -Time 09:11 -Correct Patient Yes -Correct Side, Site, Position Yes -Correct Procedure Yes -Procedure Performed Yes -Type of Procedure Debridement -Clinical Debridement Subcutaneous -Tissue Removed Subcutaneous -Post Debridement (cm) - Length 0.5 -Post Debridement (cm) - Width 0.3 -Post Debridement (cm) - Depth 0.1 -Total Square (Post) (cm) 0.15 -Area of Debridement (cm) - Length 0.5 -Area of Debridement (cm) - Width 0.3 -Total Square (Area) (cm) 0.15 -Tunneling No -Undermining/Tunneling No -Circular Undermining No -Wound/Ulcer Outcome Not Healed -Ulcer Cleansing Rinsed/ Irrigated with Saline -Foul Odor after Cleansing No -Bioengineered Tissue Yes -Type of Bioengineered Tissue Epifix 18mm Disc -Expiration Date 04/20/26 -Product Lot Number [id number] -Percent Used 100 -Lot number of Saline Used [id number] -Bleeding Controlled with Pressure -Offloading No -Treatment Response Procedure Tolerated Well -Debridement - Subq, 1st 20sq cm No -Apply Skin Sub - 1st 25 sq cm - Feet 1 -Epifix 18mm Disc 3 Pain Scale: 0-10 Numeric Is Patient Pain Free? Yes - Nurse 3 - General Ulcer D/C NN Start: 07/20/21 08:53 Freq: Status: Active Protocol: Activity Type Activity Date Activity User E-Sign Co-Sign Detail Recorded Client Recorded Date Recorded By Document 07/20/21 09:30 [facility] [id number] 07/20/21 09:31 [facility] 07/20/21 09:30 Wound Care Nurse 3 #1 R Heel -Primary Dressing Applied Aquacel Extra -Other Dressing epifix -Primary Dressing Covered/Secured with Dry Gauze & Roll Gauze, Secured with Tape,Other -Other Covering heel hat -Aquacel Extra 1 Treatment Response Procedure Tolerated Well Pain Scale: 0-10 Numeric Is Patient Pain Free? Yes - Visit Discharge Discharge Condition Stable Ambulatory Status Wheelchair Transportation Private Auto Accompanied by Assessment/Plan Assessment/Plan (1) Decubitus ulcer, stage 2 with infection: CODE(S): L89.92 - Pressure ulcer of unspecified site, stage 2; L08.9 - Local infection of the skin and subcutaneous tissue, unspecified PLAN: Epi fix #5 right heel applied with wound veil Steri-Strips and Aquacel extra over top with gauze foam dressing dressing. Foam dressing to left heel Patient to buy on [employer] some padded heel Patient was instructed not to get either dressings wet and to follow-up in 1 week (2) Diabetic foot ulcer: CODE(S): E11.621 - Type 2 diabetes mellitus with foot ulcer; L97.509 - Non-pressure chronic ulcer of other part of unspecified foot with unspecified severity QUALIFIERS: Diabetic foot ulcer location: heel Diabetes mellitus type: drug or chemical induced Laterality: unspecified laterality Non-pressure ulcer stage: unspecified non-pressure ulcer stage Qualified Code(s): E09.621 - Drug or chemical induced diabetes mellitus with foot ulcer; L97.409 - Non-pressure chronic ulcer of unspecified heel and midfoot with unspecified severity (3) Metastatic breast cancer: CODE(S): C50.919 - Malignant neoplasm of unspecified site of unspecified female breast (4) Ulcer of skin: CODE(S): L98.499 - Non-pressure chronic ulcer of skin of other sites with unspecified severity QUALIFIERS: Non-pressure ulcer stage: unspecified non-pressure ulcer stage Qualified Code(s): L98.499 - Non-pressure chronic ulcer of skin of other sites with unspecified severity
[2021-07-27 08:56] VITALS: BP 138/46; PULSE 71; RESP 16; TEMP 35.7; BMI 30.6
--- NOTE | 2021-07-27 10:18 | PCM.WC.PN ---
History of Present Illness Date of Service: 07/27/21 Chief Complaint: Follow-up bilateral heel blisters History of Wound: 60-year-old white female with an aggressive breast cancer that is receiving chemotherapy. The chemotherapy is causing her to develop blisters and they have developed on her heels. It is also caused her to become diabetic and has caused her sugars to shoot up to 800 and is currently on insulin her last hemoglobin A1c was 8.5. She is here today to continue treatment for the heel blisters. She has been putting antibiotic ointment on her heels and the left heel became mushy and the scab came off so now she has an open wound on the left heel but the right heel still has a hardened scab on it. Progress of Wound: Removed left heel scab to new skin. Right heel resolved and patient will be discharged from the wound center. Subjective Subjective Patient is very happy with progress she states chemotherapy is working her bone scans are clean. Objective Data Objective Data Right heel cleared will discharge from the wound center left heel scab removed and new skin underneath. Should continue to protect new skin for a week and wear heel pads when in bed from digging. Patient is much more mobile and in less pain it is obvious her in chemo is working she appears healthier. Vital Signs: Vital Signs Temp Pulse Resp BP Pulse Ox 96.3 F L 71 16 138/46 H 91 07/27/21 08:56 07/27/21 08:56 07/27/21 08:56 07/27/21 08:56 07/19/21 00:35 Oxygen Delivery Method Room Air Weight: 161 lb 15.108 oz Body Mass Index (BMI) 30.6 Physical Exam Const oriented x3 General Appearance: cooperative Exam Limitations: no limitations HEENT normocephalic Head and Scalp: normal to inspection Face and Sinus: normal facial exam Nose: external nose normal General Ear: hearing grossly impaired External Ear: external ears normal Mouth: oral and palatal mucosa normal Eyes PERRL General Eye: normal appearance of both eyes Neck full ROM General: normal visual inspection Resp normal respiratory effort Effort and Inspection: able to speak in complete sentences Auscultation: clear to auscultation bilaterally Cardio regular rate and regular rhythm Palpation: normal PMI Rate: regular rate Rhythm: regular rhythm GI Auscultation: normoactive bowel sounds Palpation: soft and no hepatosplenomegaly external exam normal Back/Spine Cervical Spine: cervical ROM normal Thoracic Spine / Upper Back: normal to inspection Lumbar Spine / Lower Back: normal to inspection Extremity normal to inspection General Extremity: normal exam except as noted Skin Wounds: wounds noted Wound Narrative: Bilateral heel wounds left heel open right heel has a hardened scab from blister both wounds developed from blood blisters that developed on her heels Neuro oriented x3 Psych Appearance: grossly normal Speech: normal speech Thought Content: normal thought content Judgement: judgement good Debridement Note Debridement Note No debridement was completed: No debridement was completed today Post-Debridement Measurements and Additional Note: Post-Debridement Measurements/Treatment - Nurse 1 - General Ulcer Assessment Start: 07/20/21 08:53 Freq: Status: Active Protocol: Pick1Ynes Activity Type Activity Date Activity User E-Sign Co-Sign Detail Recorded Client Recorded Date Recorded By Document 07/20/21 08:54 [facility] [id number] 07/20/21 09:01 [facility] Document 07/27/21 08:56 [facility] [id number] 07/27/21 09:03 [facility] 07/20/21 07/27/21 08:54 08:56 - Today's Visit Information Type of service Follow-up Visit Follow-up Visit (Physician/NURSING STUDENT (Physician/NURSING STUDENT ) ) Arrival Mode Wheelchair Wheelchair Transfer Assistance Other None Transfer Assist (Other) 1 assist Accompanied by Patient Identification Verified (Name & Yes Yes ) Patient Requires Transmission-Based No No Precautions Height and Weight Body Mass Index (BMI) 30.6 30.6 BMI Classification Obese Obese Vital Signs Temperature (97.8 F-99.1 F) 97.2 F L 96.3 F L Temperature Source Temporal Temporal Pulse Rate (60-100) 76 71 Pulse Location Monitor Monitor Respiratory Rate (12-18) 16 16 Respiratory rate source Observation Observation Oxygen Delivery Method Room Air Room Air Blood Pressure (90/60-120/80) 110/74 138/46 H Blood Pressure Mean (mm Hg) 86 76 Source Monitor Monitor Position Sitting Sitting Blood Pressure Location Right Arm Left Arm History Since Last Visit- (Skip if this is Patient's initial visit) Have you changed medications since your No No last visit? Any new allergies or adverse reactions No No Had a fall/change in ADL's that may No No increase risk of falls Signs or symptoms of abuse and/or No No neglect since last visit Have you been in the hospital since your No No last visit? Has dressing in place as prescribed Yes Yes Has compression in place as prescribed N/A N/A Has offloadiing in place as prescribed Yes Yes Experienced any changes in pain level or No No management Left Footwear Regular Shoe Regular Shoe Right Footwear Regular Shoe Regular Shoe Pain Scale: 0-10 Numeric Is Patient Pain Free? Yes Yes WC - Nurse 1 - General Ulcer Measurement Start: 07/20/21 08:53 Freq: Status: Active Protocol: Activity Type Activity Date Activity User E-Sign Co-Sign Detail Recorded Client Recorded Date Recorded By Document 07/20/21 08:54 [facility] [id number] 07/20/21 09:01 BM Document 07/27/21 08:56 [facility] [id number] 07/27/21 09:03 [facility] 07/20/21 07/27/21 08:54 08:56 Wound Center Nurse 1 #1 R Heel -Combined with other wound No No -Current Size (cm) - Length 1 0.1 -Current Size (cm) - Width 0.8 0.1 -Current Size (cm) - Depth 0.1 0.1 -Total Square Cm 0.8 0.01 -Date of Last Picture (Recall this 07/20/21 07/27/21 field) -Photo Taken Yes Yes -Epithelialization Small 1-33% Large 67-100% -Tunneling No No -Undermining/Tunneling No No -Circular Undermining No No -Exudate Amt Medium Medium -Exudate Type Serosanguineous Serosanguineous -Wound Margin Distinct, Distinct, Outline Outline Attached Attached -Granulation Amt Small (1-33%) -Granulation Quality Red -Slough/Fibrin Yes -Necrosis Amt Medium (34-66%) -Necrotic Tissue Type Adherent Slough -Texture (Chelsie-wound Skin Appearance) Assessed, Assessed, Scarring Scarring -Moisture (Chelsie-wound Skin Appearance) Maceration,Dry/ Assessed, Scaly Maceration -Color (Chelsie-wound Skin Appearance) Assessed,Palor Assessed,Palor -Temperature (Chelsie-wound Skin No Abnormality No Abnormality Appearance) (Pt Warm) (Pt Warm) -Tenderness on Palpation (Chelsie-wound Yes Yes Skin Appearance) -Ulcer Cleansing Soap and Water Soap and Water -Foul Odor after Cleansing No -Anesthetic Used 5% Lidocaine 5% Lidocaine Gel Gel WC - Nurse 2 - General Ulcer CM Notes Start: 07/20/21 08:53 Freq: Status: Active Protocol: Activity Type Activity Date Activity User E-Sign Co-Sign Detail Recorded Client Recorded Date Recorded By Document 07/20/21 09:10 MW [id number] 07/20/21 09:19 MW Document 07/27/21 09:12 MW [id number] 07/27/21 09:12 MW 07/20/21 07/27/21 09:10 09:12 Wound Center Nurse 2 #1 R Heel -Time 09:11 09:12 -Correct Patient Yes Yes -Correct Side, Site, Position Yes Yes -Correct Procedure Yes Yes -Procedure Performed Yes No -Type of Procedure Debridement -Clinical Debridement Subcutaneous -Tissue Removed Subcutaneous -Post Debridement (cm) - Length 0.5 0 -Post Debridement (cm) - Width 0.3 0 -Post Debridement (cm) - Depth 0.1 0 -Total Square (Post) (cm) 0.15 0 -Area of Debridement (cm) - Length 0.5 -Area of Debridement (cm) - Width 0.3 -Total Square (Area) (cm) 0.15 -Tunneling No No -Undermining/Tunneling No No -Circular Undermining No No -Wound/Ulcer Outcome Not Healed Healed- Epithelialized -Ulcer Cleansing Rinsed/ Irrigated with Saline -Foul Odor after Cleansing No -Bioengineered Tissue Yes -Type of Bioengineered Tissue Epifix 18mm Disc -Expiration Date 04/20/26 -Product Lot Number [id number] -Percent Used 100 -Lot number of Saline Used [id number] -Bleeding Controlled with Pressure NA -Offloading No No -Treatment Response Procedure Procedure Tolerated Well Tolerated Well -Debridement - Subq, 1st 20sq cm No -Apply Skin Sub - 1st 25 sq cm - Feet 1 -Epifix 18mm Disc 3 Pain Scale: 0-10 Numeric Is Patient Pain Free? Yes Yes WC - Nurse 3 - General Ulcer D/C NN Start: 07/20/21 08:53 Freq: Status: Active Protocol: Activity Type Activity Date Activity User E-Sign Co-Sign Detail Recorded Client Recorded Date Recorded By Document 07/20/21 09:30 [facility] [id number] 07/20/21 09:31 BM Document 07/27/21 09:13 MW [id number] 07/27/21 09:13 MW 07/20/21 07/27/21 09:30 09:13 Wound Care Nurse 3 #1 R Heel -Ulcer Cleansing Not Cleansed -Primary Dressing Applied Aquacel Extra Mepilex Border -Other Dressing epifix -Primary Dressing Covered/Secured with Dry Gauze & Roll Gauze, Secured with Tape,Other -Other Covering heel hat -Aquacel Extra 1 -Mepilex Border 2 Treatment Response Procedure Procedure Tolerated Well Tolerated Well Pain Scale: 0-10 Numeric Is Patient Pain Free? Yes Yes Teaching: Wound Center Discharge Instructions -Person Taught Patient,Family -Teaching Method Discussion -Response to teaching Verbalize understanding WC - Visit Discharge Discharge Condition Stable Stable Ambulatory Status Wheelchair Wheelchair Transportation Private Auto Private Auto Accompanied by Medication Reconcilliation completed & No provided to patient/care provider Clinical Summary of Care Provided Yes Notes: healed, discharged from clinic Assessment/Plan Assessment/Plan (1) Decubitus ulcer, stage 2 with infection: CODE(S): L89.92 - Pressure ulcer of unspecified site, stage 2; L08.9 - Local infection of the skin and subcutaneous tissue, unspecified PLAN: Right heel healed and resolved patient discharged from the wound center follow-up as needed (2) Diabetic foot ulcer: CODE(S): E11.621 - Type 2 diabetes mellitus with foot ulcer; L97.509 - Non-pressure chronic ulcer of other part of unspecified foot with unspecified severity QUALIFIERS: Diabetic foot ulcer location: heel Diabetes mellitus type: drug or chemical induced Laterality: unspecified laterality Non-pressure ulcer stage: unspecified non-pressure ulcer stage Qualified Code(s): E09.621 - Drug or chemical induced diabetes mellitus with foot ulcer; L97.409 - Non-pressure chronic ulcer of unspecified heel and midfoot with unspecified severity (3) Metastatic breast cancer: CODE(S): C50.919 - Malignant neoplasm of unspecified site of unspecified female breast (4) Ulcer of skin: CODE(S): L98.499 - Non-pressure chronic ulcer of skin of other sites with unspecified severity QUALIFIERS: Non-pressure ulcer stage: unspecified non-pressure ulcer stage Qualified Code(s): L98.499 - Non-pressure chronic ulcer of skin of other sites with unspecified severity
== END 2021-08-01 08:57 | disposition home or self-care (01) ==
LOC: WC 09:00
PROVIDERS: PCP Family Medicine; Visit Provider Nurse Practitioner
DX: E11.621 Type 2 diabetes mellitus with foot ulcer (principal); E09.621 Drug or chemical induced diabetes mellitus with foot ulcer; L89.612 Pressure ulcer of right heel, stage 2; C50.919 Malignant neoplasm of unspecified site of unspecified female breast; L08.9 Local infection of the skin and subcutaneous tissue, unspecified
CPT/HCPCS: 15275; 99203; Q4186; G0463

== ENCOUNTER 2021-08-16 17:36 | Outpatient (CLI) | payer BC, SELFPAY ==
[2021-02-22 11:15] VITALS: BMI 36.2
== END 2021-08-16 23:59 | disposition home or self-care (01) ==
LOC: LABSPEC 17:36
PROVIDERS: PCP Family Medicine; Visit Provider Family Medicine
DX: R30.0 Dysuria (principal)
CPT/HCPCS: 87086

== ENCOUNTER 2021-08-30 09:36 | Outpatient (CLI) | payer BC, SELFPAY ==
[2021-02-22 11:15] VITALS: BMI 36.2
== END 2021-08-30 23:59 | disposition home or self-care (01) ==
LOC: LABSPEC 09:37
PROVIDERS: PCP Family Medicine; Visit Provider Family Medicine
DX: R30.0 Dysuria (principal)
CPT/HCPCS: 87086; 87088

== ENCOUNTER → 2021-10-14 | Outpatient (CLI) | payer BC, SELFPAY ==
[2021-02-22 11:15] VITALS: BMI 36.2
--- NOTE | 2021-10-14 08:39 | NM_ITS ---
CLINICAL: Female, 61 years old. BONE METS-ASSESS TREATMENT RESPONSE -- PT HAVING LOW BACK PAIN WHOLE BODY NUCLEAR BONE SCAN TECHNIQUE: Following the IV administration of 27.0 mCi of Tc MDP, whole body bone imaging was performed with a gamma camera following a three hour delay. COMPARISON STUDIES : NM - 06/30/2021 CR - Not available for review at this time. CT - Not available for review at this time. MR - Not available for review at this time. US - Not available for review at this time. FINDINGS: Multifocal osseous metastasis are once again identified similar in distribution throughout the axial skeleton. However, some of the lesions are more intense as compared to the prior study. For instance, the left calvarial lesion is brighter as compared to the prior bone scan. Left lateral lower rib lesion also appears more intense as compared to the prior bone scan as well as moderately larger. Posterior right seventh rib lesion best seen on posterior image appears new since prior bone scan. Distribution of lesions in the spine is similar since prior bone scan, although lesser intensity. NM/Bone Scan Whole Body IMPRESSION: 1. Since 06/30/2021, unfavorable change. Increased intensity, size and number of osseous metastasis with new lesions of posterior right seventh rib, larger lateral left rib lesion and increased intensity of right calvarial lesion. Distribution in the spine is overall similar, although less intense. Electronically Signed: Teddy Nguyen MD ([place]) at 13:16 EDT ,
== END | disposition home or self-care (01) ==
LOC: NM 08:35
PROVIDERS: PCP Family Medicine; Referring Provider Internal Medicine Medical Oncology; Visit Provider Internal Medicine Medical Oncology
DX: C79.51 Secondary malignant neoplasm of bone (principal); Z85.118 Personal history of other malignant neoplasm of bronchus and lung; Z85.3 Personal history of malignant neoplasm of breast
CPT/HCPCS: 78306; A9503

== ENCOUNTER → 2021-10-14 | Outpatient (CLI) | payer BC, SELFPAY ==
[2021-02-22 11:15] VITALS: BMI 36.2
== END | disposition home or self-care (01) ==
LOC: LABSPEC 15:17
PROVIDERS: PCP Family Medicine; Visit Provider Obstetrics & Gynecology
DX: R30.9 Painful micturition, unspecified (principal); N89.8 Other specified noninflammatory disorders of vagina
CPT/HCPCS: 87070; 87086; 87088; 87205

== ENCOUNTER → 2021-11-15 | Outpatient (CLI) | payer BC, SELFPAY ==
[2021-02-22 11:15] VITALS: BMI 36.2
--- NOTE | 2021-11-15 08:02 | CT_ITS ---
STUDY: CT CHEST, ABDOMEN T PELVIS WITHOUT CONTRAST REASON FOR EXAM: Female, 61 years old. ASSESS TREATMENT RESPONSE. History of lung cancer and breast cancer. RADIATION DOSAGE (If Supplied By Facility): CTDIvol = ( 10.49 ) mGy, DLP = ( 748.59 ) mGycm TECHNIQUE: Transaxial imaging was performed without the administration of intravenous contrast material. Individualized dose optimization techniques were used for this CT. COMPARISON: Comparison is made with prior study dated 08/02/2020 and 02/02/2020. FINDINGS: CHEST The patient is status post bilateral mastectomy. Is a new small right pleural effusion with right basilar atelectasis. 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 Increased linear markings are seen at both lung bases more prominent on the right lung base suggestive of scarring. Increased markings are seen in deep lingular segment of the left upper lobe suggestive of scarring. There are calcifications of the coronary arteries. Normal mediastinum. Normal hilar regions. Normal unenhanced pulmonary arteries. There is atherosclerotic calcification of the aortic arch. Once again, there is diffuse osteolytic and blastic metastasis involving the thoracic vertebrae. ABDOMEN Normal liver. Normal gallbladder and extrahepatic biliary system. Normal spleen. Normal pancreas. There is a small, circumscribed, smooth, low attenuation left adrenal mass, consistent with an adrenal adenoma. This measures 9.4 mm. Normal right adrenal gland. 3 mm nonobstructive calculus in the midpole calyx of the right kidney. Normal left kidney. Normal visualized stomach. Normal small intestine. There are scattered colonic diverticula consistent with diverticulosis. The appendix is visualized and appears normal. Normal abdominal aorta. Normal inferior vena cava. Normal retroperitoneum. Normal abdominal wall. 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 PELVIS Normal urinary bladder. The patient is status post hysterectomy. There is no pelvic fluid. There is no pelvic lymphadenopathy or mass lesion. There is diffuse atherosclerotic calcification of the pelvic arteries. 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 There is a new right pleural effusion with right basilar atelectasis. Electronically Signed: Bhavesh Arechiga MD at 14:16 EDT ,
== END | disposition home or self-care (01) ==
LOC: CT 08:00
PROVIDERS: PCP Family Medicine; Referring Provider Internal Medicine Medical Oncology; Visit Provider Internal Medicine Medical Oncology
DX: C50.919 Malignant neoplasm of unspecified site of unspecified female breast (principal); C79.51 Secondary malignant neoplasm of bone; Z85.118 Personal history of other malignant neoplasm of bronchus and lung
CPT/HCPCS: 71250; 74176

== ENCOUNTER → 2021-11-25 | Outpatient (CLI) | payer BC, SELFPAY ==
[2021-02-22 11:15] VITALS: BMI 36.2
--- NOTE | 2021-11-25 | FLU_PTH ---
PATIENT: PARVIN HARRIS LOC: [facility]#:[id number] AGE/SX: 61/F ROOM: RE11/25/[address]: Dr. Charles Gresham MD : 1960 BED: DIS: 11/25/2021 SPEC #: [id number] RECD: 11/25/21 13:37 STATUS: MERE REKishan #: [id number] AKUA: 11/25/21 00:[address]: Charles Gresham DEPT: CYTOLOGY RECD BY: Jose Nguyen ENTERED: 11/25/21 13:38 SP TYPE: Fluid OTHR DR: Dr. Sandro Bland, DO Tissues: THORACIC FLUID Procedures: Special Stain Group II Surgery Specimen Level IV Cytospin Fluid HEADER OPERATION: Right thoracentesis PRE-OP DIAGNOSIS: Pleural effusion TISSUE SUBMITTED: Thoracentesis fluid for cytology DIAGNOSIS CYTOLOGY Thoracentesis fluid for cytology (cytospin and cell block): Negative for malignant cells. See comment. AM:luc 11/28/2021 COMMENT Immunohistochemistry ([id number]) supports the above diagnosis. CYTOLOGY STUDY Slides are reviewed. CYTOLOGY GROSS Received is 50 ml of gold cloudy fluid labeled with the patient's name and and designated per the requisition as thoracentesis. Submitted for cytology preparation including cell block. / luc 11/25/2021 TC:5 CPT: 95061, 83044
--- NOTE | 2021-11-25 | IMM_PTH ---
PATIENT: PARVIN HARRIS LOC: U#:[id number] AGE/SX: 61/F ROOM: RE11/25/[address]: Dr. Charles Gresham MD : 1960 BED: DIS: 11/25/2021 SPEC #: [id number] RECD: 11/28/21 14:34 STATUS: MERE REQ #: [id number] AKUA: 11/25/21 00:[address]: Charles Gresham DEPT: IMMUNOHISTOCHEMISTRY RECD BY: Ning Valeiro ENTERED: 11/28/21 14:35 SP TYPE: IMMUNO OTHR DR: Dr. Sandro Bland, DO Tissues: THORACIC FLUID Procedures: NAPSIN A (add) Andrew Ret (add) CK20 (add) CK5-6 (add) CK7 (add) MACRO (add) TTF1 (add) Pankeratin (initial) P40 (add) PHYSICIAN & INSTITUTION [place] [id number] SPECIMEN INFORMATION: Tissue Source: Thoracentesis fluid Clinical Info: Pleural effusion Specimen Number: [id number] CPT code: 14644, 22886 x8 METHODOLOGY: Deparaffinized sections of prefer/formalin-fixed tissue or PAP/DQ stained slides are incubated with monoclonal/polyclonal antibodies/oligonucleotide probes. Localization is made via biotin free immunoperoxidase method. Appropriate controls are performed and reacted as expected. Results on target cell population are indicated in the following table: RESULTS: ANTIBODY / CLONE RESULT AE1-3 (AE1/AE3/PCK26) positive, rare CK7 (OV-TL12/30) positive, rare CK20 (KS20.8) negative TTF-1 (8G7G3/1) negative Napsin A (Rabbit Polyclonal) negative CALRET (polyclonal) positive CK5-6 (D5 & 1684) positive, rare P40 (BC28) negative Macro (HAM-56) positive These tests were developed and their performance characteristics determined by [facility]. They may not have been cleared or approved by the U.S. Food and Drug Administration. The FDA has determined that such clearance or approval is not necessary. The above immunohistochemical/dualISH markers are ordered and reviewed by the Pathologist. INTERPRETATION: Thoracentesis fluid: No evidence of malignancy. AM:luc 11/30/2021
--- NOTE | 2021-11-25 11:57 | US_ITS ---
PROCEDURE: ULTRASOUND GUIDED THORACENTESIS. DATE: 11/25/2021. INDICATION: Female, 61 years old. Right pleural effusion. PHYSICIAN: Bhavesh Arechiga M.D. PROCEDURE: The risks, benefits, and alternatives to the procedure were explained to the patient. The specific risks of bleeding, infection, and pneumothorax requiring chest tube insertion were discussed and accepted. Written informed consent was obtained. Ultrasonographic evaluation of the right lower pleural space was carried out. An adequate pocket was identified. The patient was placed in the sitting, upright position. The overlying skin was prepped and draped in sterile fashion. 1% lidocaine was administered subcutaneously for local anesthesia. Under ultrasound guidance, a 5 [place]an thoracentesis needle/catheter system was advanced into the right posterior lower pleural fluid collection. Approximately 4 mL of lonny-colored fluid was drained. The catheter was removed, and a sterile dressing was applied. A specimen was collected and sent to the laboratory for analysis, as requested by the referring clinician. The patient tolerated the procedure well. A chest x-ray was ordered. US/Thoracentesis W US IMPRESSION: Ultrasound-guided right thoracentesis. Electronically Signed: Bhavesh Arechiga MD at 13:30 EDT ,
[2021-11-25 12:36] VITALS: BP 101/41; BP 109/34; BP 113/44; BP 99/36; PULSE 72; PULSE 73; PULSE 75; RESP 18; RESP 20; TEMP 36.8; O2SAT 100; O2SAT 98
[2021-11-25] MEDS: Lidocaine 2% (20 ml mdv) 20 ML Vial INFILT (12:38)
--- NOTE | 2021-11-25 12:47 | RAD_ITS ---
STUDY: X-RAY CHEST REASON FOR EXAM: Female, 61 years old. Pneumothorax -- immediately post thoracentesis TECHNIQUE: AP inspiration and expiration views. COMPARISON: None. FINDINGS: The patient is status post right thoracentesis. There is no evidence of pneumothorax. Surgical clips are seen in both axillary regions. Healed right rib fractures. Linear density in the left lung base suggestive of either atelectasis and/or scarring. RAD/Chest Insp/Exp 2 View IMPRESSION: Status post right thoracentesis. No evidence of pneumothorax. Electronically Signed: Bhavesh Arechiga MD at 13:04 EDT ,
[2021-11-25 13:09] LABS: Cytology, Body Fluid / CSF SEE PATHOLOGY REPORT
== END | disposition home or self-care (01) ==
LOC: US 11:56
PROVIDERS: PCP Family Medicine; Referring Provider Internal Medicine Medical Oncology; Visit Provider Internal Medicine Medical Oncology
DX: J90 Pleural effusion, not elsewhere classified (principal)
CPT/HCPCS: 32555; 71046; 88108; 88305; 88313; 88341; 88342

== ENCOUNTER → 2022-01-24 | Outpatient (CLI) | payer BC, SELFPAY ==
[2021-02-22 11:15] VITALS: BMI 36.2
--- NOTE | 2022-01-24 10:33 | NM_ITS ---
CLINICAL: 61-year-old female with history of carcinoma of the breast. WHOLE BODY 99m Tc MDP RADIONUCLIDE BONE SCINTIGRAPHY COMPARISON: Whole body bone scintigraphy study dated 10/14/2021 FINDINGS: Following the intravenous administration of 25.0 mCi of 99m Tc MDP, whole body bone images reveal: 1. Persistent increased radiopharmaceutical concentration is identified in the axial skeletal structures and bilateral hemipelvic calvarium, to include multiple thoracic and lumbar vertebra, bilateral ribs, the right hemipelvis and acetabulum relatively unchanged compared to the study dated 10/14/2021. 2. Enhanced uptake is noted in the visualized bilateral wrists, the knee articulations bilaterally, the upper and lower cervical spine posteriorly on the right and left, the acromioclavicular compartment of the right shoulder. 3. The remaining skeletal structures are scintigraphically unremarkable with normal-appearing renal images and urinary bladder activity identified. Diffuse uptake is defined throughout the right hemithorax, unchanged compared to the previous examination and may be attributed to pleural effusion. NM/Bone Scan Whole Body IMPRESSION: 1. The increase in radiotracer redefined in the appendicular and axial skeletal structures, too many to individually articulate are relatively unchanged compared to the study dated 10/14/2021 and remain consistent with osteoblastic turnover attributed to skeletal metastatic disease. 2. 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 3. Overall compared to the previous whole body bone scintigraphy study dated 10/14/2021, there is minimal interval change. Electronically Signed: Kd Cox, at 19:16 EDT ,
== END | disposition home or self-care (01) ==
LOC: NM 10:32
PROVIDERS: PCP Family Medicine; Referring Provider Internal Medicine Medical Oncology; Visit Provider Internal Medicine Medical Oncology
DX: C79.51 Secondary malignant neoplasm of bone (principal); Z85.118 Personal history of other malignant neoplasm of bronchus and lung
CPT/HCPCS: 78306; A9503

== ENCOUNTER → 2022-01-27 | Outpatient (CLI) | payer BC, SELFPAY ==
[2021-02-22 11:15] VITALS: BMI 36.2
--- NOTE | 2022-01-27 13:50 | CT_ITS ---
STUDY: CT CHEST, ABDOMEN T PELVIS WITH CONTRAST REASON FOR EXAM: Female, 61 years old. Breast cancer. Bilateral mastectomy. Pulmonary metastasis. RADIATION DOSAGE (If Supplied By Facility): CTDIvol = ( 15.54 ) mGy, DLP = ( 1209.97 ) mGycm TECHNIQUE: Transaxial imaging was performed following intravenous administration of IV 100mL Isovue-300. Individualized dose optimization techniques were used for this CT. COMPARISON: Comparison is made with prior study 11/15/2021. FINDINGS: CHEST Mild degree of increased linear markings in the anterior aspect of the right upper lobe suggestive of scarring. Mild linear scarring also seen in the right middle lobe as well as in the right lower lobe. Findings also suggest some scarring in the left lower lobe and lingular segment of the left upper lobe. This most likely represents post radiation changes. Small to moderate sized right pleural effusion with right basilar atelectasis. This has progressed as compared to prior study. There are calcifications of the coronary arteries. Normal mediastinum. Normal hilar regions. Normal unenhanced pulmonary arteries. Normal aorta arch and descending thoracic aorta. There is evidence of diffuse osteolytic and osteoblastic metastasis of the thoracic vertebrae. Multilevel degenerative changes. There is no demonstrated abnormality of the visualized upper abdomen. ABDOMEN Normal liver. Normal gallbladder and extrahepatic biliary system. Normal spleen. Normal pancreas. There is a small, circumscribed, smooth, low attenuation left adrenal mass, consistent with an adrenal adenoma. This measures 9 mm and is unchanged. Normal right adrenal gland. 3.5 mm nonobstructive calculus in the midpole calyx of the right kidney. Normal left kidney. Normal visualized stomach. Normal small intestine. Normal colon. The appendix is visualized and appears normal. There is scattered atherosclerotic calcification of the abdominal aorta, without a demonstrated aneurysm. Normal inferior vena cava. Normal retroperitoneum. Normal abdominal wall. Diffuse osteolytic metastasis. Metastasis is also seen in the pelvic bones. PELVIS Normal urinary bladder. The patient is status post hysterectomy. here is no pelvic fluid. There is no pelvic lymphadenopathy or mass lesion. There is diffuse atherosclerotic calcification of the pelvic arteries. CT/CT Chest, Abd, Pel w/Contrast IMPRESSION: Since prior study, there has been slight progression in the pleural effusion. Electronically Signed: Bhavesh Arechiga MD at 15:21 EDT ,
== END | disposition home or self-care (01) ==
LOC: CT 13:49
PROVIDERS: PCP Family Medicine; Referring Provider Internal Medicine Medical Oncology; Visit Provider Internal Medicine Medical Oncology
DX: C50.919 Malignant neoplasm of unspecified site of unspecified female breast (principal); C79.51 Secondary malignant neoplasm of bone; Z85.118 Personal history of other malignant neoplasm of bronchus and lung
CPT/HCPCS: 71260; 74177; Q9967

== ENCOUNTER → 2022-02-06 | Outpatient (CLI) | payer BC, SELFPAY ==
[2021-02-22 11:15] VITALS: BMI 36.2
--- NOTE | 2022-02-06 | IMM_PTH ---
PATIENT: PARVIN HARRIS LOC: U#:[id number] AGE/SX: 61/F ROOM: RE02/06/[address]: Dr. Charles Gresham MD : 1960 BED: DIS: 02/06/2022 SPEC #: [id number] RECD: 02/08/22 12:56 STATUS: MERE REQ #: [id number] AKUA: 02/06/22 00:[address]: Charles Gresham DEPT: IMMUNOHISTOCHEMISTRY RECD BY: Ning Valerio ENTERED: 02/08/22 12:57 SP TYPE: IMMUNO OTHR DR: Dr. Sandro Bland, DO Tissues: THORACIC FLUID Procedures: CK20 (add) CK7 (add) KI-67 (add) MACRO (add) MAMM (add) P53 (add) IL (add) Pankeratin (add) GATA3 (add) ER (initial) PHYSICIAN & INSTITUTION [place] [id number] SPECIMEN INFORMATION: Tissue Source: Thoracentesis fluid Clinical Info: Pleural effusion Specimen Number: [id number] CPT code: 05448, 06470 x9 METHODOLOGY: Deparaffinized sections of prefer/formalin-fixed tissue or PAP/DQ stained slides are incubated with monoclonal/polyclonal antibodies/oligonucleotide probes. Localization is made via biotin free immunoperoxidase method. Appropriate controls are performed and reacted as expected. Results on target cell population are indicated in the following table: RESULTS: ANTIBODY / CLONE RESULT ER (6F11) negative IL (1E2) negative Mammaglobin (31A5) negative GATA3 (L50-823) negative AE1-3 (AE1/AE3/PCK26) negative CK7 (OV-TL12/30) positive, rare CK20 (KS20.8) negative Macro (HAM-56) positive P53 (DO-7) negative Ki-67 (30-9) positive, rare These tests were developed and their performance characteristics determined by [facility]. They may not have been cleared or approved by the U.S. Food and Drug Administration. The FDA has determined that such clearance or approval is not necessary. The above immunohistochemical/dualISH markers are ordered and reviewed by the Pathologist. INTERPRETATION: Thoracentesis fluid (cell block): No evidence of malignancy. AM:luc 02/10/2022
--- NOTE | 2022-02-06 | FLU_PTH ---
PATIENT: PARVIN HARRIS LOC: [facility]#:[id number] AGE/SX: 61/F ROOM: RE02/06/[address]: Dr. Charles Gresham MD : 1960 BED: DIS: 02/06/2022 SPEC #: [id number] RECD: 02/06/22 13:04 STATUS: MERE EDUARDO #: [id number] AKUA: 02/06/22 00:[address]: Charles Gresham DEPT: CYTOLOGY RECD BY: Mc Charles ENTERED: 02/07/22 07:43 SP TYPE: Fluid OTHR DR: Dr. Sandro Bland, DO Tissues: THORACIC FLUID Procedures: Special Stain Group II Surgery Specimen Level IV Cytospin Fluid HEADER OPERATION: Ultrasound-guided thoracentesis right PRE-OP DIAGNOSIS: Pleural effusion TISSUE SUBMITTED: Thoracentesis fluid for cytology DIAGNOSIS CYTOLOGY Thoracentesis fluid for cytology (cytospin and cell block): Rare atypical epithelioid cells favor reactive. AM:luc 02/08/2022 COMMENT Immunohistochemistry ([id number]) supports the diagnosis. Case has been reviewed in consultation with Dr. Urrutia who concurs with the above diagnosis. IDC:SJ CYTOLOGY STUDY Slides are reviewed. CYTOLOGY GROSS Received is 60 ml of hazy yellow fluid labeled with the patient's name and and designated per the requisition as thoracentesis. Submitted for cytology preparation including cell block. / luc 02/07/2022 TC:5 CPT: 42548, 59907
--- NOTE | 2022-02-06 11:38 | US_ITS ---
PROCEDURE: ULTRASOUND GUIDED THORACENTESIS. CLINICAL INDICATION: Right pleural effusion.. PHYSICIAN: Teresita Cortez MD MEDICATIONS: 1% lidocaine administered subcutaneously for local anesthesia. ACCESS SITE: Right lower thorax, posterior approach. CATHETER: 5 [place]ese thoracentesis needle/catheter system. FLUID: Approximately 500 mL of serous right pleural fluid removed. COMPLICATIONS: None immediate. The risks, benefits, and alternatives to the procedure and sedation were explained to the patient. The specific risks of bleeding, infection, and pneumothorax requiring chest tube insertion were discussed and accepted. Written informed consent was obtained. PROCEDURE: Ultrasonographic evaluation of the right lower pleural space was carried out. An adequate pocket was identified. The patient was placed in the sitting, upright position. The overlying skin was prepped and draped in sterile fashion. 1% lidocaine was administered subcutaneously for local anesthesia. Under ultrasound guidance, a 5 Togolese thoracentesis needle/catheter system was advanced into the right posterior lower pleural fluid collection. The inner stylet was removed and there was spontaneous flow of pleural fluid. Approximately 500 mL of fluid was manually aspirated. The catheter was removed. Hemostasis was achieved and a sterile dressing was applied. A specimen was collected and sent to the laboratory for analysis, as requested by the referring clinician. The patient tolerated the procedure well, without immediate complications. A chest x-ray was ordered. US/Thoracentesis W US IMPRESSION: Successful ultrasound-guided right thoracentesis. Electronically Signed: Gian Cortez MD at 13:34 EDT ,
[2022-02-06 12:18] VITALS: BP 125/44; BP 126/45; BP 126/57; BP 128/54; BP 130/54; PULSE 70; PULSE 71; PULSE 72; PULSE 73; RESP 16; TEMP 36.4; O2SAT 96; O2SAT 97; O2SAT 98
[2022-02-06] MEDS: Lidocaine 2% (10 ml mdv) 10 ML Vial INFILT (12:33)
--- NOTE | 2022-02-06 12:43 | RAD_ITS ---
INDICATION: post thora EXAMINATION/TECHNIQUE: X-RAY - XR Chest 2 Views COMPARISON: 09/05/2018. FINDINGS: Poor inspiratory effort is seen that limits evaluation. LINES/DEVICES: Surgical clips visualized superimposed over the left breast and over the right upper lung field and the right axillary region. LUNGS: Biapical prominence suggestive of COPD changes. Emphysematous changes visualized in bilateral lung mcnamara. Mild bronchovascular prominence visualized but no evidence of focal infiltrate or consolidation. Linear subsegmental atelectatic streaks visualized. Mild blunting of the right costophrenic angle is visualized, the left costophrenic angle is unremarkable. No evidence of pneumothorax or parenchymal lung mass. MEDIASTINUM AND CARDIOVASCULAR STRUCTURES: Cardiac silhouette not enlarged. Central airways and mediastinal contour are unremarkable. BONES AND SOFT TISSUES: Degenerative bone changes seen. Chronic healed fractures seen. RAD/Chest Insp/Exp 2 View IMPRESSION: No evidence of pneumothorax status post right thoracentesis. Electronically Signed: Gian Cortez MD at 12:59 EDT ,
== END | disposition home or self-care (01) ==
LOC: US 11:38
PROVIDERS: PCP Family Medicine; Referring Provider Internal Medicine Medical Oncology; Visit Provider Internal Medicine Medical Oncology
DX: J90 Pleural effusion, not elsewhere classified (principal)
CPT/HCPCS: 32555; 71046; 88108; 88305; 88313; 88341; 88342

== ENCOUNTER 2022-04-10 22:07 | Emergency (ER) | payer BC, SELFPAY ==
[2021-02-22 11:15] VITALS: BMI 36.2
[2022-04-10 22:08] VITALS: BP 141/59; PULSE 71; RESP 16; TEMP 36.4; O2SAT 98; BMI 26.2
--- NOTE | 2022-04-10 22:49 | RAD_ITS ---
INDICATION: Lung cancer. Metastatic breast cancer, family concern patient is not eating, nauseated, fatigue. EXAMINATION/TECHNIQUE: X-RAY - XR Chest 1 View COMPARISON: Chest CT from 09/05/2018 FINDINGS: LINES/DEVICES: None. LUNGS: Pleural parenchymal scarring and mild volume loss again noted within right lung with blunted right costophrenic angle. Small linear scarlike opacity overlying lingular region left lung. Right apical sutures noted. No overt pulmonary edema. No pneumothorax detected. MEDIASTINUM AND CARDIOVASCULAR STRUCTURES: Heart size within normal limits for imaging technique. Mediastinal contours unremarkable. BONES AND SOFT TISSUES: Status post mastectomy with bilateral axillary surgical clips. Chronic bilateral rib fractures, including callus involving a few rib fractures. Degenerative changes and mild scoliotic curvature along spine. RAD/Chest 1 View (Portable) IMPRESSION: Chronic right pleural parenchymal scarring and mild volume loss with equivocal small right pleural effusion. Electronically Signed: Sandro Mao MD at 23:50 EST ,
--- NOTE | 2022-04-10 22:49 | EKG12_ITS ---
Test Reason : N/V Blood Pressure : / mmHG Vent. Rate : 069 BPM Atrial Rate : 069 BPM P-R Int : 234 ms QRS Dur : 098 ms QT Int : 426 ms P-R-T Axes : 051 -07 024 degrees QTc Int : 456 ms Sinus rhythm with 1st degree A-V block Otherwise normal ECG Confirmed by TASHI KAN, GEETHA ([id number]), clinical editor PAUL RIVERO ([id number]) on 04/11/2022 8:42:09 AM Referred By: Confirmed By:GEETHA AKINS MD
--- NOTE | 2022-04-10 22:49 | CT_ITS ---
INDICATION: Nausea with metastatic breast cancer, decreased appetite, confusion, metastases to brain and lungs. EXAMINATION: CT Head or Brain W/O Contrast Injection TECHNIQUE: Multiple axial images were obtained of the head without intravenous contrast. A radiation dose optimization technique was used for this scan. IV Contrast dosage and agent: None. COMPARISON: No comparison CT brain imaging received. FINDINGS: BRAIN PARENCHYMA: No acute intracranial hemorrhage. There is mild focal dural based thickening and slightly increased dural attenuation extending from lytic calvarial lesions at parasagittal high right occipital skull and right frontotemporal skull. No evidence of acute major territorial infarct. No intracranial mass effect or midline shift. Mild deep cerebral white matter lucencies are present. Chronic cerebral involutional changes. CSF SPACES: Prominent cerebral sulci secondary to involutional changes. No hydrocephalus. Basal cisterns are patent. CALVARIUM, SKULL BASE, PARANASAL SINUSES AND MASTOID AIR CELLS: Numerous lytic calvarial lesions present, with some extending to adjacent dura. No acute findings within imaged paranasal sinuses. Mastoid air cells are well-pneumatized. ORBITS: No acute findings, as visualized. CT/Brain/Head without Contrast IMPRESSION: Numerous lytic calvarial lesions with some extension to adjacent dura. Chronic involutional and white matter changes. Electronically Signed: Sandro Mao MD at 23:55 EST ,
--- NOTE | 2022-04-10 22:51 | EDS_ITS ---
HPI History of Present Illness Chief Complaint: Nausea/Vomiting Informant: patient and family Narrative Narrative: Patient was brought in with the encouragement of her daughter. They state for the last 3 or so weeks her appetite is really gone down. Her energy is down. She even seems mildly confused at times. She has a history of lung cancer with wedge resection. She also received chemo for that. That was about 4 years ago. She has had breast cancer for about 5 years. She has had mastectomy and is on long-term oral therapy. This had to be cut back due to side effects but it was then increased over the last month. Patient also does have diabetes. But her sugars run 200-400+. She has chronic dysuria but it is no different now. She has seen her [employer] and primary doc with her multiple urinalysis without sign of infection. She is not complaining of abdominal pain. No headache. She initially denied nausea but then said she does get nausea at times. Nothing really makes her symptoms better or worse. They have talked with their oncologist, Dr. Gresham about this. They have some blood work that was going to be done this week. They have a PET scan set for 8 days from now. [facility] Medical History Adjustment disorder Anemia Breast cancer Breast cancer Breast cancer, right Breast cancer, right Cancer of left breast Chicken pox Colitis Depression Drug induced neutropenia Educational circumstance Encounter for adjustment or management of vascular access device Frequent headaches GERD (gastroesophageal reflux disease) History of breast cancer History of stomach ulcers HLD (hyperlipidemia) HTN (hypertension) Hypercalcemia of malignancy Hyperglycemia Hyperglycemia due to type 2 diabetes mellitus Lung cancer Lung nodules Multiple sclerosis Postcoital bleeding UTI (urinary tract infection) Home Medications atenolol 25 mg tablet 25 mg PO QHS 10/25/16 [History Last Taken 09/29/19 21:10 25 MG] clonazepam 1 mg tablet 1 mg PO QHS 10/25/16 [History Last Taken 02/11/17] fingolimod 0.5 mg capsule 0.5 mg PO DAILY MS 10/25/16 [History Last Taken 09/06/17 05:00] gabapentin 600 mg tablet,extended release 24 hr 600 mg PO QHS 10/25/16 [History Last Taken 02/11/17] multivitamin 1 ea PO DAILY 10/25/16 [History Last Taken 02/11/17] venlafaxine 150 mg tablet,extended release 24 hr 300 mg PO DAILY 10/25/16 [History Last Taken 09/05/17 22:00] amantadine HCl 100 mg capsule 100 mg PO QHS 11/09/16 [History Last Taken 02/11/17] buspirone 7.5 mg tablet 7.5 mg PO BID 02/02/17 [History Last Taken 09/06/17 05:00] acetaminophen 325 mg tablet 650 mg PO Q6H PRN PRN Mild Pain (scale 0-3)/T>100.7 04/14/17 [Rx Last Taken Unknown] Disability Placard #1 ea 11/01/20 [Rx Last Taken Unknown] Wheelchair #1 ea 11/23/20 [Rx Last Taken Unknown] tramadol 50 mg tablet 50 mg PO Q6H PRN pain #30 tabs 12/14/20 [Rx Last Taken Unknown] blood sugar diagnostic #30 ea 03/15/21 [Rx Last Taken Unknown] blood-glucose meter #1 ea 03/15/21 [Rx Last Taken Unknown] insulin glargine 100 unit/mL (3 mL) subcutaneous pen (Lantus Solostar U-100 Insulin) 10 unit (0.1 mL) subcut QPM #15 mL 03/24/21 [Rx Last Taken Unknown] alpelisib 300 mg/day (150 mg x 2) tablet (Piqray) 150 mg PO DAILY #56 tabs 01/31/22 [Rx Last Taken Unknown] fentanyl 25 mcg/hr transdermal patch 1 patch transdermal Q72H 30 days #10 ea 03/28/22 [Rx Last Taken Unknown] glipizide 5 mg tablet 5 mg PO DAILY 04/11/22 [History Last Taken Unknown] Allergy/AdvReac Type Severity Reaction Status Date / Time Penicillins Allergy Unknown Unknown Verified 04/10/22 22:08 adhesive tape AdvReac Severe Unknown Verified 04/10/22 22:08 cephalexin AdvReac Severe Upset Verified 04/10/22 22:08 Stomach hydrocodone [From Vicodin] AdvReac Severe Other Verified 04/10/22 22:08 oxycodone [From Percocet] AdvReac Severe Vomiting Verified 04/10/22 22:08 prednisone AdvReac Severe Nausea/vomi Verified 04/10/22 22:08 ting Family History Mother Kidney disease Hypertension Hyperlipidemia Heart disease Diabetes Depression Arthritis Surgical History H/O bilateral oophorectomy H/O bilateral salpingectomy History of appendectomy History of bilateral mastectomy History of section History of hysterectomy History of lumpectomy History of right breast biopsy Social History current occupational status: disabled Smoking Status: Former smoker alcohol intake: never substance use type: does not use caffeine: Yes what type of physical activity do you participate in: none seatbelt use: always do you feel safe at home: Yes additional social history: Jordy- Retired ROS ROS ED Constitutional Constitutional ED: Denies chills or fever(s) Eyes Eyes: Denies change in vision ENT ENT ED: Denies rhinorrhea or sore throat Cardiovascular Cardiovascular: Denies chest pain or palpitations Respiratory/Chest Respiratory/Chest: Denies cough or dyspnea Gastrointestinal Gastrointestinal: Reports nausea; Denies abdominal pain, diarrhea or vomiting Genitourinary Genitourinary ED: Reports dysuria and urinary frequency; Denies hematuria Musculoskeletal Musculoskeletal: Denies myalgias Integumentary Denies rash Neurologic Neurologic: Denies headache(s) Endocrine Endocrinology: Reports polyuria; Denies polydipsia Hematologic/Lymphatic Hematologic/Lymphatic: Denies easy bleeding or easy bruising Allergic/Immunologic Allergic/Immunologic ED: Denies urticaria EXAM Physical Exam Const Vital Signs: 04/10/22 22:08 04/11/22 00:44 Temperature 97.6 F L Temperature Source Temporal Pulse Rate 71 72 Respiratory Rate 16 18 Blood Pressure 141/59 H 120/54 L Blood Pressure Mean 86 76 Pulse Ox 98 95 Oxygen Delivery Method Room Air Room Air Constitutional Narrative: Patient does look thin. She looks mildly chronically ill but not acutely toxic. HEENT Reports dry mucous membranes Mouth ED: Yes dry mucous membranes Mouth: dry mucous membranes Eyes Eyes Narrative: No icterus noted General Eye ED: Negative for scleral icterus Neck no JVD Chest Wall Chest Narrative: Bilateral metastatic Resp normal respiratory effort and clear to auscultation bilaterally Cardio regular rate, regular rhythm and no murmurs GI normal to inspection, nondistended, normoactive bowel sounds and non-tender Back/Spine no CVA tenderness Extremity Extremity Narrative: Mild bilateral lower extremity edema but evidently chronic. Neuro oriented x3 Psych Psych Narrative: Mildly flat affect but she is alert and oriented Skin no rashes or lesions noted MDM MDM MDM Narrative Medical decision making narrative: CT showed multiple lytic lesions. There were some of the seen in prior bone scan. When I mention these to the patient and her daughter they were aware of these. She is not having headache or balance issues at this time. They are not intraparenchymal lesions. Blood work showed mild anemia at 11.3. This is not causing her symptoms. Platelets white count were normal. Electrolytes showed creatinine at 2.37 but she has been up toward that range before. She will be hydrated a bit to help. Glucose was 273 which for her is normal. Albumin was a little low and her calcium was high at 12.0. This calculates to a corrected 12.7 calcium. However, when I look at old labs she has others that are up at a similar level. This is not new or acute. She is not on any bisphosphonates. Urine showed a few white cells but it was not cloudy, no leukocyte esterase and no nitrites. This will be sent for culture. I talked with the patient and daughter about these issues. The patient does not want to come in the hospital. I think this is reasonable. She has had hypercalcemia for a while and this is a known complication with her cancer. I will hydrate her while she is here that should help. She will follow-up with her oncologist. I did place a call to her oncologist but have not yet gotten a call back. I will talk with them if they call back this morning. I have sent off an ionized calcium. However, this is a send out test and will not come back tonight. We also discussed prescribing Zofran. Patient does occasionally have nausea although that is not frequent. But this may help with her appetite. I discussed with them the possibility of starting a bisphosphonate and/or appetite stimulant drug in the future. Lab Data Labs: Laboratory Results - last 24 hr 04/10/22 04/10/22 04/11/22 23:21 23:21 00:03 WBC 4.6 RBC 3.48 L Hgb 11.3 L Hct 35.5 L MCV 102.0 H MCH 32.5 H MCHC 31.8 L RDW Std Deviation 60.8 H RDW Coeff of Moises 16.1 H Plt Count 162 MPV 12.1 H Immature Gran % (Auto) 1.900 H Neut % (Auto) 68.7 Lymph % (Auto) 6.1 L Guthrie % (Auto) 18.4 H Eos % (Auto) 4.5 Baso % (Auto) 0.4 Absolute Neuts (auto) 3.2 Absolute Lymphs (auto) 0.28 L Nucleated RBC % 0 Differential Comment SCANNED Sodium 139 Potassium 3.6 Chloride 107 Carbon Dioxide 24.0 Anion Gap 8 BUN 21 H Creatinine 2.37 H Estim Creat Clear Calc 18.81 Est GFR (MDRD) Af Amer 27 L Est GFR (MDRD) Non-Af 22 L BUN/Creatinine Ratio 8.9 L Glucose 273 H Calcium 12.0 H Total Bilirubin 0.30 AST 55 H ALT 49 Alkaline Phosphatase 162 H Total Protein 7.4 Albumin 3.1 L Globulin 4.3 H Albumin/Globulin Ratio 0.7 L Urine Color Yellow Urine Clarity Clear Urine pH 6.5 Ur Specific Derwood 1.020 Urine Protein 100 H Urine Glucose (UA) 1000 H Urine Ketones Negative Urine Occult Blood 50 H Urine Nitrite Negative Urine Bilirubin Negative Urine Urobilinogen Normal Ur Leukocyte Esterase Negative Urine RBC 0 SEEN Urine WBC 5-10 SEEN Ur Squamous Epith Cells 0 SEEN Urine Bacteria 1+ Urine Mucus 0 SEEN Radiography Diagnostic Testing: Clinical Impression(s) from Imaging Studies Brain CT 04/10/22 22:49 IMPRESSION: Numerous lytic calvarial lesions with some extension to adjacent dura. Chronic involutional and white matter changes. Electronically Signed: Sandro Mao MD at 23:55 EST , Chest X-Ray 04/10/22 22:49 IMPRESSION: Chronic right pleural parenchymal scarring and mild volume loss with equivocal small right pleural effusion. Electronically Signed: Sandro Mao MD at 23:50 EST , Chest x-ray showed some chronic parenchymal scarring and volume loss with a small right effusion. Brain CT showed numerous calvarial lytic lesions with some extension to the dura. EKG Initial EKG: Comments: EKG done for generalized weakness read by me shows a normal sinus rhythm with overall rate of 69. There is first-degree block. No ventricular ectopy. Mild nonspecific ST and T wave changes. No sign of infarct or ischemia. [place] interval is long. QRS duration and QTc are normal. Discharge Plan Triage Chief Complaint: Nausea/Vomiting Other Complaint: Fatigue ED Provider: Azeem Trevino Dx/Rx/DC Orders Clinical Impression: Metastatic breast cancer, Generalized weakness, Hypercalcemia Instructions: Hypercalcemia Dc Prescriptions: No Action Piqray 300 mg/day (150 mg x 2) tablet 150 mg PO DAILY Qty: 56 5RF fentanyl 25 mcg/hr patch 72 hour 1 patch transdermal Q72H 30 Days Qty: 10 0RF multivitamin 1 EACH tablet 1 ea PO DAILY clonazepam 1 MG tablet 1 mg PO QHS atenolol 25 MG tablet 25 mg PO QHS venlafaxine 150 MG tablet extended release 24 hr 300 mg PO DAILY Label Comments: ANTIDEPRESSANT fingolimod 0.5 MG capsule 0.5 mg PO DAILY Label Comments: MS gabapentin 600 MG tablet extended release 24 hr 600 mg PO QHS amantadine HCl 100 MG capsule 100 mg PO QHS buspirone 7.5 MG tablet 7.5 mg PO BID acetaminophen 325 MG tablet 650 mg PO Q6H PRN PRN (Reason: Mild Pain (scale 0-3)/T>100.7) 0RF insulin glargine [Lantus Solostar U-100 Insulin] 100 unit/mL (3 mL) insulin pen 10 unit subcut QPM Qty: 15 0RF glipizide 5 mg tablet 5 mg PO DAILY (DME) Disability Placard See Rx Instructions .Route .MEDSUPPLY Qty: 1 0RF Rx Instructions: Lifetime, no expiration (DME) Wheelchair See Rx Instructions .Route .MEDSUPPLY Qty: 1 0RF Rx Instructions: As directed tramadol 50 mg tablet 50 mg PO Q6H PRN (Reason: pain) Qty: 30 0RF (DME) blood sugar diagnostic Strip See Rx Instructions .ROUTE .MEDSUPPLY Qty: 30 1RF Rx Instructions: As directed (DME) blood-glucose meter Kit See Rx Instructions .ROUTE .MEDSULY Qty: 1 0RF Rx Instructions: As directed Primary Care Provider: Sandro Bland Referrals: Charles Gresham MD [Med Staff - Active Staff] - As soon as possible (Call office in the morning for follow-up) Sandro Bland DO [Primary Care Provider] - Disposition Disposition: Home, Self Care
[2022-04-10] MEDS: Ondansetron 4 MG/2 ML Vial IV (23:12)
[2022-04-10 23:38] LABS: Absolute Lymphocyte Count 0.28 X10^3/uL (0.83-4.51); Absolute Neutrophil Count 3.2 X10^3/uL (2.0-7.7); Basophil# 0.02 X10^3/uL; Basophil% 0.4 % (0-1); Eosinophil# 0.21 X10^3/uL; Eosinophils% 4.5 % (0-5); Hematocrit 35.5 % (37-47); Hemoglobin 11.3 g/dL (12.0-15.0); Lymphocyte # 0.28 X10^3/ul (0.83-4.51); Lymphocyte % 6.1 % (19-41); Mean Corp Hgb Conc 31.8 g/dL (32-36); Mean Corpuscular Hgb 32.5 pg (27.0-32.0); Mean Platelet Vol. 12.1 fl (6.2-12.0); Monocyte# 0.85 X10^3/uL; Monocyte% 18.4 % (0-10); NRBC Flagged by Analyzer 0 % (0-5); Neutrophil # 3.17 X10^3/uL (2.7-7.7); Neutrophil % 68.7 % (47-70); POSITIVE DIFFERENTIAL YES; Platelet Count 162 K/mm3 (150-450); RBC Distribution Width CV 16.1 % (11.6-14.6); RBC Distribution Width SD 60.8 fl (35.1-43.9); Red Blood Count 3.48 M/mm3 (4.2-5.4); White Blood Count 4.6 K/mm3 (4.4-11.0)
[2022-04-10 23:44] LABS: Differential Indicated SCAN CRITERIA MET
[2022-04-11 00:06] LABS: Differential Comment SCANNED
[2022-04-11 00:10] LABS: Mucous, Urine 0 SEEN /hpf (<or=2+); Red Blood Cells-Urine 0 SEEN /hpf (0-5); Squamous Epithelial Cells - UA 0 SEEN /hpf (5-10)
[2022-04-11 00:11] LABS: Color, Urine Yellow (Yellow); Glucose, Dipstick 1000 mg/dl (Normal); Ketone-Dipstick Negative (Negative); Leukocyte Esterase-Dipstick Negative /ul (Negative); Nitrite-Dipstick Negative (Negative); Occult Blood-Urine 50 /ul (Negative); Protein-Dipstick 100 mg/dl (Negative); Urine Bilirubin Dipstick Negative (Negative); Urine Clarity Clear (Clear); Urine Urobilinogen Normal (Normal); Urine pH 6.5 (5.0 - 8.0)
[2022-04-11 00:14] LABS: ALB/GLOB Ratio 0.7 RATIO (0.9-2.4); AST(SGOT) 55 U/L (15-37); Alanine Aminotransfer ALT/SGPT 49 U/L (13-56); Albumin, Serum 3.1 g/dL (3.2-5.0); Alkaline Phosphatase 162 U/L (45-117); Anion Gap 8 (5-15); BUN 21 mg/dL (7-18); BUN/Creat Ratio 8.9 RATIO (10-20); Chloride 107 mmol/L (98-107); Creatinine, Serum 2.37 mg/dL (0.55-1.02); EST Glomerular Filtration Rate 22 mL/min (>60); Est Glom Filt Rate - Afr Amer 27 mL/min (>60); Estimated Creatinine Clearance 18.81 ml/min; Globulin 4.3 g/dL (2.2-4.2); Glucose 273 mg/dL (74-106); Potassium 3.6 mmol/L (3.5-5.1); Protein, Total 7.4 g/dL (6.4-8.2); Sodium Level 139 mmol/L (136-145)
[2022-04-11 00:31] LABS: Bacteria 1+ /hpf (None Seen); White Blood Cells 5-10 SEEN /hpf (0-5)
[2022-04-11] MEDS: 0.9% Normal Saline 1,000 ML 999 ML IV (00:41)
[2022-04-11 00:44] VITALS: BP 120/54; PULSE 72; RESP 18; O2SAT 95
== END 2022-04-11 02:26 | disposition home or self-care (01) ==
PROVIDERS: Emergency Provider Emergency Medicine; PCP Family Medicine; Visit Provider Emergency Medicine
DX: R53.1 Weakness (principal); C50.919 Malignant neoplasm of unspecified site of unspecified female breast; E11.9 Type 2 diabetes mellitus without complications; R11.2 Nausea with vomiting, unspecified; E78.5 Hyperlipidemia, unspecified; D64.9 Anemia, unspecified; I10 Essential (primary) hypertension; E83.52 Hypercalcemia; Z87.891 Personal history of nicotine dependence
CPT/HCPCS: 70450; 71045; 80053; 81001; 82330; 85025; 87086; 87088; 93005; 96361; 96374; 99282; J7030; J7040; A4216; J2405

== ENCOUNTER 2022-05-20 12:04 | Emergency (ER) | payer BC, SELFPAY ==
[2021-02-22 11:15] VITALS: BMI 36.2
[2022-05-20 12:06] VITALS: BP 160/104; PULSE 93; RESP 16; TEMP 36.6; O2SAT 94; BMI 24.3
--- NOTE | 2022-05-20 12:30 | EDS_ITS ---
HPI History of Present Illness Chief Complaint: General Illness Narrative Narrative: 61-year-old female past medical history of metastatic breast carcinoma presents with dehydration and decreased appetite/malnutrition. They state that she is on an experimental drug and has been for a year for her carcinoma. It caused elevated, uncontrollable blood sugars. They state that she was hospitalized for 3 days when she is for started taking the medication in order to bring her sugars down because they were in the 800s. Recently, they needed adjustment to her medication because they were seen in the emergency department last week with elevated blood sugars. They state that she takes 52 units of Lantus in the evening and is on a sliding scale insulin. When her sugar is 150 or above she starts at 12 units, then increases by 2 every 50 points and her sugar that is elevated above 150. She presents today because she did not want to eat and she did not take her medication that causes elevated blood sugars last evening. They took her blood sugar this morning and it was low in the 50s, at 54. She was able to eat a small candy, and a little bit of cream of wheat. They present because of dehydration and low blood sugar. She denies that she has had fever or chills, no nausea or vomiting, no dysuria or urinary frequency, no diarrhea, no other symptoms. [facility] Medical History Adjustment disorder Anemia Breast cancer Breast cancer Breast cancer, right Breast cancer, right Cancer of left breast Chicken pox Colitis Depression Drug induced neutropenia Educational circumstance Encounter for adjustment or management of vascular access device Frequent headaches GERD (gastroesophageal reflux disease) History of breast cancer History of stomach ulcers HLD (hyperlipidemia) HTN (hypertension) Hypercalcemia of malignancy Hyperglycemia Hyperglycemia due to type 2 diabetes mellitus Lung cancer Lung nodules Multiple sclerosis Postcoital bleeding UTI (urinary tract infection) Home Medications atenolol 25 mg tablet 25 mg PO QHS 10/25/16 [History Last Taken 09/29/19 21:10 25 MG] clonazepam 1 mg tablet 1 mg PO QHS 10/25/16 [History Last Taken 02/11/17] fingolimod 0.5 mg capsule 0.5 mg PO DAILY MS 10/25/16 [History Last Taken 09/06/17 05:00] gabapentin 600 mg tablet,extended release 24 hr 600 mg PO QHS 10/25/16 [History Last Taken 02/11/17] multivitamin 1 ea PO DAILY 10/25/16 [History Last Taken 02/11/17] venlafaxine 150 mg tablet,extended release 24 hr 300 mg PO DAILY 10/25/16 [History Last Taken 09/05/17 22:00] amantadine HCl 100 mg capsule 100 mg PO QHS 11/09/16 [History Last Taken 02/11/17] buspirone 7.5 mg tablet 7.5 mg PO BID 02/02/17 [History Last Taken 09/06/17 05:00] acetaminophen 325 mg tablet 650 mg PO Q6H PRN PRN Mild Pain (scale 0-3)/T>100.7 04/14/17 [Rx Last Taken Unknown] Disability Placard #1 ea 11/01/20 [Rx Last Taken Unknown] Wheelchair #1 ea 11/23/20 [Rx Last Taken Unknown] tramadol 50 mg tablet 50 mg PO Q6H PRN pain #30 tabs 12/14/20 [Rx Last Taken Unknown] blood sugar diagnostic #30 ea 03/15/21 [Rx Last Taken Unknown] blood-glucose meter #1 ea 03/15/21 [Rx Last Taken Unknown] insulin glargine 100 unit/mL (3 mL) subcutaneous pen (Lantus Solostar U-100 Insulin) 10 unit (0.1 mL) subcut QPM #15 mL 03/24/21 [Rx Last Taken Unknown] alpelisib 300 mg/day (150 mg x 2) tablet (Piqray) 150 mg PO DAILY #56 tabs 01/31/22 [Rx Last Taken Unknown] dexamethasone 4 mg tablet 4 mg PO DAILY #30 tabs 04/11/22 [Rx Last Taken Unknown] glipizide 5 mg tablet 5 mg PO DAILY 04/11/22 [History Last Taken Unknown] mirtazapine 15 mg tablet (Remeron) 15 mg PO QHS #30 tabs 04/11/22 [Rx Last Taken Unknown] fentanyl 25 mcg/hr transdermal patch 1 patch transdermal Q72H 30 days #10 ea 04/21/22 [Rx Last Taken Unknown] sulfamethoxazole 800 mg-trimethoprim 160 mg tablet (Bactrim DS) 1 tab PO BID #14 tabs 05/20/22 [Rx Last Taken Unknown] Allergy/AdvReac Type Severity Reaction Status Date / Time Penicillins Allergy Unknown Unknown Verified 05/20/22 12:08 adhesive tape AdvReac Severe Unknown Verified 05/20/22 12:08 cephalexin AdvReac Severe Upset Verified 05/20/22 12:08 Stomach hydrocodone [From Vicodin] AdvReac Severe Other Verified 05/20/22 12:08 oxycodone [From Percocet] AdvReac Severe Vomiting Verified 05/20/22 12:08 prednisone AdvReac Severe Nausea/vomi Verified 05/20/22 12:08 ting Family History Mother Kidney disease Hypertension Hyperlipidemia Heart disease Diabetes Depression Arthritis Surgical History H/O bilateral oophorectomy H/O bilateral salpingectomy History of appendectomy History of bilateral mastectomy History of section History of hysterectomy History of lumpectomy History of right breast biopsy Social History current occupational status: disabled Smoking Status: Former smoker alcohol intake: never substance use type: does not use caffeine: Yes what type of physical activity do you participate in: none seatbelt use: always do you feel safe at home: Yes additional social history: Jordy- Retired ROS ROS ED ROS Narrative Constitutional: No fever, no chills. Decreased appetite. Dehydration. Low blood sugar this morning. HEENT: No sore throat. No neck pain. No loss of vision. No rhinorrhea. Cardiovascular: No chest pain. No palpitations. No pedal edema. Respiratory: No cough, no shortness of breath. Abdominal: No abdominal pain. No nausea. No vomiting. Genitourinary: No dysuria. No hematuria. Musculoskeletal: No myalgias. No arthralgias. Neurologic: No headaches. No dizziness. No lightheadedness. Skin: No rash. No change in color. Psychiatric: No depression. No anxiety. EXAM Physical Exam Narrative Exam Narrative: Afebrile. Vital signs noted. Mild cachexia. HEENT: Normocephalic. Atraumatic. PERRL, EOMI. Neck soft and supple. No point tenderness or step off. Moist mucous membranes. Cardiovascular: Regular rate and rhythm. No murmurs, rubs, or gallops appreciated. Respiratory: No tachypnea. Lungs clear to auscultation bilaterally. Gastrointestinal: Abdomen soft, nontender, with normoactive bowel sounds. No rebound or guarding. Neurological: Awake. Alert. Nonfocal, nonlateralizing. Skin: No rash. Normal color with exception of discoloration around the nailbed and tip of left great toe. No pallor. Musculoskeletal: No pedal edema. Full range of motion extremities. Const Vital Signs: 05/20/22 12:06 Temperature 97.9 F Temperature Source Temporal Pulse Rate 93 Respiratory Rate 16 Blood Pressure 160/104 H Blood Pressure Mean 122 Pulse Ox 94 MDM MDM MDM Narrative Medical decision making narrative: I will check her blood glucose [id number]. I also obtained a CBC, CMP, and urinalysis. She was bolused 500 mL of normal saline then run at maintenance fluid level. [id number] glucose is 80. CBC shows normal white count of 6.8, hemoglobin stable at 11.8, platelet count low at 119, but stable. Urinalysis shows no evidence of ketone. I do not feel antibiotics are indicated for that, or any type of UTI. Electrolyte panel is significant for potassium low at 3.0 which was replaced orally with 60 mill equivalents. BUN slightly elevated at 31 with baseline creatinine of 1.8. On her electrolyte panel, blood sugar was only 69. She will be given a p.o. diet. They asked me to look at her left great toe because she had blisters on it before which eventually healed, but they noticed that the tip of her left great toe has been discolored and purple for a while. This appears dusky, almost like dry gangrene versus arterial insufficiency. She is a smoker on occasion. Smoking cessation was discussed. I will put her on antibiotics in the event that this is a worsening cellulitis versus diabetic foot ulcer. She will follow-up with podiatry. I feel she can be discharged safely home with follow- up. Return instructions to the emergency department were reviewed. After p.o. challenge, blood sugar came up to 106. Disposition is discharged home in stable condition. Lab Data Attestation: I reviewed the patient's lab results. Labs: Laboratory Results - last 24 hr 05/20/22 05/20/22 05/20/22 12:32 13:08 13:32 WBC 6.8 RBC 3.57 L Hgb 11.8 L Hct 36.7 L MCV 102.8 H MCH 33.1 H MCHC 32.2 RDW Std Deviation 71.8 H RDW Coeff of Moises 18.9 H Plt Count 119 L MPV 11.1 Immature Gran % (Auto) 1.300 H Neut % (Auto) 87.7 H Lymph % (Auto) 1.5 L Winkler % (Auto) 9.3 Eos % (Auto) 0.1 Baso % (Auto) 0.1 Absolute Neuts (auto) 5.9 Absolute Lymphs (auto) 0.10 L Nucleated RBC % 0.3 Differential Comment SCANNED Anisocytosis 2+ Microcytosis 1+ Macrocytosis 1+ Sodium Potassium Chloride Carbon Dioxide Anion Gap BUN Creatinine Estim Creat Clear Calc Est GFR (MDRD) Af Amer Est GFR (MDRD) Non-Af BUN/Creatinine Ratio Glucose Calcium Total Bilirubin AST ALT Alkaline Phosphatase Total Protein Albumin Globulin Albumin/Globulin Ratio Urine Color Yellow Urine Clarity Clear Urine pH 6.0 Ur Specific Lawrence 1.015 Urine Protein 100 H Urine Glucose (UA) Normal Urine Ketones Negative Urine Occult Blood 50 H Urine Nitrite Negative Urine Bilirubin Negative Urine Urobilinogen Normal Ur Leukocyte Esterase 25 H Urine RBC 0 SEEN Urine WBC 5-10 SEEN Ur Squamous Epith Cells 0-5 SEEN Amorphous Sediment 1+ Urine Bacteria 1+ Coarse Granular Casts 5-10 SEEN Waxy Casts 0-5 SEEN H Urine Mucus 0 SEEN POC Glucose 80 05/20/22 05/20/22 13:32 15:18 WBC RBC Hgb Hct MCV MCH MCHC RDW Std Deviation RDW Coeff of Moises Plt Count MPV Immature Gran % (Auto) Neut % (Auto) Lymph % (Auto) Winkler % (Auto) Eos % (Auto) Baso % (Auto) Absolute Neuts (auto) Absolute Lymphs (auto) Nucleated RBC % Differential Comment Anisocytosis Microcytosis Macrocytosis Sodium 139 Potassium 3.0 L Chloride 108 H Carbon Dioxide 24.0 Anion Gap 7 BUN 31 H Creatinine 1.84 H Estim Creat Clear Calc 24.23 Est GFR (MDRD) Af Amer 36 L Est GFR (MDRD) Non-Af 30 L BUN/Creatinine Ratio 16.8 Glucose 69 L Calcium 11.6 H Total Bilirubin 0.50 AST 87 H ALT 79 H Alkaline Phosphatase 144 H Total Protein 7.0 Albumin 3.0 L Globulin 4.0 Albumin/Globulin Ratio 0.8 L Urine Color Urine Clarity Urine pH Ur Specific Lawrence Urine Protein Urine Glucose (UA) Urine Ketones Urine Occult Blood Urine Nitrite Urine Bilirubin Urine Urobilinogen Ur Leukocyte Esterase Urine RBC Urine WBC Ur Squamous Epith Cells Amorphous Sediment Urine Bacteria Coarse Granular Casts Waxy Casts Urine Mucus POC Glucose 66 L Discharge Plan Triage Chief Complaint: General Illness ED Provider: Kade Dixon Dx/Rx/DC Orders Clinical Impression: Generalized weakness, Decreased appetite, Hypoglycemia, Discoloration of skin of toe Instructions: Hypoglycemia (Low Blood Sugar), ED Weakness (Uncertain Cause) Prescriptions: New sulfamethoxazole-trimethoprim [Bactrim DS] 800-160 mg tablet 1 tab PO BID Qty: 14 0RF No Action Piqray 300 mg/day (150 mg x 2) tablet 150 mg PO DAILY Qty: 56 5RF fentanyl 25 mcg/hr patch 72 hour 1 patch transdermal Q72H 30 Days Qty: 10 0RF dexamethasone 4 mg tablet 4 mg PO DAILY Qty: 30 0RF mirtazapine [Remeron] 15 mg tablet 15 mg PO QHS Qty: 30 0RF multivitamin 1 EACH tablet 1 ea PO DAILY clonazepam 1 MG tablet 1 mg PO QHS atenolol 25 MG tablet 25 mg PO QHS venlafaxine 150 MG tablet extended release 24 hr 300 mg PO DAILY Label Comments: ANTIDEPRESSANT fingolimod 0.5 MG capsule 0.5 mg PO DAILY Label Comments: MS gabapentin 600 MG tablet extended release 24 hr 600 mg PO QHS amantadine HCl 100 MG capsule 100 mg PO QHS buspirone 7.5 MG tablet 7.5 mg PO BID acetaminophen 325 MG tablet 650 mg PO Q6H PRN PRN (Reason: Mild Pain (scale 0-3)/T>100.7) 0RF insulin glargine [Lantus Solostar U-100 Insulin] 100 unit/mL (3 mL) insulin pen 10 unit subcut QPM Qty: 15 0RF glipizide 5 mg tablet 5 mg PO DAILY (DME) Disability Placard See Rx Instructions .Route .MEDSUPPLY Qty: 1 0RF Rx Instructions: Lifetime, no expiration (DME) Wheelchair See Rx Instructions .Route .MEDSUPPLY Qty: 1 0RF Rx Instructions: As directed tramadol 50 mg tablet 50 mg PO Q6H PRN (Reason: pain) Qty: 30 0RF (DME) blood sugar diagnostic Strip See Rx Instructions .ROUTE .MEDSUPPLY Qty: 30 1RF Rx Instructions: As directed (DME) blood-glucose meter Kit See Rx Instructions .ROUTE .MEDSUPPLY Qty: 1 0RF Rx Instructions: As directed Primary Care Provider: Sandro Bland Referrals: Prieto Rivas DPM [Med Staff - Active Staff] - 3-5 Days Sandro Bland DO [Primary Care Provider] - 1-2 Days if not improving Activity Restrictions/Additional Instructions: Make sure that you are eating well. Check your blood sugar before giving any insulin/antidiabetic medication. Follow-up with your primary care provider regarding your blood sugars. Disposition Disposition: Home, Self Care Discharge Date/Time: 05/20/22 16:05
[2022-05-20 12:55] LABS: Bedside Glucose 80 mg/dL (74-106)
[2022-05-20 13:12] LABS: Mucous, Urine 0 SEEN /hpf (<or=2+); Red Blood Cells-Urine 0 SEEN /hpf (0-5)
[2022-05-20] MEDS: 0.9% Normal Saline 1,000 ML 250 ML IV (13:15)
[2022-05-20 13:16] LABS: Color, Urine Yellow (Yellow); Glucose, Dipstick Normal (Normal); Ketone-Dipstick Negative (Negative); Leukocyte Esterase-Dipstick 25 /ul (Negative); Nitrite-Dipstick Negative (Negative); Occult Blood-Urine 50 /ul (Negative); Protein-Dipstick 100 mg/dl (Negative); Specific Gravity, Urine 1.015 (1.002-1.030); Urine Bilirubin Dipstick Negative (Negative); Urine Clarity Clear (Clear); Urine Urobilinogen Normal (Normal)
[2022-05-20 13:31] LABS: Bacteria 1+ /hpf (None Seen); Coarse Granular Cast 5-10 SEEN /lpf (0-5 /lpf); Squamous Epithelial Cells - UA 0-5 SEEN /hpf (5-10); White Blood Cells 5-10 SEEN /hpf (0-5)
[2022-05-20 13:33] LABS: Amorphous Sediment 1+; Waxy Cast-Urine 0-5 SEEN /lpf (None Seen)
[2022-05-20 13:41] LABS: Absolute Neutrophil Count 5.9 X10^3/uL (2.0-7.7); Basophil# 0.01 X10^3/uL; Basophil% 0.1 % (0-1); Eosinophil# 0.01 X10^3/uL; Eosinophils% 0.1 % (0-5); Hematocrit 36.7 % (37-47); Hemoglobin 11.8 g/dL (12.0-15.0); Lymphocyte % 1.5 % (19-41); Mean Corp Hgb Conc 32.2 g/dL (32-36); Mean Corpuscular Hgb 33.1 pg (27.0-32.0); Mean Corpuscular Volume 102.8 fL (81-99); Mean Platelet Vol. 11.1 fl (6.2-12.0); Monocyte# 0.63 X10^3/uL; Monocyte% 9.3 % (0-10); NRBC Flagged by Analyzer 0.3 % (0-5); Neutrophil # 5.94 X10^3/uL (2.7-7.7); Neutrophil % 87.7 % (47-70); POSITIVE DIFFERENTIAL YES; POSITIVE MORPHOLOGY YES; Platelet Count 119 K/mm3 (150-450); RBC Distribution Width CV 18.9 % (11.6-14.6); RBC Distribution Width SD 71.8 fl (35.1-43.9); Red Blood Count 3.57 M/mm3 (4.2-5.4); White Blood Count 6.8 K/mm3 (4.4-11.0)
[2022-05-20 13:54] LABS: ALB/GLOB Ratio 0.8 RATIO (0.9-2.4); AST(SGOT) 87 U/L (15-37); Alanine Aminotransfer ALT/SGPT 79 U/L (13-56); Alkaline Phosphatase 144 U/L (45-117); Anion Gap 7 (5-15); BUN 31 mg/dL (7-18); BUN/Creat Ratio 16.8 RATIO (10-20); Calcium,Total 11.6 mg/dL (8.5-10.1); Chloride 108 mmol/L (98-107); Creatinine, Serum 1.84 mg/dL (0.55-1.02); EST Glomerular Filtration Rate 30 mL/min (>60); Est Glom Filt Rate - Afr Amer 36 mL/min (>60); Estimated Creatinine Clearance 24.23 ml/min; Glucose 69 mg/dL (74-106); Sodium Level 139 mmol/L (136-145)
[2022-05-20 14:12] LABS: Differential Indicated SCAN CRITERIA MET
[2022-05-20 14:16] LABS: Anisocytosis 2+; Differential Comment SCANNED; Macrocytosis 1+; Microcytosis 1+
[2022-05-20] MEDS: Potassium Chloride Oral Tablet 20 MEQ 60 MEQ PO (14:25)
--- NOTE | 2022-05-20 15:07 | ED.RN ---
Soft food meal tray given to patient, she was encouraged to eat but states I dont have an appetite. Pt. educated she needs to eat something as her blood sugar is low.
[2022-05-20 15:41] LABS: Bedside Glucose 66 mg/dL (74-106)
[2022-05-20 16:16] LABS: Bedside Glucose 106 mg/dL (74-106)
== END 2022-05-20 16:05 | disposition home or self-care (01) ==
PROVIDERS: Emergency Provider Emergency Medicine; PCP Family Medicine; Visit Provider Emergency Medicine
DX: E11.649 Type 2 diabetes mellitus with hypoglycemia without coma (principal); E46 Unspecified protein-calorie malnutrition; E86.0 Dehydration; E78.5 Hyperlipidemia, unspecified; I10 Essential (primary) hypertension; Z87.891 Personal history of nicotine dependence
CPT/HCPCS: 99281; 36415; 80053; 81001; 82962; 85025; 99283; J7030; A4216

== ENCOUNTER 2022-05-25 10:06 | Inpatient (IN) | payer BC, SELFPAY ==
[2021-02-22 11:15] VITALS: BMI 36.2
[2022-05-25] VITALS (7 sets, daily range): BP systolic 126–162; BP diastolic 58–89; PULSE 67–85; RESP 14–20; TEMP 36–37.3; O2SAT 92–96; BMI 21.9; BMI 22.1
--- NOTE | 2022-05-25 10:50 | EKG12_ITS ---
Test Reason : WEAKNESS Blood Pressure : / mmHG Vent. Rate : 074 BPM Atrial Rate : 074 BPM P-R Int : 176 ms QRS Dur : 094 ms QT Int : 400 ms P-R-T Axes : 040 -25 -01 degrees QTc Int : 444 ms Normal sinus rhythm Nonspecific ST abnormality Abnormal ECG Confirmed by CHAVEZ KAN, VIDHYA ([id number]), newspaper photo editor PAUL RIVERO ([id number]) on 05/29/2022 10:32:48 AM Referred By: Confirmed By:SAIGE BYRNE MD
--- NOTE | 2022-05-25 10:50 | CT_ITS ---
STUDY: CT BRAIN WITHOUT CONTRAST REASON FOR EXAM: Female, 61 years old. confusion. Breast ca hx ?? Mets to brain RADIATION DOSAGE (If Supplied By Facility): CTDIvol = ( 44.99 ) mGy, DLP = ( 779.24 ) mGycm TECHNIQUE: Transaxial CT imaging of the brain was performed without administration of intravenous contrast material. Individualized dose optimization techniques were used for this CT. COMPARISON: Comparison is made with prior study 04/10/2022. FINDINGS: Normal soft tissue structures. Multiple lytic lesions are seen throughout the skull including couplets or metastatic deposits. There is mild cerebral atrophy with widening of the extra-axial spaces and ventricular dilatation. Normal white matter tracts of the cerebral hemispheres. Normal basal ganglia and thalami. Normal brainstem. Normal cerebellum. There is no intracranial hemorrhage. There are no findings of an acute ischemic infarction. Small air-fluid level in the sphenoid sinus. CT/Brain/Head without Contrast IMPRESSION: Chronic involutional changes of the brain. Bony metastasis. Air-fluid level in the right sphenoid sinus. Stable examination. Electronically Signed: Bhavesh Arechiga MD at 12:20 EST ,
--- NOTE | 2022-05-25 10:52 | EX.ED.DYSGE1 ---
HPI History of Present Illness Chief Complaint: Weakness Informant: patient and spouse/S.O. Onset/Context/Timing Onset: Days Context: Gradual Onset Timing: Continuous Current Severity: Moderate Maximum Severity: Moderate Narrative Narrative: 61-year-old female history of breast cancer in 2017 with recurrent bony mets. Also prior history of lung cancer and hypertension. Patient was on immunotherapy but that caused her to have hyperglycemia which she had to stop the medication and then restarted. states she is just getting more more weak. She has had decreased p.o. intake of both fluids and solids. He says she is having intermittent confusion. And just going downhill. He denies any fever, vomiting or diarrhea. Prior similar symptoms: Yes Recent Illness/Hospitalization: No PFSH PFS Medical History Adjustment disorder Anemia Breast cancer Breast cancer Breast cancer, right Breast cancer, right Cancer of left breast Chicken pox Colitis Depression Drug induced neutropenia Educational circumstance Encounter for adjustment or management of vascular access device Frequent headaches GERD (gastroesophageal reflux disease) History of breast cancer History of stomach ulcers HLD (hyperlipidemia) HTN (hypertension) Hypercalcemia of malignancy Hyperglycemia Hyperglycemia due to type 2 diabetes mellitus Lung cancer Lung nodules Multiple sclerosis Postcoital bleeding UTI (urinary tract infection) Home Medications atenolol 25 mg tablet 25 mg PO QHS 10/25/16 [History Last Taken 09/29/19 21:10 25 MG] clonazepam 1 mg tablet 1 mg PO QHS 10/25/16 [History Last Taken 02/11/17] fingolimod 0.5 mg capsule 0.5 mg PO DAILY MS 10/25/16 [History Last Taken 09/06/17 05:00] gabapentin 600 mg tablet,extended release 24 hr 600 mg PO QHS 10/25/16 [History Last Taken 02/11/17] venlafaxine 150 mg tablet,extended release 24 hr 300 mg PO DAILY 10/25/16 [History Last Taken 09/05/17 22:00] amantadine HCl 100 mg capsule 100 mg PO QHS 11/09/16 [History Last Taken 02/11/17] buspirone 7.5 mg tablet 7.5 mg PO BID 02/02/17 [History Last Taken 09/06/17 05:00] acetaminophen 325 mg tablet 650 mg PO Q6H PRN PRN Mild Pain (scale 0-3)/T>100.7 04/14/17 [Rx Last Taken Unknown] Disability Placard #1 ea 11/01/20 [Rx Last Taken Unknown] Wheelchair #1 ea 11/23/20 [Rx Last Taken Unknown] tramadol 50 mg tablet 50 mg PO Q6H PRN pain #30 tabs 12/14/20 [Rx Last Taken Unknown] blood sugar diagnostic #30 ea 03/15/21 [Rx Last Taken Unknown] blood-glucose meter #1 ea 03/15/21 [Rx Last Taken Unknown] alpelisib 300 mg/day (150 mg x 2) tablet (Piqray) 150 mg PO DAILY #56 tabs 01/31/22 [Rx Last Taken Unknown] sulfamethoxazole 800 mg-trimethoprim 160 mg tablet (Bactrim DS) 1 tab PO BID #14 tabs 05/20/22 [Rx Last Taken Unknown] dexamethasone 4 mg tablet 4 mg PO DAILY #30 tabs 05/23/22 [Rx Last Taken Unknown] potassium chloride 20 mEq oral packet 20 meq PO BID #30 ea 05/23/22 [Rx Last Taken Unknown] Allergy/AdvReac Type Severity Reaction Status Date / Time Penicillins Allergy Unknown Unknown Verified 05/25/22 10:08 adhesive tape AdvReac Severe Unknown Verified 05/25/22 10:08 cephalexin AdvReac Severe Upset Verified 05/25/22 10:08 Stomach hydrocodone [From Vicodin] AdvReac Severe Other Verified 05/25/22 10:08 oxycodone [From Percocet] AdvReac Severe Vomiting Verified 05/25/22 10:08 prednisone AdvReac Severe Nausea/vomi Verified 05/25/22 10:08 ting Family History Mother Kidney disease Hypertension Hyperlipidemia Heart disease Diabetes Depression Arthritis Surgical History H/O bilateral oophorectomy H/O bilateral salpingectomy History of appendectomy History of bilateral mastectomy History of section History of hysterectomy History of lumpectomy History of right breast biopsy Social History current occupational status: disabled Smoking Status: Former smoker alcohol intake: never substance use type: does not use caffeine: Yes what type of physical activity do you participate in: none seatbelt use: always do you feel safe at home: Yes additional social history: Jordy- Retired ROS ROS ED ROS Narrative Generalized weakness. Confusion. Decreased oral intake. Review of Systems ROS Unobtainable: Denies due to encephalopathy Constitutional Constitutional ED: Denies chills or fever(s) Eyes Eyes: Denies blurry vision ENT ENT ED: Denies ear pain Cardiovascular Cardiovascular: Denies chest pain Respiratory/Chest Respiratory/Chest: Denies cough or dyspnea Gastrointestinal Gastrointestinal: Denies abdominal pain, constipation, diarrhea, melena, nausea or vomiting Genitourinary Genitourinary ED: Denies dysuria Musculoskeletal Musculoskeletal: Denies arthralgias Integumentary Denies abscess Neurologic Neurologic: Reports weakness; Denies headache(s) Psychiatric Psychiatric: Denies anxiety or depression Endocrine Endocrinology: Denies cold intolerance Hematologic/Lymphatic Hematologic/Lymphatic: Reports none Allergic/Immunologic Allergic/Immunologic ED: Denies mouth swelling or tongue swelling EXAM Physical Exam Narrative Exam Narrative: 61-year-old female looks much older than her stated age. Clinically looks dehydrated weak and pale. H EENT exam pupils round reactive light. Extra motions are intact. No facial droop. No trauma. She does have very dry mucous membranes. Neck nontender. No lymphadenopathy. Lungs clear to auscultation bilaterally. Heart regular rhythm rate about 70 no murmur. Abdomen soft nontender without peritoneal signs. Moving all 4 extremities. Neurologically she is awake. She seems very weak overall. Somewhat confused. No focal motor deficits other than just generalized weakness bilaterally. She looks cachectic. Const Vital Signs: 05/25/22 10:08 05/25/22 10:24 05/25/22 10:26 Temperature 97.1 F L Temperature Source Temporal Pulse Rate 67 74 Respiratory Rate 14 18 Respiratory Effort Normal Non-Labored Blood Pressure 126/63 H 138/64 H Blood Pressure Mean 84 88 Pulse Ox 94 95 Oxygen Delivery Method Room Air Room Air 05/25/22 13:12 05/25/22 14:34 Temperature 96.8 F L 96.8 F L Temperature Source Temporal Temporal Pulse Rate 76 76 Respiratory Rate 18 20 H Respiratory Effort Blood Pressure 152/89 H 162/78 H Blood Pressure Mean 110 106 Pulse Ox 92 96 Oxygen Delivery Method Room Air Room Air Positive well developed and cachectic; Negative for well nourished, obese, contractures or unkempt General Appearance ED: well developed, cachectic, NAD and pallor; Negative for unkempt, contractures, cyanotic or diaphoretic Nutritional Appearance: cachectic; Negative for obese HEENT Reports dry mucous membranes; Denies moist mucous membranes Negative for trauma or tenderness Mouth ED: Yes dry mucous membranes Mouth: dry mucous membranes Eyes PERRL and EOMs intact bilaterally General Eye ED: Negative for pale conjunctiva or scleral icterus Neck no lymphadenopathy, supple and no JVD General: Negative for tenderness Chest Wall inspection of chest normal and palpation of chest normal Chest: Negative for other Resp normal respiratory effort and clear to auscultation bilaterally Effort and Inspection: Negative for retractions Auscultation: Negative for rales, rhonchi or wheezes Cardio regular rate, regular rhythm, S1 normal heart sound, S2 normal heart sound and no murmurs Palpation: Negative for palpable S3 Rate: Negative for bradycardia or tachycardic Rhythm: Negative for abnormal rhythm GI normal to inspection, nondistended, normoactive bowel sounds, non-tender, non-distended and no masses Inspection: Negative for abdominal distention Auscultation: normoactive bowel sounds Palpation: soft; Negative for tender or guarding Back/Spine no CVA tenderness General Back: Negative for CVA tenderness Cervical Spine: Negative for cervical spine tenderness Thoracic Spine / Upper Back: Negative for thoracic spinal tenderness Lumbar Spine / Lower Back: Negative for lumbar spinal tenderness Extremity General Extremety ED: Negative for edema or tenderness General Extremity: Negative for edema Neuro No oriented x3 Sensorium / Orientation: alert, orientation impaired and lethargic Motor Exam: strength 5/5 throughout Psych mental status grossly normal Appearance: Negative for unkempt Attitude: No agitated Mood & Affect: Negative for depressed, anxious or tearful Skin no rashes or lesions noted, no wounds and No skin turgor normal General Skin Exam: pallor; Negative for jaundice Lesions: No lesion noted Rashes: No rashes noted Trauma: Negative for abrasion Wounds: Negative for wounds noted MDM MDM MDM Narrative Medical decision making narrative: 61-year-old female known breast cancer with bony mets. Presents with generalized weakness and confusion. Clinically appears obviously dehydrated and has had decreased oral intake. She will be treated with 2 L normal saline. Screening labs. CAT scan of her brain for possible brain mets. This could also be from dehydration, infection or significant electrolyte abnormalities such as hypocalcemia or hypercalcemia. Repeat exam at 2:57 PM unchanged. Discussed with patient's I have her oncologist on page. I spoke both to the nurse practitioner of the oncology group georges daniel and also Dr. Kinney of oncology. They requested the patient be admitted to the hospitalist for further evaluation and consults to palliative care. Lab Data Attestation: I reviewed the patient's lab results. Lab results narrative: CBC shows a white count 5.1. H&H of 11.0 and 34. Platelets are low at 100,000. Chemistries show a sodium 138. Potassium 3.4. Gap is 8. Normal BUN of 15 creatinine is elevated at 1.67. Liver enzymes are elevated. Urinalysis is negative. No white nor red cells no nitrates nor bacteria. Chest x-ray shows right pleural effusion, chronic changes and cannot rule out bony metastases. Labs are consistent with her prior anemia and prior renal insufficiency. They are actually somewhat improved. Labs: Laboratory Results - last 24 hr 05/25/22 05/25/22 05/25/22 11:00 11:00 12:30 WBC 5.1 RBC 3.32 L Hgb 11.0 L Hct 34.0 L MCV 102.4 H MCH 33.1 H MCHC 32.4 RDW Std Deviation 73.0 H RDW Coeff of Moises 19.5 H Plt Count 100 L MPV 12.5 H Immature Gran % (Auto) 1.900 H Neut % (Auto) 83.3 H Lymph % (Auto) 3.7 L [place] % (Auto) 8.8 Eos % (Auto) 2.1 Baso % (Auto) 0.2 Absolute Neuts (auto) 4.3 Absolute Lymphs (auto) 0.19 L Nucleated RBC % 0.8 Differential Comment COMMENT Anisocytosis 1+ Sodium 138 Potassium 3.4 L Chloride 106 Carbon Dioxide 24.0 Anion Gap 8 BUN 15 Creatinine 1.67 H Estim Creat Clear Calc 27.98 Est GFR (MDRD) Af Amer 40 L Est GFR (MDRD) Non-Af 33 L BUN/Creatinine Ratio 9.0 L Glucose 98 Calcium 11.4 H Total Bilirubin 0.40 AST 228 H ALT 73 H Alkaline Phosphatase 162 H Total Protein 6.2 L Albumin 2.3 L Globulin 3.9 Albumin/Globulin Ratio 0.6 L Urine Color Yellow Urine Clarity Sl. Cloudy Urine pH 6.0 Ur Specific [place] 1.020 Urine Protein 30 H Urine Glucose (UA) 50 H Urine Ketones Negative Urine Occult Blood 50 H Urine Nitrite Negative Urine Bilirubin Negative Urine Urobilinogen Normal Ur Leukocyte Esterase Negative Urine RBC 0 SEEN Urine WBC 0 SEEN Ur Squamous Epith Cells 0 SEEN Urine Bacteria 0 SEEN Fine Granular Casts 0-5 SEEN Urine Mucus 0 SEEN Radiography Chest X-Ray - ED: 1 View, Read by ED Physician, Heart, Mediastinum and Chronic Changes Diagnostic Testing: Clinical Impression(s) from Imaging Studies Brain CT 05/25/22 10:50 IMPRESSION: Chronic involutional changes of the brain. Bony metastasis. Air-fluid level in the right sphenoid sinus. Stable examination. Electronically Signed: Bhavesh Arechiga MD at 12:20 EST , Chest X-Ray 05/25/22 11:35 IMPRESSION: Stable right pleural-parenchymal changes. Questionable bony metastasis. Electronically Signed: Bhavesh Arechiga MD at 12:15 EST , Chest x-ray, portable, single view, interpreted by myself and radiology shows a right pleural effusion. Old left rib fracture healing. Possible bony metastases. Normal cardiac silhouette. No infiltrate. Rhythm Strip Rhythm Strip: Sinus Rhythm Rate: 74 Ectopy: None EKG Initial EKG: Attestation: I personally reviewed and interpreted this EKG as follows: Interpretation: Sinus Rhythm and No Acute Injury Pattern Comments: Normal sinus rhythm rate of 74. No acute signs of [place] nor ischemia nor dysrhythmia unchanged from prior EKG from April 10. Prior EKG tracings: available for review Prior: Unchanged Discharge Plan Triage Chief Complaint: Weakness ED Provider: Kenneth Shelton Dx/Rx/DC Orders Clinical Impression: Breast cancer metastasized to bone, Depression, Altered nutrition in cancer patient, Acute dehydration, Weakness Prescriptions: No Action Piqray 300 mg/day (150 mg x 2) tablet 150 mg PO DAILY Qty: 56 5RF dexamethasone 4 mg tablet 4 mg PO DAILY Qty: 30 0RF potassium chloride 20 mEq packet 20 meq PO BID Qty: 30 0RF clonazepam 1 MG tablet 1 mg PO QHS atenolol 25 MG tablet 25 mg PO QHS venlafaxine 150 MG tablet extended release 24 hr 300 mg PO DAILY Label Comments: ANTIDEPRESSANT fingolimod 0.5 MG capsule 0.5 mg PO DAILY Label Comments: MS gabapentin 600 MG tablet extended release 24 hr 600 mg PO QHS amantadine HCl 100 MG capsule 100 mg PO QHS buspirone 7.5 MG tablet 7.5 mg PO BID acetaminophen 325 MG tablet 650 mg PO Q6H PRN PRN (Reason: Mild Pain (scale 0-3)/T>100.7) 0RF sulfamethoxazole-trimethoprim [Bactrim DS] 800-160 mg tablet 1 tab PO BID Qty: 14 0RF (DME) Disability Placard See Rx Instructions .Route .MEDSUPPLY Qty: 1 0RF Rx Instructions: Lifetime, no expiration (DME) Wheelchair See Rx Instructions .Route .MEDSUPPLY Qty: 1 0RF Rx Instructions: As directed tramadol 50 mg tablet 50 mg PO Q6H PRN (Reason: pain) Qty: 30 0RF (DME) blood sugar diagnostic Strip See Rx Instructions .ROUTE .MEDSUPPLY Qty: 30 1RF Rx Instructions: As directed (DME) blood-glucose meter Kit See Rx Instructions .ROUTE .MEDSUPPLY Qty: 1 0RF Rx Instructions: As directed Primary Care Provider: Sandro Bland Referrals: Sandro Bland DO [Primary Care Provider] - Disposition Disposition: Acute Care Hospital [facility]
[2022-05-25 11:16] LABS: Absolute Lymphocyte Count 0.19 X10^3/uL (0.83-4.51); Absolute Neutrophil Count 4.3 X10^3/uL (2.0-7.7); Basophil# 0.01 X10^3/uL; Basophil% 0.2 % (0-1); Eosinophil# 0.11 X10^3/uL; Eosinophils% 2.1 % (0-5); Lymphocyte # 0.19 X10^3/ul (0.83-4.51); Lymphocyte % 3.7 % (19-41); Mean Corp Hgb Conc 32.4 g/dL (32-36); Mean Corpuscular Hgb 33.1 pg (27.0-32.0); Mean Corpuscular Volume 102.4 fL (81-99); Mean Platelet Vol. 12.5 fl (6.2-12.0); Monocyte# 0.45 X10^3/uL; Monocyte% 8.8 % (0-10); NRBC Flagged by Analyzer 0.8 % (0-5); Neutrophil # 4.28 X10^3/uL (2.7-7.7); Neutrophil % 83.3 % (47-70); POSITIVE DIFFERENTIAL YES; POSITIVE MORPHOLOGY YES; Platelet Count 100 K/mm3 (150-450); RBC Distribution Width CV 19.5 % (11.6-14.6); Red Blood Count 3.32 M/mm3 (4.2-5.4); White Blood Count 5.1 K/mm3 (4.4-11.0)
[2022-05-25 11:18] LABS: Differential Indicated SCAN CRITERIA MET
[2022-05-25 11:23] LABS: ALB/GLOB Ratio 0.6 RATIO (0.9-2.4); AST(SGOT) 228 U/L (15-37); Alanine Aminotransfer ALT/SGPT 73 U/L (13-56); Albumin, Serum 2.3 g/dL (3.2-5.0); Alkaline Phosphatase 162 U/L (45-117); Anion Gap 8 (5-15); BUN 15 mg/dL (7-18); Calcium,Total 11.4 mg/dL (8.5-10.1); Chloride 106 mmol/L (98-107); Creatinine, Serum 1.67 mg/dL (0.55-1.02); EST Glomerular Filtration Rate 33 mL/min (>60); Est Glom Filt Rate - Afr Amer 40 mL/min (>60); Estimated Creatinine Clearance 27.98 ml/min; Globulin 3.9 g/dL (2.2-4.2); Glucose 98 mg/dL (74-106); Potassium 3.4 mmol/L (3.5-5.1); Protein, Total 6.2 g/dL (6.4-8.2); Sodium Level 138 mmol/L (136-145)
--- NOTE | 2022-05-25 11:35 | RAD_ITS ---
STUDY: X-RAY CHEST REASON FOR EXAM: Female, 61 years old. Weakness and confusion. Metastatic breast cancer. TECHNIQUE: Single AP portable view of the chest. COMPARISON: Comparison is made with prior study dated 04/10/2022. FINDINGS: Surgical clips are seen in both axillary region. Patient is status post bilateral mastectomy. Stable pleural parenchymal changes at the right lung base. Normal size heart. Normal mediastinum and jake. Normal visualized pulmonary arteries. There is atherosclerotic calcification of the aortic arch with tortuosity. There are diffuse degenerative changes of the visualized thoracic spine. Loss of height of mid and lower dorsal vertebrae. Healing left rib fractures. Bony metastasis cannot be ruled out. There is no demonstrated abnormality of the visualized soft tissue structures of the upper abdomen. RAD/Chest 1 View (Portable) IMPRESSION: Stable right pleural-parenchymal changes. Questionable bony metastasis. Electronically Signed: Bhavesh Arechiga MD at 12:15 EST ,
[2022-05-25 11:43] LABS: Anisocytosis 1+
[2022-05-25] MEDS: 0.9% Normal Saline 1,000 ML 1000 ML IV ×2 (11:43→13:24)
[2022-05-25 12:42] LABS: Bacteria 0 SEEN /hpf (None Seen); Mucous, Urine 0 SEEN /hpf (<or=2+); Red Blood Cells-Urine 0 SEEN /hpf (0-5); Squamous Epithelial Cells - UA 0 SEEN /hpf (5-10); White Blood Cells 0 SEEN /hpf (0-5)
[2022-05-25 12:54] LABS: Color, Urine Yellow (Yellow); Glucose, Dipstick 50 mg/dl (Normal); Ketone-Dipstick Negative (Negative); Leukocyte Esterase-Dipstick Negative /ul (Negative); Nitrite-Dipstick Negative (Negative); Occult Blood-Urine 50 /ul (Negative); Protein-Dipstick 30 mg/dl (Negative); Urine Bilirubin Dipstick Negative (Negative); Urine Clarity Sl. Cloudy (Clear); Urine Urobilinogen Normal (Normal)
[2022-05-25 13:17] LABS: Fine Granular Cast- Urine 0-5 SEEN /lpf (0-5)
--- NOTE | 2022-05-25 16:04 | ED.RN ---
pt denied wanting something to eat/drink at this time.
--- NOTE | 2022-05-25 16:45 | HP.PCM.HOS_ITS ---
HPI - General General Date of Admission: 05/25/22 Date of Service: 05/25/22 Chief Complaint: Generalized weakness HPI Narrative PARVIN HARRIS, is a 61 F who presented to [facility] on 05/25/2022 due to severe generalized weakness. The patient was diagnosed with breast cancer in 2017 and also has a prior history of lung cancer. She has had recurrent metastatic disease extensively to the bones at this time and follows with Dr. Gresham whom she just saw on 05/23/2022. She was placed on some immune modulating therapy but unfortunately had some side effects related to this including severe hyperglycemia and she had been tapered off of this medication. It was stopped at her last visit. Her last markers had worsened so it was indicated by oncology that she had progressive disease and therapy would have to change that note was made on 05/02/2022. An MRI with and without contrast to rule out brain mets was also ordered at that time. She had been getting IV hydration at home. Her reports that she has had intermittent hallucinations, ongoing confusion, decreased p.o. intake and is hardly eating or drinking at home. He denies any fever or chills noted by him. She is unable to participate with much history and is inconsistently able to follow commands at the time of my evaluation. The case was discussed by the ER physician by her primary oncologist and they requested the patient be admitted for further evaluation and consult to palliative care as well. At the time of my discussion the family would like to talk further to the oncologist prior to discussing palliative care or hospice as they are unclear what her prognosis is overall. Vital signs at the time of presentation showed a temperature of 98, blood pressure 159/81, pulse was 78, respiratory rate is 20 and oxygen saturation was 96% on room air. Her CBC showed a chronic stable anemia and a new thrombocytopenia with a platelet count of 100,000. She did have a left shift but she is chronically on steroids. Her chemistry panel showed mild hypokalemia with potassium of 3.4 and an elevated serum creatinine however she appears to be close to her baseline and has had significantly fluctuating serum creatinines recently likely related to her decreased oral intake. Her calcium is elevated but this has been elevated with her metastatic disease. Her LFTs were elevated from baseline with an AST of 228 and ALT of 73. Her UA is not suggestive of infection. Her chest x-ray shows chronic stable findings with no acute process. A CT of her brain was performed and demonstrated chronic involutional changes, multiple bony metastasis, air-fluid levels in the right sphenoid sinus but otherwise was stable. In the emergency department she was aggressively hydrated and received 2 L and request for admission was made given her marked debility and failure to thrive at home. [facility] Medical History (Updated 05/25/22 @ 17:[address] Claribel Rojas, DO) Adjustment disorder Anemia Breast cancer Breast cancer Breast cancer, right Breast cancer, right Cancer of left breast Chicken pox Colitis Depression Drug induced neutropenia Educational circumstance Encounter for adjustment or management of vascular access device Frequent headaches GERD (gastroesophageal reflux disease) History of breast cancer History of stomach ulcers HLD (hyperlipidemia) HTN (hypertension) Hypercalcemia of malignancy Hyperglycemia Hyperglycemia due to type 2 diabetes mellitus Lung cancer Lung nodules Multiple sclerosis Postcoital bleeding Stage 3b chronic kidney disease (CKD) UTI (urinary tract infection) Home Medications atenolol 25 mg tablet 25 mg PO QHS BLOOD PRESSURE 10/25/16 [History Last Taken 05/24/22] clonazepam 1 mg tablet 1 mg PO QHS ANXIETY 10/25/16 [History Last Taken 05/24/22] fingolimod 0.5 mg capsule 0.5 mg PO DAILY MULTIPLE SCLEROSIS 10/25/16 [History Last Taken 05/24/22] gabapentin 600 mg tablet,extended release 24 hr 600 mg PO QHS NERVE PAIN 10/25/16 [History Last Taken 05/24/22] venlafaxine 150 mg tablet,extended release 24 hr 300 mg PO DAILY DEPRESSION 10/25/16 [History Last Taken 05/24/22] amantadine HCl 100 mg capsule 100 mg PO QHS PARKINSONS 11/09/16 [History Last Taken 05/24/22] buspirone 7.5 mg tablet 7.5 mg PO BID ANXIETY/DEPRESSION 02/02/17 [History Last Taken 05/24/22] Disability Placard #1 ea 11/01/20 [Rx Last Taken Unknown] Wheelchair #1 ea 11/23/20 [Rx Last Taken Unknown] blood sugar diagnostic #30 ea 03/15/21 [Rx Last Taken Unknown] blood-glucose meter #1 ea 03/15/21 [Rx Last Taken Unknown] dexamethasone 4 mg tablet 4 mg PO DAILY #30 tabs 05/23/22 [Rx Last Taken Unknown] potassium chloride 20 mEq oral packet 20 meq PO BID #30 ea 05/23/22 [Rx Last Taken Unknown] diphenhydramine 25 mg-acetaminophen 500 mg tablet (Tylenol PM Extra Strength) 2 tab PO QHS PRN Pain 05/25/22 [History Last Taken 05/24/22] fentanyl 25 mcg/hr transdermal patch 1 patch transdermal Q72H PAIN 05/25/22 [History Last Taken 05/22/22] lisinopril 10 mg tablet 10 mg PO DAILY BLOOD PRESSURE 05/25/22 [History Last Taken 05/24/22] rosuvastatin 40 mg tablet 40 mg PO QHS CHOLESTEROL 05/25/22 [History Last Taken 05/24/22] sitagliptin phosphate 100 mg tablet (Januvia) 100 mg PO DAILY BLOOD SUGARS 05/25/22 [History Last Taken 05/24/22] tramadol 50 mg tablet 50 mg PO TID PRN Pain 05/25/22 [History Last Taken 05/24/22] Allergy/AdvReac Type Severity Reaction Status Date / Time Penicillins Allergy Unknown Unknown Verified 05/25/22 10:08 adhesive tape AdvReac Severe Unknown Verified 05/25/22 10:08 cephalexin AdvReac Severe Upset Verified 05/25/22 10:08 Stomach hydrocodone [From Vicodin] AdvReac Severe Other Verified 05/25/22 10:08 oxycodone [From Percocet] AdvReac Severe Vomiting Verified 05/25/22 10:08 prednisone AdvReac Severe Nausea/vomi Verified 05/25/22 10:08 ting Family History Mother Kidney disease Hypertension Hyperlipidemia Heart disease Diabetes Depression Arthritis Surgical History H/O bilateral oophorectomy H/O bilateral salpingectomy History of appendectomy History of bilateral mastectomy History of section History of hysterectomy History of lumpectomy History of right breast biopsy Social History current occupational status: disabled Smoking Status: Former smoker alcohol intake: never substance use type: does not use caffeine: Yes what type of physical activity do you participate in: none seatbelt use: always do you feel safe at home: Yes additional social history: Jordy- Retired ROS ROS Narrative Unable to attend from the patient as she is not able to participate in a review of systems due to her mental status Review of Systems ROS Unobtainable: due to mental status Vital Signs Vital Signs Vital Signs: 05/25/22 10:08 05/25/22 10:24 05/25/22 10:26 Temperature 97.1 F L Temperature Source Temporal Pulse Rate 67 74 Respiratory Rate 14 18 Respiratory Effort Normal Non-Labored Blood Pressure 126/63 H 138/64 H Blood Pressure Mean 84 88 Pulse Ox 94 95 Oxygen Delivery Method Room Air Room Air 05/25/22 13:12 05/25/22 14:34 Temperature 96.8 F L 96.8 F L Temperature Source Temporal Temporal Pulse Rate 76 76 Respiratory Rate 18 20 H Respiratory Effort Blood Pressure 152/89 H 162/78 H Blood Pressure Mean 110 106 Pulse Ox 92 96 Oxygen Delivery Method Room Air Room Air Weight Weight: 54.431 kg Body Mass Index (BMI) 21.9 Physical Exam Const alert and no apparent distress; Negative for healthy appearing or well nourished Constitutional Narrative: Cachectic appearing, white female, sitting up in bed, markedly confused, intermittently follows commands but not consistently, at bedside, appears comfortable Orientation / Consciousness: confused HEENT normocephalic, head/scalp atraumatic and hearing grossly normal bilaterally HEENT Narrative: Mucous membranes are extremely dry, dentition is poor, Mallampati 2 Eyes PERRL, EOMs intact bilaterally and conjunctivae normal Eyes Narrative: No scleral icterus Neck no lymphadenopathy and supple Neck Narrative: Trachea midline, no thyroid enlargement Resp normal respiratory effort, no retractions, no use of accessory muscles and No clear to auscultation bilaterally Resp Narrative: Scattered rhonchi most notable on the right side, clears with coughing Auscultation: rhonchi; Negative for crackles or wheezes Cardio regular rate, regular rhythm, S1 normal heart sound, S2 normal heart sound, no murmurs, no rub, no gallops and no clicks GI normal to inspection, nondistended, normoactive bowel sounds, soft to palpation and non-tender GI Narrative: Scaphoid abdomen Extremity no clubbing, cyanosis or edema Extremity Narrative: Bilateral pedal and radial pulses are 2+ Skin no rashes or lesions noted, no wounds, no jaundice, no petechiae and no mottling Skin Narrative: Pale in appearance, abnormal skin turgor with tenting Neuro Neuro Narrative: Marked confusion, inconsistently follows commands, as far as I could assess her cranial nerves seem to be intact, severe generalized weakness but no focal deficits, reflexes are 2+, speech was normal but nonsensical at times Speech: speech normal Psych Psych Narrative: Pleasant but markedly confused Results Lab / Micro Data Result Diagrams: 05/25/22 11:00 05/25/22 11:00 Labs: Laboratory Results - last 24 hr 05/25/22 11:00: WBC 5.1, RBC 3.32 L, Hgb 11.0 L, Hct 34.0 L, MCV 102.4 H, MCH 33.1 H, MCHC 32.4, RDW Std Deviation 73.0 H, RDW Coeff of Moises 19.5 H, Plt Count 100 L, MPV 12.5 H, Immature Gran % (Auto) 1.900 H, Neut % (Auto) 83.3 H, Lymph % (Auto) 3.7 L, [place] % (Auto) 8.8, Eos % (Auto) 2.1, Baso % (Auto) 0.2, Absolute Neuts (auto) 4.3, Absolute Lymphs (auto) 0.19 L, Nucleated RBC % 0.8, Differential Comment COMMENT, Anisocytosis 1+ 05/25/22 11:00: Sodium 138, Potassium 3.4 L, Chloride 106, Carbon Dioxide 24.0, Anion Gap 8, BUN 15, Creatinine 1.67 H, Estim Creat Clear Calc 27.98, Est GFR (MDRD) Af Amer 40 L, Est GFR (MDRD) Non-Af 33 L, BUN/Creatinine Ratio 9.0 L, Glucose 98, Calcium 11.4 H, Total Bilirubin 0.40, AST 228 H, ALT 73 H, Alkaline Phosphatase 162 H, Total Protein 6.2 L, Albumin 2.3 L, Globulin 3.9, Albumin/Globulin Ratio 0.6 L 05/25/22 12:30: Urine Color Yellow, Urine Clarity Sl. Cloudy, Urine pH 6.0, Ur Specific [place] 1.020, Urine Protein 30 H, Urine Glucose (UA) 50 H, Urine Ketones Negative, Urine Occult Blood 50 H, Urine Nitrite Negative, Urine Bilirubin Negative, Urine Urobilinogen Normal, Ur Leukocyte Esterase Negative, Urine RBC 0 SEEN, Urine WBC 0 SEEN, Ur Squamous Epith Cells 0 SEEN, Urine Bacteria 0 SEEN, Fine Granular Casts 0-5 SEEN, Urine Mucus 0 SEEN Rhythm Strip Rhythm Strip: Sinus Rhythm Rate: 74 Ectopy: None Radiology Impression Brain CT 05/25/22 10:50 IMPRESSION: Chronic involutional changes of the brain. Bony metastasis. Air-fluid level in the right sphenoid sinus. Stable examination. Electronically Signed: Bhavesh Arechiga MD at 12:20 EST , Chest X-Ray 05/25/22 11:35 IMPRESSION: Stable right pleural-parenchymal changes. Questionable bony metastasis. Electronically Signed: Bhavesh Arechiga MD at 12:15 EST , Assessment & Plan Assessment/Plan (1) Generalized weakness: (2) Decreased appetite: (3) Severe malnutrition: (4) Hypercalcemia of malignancy: (5) Hypokalemia: (6) Acute dehydration: (7) Thrombocytopenia: (8) Transaminitis: PLAN: Plan Failure to thrive/generalized weakness -Etiology is unclear next-patient is refusing to eat and drink -Is having intermittent altered mental status as well -Has known metastatic breast cancer to bone and there is concerned that there may be mets to her brain -MRI with contrast in the morning after hydration -PT/OT consultation -Consult special education case manager for discharge planning Acute dehydration -Serum creatinine appears to be stable however patient clinically looks very dry -Received 2 L of IV fluid in the emergency department -We will continue IV fluids on the medical floor after admission -Repeat lab in a.m. Severe malnutrition -Patient has had significant weight loss -Baseline weight was 180 pounds -Consult dietitian -Supplements added Hypercalcemia of malignancy -I do not believe this is the etiology of her confusion or weakness -This has been chronic with her last normal calcium being 09/27/2021. She has been at this level of hypercalcemia since that point in time. Transaminitis -Etiology is clear -this is new -Check right upper quadrant ultrasound -Question if related to chemo drugs Hypokalemia -P.o. replacement -Repeat lab in a.m. Metastatic breast cancer -Mets to bone -Check MRI of brain with ongoing confusion and functional issues -Continue Decadron -Continue home medications -Consult oncology Previous hyperglycemia -Blood sugars not currently elevated -Hold home Januvia -Hyperglycemia previously was related to immunotherapy for her metastatic disease -We will monitor MS -Continue home medications Anxiety/depression -Continue home BuSpar -continue home clonazepam -Continue home venlafaxine Hyperlipidemia -Continue home rosuvastatin Hypertension And can new home lisinopril Neuropathy -Continue home gabapentin DVT prophylaxis -Heparin 3 times daily CODE STATUS -Full code as per discussion with prior to admission Charges/Coding Visit Charges Inpatient E&M: 65438 Init Hosp L3
--- NOTE | 2022-05-25 18:32 | US_ITS ---
EXAM: US ABDOMEN LIMITED, RIGHT UPPER QUADRANT CLINICAL INDICATION: transminitis TECHNIQUE: Real-time ultrasound of the right upper quadrant with image documentation. This report was created using [employer] report generation technology. COMPARISON: None. FINDINGS: LIVER: Liver measures 13.6 cm in length. There is normal echotexture. No intrahepatic biliary ductal dilation. GALLBLADDER: Gallbladder wall measures 1 mm. No shadowing gallstone. No pericholecystic fluid. Negative sonographic Avalos''s sign. COMMON BILE DUCT: The common bile duct measures 3 mm. The proximal common bile duct is within normal limits for the patient''s age. PANCREAS: Unremarkable as visualized. No focal abnormality is demonstrated in the pancreas. No pancreatic ductal dilatation. RIGHT KIDNEY: The right kidney measures 9.7 x 4.7 x 4.1 cm. The right renal cortex measures 0.6 cm. There is no hydronephrosis. No shadowing calculus. No focal lesion or perinephric collection is demonstrated. PLEURAL SPACE: There is a right pleural effusion present. OTHER FINDINGS: There is an anechoic structure present that measures 1.5 x 1.5 cm compatible with a cyst. US/Abdomen Limited IMPRESSION: Right renal cyst. There is a right-sided pleural effusion. No other abnormalities are identified. Electronically Signed: Niels Daly MD at 23:36 EST ,
[2022-05-25] MEDS: Lactated Ringers 1,000 ML 75 ML IV (18:57)
[2022-05-25 19:21] LABS: Bedside Glucose 86 mg/dL (74-106)
--- NOTE | 2022-05-25 19:22 | NURSING ---
Ultrasound here in room at this time.
[2022-05-25] MEDS: Potassium Chloride 10mEq/100mL 10 MEQ/100 ML IV.SOLN. 100 MEQ IV BOLUS ×2 (22:36→23:44)
[2022-05-25] MEDS: busPIRone 15 MG TABLET 7.5 MG PO (22:55)
[2022-05-25] MEDS: clonazePAM 1 MG Tablet PO (22:55)
[2022-05-25] MEDS: Gabapentin 600 MG Tablet PO (22:55)
[2022-05-25] MEDS: Atenolol 25 MG Tablet PO (22:55)
[2022-05-25] MEDS: Amantadine 100 MG Capsule PO (22:56)
[2022-05-26] VITALS (7 sets, daily range): BP systolic 127–140; BP diastolic 57–110; PULSE 94–111; RESP 18; TEMP 36.7–37.2; O2SAT 92–98
[2022-05-26] MEDS: Lactated Ringers 1,000 ML 75 ML IV (01:27)
[2022-05-26 07:11] LABS: Absolute Lymphocyte Count 0.18 X10^3/uL (0.83-4.51); Absolute Neutrophil Count 5.1 X10^3/uL (2.0-7.7); Basophil# 0.02 X10^3/uL; Basophil% 0.3 % (0-1); Eosinophils% 1.6 % (0-5); Hematocrit 32.2 % (37-47); Hemoglobin 10.5 g/dL (12.0-15.0); Lymphocyte # 0.18 X10^3/ul (0.83-4.51); Lymphocyte % 2.9 % (19-41); Mean Corp Hgb Conc 32.6 g/dL (32-36); Mean Corpuscular Hgb 33.2 pg (27.0-32.0); Mean Corpuscular Volume 101.9 fL (81-99); Mean Platelet Vol. 12.5 fl (6.2-12.0); Monocyte# 0.57 X10^3/uL; Monocyte% 9.3 % (0-10); NRBC Flagged by Analyzer 0.5 % (0-5); Neutrophil # 5.13 X10^3/uL (2.7-7.7); Neutrophil % 83.9 % (47-70); POSITIVE COUNT YES; POSITIVE DIFFERENTIAL YES; POSITIVE MORPHOLOGY YES; Platelet Count 94 K/mm3 (150-450); RBC Distribution Width CV 19.2 % (11.6-14.6); RBC Distribution Width SD 71.9 fl (35.1-43.9); Red Blood Count 3.16 M/mm3 (4.2-5.4); White Blood Count 6.1 K/mm3 (4.4-11.0)
[2022-05-26 07:13] LABS: Differential Indicated SCAN CRITERIA MET
[2022-05-26 07:36] LABS: ALB/GLOB Ratio 0.6 RATIO (0.9-2.4); AST(SGOT) 499 U/L (15-37); Alanine Aminotransfer ALT/SGPT 68 U/L (13-56); Albumin, Serum 2.3 g/dL (3.2-5.0); Alkaline Phosphatase 187 U/L (45-117); Anion Gap 7 (5-15); BUN 11 mg/dL (7-18); Calcium,Total 10.1 mg/dL (8.5-10.1); Chloride 110 mmol/L (98-107); Creatinine, Serum 1.22 mg/dL (0.55-1.02); EST Glomerular Filtration Rate 48 mL/min (>60); Est Glom Filt Rate - Afr Amer 58 mL/min (>60); Globulin 3.7 g/dL (2.2-4.2); Glucose 80 mg/dL (74-106); Magnesium 2.1 mg/dL (1.6-2.6); Phosphorus 1.2 mg/dL (2.5-4.9); Potassium 3.3 mmol/L (3.5-5.1); Sodium Level 139 mmol/L (136-145)
[2022-05-26] MEDS: Ensure Plus High Protein 120 ML LIQUID PO ×2 (08:20→12:03)
[2022-05-26] MEDS: dexAMETHasone 4 MG Tablet PO (08:21)
[2022-05-26] MEDS: Potassium Chloride Oral Tablet 20 MEQ PO ×2 (08:21→17:43)
[2022-05-26 08:36] LABS: Bedside Glucose 78 mg/dL (74-106)
[2022-05-26 08:41] LABS: Anisocytosis 2+; Crenated RBC 1+; Differential Comment SCANNED; Schistocytes RARE; Target Cells 1+
--- NOTE | 2022-05-26 09:15 | MRI_ITS ---
STUDY: MRI BRAIN WITHOUT CONTRAST REASON FOR EXAM: Female, 61 years old. mets TECHNIQUE: Standardized multiplanar fat and water weighted pulse sequences were obtained. Several of the sequences are degraded by motion artifact and not diagnostic. COMPARISON: Head CT dated May 25, 2022 and April 10, 2022. MRI of the brain dated July 28, 2016 FINDINGS: Redemonstration of mottled heterogeneous appearance of the skull due to multiple lytic lesions which are not well visualized by MR and better seen on the recent CT scan. No focal parenchymal edema or intraparenchymal lesions are seen on the current study. No midline shift or hydrocephalus is present. Normal size of the ventricles and extra-axial spaces for the patient''s age. There are a limited number of small white matter hyperintensities, distributed throughout the deep white matter tracts of the cerebral hemispheres, consistent with mild chronic white matter ischemic changes. There is no evidence for recent intracranial ischemia or other cause of cytotoxic edema on diffusion weighted imaging (DWI). Normal bilateral basal ganglia. Normal thalami. There is no extra-axial fluid accumulation. Normal flow voids within the major intracranial circulation suggesting patency by spin echo criteria. Normal sella turcica, pituitary gland, infundibular stalk, optic chiasm and hypothalamus. Normal tectal plate and pineal gland. Normal midbrain, anne and medulla. Normal cerebellum. Normal basal cisterns. Normal bilateral temporal bones. Normal bilateral internal auditory canals. No demonstrated orbital abnormality, within the constraints of a routine brain study. Normal visualized paranasal sinuses. Normal visualized soft tissue structures. Normal visualized upper cervical spine. MRI/Brain without Contrast IMPRESSION: 1. Redemonstration of mottled heterogeneous appearance of the skull due to multiple lytic lesions which are not well visualized by MR and better seen on the recent CT scan. No focal parenchymal edema or intraparenchymal lesions are seen on the current study. 2. Post contrast imaging is recommended so there is better visualization of the skull and for possible occult parenchymal lesions or dural carcinomatosis which has a high association with metastatic disease to the skull. Electronically Signed: Gerardo Mcmillan MD at 9:32 EST ,
[2022-05-26] MEDS: Venlafaxine XR 150 MG Capsule 300 MG PO (10:28)
[2022-05-26] MEDS: busPIRone 15 MG TABLET 7.5 MG PO ×2 (10:28→20:19)
[2022-05-26] MEDS: Polyethylene Glycol 3350 17 GM PACKET PO (10:29)
[2022-05-26 12:00] LABS: Bedside Glucose 229 mg/dL (74-106)
[2022-05-26] MEDS: Enoxaparin 30 MG/0.3 ML Syringe SC (12:03)
--- NOTE | 2022-05-26 12:05 | PCM.PN.HOSP ---
Subjective Subjective Follow-up on acute delirium/severe debility/hypercalcemia: Patient was seen and examined. She is alert, oriented only to herself. Patient has been hallucinating and seeing objects including snakes in the room. Discussed patient's overall care with her , he thinks his will want aggressive care. He is concerned about patient's confusion and poor appetite. I discussed patient's CODE STATUS, she remains full code, he is going to discuss further with her children. Objective Data Objective Data Vital Signs: Vital Signs Temp Pulse Resp BP Pulse Ox O2 Del Method 98.9 F 95 18 128/110 H 96 Room Air 05/26/22 08:06 05/26/22 08:06 05/26/22 09:00 05/26/22 08:06 05/26/22 08:06 05/26/22 09:00 Oxygen Delivery Method Room Air Weight: 58.513 kg Body Mass Index (BMI) 22.1 Intake & Output: Intake and Output for Last 24 Hours 05/24/22 05/25/22 05/26/22 23:59 23:59 23:59 Intake Total 2385 / 2385 100 / 100 Output Total 550 / 550 Balance 2385 / 2385 -450 / -450 Medical Nutrition Assessment Dietitian: Malnutrition Criteria Met Start: 05/26/22 11:52 Freq: Status: Active Protocol: Document 05/26/22 11:52 AG (Rec: 05/26/22 11:52 AG [id number]) Nutrition Malnutrition Evidence of Malnutrition Exists Yes Malnutrition (severe): Chronic Evidenced By Suboptimal Energy Intake ( Severe),Weight Loss (Severe) Clinical Problem Chronic Disease or Condition Related Malnutrition Etiology severe, chronic malutrition related to inadequate energy intake d/t altered mental status w/ increased energy needs d/t metastatic disease Signs/Symptoms as evidenced by unintentional wt loss of 56#/30% x 6 months, estimated PO intake meeting < 50% of estimated energy needs past 1-2 weeks; overall PO intake meeting <75% of estimated energy needs > 3 months Status Active Problem Recommendation Dietitian Recommendations/Changes Regular diet, ensure pudding or magic cup BID, ensure plus high protein 120mL 4x/day w/ medpass for additional calories/protein if consumed. Will follow for further determination re: plan of care and provide further recommendations regarding enteral nutrition as appropriate. Lab / Micro Data Result Diagrams: 05/26/22 06:40 05/26/22 06:40 Labs: Laboratory Results - last 24 hr 05/25/22 12:30: Urine Color Yellow, Urine Clarity Sl. Cloudy, Urine pH 6.0, Ur Specific [place] 1.020, Urine Protein 30 H, Urine Glucose (UA) 50 H, Urine Ketones Negative, Urine Occult Blood 50 H, Urine Nitrite Negative, Urine Bilirubin Negative, Urine Urobilinogen Normal, Ur Leukocyte Esterase Negative, Urine RBC 0 SEEN, Urine WBC 0 SEEN, Ur Squamous Epith Cells 0 SEEN, Urine Bacteria 0 SEEN, Fine Granular Casts 0-5 SEEN, Urine Mucus 0 SEEN 05/25/22 18:51: POC Glucose 86 05/26/22 06:40: WBC 6.1, RBC 3.16 L, Hgb 10.5 L, Hct 32.2 L, MCV 101.9 H, MCH 33.2 H, MCHC 32.6, RDW Std Deviation 71.9 H, RDW Coeff of Moises 19.2 H, Plt Count 94 L, MPV 12.5 H, Immature Gran % (Auto) 2.000 H, Neut % (Auto) 83.9 H, Lymph % (Auto) 2.9 L, [place] % (Auto) 9.3, Eos % (Auto) 1.6, Baso % (Auto) 0.3, Absolute Neuts (auto) 5.1, Absolute Lymphs (auto) 0.18 L, Nucleated RBC % 0.5, Differential Comment SCANNED, Anisocytosis 2+, Target Cells 1+, Crenated Cell 1+, Schistocytes RARE 05/26/22 06:40: Sodium 139, Potassium 3.3 L, Chloride 110 H, Carbon Dioxide 22.0, Anion Gap 7, BUN 11, Creatinine 1.22 H, Estim Creat Clear Calc 38.30, Est GFR (MDRD) Af Amer 58 L, Est GFR (MDRD) Non-Af 48 L, BUN/Creatinine Ratio 9.0 L, Glucose 80, Calcium 10.1, Phosphorus 1.2 L, Magnesium 2.1, Total Bilirubin 0.60, AST 499 H, ALT 68 H, Alkaline Phosphatase 187 H, Total Protein 6.0 L, Albumin 2.3 L, Globulin 3.7, Albumin/Globulin Ratio 0.6 L 05/26/22 08:12: POC Glucose 78 05/26/22 11:43: POC Glucose 229 H Radiography Diagnostic Testing: Radiology Impression Brain CT 05/25/22 10:50 IMPRESSION: Chronic involutional changes of the brain. Bony metastasis. Air-fluid level in the right sphenoid sinus. Stable examination. Electronically Signed: Bhavesh Arechiga MD at 12:20 EST , Chest X-Ray 05/25/22 11:35 IMPRESSION: Stable right pleural-parenchymal changes. Questionable bony metastasis. Electronically Signed: Bhavesh Arechiga MD at 12:15 EST , Abdomen Ultrasound 05/25/22 18:32 IMPRESSION: Right renal cyst. There is a right-sided pleural effusion. No other abnormalities are identified. Electronically Signed: Niels Daly MD at 23:36 EST , Brain MRI 05/26/22 09:15 IMPRESSION: 1. Redemonstration of mottled heterogeneous appearance of the skull due to multiple lytic lesions which are not well visualized by MR and better seen on the recent CT scan. No focal parenchymal edema or intraparenchymal lesions are seen on the current study. 2. Post contrast imaging is recommended so there is better visualization of the skull and for possible occult parenchymal lesions or dural carcinomatosis which has a high association with metastatic disease to the skull. Electronically Signed: Gerardo Mcmillan MD at 9:32 EST , Rhythm Strip Rhythm Strip: Sinus Rhythm Rate: 74 Ectopy: None Physical Exam Narrative Physical exam: General: Alert, Oriented to self, cooperative, confused, hyperactive HEENT: Atraumatic Oral: Moist Mucosa Neck: Supple Lungs: Diminished to auscultation Cardiovascular: HS I+II, regular, no murmurs Abdomen: Bowel Sounds Present, Soft, Non Tender Extremities: No edema Skin: No rashes, No breakdown Neurological: Grossly intact Psych/Mental Status: Appropriate Assessment & Plan Assessment/Plan (1) Generalized weakness: (2) Decreased appetite: (3) Severe malnutrition: (4) Hypercalcemia of malignancy: (5) Hypokalemia: (6) Acute dehydration: (7) Thrombocytopenia: (8) Transaminitis: PLAN: Plan 1. Acute delirium, multifactorial in etiology, likely related to dehydration/hypercalcemia/worsening depression MRI of the brain was negative for brain parenchyma Continue with IV fluids, pain control with scheduled Tylenol, Haldol as needed QTC on EKG admission was 444, repeat EKG in am, check ammonia level, TSH, Vitamin B12 2. Severe protein calorie malnutrition secondary to malignancy/severe depression Patient has been refusing to eat Nutrition was consulted, continue on supplements We will add Remeron to assist with depression and appetite 3. Hypokalemia/hypophosphatemia, replace, recheck in a.m. 4. Hypercalcemia, corrected Ca 11.46, improved on IVF, patient has been on monthly Xgeva in the outpatient 5. Dehydration/CKD stage IIIa, creatinine slightly improved compared to previous We will continue to trend 6. Transaminitis, remains about the same, Liver ultrasound showed normal echotexture, no intrahepatic biliary dilatation Repeat blood work in a.m. 7. Metastatic breast cancer, follows with oncology in the outpatient Continue on dexamethasone 8. Type 2 DM, on home Januvia, check HbA1c, continue insulin sliding scale 9. MS/anxiety/depression/hyperlipidemia/neuropathy Continue with fentanyl patch, tramadol as needed 10. DVT PPx- Lovenox SC Charges/Coding Visit Charges Inpatient E&M: 55219 Subs Hosp L2
--- NOTE | 2022-05-26 12:45 | CON.PCM.ON_ITS ---
Assessment & Plan Assessment/Plan (1) Hypercalcemia of malignancy: Status: Chronic Code(s): E83.52 - Hypercalcemia Plan: Has been on Xgeva monthly, to hold while in the hospital. (2) Metastatic breast cancer: Status: Chronic Code(s): C50.919 - Malignant neoplasm of unspecified site of unspecified female breast Plan: Pt with Metastatic breast cancer to bones on therapy with Piqray and Faslodex, disease is stable but has developed malnutrition, labile mood, failure to thrive at home. Suggest doing supportive care in the hospital, if she rebounds then further therapy will be discussed as outpatient. HPI Consult Data Date of Service:: 05/26/22 PCP / Referring Provider: Dr. Sandro Bland DO Attending: Dr. Kym Voss MD Chief Complaint Chief Complaint: Asked to see Pt with metastatic breast cancer. History of Present Illness History of Present Illness: 61-year-old woman with history of bilateral breast cancer, developed metastatic disease to the bones in October 2020. Received palliative radiation to the pelvis and November 2021. She was treated with Ibrance and Femara. Next generation sequencing on January 27, 2021 showed PIK3ca mutation so she was started on Piqray and Faslodex in February 2021 which was associated with hypoglycemia. Circulating tumor in April 2022 has drop to 284 from 1200 in October 2021. She was then controlled with insulin and diet. Lately she has developed poor appetite, inanition, labile mood and general weakness so was admitted to the hospital on 05/25/2022. Advanced Directives Power of Manager Of Care: No Living Will: No PFSH Medical History Adjustment disorder Anemia Breast cancer Breast cancer Breast cancer, right Breast cancer, right Cancer of left breast Chicken pox Colitis Depression Drug induced neutropenia Educational circumstance Encounter for adjustment or management of vascular access device Frequent headaches GERD (gastroesophageal reflux disease) History of breast cancer History of stomach ulcers HLD (hyperlipidemia) HTN (hypertension) Hypercalcemia of malignancy Hyperglycemia Hyperglycemia due to type 2 diabetes mellitus Lung cancer Lung nodules Multiple sclerosis Postcoital bleeding Stage 3b chronic kidney disease (CKD) UTI (urinary tract infection) Home Medications atenolol 25 mg tablet 25 mg PO QHS BLOOD PRESSURE 10/25/16 [History Last Taken 05/24/22] clonazepam 1 mg tablet 1 mg PO QHS ANXIETY 10/25/16 [History Last Taken 05/24/22] fingolimod 0.5 mg capsule 0.5 mg PO DAILY MULTIPLE SCLEROSIS 10/25/16 [History Last Taken 05/24/22] gabapentin 600 mg tablet,extended release 24 hr 600 mg PO QHS NERVE PAIN 10/25/16 [History Last Taken 05/24/22] venlafaxine 150 mg tablet,extended release 24 hr 300 mg PO DAILY DEPRESSION 10/25/16 [History Last Taken 05/24/22] amantadine HCl 100 mg capsule 100 mg PO QHS PARKINSONS 11/09/16 [History Last Taken 05/24/22] buspirone 7.5 mg tablet 7.5 mg PO BID ANXIETY/DEPRESSION 02/02/17 [History Last Taken 05/24/22] Disability Placard #1 ea 11/01/20 [Rx Last Taken Unknown] Wheelchair #1 ea 11/23/20 [Rx Last Taken Unknown] blood sugar diagnostic #30 ea 03/15/21 [Rx Last Taken Unknown] blood-glucose meter #1 ea 03/15/21 [Rx Last Taken Unknown] dexamethasone 4 mg tablet 4 mg PO DAILY #30 tabs 05/23/22 [Rx Last Taken Unknown] potassium chloride 20 mEq oral packet 20 meq PO BID #30 ea 05/23/22 [Rx Last Taken Unknown] diphenhydramine 25 mg-acetaminophen 500 mg tablet (Tylenol PM Extra Strength) 2 tab PO QHS PRN Pain 05/25/22 [History Last Taken 05/24/22] fentanyl 25 mcg/hr transdermal patch 1 patch transdermal Q72H PAIN 05/25/22 [History Last Taken 05/22/22] lisinopril 10 mg tablet 10 mg PO DAILY BLOOD PRESSURE 05/25/22 [History Last Taken 05/24/22] rosuvastatin 40 mg tablet 40 mg PO QHS CHOLESTEROL 05/25/22 [History Last Taken 05/24/22] sitagliptin phosphate 100 mg tablet (Januvia) 100 mg PO DAILY BLOOD SUGARS 05/25/22 [History Last Taken 05/24/22] tramadol 50 mg tablet 50 mg PO TID PRN Pain 05/25/22 [History Last Taken 05/24/22] Allergy/AdvReac Type Severity Reaction Status Date / Time Penicillins Allergy Unknown Unknown Verified 05/25/22 10:08 adhesive tape AdvReac Severe Unknown Verified 05/25/22 10:08 cephalexin AdvReac Severe Upset Verified 05/25/22 10:08 Stomach hydrocodone [From Vicodin] AdvReac Severe Other Verified 05/25/22 10:08 oxycodone [From Percocet] AdvReac Severe Vomiting Verified 05/25/22 10:08 prednisone AdvReac Severe Nausea/vomi Verified 05/25/22 10:08 ting Family History Mother Kidney disease Hypertension Hyperlipidemia Heart disease Diabetes Depression Arthritis Surgical History H/O bilateral oophorectomy H/O bilateral salpingectomy History of appendectomy History of bilateral mastectomy History of section History of hysterectomy History of lumpectomy History of right breast biopsy Social History current occupational status: disabled Smoking Status: Former smoker alcohol intake: never substance use type: does not use caffeine: Yes what type of physical activity do you participate in: none seatbelt use: always do you feel safe at home: Yes additional social history: Jordy- Retired Vital Signs Temperature 98.9 F 05/26/22 08:06 Temperature Source Axillary 05/26/22 08:06 Pulse Rate 95 05/26/22 08:06 Respiratory Rate 18 05/26/22 09:00 Respiratory Effort Non-Labored 05/26/22 09:00 Respiratory Depth Normal 05/26/22 04:01 Respiratory Pattern Normal 05/26/22 04:01 Blood Pressure 128/110 H 05/26/22 08:06 Blood Pressure Mean 116 05/26/22 08:06 Blood Pressure Source Monitor 05/26/22 08:06 Blood Pressure Position Right Lateral 05/26/22 08:06 Blood Pressure Location Left Arm 05/26/22 08:06 Pulse Ox 96 05/26/22 08:06 Oxygen Delivery Method Room Air 05/26/22 09:00 Laboratory Results - last 24 hr 05/25/22 12:30: Urine Color Yellow, Urine Clarity Sl. Cloudy, Urine pH 6.0, Ur Specific [place] 1.020, Urine Protein 30 H, Urine Glucose (UA) 50 H, Urine Ketones Negative, Urine Occult Blood 50 H, Urine Nitrite Negative, Urine Bilirubin Negative, Urine Urobilinogen Normal, Ur Leukocyte Esterase Negative, Urine RBC 0 SEEN, Urine WBC 0 SEEN, Ur Squamous Epith Cells 0 SEEN, Urine Bacteria 0 SEEN, Fine Granular Casts 0-5 SEEN, Urine Mucus 0 SEEN 05/25/22 18:51: POC Glucose 86 05/26/22 06:40: WBC 6.1, RBC 3.16 L, Hgb 10.5 L, Hct 32.2 L, MCV 101.9 H, MCH 33.2 H, MCHC 32.6, RDW Std Deviation 71.9 H, RDW Coeff of Moises 19.2 H, Plt Count 94 L, MPV 12.5 H, Immature Gran % (Auto) 2.000 H, Neut % (Auto) 83.9 H, Lymph % (Auto) 2.9 L, [place] % (Auto) 9.3, Eos % (Auto) 1.6, Baso % (Auto) 0.3, Absolute Neuts (auto) 5.1, Absolute Lymphs (auto) 0.18 L, Nucleated RBC % 0.5, Differential Comment SCANNED, Anisocytosis 2+, Target Cells 1+, Crenated Cell 1+, Schistocytes RARE 05/26/22 06:40: Sodium 139, Potassium 3.3 L, Chloride 110 H, Carbon Dioxide 22.0, Anion Gap 7, BUN 11, Creatinine 1.22 H, Estim Creat Clear Calc 38.30, Est GFR (MDRD) Af Amer 58 L, Est GFR (MDRD) Non-Af 48 L, BUN/Creatinine Ratio 9.0 L, Glucose 80, Calcium 10.1, Phosphorus 1.2 L, Magnesium 2.1, Total Bilirubin 0.60, AST 499 H, ALT 68 H, Alkaline Phosphatase 187 H, Total Protein 6.0 L, Albumin 2.3 L, Globulin 3.7, Albumin/Globulin Ratio 0.6 L 05/26/22 08:12: POC Glucose 78 05/26/22 11:43: POC Glucose 229 H Diagnostic Data Brain CT 05/25/22 10:50 IMPRESSION: Chronic involutional changes of the brain. Bony metastasis. Air-fluid level in the right sphenoid sinus. Stable examination. Electronically Signed: Bhavesh Arechiga MD at 12:20 EST , Chest X-Ray 05/25/22 11:35 IMPRESSION: Stable right pleural-parenchymal changes. Questionable bony metastasis. Electronically Signed: Bhavesh Arechiga MD at 12:15 EST , Abdomen Ultrasound 05/25/22 18:32 IMPRESSION: Right renal cyst. There is a right-sided pleural effusion. No other abnormalities are identified. Electronically Signed: Niels Daly MD at 23:36 EST , Brain MRI 05/26/22 09:15 IMPRESSION: 1. Redemonstration of mottled heterogeneous appearance of the skull due to multiple lytic lesions which are not well visualized by MR and better seen on the recent CT scan. No focal parenchymal edema or intraparenchymal lesions are seen on the current study. 2. Post contrast imaging is recommended so there is better visualization of the skull and for possible occult parenchymal lesions or dural carcinomatosis which has a high association with metastatic disease to the skull. Electronically Signed: Gerardo Mcmillan MD at 9:32 EST ,
[2022-05-26] MEDS: FLU VACC QS2022-23(6MOS UP)/PF 60 MCG/0.5 ML SYRINGE IM (13:27)
[2022-05-26] MEDS: Potassium Chloride 10mEq/100mL 10 MEQ/100 ML IV.SOLN. 100 MEQ IV BOLUS ×4 (14:03→18:30)
[2022-05-26] MEDS: fentaNYL 25 MCG Patch TD (15:56)
[2022-05-26] MEDS: Acetaminophen 500 MG Tablet PO (16:01)
[2022-05-26 17:15] LABS: Bedside Glucose 293 mg/dL (74-106)
[2022-05-26] MEDS: Insulin Lispro 100 UNIT/ML INSULN.PEN SC ×2 (17:18→20:30)
[2022-05-26] MEDS: Mirtazapine 15 MG Tablet 7.5 MG PO (17:43)
[2022-05-26] MEDS: Lactated Ringers 1,000 ML 100 ML IV (17:44)
[2022-05-26 18:52] LABS: Thyroid Stim Hormone (TSH) 1.28 uIU/mL (0.358-3.74)
[2022-05-26 18:54] LABS: Vitamin B12 1012 pg/mL (211-911)
[2022-05-26 18:56] LABS: Hemoglobin A1c 10.9 % (3.8-5.6)
[2022-05-26] MEDS: 0.9% Saline Lock 10 ML Syringe IV ×2 (19:50→20:02)
[2022-05-26] MEDS: Acetaminophen 500 MG Tablet 1000 MG PO (20:18)
[2022-05-26] MEDS: Atenolol 25 MG Tablet PO (20:18)
[2022-05-26] MEDS: Amantadine 100 MG Capsule PO (20:18)
[2022-05-26] MEDS: Gabapentin 600 MG Tablet PO (20:18)
[2022-05-26] MEDS: clonazePAM 0.5 MG Tablet PO (20:19)
[2022-05-26] MEDS: MELATONIN 3 MG TABLET PO (20:26)
[2022-05-26 23:55] LABS: Bedside Glucose 298 mg/dL (74-106)
[2022-05-27] VITALS (8 sets, daily range): BP systolic 112–153; BP diastolic 75–94; PULSE 80–100; RESP 18–20; TEMP 36.3–36.8; O2SAT 92–100
[2022-05-27] MEDS: Lactated Ringers 1,000 ML 125 ML IV ×2 (02:10→10:10)
--- NOTE | 2022-05-27 05:55 | EKG12_ITS ---
Test Reason : ARRYTHMIA Blood Pressure : / mmHG Vent. Rate : 118 BPM Atrial Rate : 118 BPM P-R Int : 172 ms QRS Dur : 078 ms QT Int : 316 ms P-R-T Axes : 051 -23 024 degrees QTc Int : 442 ms Sinus tachycardia Inferior infarct , age undetermined Abnormal ECG When compared with ECG of 27-MAY-2022 05:30, MANUAL COMPARISON REQUIRED, DATA IS UNCONFIRMED Confirmed by TASHI KAN, GEETHA ([id number]), market editor PAUL RIVERO ([id number]) on 05/30/2022 8:43:05 AM Referred By: EUGENE Confirmed By:GEETHA AKINS MD
[2022-05-27] MEDS: Acetaminophen 500 MG Tablet 1000 MG PO ×3 (07:12→20:25)
[2022-05-27 07:40] LABS: Bedside Glucose 125 mg/dL (74-106)
[2022-05-27 08:07] LABS: Absolute Lymphocyte Count 0.24 X10^3/uL (0.83-4.51); Absolute Neutrophil Count 6.5 X10^3/uL (2.0-7.7); Basophil# 0.02 X10^3/uL; Basophil% 0.3 % (0-1); Eosinophil# 0.01 X10^3/uL; Eosinophils% 0.1 % (0-5); Hematocrit 34.3 % (37-47); Hemoglobin 11.5 g/dL (12.0-15.0); Lymphocyte # 0.24 X10^3/ul (0.83-4.51); Lymphocyte % 3.2 % (19-41); Mean Corp Hgb Conc 33.5 g/dL (32-36); Mean Corpuscular Volume 98.3 fL (81-99); Mean Platelet Vol. 12.8 fl (6.2-12.0); Monocyte# 0.58 X10^3/uL; Monocyte% 7.7 % (0-10); NRBC Flagged by Analyzer 0.4 % (0-5); Neutrophil # 6.54 X10^3/uL (2.7-7.7); Neutrophil % 87.1 % (47-70); POSITIVE COUNT YES; POSITIVE DIFFERENTIAL YES; POSITIVE MORPHOLOGY YES; Platelet Count 88 K/mm3 (150-450); RBC Distribution Width CV 18.6 % (11.6-14.6); RBC Distribution Width SD 66.3 fl (35.1-43.9); Red Blood Count 3.49 M/mm3 (4.2-5.4); White Blood Count 7.5 K/mm3 (4.4-11.0)
[2022-05-27 08:09] LABS: Differential Indicated SCAN CRITERIA MET
[2022-05-27 08:27] LABS: ALB/GLOB Ratio 0.5 RATIO (0.9-2.4); AST(SGOT) 262 U/L (15-37); Alanine Aminotransfer ALT/SGPT 80 U/L (13-56); Albumin, Serum 2.4 g/dL (3.2-5.0); Alkaline Phosphatase 222 U/L (45-117); Anion Gap 8 (5-15); BUN 12 mg/dL (7-18); BUN/Creat Ratio 11.3 RATIO (10-20); Calcium,Total 10.8 mg/dL (8.5-10.1); Chloride 110 mmol/L (98-107); Creatinine, Serum 1.06 mg/dL (0.55-1.02); EST Glomerular Filtration Rate 56 mL/min (>60); Est Glom Filt Rate - Afr Amer 68 mL/min (>60); Estimated Creatinine Clearance 44.08 ml/min; Globulin 4.4 g/dL (2.2-4.2); Glucose 160 mg/dL (74-106); Magnesium 2.3 mg/dL (1.6-2.6); Phosphorus 3.4 mg/dL (2.5-4.9); Potassium 5.6 mmol/L (3.5-5.1); Protein, Total 6.8 g/dL (6.4-8.2); Sodium Level 136 mmol/L (136-145)
[2022-05-27 08:49] LABS: Anisocytosis 2+; Crenated RBC RARE; Platelet Estimate MOD DEC (ADEQ); Schistocytes RARE
[2022-05-27] MEDS: Venlafaxine XR 150 MG Capsule 300 MG PO (09:13)
[2022-05-27] MEDS: Enoxaparin 30 MG/0.3 ML Syringe SC (09:14)
[2022-05-27] MEDS: Polyethylene Glycol 3350 17 GM PACKET PO (09:15)
[2022-05-27] MEDS: Potassium Chloride Oral Tablet 20 MEQ PO (09:17)
[2022-05-27] MEDS: busPIRone 15 MG TABLET 7.5 MG PO ×2 (09:18→20:24)
[2022-05-27] MEDS: Ensure Plus High Protein 120 ML LIQUID PO ×2 (09:25→13:40)
[2022-05-27] MEDS: Insulin Lispro 100 UNIT/ML INSULN.PEN SC ×3 (11:43→21:17)
[2022-05-27 12:05] LABS: Bedside Glucose 269 mg/dL (74-106)
[2022-05-27] MEDS: Ipratropium/Albuterol Sulfate 3 ML AMPUL.NEB INHALATION ×2 (13:50→19:26)
[2022-05-27 16:25] LABS: Bedside Glucose 241 mg/dL (74-106)
--- NOTE | 2022-05-27 16:47 | PN.HOSP_ITS ---
Subjective Subjective Follow-up on acute delirium/severe debility/hypercalcemia: Patient was seen and examined. Patient looks more alert, intermittent leak confused. No acute events overnight. She has been coughing intermittently whil e sitting up. Objective Data Objective Data Vital Signs: Vital Signs Temp Pulse Resp BP Pulse Ox O2 Del Method 98.2 F 90 20 H 112/88 H 98 Room Air 05/27/22 13:57 05/27/22 13:57 05/27/22 13:57 05/27/22 13:57 05/27/22 13:57 05/27/22 13:57 Oxygen Delivery Method Room Air Weight: 54.6 kg Body Mass Index (BMI) 22.1 Intake & Output: Intake and Output for Last 24 Hours 05/25/22 05/26/22 05/27/22 23:59 23:59 23:59 Intake Total 2385 / 2385 2293.33 / 2293.33 3210.0033 / 3210.0033 Output Total 1200 / 2000 1200 / 1200 Balance 2385 / 2385 1093.33 / 293.33 2009.0033 / 2009.0033 Medical Nutrition Assessment Dietitian: Malnutrition Criteria Met Start: 05/26/22 11:52 Freq: Status: Active Protocol: Document 05/26/22 11:52 AG (Rec: 05/26/22 11:52 AG [id number]) Nutrition Malnutrition Evidence of Malnutrition Exists Yes Malnutrition (severe): Chronic Evidenced By Suboptimal Energy Intake ( Severe),Weight Loss (Severe) Clinical Problem Chronic Disease or Condition Related Malnutrition Etiology severe, chronic malutrition related to inadequate energy intake d/t altered mental status w/ increased energy needs d/t metastatic disease Signs/Symptoms as evidenced by unintentional wt loss of 56#/30% x 6 months, estimated PO intake meeting < 50% of estimated energy needs past 1-2 weeks; overall PO intake meeting <75% of estimated energy needs > 3 months Status Active Problem Recommendation Dietitian Recommendations/Changes Regular diet, ensure pudding or magic cup BID, ensure plus high protein 120mL 4x/day w/ medpass for additional calories/protein if consumed. Will follow for further determination re: plan of care and provide further recommendations regarding enteral nutrition as appropriate. Lab / Micro Data Result Diagrams: 05/27/22 07:50 05/27/22 07:50 Labs: Laboratory Results - last 24 hr 05/26/22 06:40: TSH 1.28 05/26/22 06:40: Hemoglobin A1c 10.9 H 05/26/22 16:50: POC Glucose 293 H 05/26/22 17:57: Ammonia 26.0 05/26/22 18:12: Vitamin B12 1012 H 05/26/22 20:29: POC Glucose 298 H 05/27/22 07:15: POC Glucose 125 H 05/27/22 07:50: WBC 7.5, RBC 3.49 L, Hgb 11.5 L, Hct 34.3 L, MCV 98.3, MCH 33.0 H, MCHC 33.5, RDW Std Deviation 66.3 H, RDW Coeff of Moises 18.6 H, Plt Count 88 L, MPV 12.8 H, Immature Gran % (Auto) 1.600 H, Neut % (Auto) 87.1 H, Lymph % (Auto) 3.2 L, [place] % (Auto) 7.7, Eos % (Auto) 0.1, Baso % (Auto) 0.3, Absolute Neuts (auto) 6.5, Absolute Lymphs (auto) 0.24 L, Nucleated RBC % 0.4, Platelet Estimate MOD DEC, Anisocytosis 2+, Crenated Cell RARE, Schistocytes RARE 05/27/22 07:50: Sodium 136, Potassium 5.6 H, Chloride 110 H, Carbon Dioxide 18.0 L, Anion Gap 8, BUN 12, Creatinine 1.06 H, Estim Creat Clear Calc 44.08, Est GFR (MDRD) Af Amer 68, Est GFR (MDRD) Non-Af 56 L, BUN/Creatinine Ratio 11.3, Glucose 160 H, Calcium 10.8 H, Phosphorus 3.4, Magnesium 2.3, Total Bilirubin 0.70, AST 262 H, ALT 80 H, Alkaline Phosphatase 222 H, Total Protein 6.8, Albumin 2.4 L, Globulin 4.4 H, Albumin/Globulin Ratio 0.5 L 05/27/22 07:50: Phosphorus Cancelled 05/27/22 11:37: POC Glucose 269 H 05/27/22 15:52: POC Glucose 241 H Rhythm Strip Rhythm Strip: Sinus Rhythm Rate: 74 Ectopy: None Physical Exam Narrative Physical exam: General: Alert, Oriented to self, cooperative, remains confused, restless HEENT: Atraumatic Oral: Moist Mucosa Neck: Supple Lungs: Diminished to auscultation Cardiovascular: HS I+II, regular, no murmurs Abdomen: Bowel Sounds Present, Soft, Non Tender Extremities: No edema Skin: No rashes, No breakdown Neurological: Grossly intact Psych/Mental Status: Appropriate Assessment & Plan Assessment/Plan (1) Generalized weakness: (2) Decreased appetite: (3) Severe malnutrition: (4) Hypercalcemia of malignancy: (5) Hypokalemia: (6) Acute dehydration: (7) Thrombocytopenia: (8) Transaminitis: PLAN: Plan 1. Acute delirium, multifactorial in etiology, likely related to dehydration/hypercalcemia/worsening depression Delirium appears to be slightly improved MRI of the brain was negative for brain parenchyma Continue with IV fluids, pain control with scheduled Tylenol, Haldol as needed QTC on EKG admission was 444, ammonia TSH is normal. B12 is elevated. 2. Severe protein calorie malnutrition secondary to malignancy/severe depression Patient with reportedly increased oral intake Nutrition was consulted, continue on supplements Continue on Remeron also 3. Hyperkalemia, will stop oral potassium, repeat blood work in am 4. Hypercalcemia, corrected Ca 12.08, improved on IVF, Patient has been on monthly Xgeva in the outpatient 5. Dehydration/CKD stage IIIa, creatinine slightly improved compared to previous We will continue to trend 6. Transaminitis, improving, liver ultrasound showed normal echotexture, no intrahepatic biliary dilatation Repeat blood work in a.m. 7. Metastatic breast cancer, follows with oncology in the outpatient 8. Type 2 DM, on home Januvia, Hgba1c is 10.9, Will add Lantus 5 units QHS as well as continue insulin sliding scale 9. MS/anxiety/depression/hyperlipidemia/neuropathy Continue with fentanyl patch, tramadol as needed 10. DVT PPx- Lovenox SC Charges/Coding Visit Charges Inpatient E&M: 50609 Subs Hosp L2
[2022-05-27] MEDS: Amantadine 100 MG Capsule PO (20:24)
[2022-05-27] MEDS: Mirtazapine 15 MG Tablet 7.5 MG PO (20:24)
[2022-05-27] MEDS: Lactated Ringers 1,000 ML 50 ML IV (20:24)
[2022-05-27] MEDS: Atenolol 25 MG Tablet PO (20:25)
[2022-05-27] MEDS: MELATONIN 3 MG TABLET PO (20:25)
[2022-05-27] MEDS: Gabapentin 600 MG Tablet PO (20:25)
[2022-05-27] MEDS: clonazePAM 0.5 MG Tablet PO (20:25)
--- NOTE | 2022-05-27 21:06 | NURSING ---
Meds were crushed and put in yogurt. said patient likes yogurt. Patient said, Yuck and spit out meds. RN tried several times. Small undetermined amount of meds taken.
[2022-05-27] MEDS: Insulin Glargine-YFGN 100 UNIT/ML Pen SC (21:20)
[2022-05-27 22:16] LABS: Bedside Glucose 223 mg/dL (74-106)
[2022-05-27] MEDS: Haloperidol Lactate 5 MG/ML Vial 1 MG IM (22:39)
[2022-05-28] VITALS (12 sets, daily range): BP systolic 132–170; BP diastolic 51–90; PULSE 88–122; RESP 18–30; TEMP 36.6–36.7; O2SAT 90–95
[2022-05-28 07:15] LABS: Bedside Glucose 81 mg/dL (74-106)
[2022-05-28] MEDS: Ipratropium/Albuterol Sulfate 3 ML AMPUL.NEB INHALATION ×5 (07:20→23:45)
--- NOTE | 2022-05-28 07:23 | CPS ---
RT had to stop aerosol after less than a minute, pt kept saying no, says she hates the smell. RT explained that it was medicine and why giving it but pt kept shaking head and pushing mask away.
[2022-05-28 07:44] LABS: ALB/GLOB Ratio 0.6 RATIO (0.9-2.4); AST(SGOT) 178 U/L (15-37); Alanine Aminotransfer ALT/SGPT 90 U/L (13-56); Albumin, Serum 2.1 g/dL (3.2-5.0); Alkaline Phosphatase 210 U/L (45-117); Anion Gap 7 (5-15); BUN 14 mg/dL (7-18); BUN/Creat Ratio 12.4 RATIO (10-20); Calcium,Total 11.2 mg/dL (8.5-10.1); Chloride 108 mmol/L (98-107); Creatinine, Serum 1.13 mg/dL (0.55-1.02); EST Glomerular Filtration Rate 52 mL/min (>60); Est Glom Filt Rate - Afr Amer 63 mL/min (>60); Estimated Creatinine Clearance 41.35 ml/min; Globulin 3.8 g/dL (2.2-4.2); Glucose 87 mg/dL (74-106); Magnesium 1.8 mg/dL (1.6-2.6); Potassium 4.8 mmol/L (3.5-5.1); Protein, Total 5.9 g/dL (6.4-8.2); Sodium Level 137 mmol/L (136-145)
[2022-05-28 08:17] LABS: Absolute Lymphocyte Count 0.15 X10^3/uL (0.83-4.51); Absolute Neutrophil Count 6.8 X10^3/uL (2.0-7.7); Basophil# 0.01 X10^3/uL; Basophil% 0.1 % (0-1); Differential Indicated SCAN CRITERIA MET; Eosinophil# 0.07 X10^3/uL; Eosinophils% 0.9 % (0-5); Hematocrit 30.8 % (37-47); Hemoglobin 10.2 g/dL (12.0-15.0); Lymphocyte # 0.15 X10^3/ul (0.83-4.51); Mean Corp Hgb Conc 33.1 g/dL (32-36); Mean Corpuscular Hgb 32.9 pg (27.0-32.0); Mean Corpuscular Volume 99.4 fL (81-99); Mean Platelet Vol. 12.4 fl (6.2-12.0); Monocyte# 0.46 X10^3/uL; NRBC Flagged by Analyzer 0.9 % (0-5); Neutrophil # 6.81 X10^3/uL (2.7-7.7); Neutrophil % 89.3 % (47-70); POSITIVE DIFFERENTIAL YES; POSITIVE MORPHOLOGY YES; Platelet Count 100 K/mm3 (150-450); RBC Distribution Width CV 18.7 % (11.6-14.6); RBC Distribution Width SD 68.3 fl (35.1-43.9); White Blood Count 7.6 K/mm3 (4.4-11.0)
[2022-05-28 08:40] LABS: Anisocytosis 1+
[2022-05-28 08:41] LABS: Schistocytes RARE
--- NOTE | 2022-05-28 11:00 | PCM.PN.HOSP ---
Subjective Subjective OnFollow-up on acute delirium/severe debility/hypercalcemia: Patient was seen and examined.? Patient remains delirious. She did receive Haldol last night. Se has been refusing to take her medications. She was seen moaning and groaning, I asked if she was in pain, she said yes, she however would not say where her pain was. She was given a dose of Roxanol but that did not seem to help, that was transitioned to morphine IV that helped. Objective Data Objective Data Vital Signs: Vital Signs Temp Pulse Resp BP Pulse Ox O2 Del Method 98.1 F 88 24 H 145/82 H 95 Room Air 05/28/22 04:04 05/28/22 08:00 05/28/22 10:23 05/28/22 04:04 05/28/22 08:00 05/28/22 08:00 Oxygen Delivery Method Room Air Weight: 55 kg Body Mass Index (BMI) 22.1 Intake & Output: Intake and Output for Last 24 Hours 05/26/22 05/27/22 05/28/22 23:59 23:59 23:59 Intake Total 2293.33 / 2293.33 3411.6733 / 3411.6733 Output Total 1200 / 2000 1500 / 2000 1200 / 1200 Balance 1093.33 / 293.33 1911.6733 / 1411.6733 -1200 / -1200 Medical Nutrition Assessment Dietitian: Malnutrition Criteria Met Start: 05/26/22 11:52 Freq: Status: Active Protocol: Document 05/26/22 11:52 AG (Rec: 05/26/22 11:52 AG [id number]) Nutrition Malnutrition Evidence of Malnutrition Exists Yes Malnutrition (severe): Chronic Evidenced By Suboptimal Energy Intake ( Severe),Weight Loss (Severe) Clinical Problem Chronic Disease or Condition Related Malnutrition Etiology severe, chronic malutrition related to inadequate energy intake d/t altered mental status w/ increased energy needs d/t metastatic disease Signs/Symptoms as evidenced by unintentional wt loss of 56#/30% x 6 months, estimated PO intake meeting < 50% of estimated energy needs past 1-2 weeks; overall PO intake meeting <75% of estimated energy needs > 3 months Status Active Problem Recommendation Dietitian Recommendations/Changes Regular diet, ensure pudding or magic cup BID, ensure plus high protein 120mL 4x/day w/ medpass for additional calories/protein if consumed. Will follow for further determination re: plan of care and provide further recommendations regarding enteral nutrition as appropriate. Lab / Micro Data Result Diagrams: 05/28/22 08:05 05/28/22 06:40 Labs: Laboratory Results - last 24 hr 05/27/22 11:37: POC Glucose 269 H 05/27/22 15:52: POC Glucose 241 H 05/27/22 21:00: POC Glucose 223 H 05/28/22 06:40: WBC Cancelled, Corrected WBC Cancelled, RBC Cancelled, Hgb Cancelled, Hct Cancelled, MCV Cancelled, MCH Cancelled, MCHC Cancelled, RDW Std Deviation Cancelled, RDW Coeff of Moises Cancelled, Plt Count Cancelled, MPV Cancelled, Immature Gran % (Auto) Cancelled, Neut % (Auto) Cancelled, Lymph % (Auto) Cancelled, [place] % (Auto) Cancelled, Eos % (Auto) Cancelled, Baso % (Auto) Cancelled, Absolute Neuts (auto) Cancelled, Absolute Lymphs (auto) Cancelled, Total Counted Cancelled, Neutrophils % (Manual) Cancelled, Band Neutrophils % Cancelled, Lymphocytes % (Manual) Cancelled, Monocytes % (Manual) Cancelled, Eosinophils % (Manual) Cancelled, Basophils % (Manual) Cancelled, Metamyelocytes % Cancelled, Myelocytes % Cancelled, Promyelocytes % Cancelled, Blast Cells % Cancelled, Plasma Cell % (Manual) Cancelled, Other Cells % Cancelled, Nucleated RBC % Cancelled, Nucleated RBCs/100 WBC Cancelled, Differential Comment Cancelled, Diff Path Review Cancelled, Hypersegmented Neuts Cancelled, Atypical Lymphocytes Cancelled, Reactive Lymphocytes Cancelled, Smudge Cells Cancelled, Toxic Granulation Cancelled, Toxic Vacuolation Cancelled, Dohle Bodies Cancelled, Nick Rods Cancelled, Platelet Estimate Cancelled, Plt Morphology Comment Cancelled, RBC Morphology Cancelled, Polychromasia Cancelled, Hypochromasia Cancelled, Poikilocytosis Cancelled, Basophilic Stippling Cancelled, Anisocytosis Cancelled, Microcytosis Cancelled, Macrocytosis Cancelled, Spherocytes Cancelled, Sickle Cells Cancelled, Target Cells Cancelled, Tear Drop Cells Cancelled, Ovalocytes Cancelled, Stomatocytes Cancelled, [place] Bodies Cancelled, Michel Cells Cancelled, Bite Cells Cancelled, Crenated Cell Cancelled, Acanthocytes (Spur) Cancelled, Rouleaux Cancelled, Schistocytes Cancelled 05/28/22 06:40: Sodium 137, Potassium 4.8, Chloride 108 H, Carbon Dioxide 22.0, Anion Gap 7, BUN 14, Creatinine 1.13 H, Estim Creat Clear Calc 41.35, Est GFR (MDRD) Af Amer 63, Est GFR (MDRD) Non-Af 52 L, BUN/Creatinine Ratio 12.4, Glucose 87, Calcium 11.2 H, Phosphorus 2.0 L, Magnesium 1.8, Total Bilirubin 0.50, AST 178 H, ALT 90 H, Alkaline Phosphatase 210 H, Total Protein 5.9 L, Albumin 2.1 L, Globulin 3.8, Albumin/Globulin Ratio 0.6 L 05/28/22 06:55: POC Glucose 81 05/28/22 08:05: WBC 7.6, RBC 3.10 L, Hgb 10.2 L, Hct 30.8 L, MCV 99.4 H, MCH 32.9 H, MCHC 33.1, RDW Std Deviation 68.3 H, RDW Coeff of Moises 18.7 H, Plt Count 100 L, MPV 12.4 H, Immature Gran % (Auto) 1.700 H, Neut % (Auto) 89.3 H, Lymph % (Auto) 2.0 L, [place] % (Auto) 6.0, Eos % (Auto) 0.9, Baso % (Auto) 0.1, Absolute Neuts (auto) 6.8, Absolute Lymphs (auto) 0.15 L, Nucleated RBC % 0.9, Anisocytosis 1+, Schistocytes RARE Rhythm Strip Rhythm Strip: Sinus Rhythm Rate: 74 Ectopy: None Physical Exam Narrative Physical exam: General: Alert, Oriented to self, cooperative, remains confused, restless HEENT: Atraumatic Oral: Moist Mucosa Neck: Supple Lungs: Diminished to auscultation Cardiovascular: HS I+II, regular, no murmurs Abdomen: Bowel Sounds Present, Soft, Non Tender Extremities: No edema Skin: No rashes, No breakdown Neurological: Grossly intact Psych/Mental Status: Appropriate Assessment & Plan Assessment/Plan (1) Generalized weakness: (2) Decreased appetite: (3) Severe malnutrition: (4) Hypercalcemia of malignancy: (5) Hypokalemia: (6) Acute dehydration: (7) Thrombocytopenia: (8) Transaminitis: PLAN: Plan 1. Acute delirium, multifactorial in etiology, likely related to dehydration/hypercalcemia/worsening depression Delirium appears to be waxing and waning MRI of the brain was negative for brain parenchyma QTC on EKG admission was 444, ammonia TSH is normal. B12 is elevated. Continue with IV fluids, pain control with scheduled Tylenol, Haldol as needed Discussed with daughter, will start patient on Seroquel 12.5mg BID Will get EKG to check on QTc. 2. Severe protein calorie malnutrition secondary to malignancy/severe depression Patient with reportedly decreased oral intake, nutrition was consulted, continue on supplements Started on Remeron, will continue to monitor 3. Hyperkalemia, resolved, repeat blood work in am 4. Hypomagnesium/Hypophosphatemia, Mg 1.8, phos 2.0, replaced, recheck 5. Hypercalcemia, corrected Ca 12.72, improved on IVF Patient had been on monthly Xgeva in the outpatient Will give Zoledronic acid 4mg IV x1, repeat labs in am 6. Dehydration/CKD stage IIIa, creatinine slightly improved compared to previous We will continue to trend labs 7. Transaminitis, improving, liver ultrasound showed normal echotexture, no intrahepatic biliary dilatation Repeat blood work in a.m. 8. Metastatic breast cancer, follows with oncology in the outpatient 9. Type 2 DM, on home Januvia, Hgba1c is 10.9, Continue insulin sliding scale 10. MS/anxiety/depression/hyperlipidemia/neuropathy Continue with fentanyl patch, tramadol as needed 11. Severe protein calorie malnutrition, steam trap worker consulted, continue to encourage oral supplements 12. DVT PPx- Lovenox SC 13. Code status - DNR-CCA, no intubation. I had a very long talk with the patient's daughter about her overall status and plan of care. Her daughter stated that she had previously discussed with her that she talk to her father yesterday. They were not sure if patient was at the end of life. They are agreeable to change her CODE STATUS to DNR CCA, no intubation. They were hoping she could at least eat and her confusion improved so that they could bring her home. She is at this time appropriate for palliative care. The next 1 to 2 days will determine if she needs hospice or not. Time spent with the family discussing patient's overall care and goals of care: 30 minutes Charges/Coding Visit Charges Inpatient E&M: 66820 Subs Hosp L2 Procedures Hospitalists Procedures: 93113 Advncd Care Plan 30 Min
[2022-05-28] MEDS: busPIRone 15 MG TABLET 7.5 MG PO ×2 (11:03→21:06)
[2022-05-28] MEDS: Venlafaxine XR 150 MG Capsule 300 MG PO (11:03)
--- NOTE | 2022-05-28 11:04 | NURSING ---
Shanika spoke with pts daughter who is at bedside
[2022-05-28] MEDS: morphine (oral solution) 10MG/0.5ML Syringe 5 MG SL (11:12)
[2022-05-28] MEDS: QUEtiapine 25 MG Tablet 12.5 MG PO ×2 (11:36→21:05)
[2022-05-28] MEDS: Dextrose 5%-Lactated Ringers 1,000 ML 100 ML IV (11:37)
[2022-05-28] MEDS: Insulin Lispro 100 UNIT/ML INSULN.PEN SC ×3 (11:54→21:18)
[2022-05-28 13:40] LABS: Bedside Glucose 170 mg/dL (74-106)
[2022-05-28] MEDS: Morphine 2 MG/ML Syringe 1 MG IV ×3 (14:19→22:08)
--- NOTE | 2022-05-28 15:45 | EKG12_ITS ---
Test Reason : AM EKG Blood Pressure : / mmHG Vent. Rate : 082 BPM Atrial Rate : 082 BPM P-R Int : 166 ms QRS Dur : 100 ms QT Int : 380 ms P-R-T Axes : 088 -02 038 degrees QTc Int : 443 ms Normal sinus rhythm Normal ECG When compared with ECG of 25-MAY-2022 10:59, MANUAL COMPARISON REQUIRED, DATA IS UNCONFIRMED Confirmed by TASHI KAN, GEETHA ([id number]), purchase request editor PAUL RIVERO ([id number]) on 05/30/2022 8:43:41 AM Referred By: PIPER Confirmed By:GEETHA AKINS MD
[2022-05-28 18:05] LABS: Bedside Glucose 194 mg/dL (74-106)
[2022-05-28] MEDS: MELATONIN 3 MG TABLET PO (21:06)
[2022-05-28] MEDS: Atenolol 25 MG Tablet PO (21:06)
[2022-05-28] MEDS: Gabapentin 600 MG Tablet PO (21:10)
[2022-05-28] MEDS: clonazePAM 0.5 MG Tablet PO (21:10)
[2022-05-28] MEDS: 0.9% Saline Lock 10 ML Syringe IV (22:08)
[2022-05-28 22:26] LABS: Bedside Glucose 177 mg/dL (74-106)
[2022-05-29] MEDS: Haloperidol Lactate 5 MG/ML Vial 1 MG IM ×3 (00:14→18:05)
[2022-05-29] MEDS: Morphine 2 MG/ML Syringe 1 MG IV (03:26)
[2022-05-29] MEDS: 0.9% Saline Lock 10 ML Syringe IV ×2 (03:44→21:02)
[2022-05-29 04:31] VITALS: BP 146/106; PULSE 133; RESP 18; TEMP 36.8; O2SAT 98
[2022-05-29 05:17] LABS: Absolute Lymphocyte Count 0.29 X10^3/uL (0.83-4.51); Absolute Neutrophil Count 7.2 X10^3/uL (2.0-7.7); Basophil# 0.02 X10^3/uL; Basophil% 0.2 % (0-1); Eosinophil# 0.02 X10^3/uL; Eosinophils% 0.2 % (0-5); Hematocrit 33.8 % (37-47); Hemoglobin 10.9 g/dL (12.0-15.0); Lymphocyte # 0.29 X10^3/ul (0.83-4.51); Lymphocyte % 3.6 % (19-41); Mean Corp Hgb Conc 32.2 g/dL (32-36); Mean Corpuscular Hgb 32.8 pg (27.0-32.0); Mean Corpuscular Volume 101.8 fL (81-99); Mean Platelet Vol. 12.1 fl (6.2-12.0); Monocyte# 0.42 X10^3/uL; Monocyte% 5.2 % (0-10); NRBC Flagged by Analyzer 1.1 % (0-5); Neutrophil # 7.18 X10^3/uL (2.7-7.7); Neutrophil % 89.4 % (47-70); POSITIVE DIFFERENTIAL YES; POSITIVE MORPHOLOGY YES; Platelet Count 107 K/mm3 (150-450); RBC Distribution Width CV 19.1 % (11.6-14.6); RBC Distribution Width SD 70.7 fl (35.1-43.9); Red Blood Count 3.32 M/mm3 (4.2-5.4)
[2022-05-29 05:28] LABS: Differential Indicated SCAN CRITERIA MET
--- NOTE | 2022-05-29 05:47 | NURSING ---
Patient spit out her crushed meds in applesauce last night and refused to take them.
[2022-05-29 05:48] VITALS: RESP 20
[2022-05-29] MEDS: Insulin Lispro 100 UNIT/ML INSULN.PEN SC ×4 (06:07→21:08)
[2022-05-29] MEDS: Dextrose 5%-Lactated Ringers 1,000 ML 100 ML IV ×2 (06:10→16:06)
[2022-05-29 06:46] LABS: ALB/GLOB Ratio 0.6 RATIO (0.9-2.4); AST(SGOT) 116 U/L (15-37); Alanine Aminotransfer ALT/SGPT 66 U/L (13-56); Albumin, Serum 2.5 g/dL (3.2-5.0); Alkaline Phosphatase 209 U/L (45-117); Anion Gap 11 (5-15); BUN 15 mg/dL (7-18); BUN/Creat Ratio 10.9 RATIO (10-20); Calcium,Total 10.6 mg/dL (8.5-10.1); Chloride 107 mmol/L (98-107); Creatinine, Serum 1.37 mg/dL (0.55-1.02); EST Glomerular Filtration Rate 42 mL/min (>60); Est Glom Filt Rate - Afr Amer 50 mL/min (>60); Estimated Creatinine Clearance 34.11 ml/min; Globulin 4.1 g/dL (2.2-4.2); Glucose 253 mg/dL (74-106); Magnesium 2.7 mg/dL (1.6-2.6); Phosphorus 6.3 mg/dL (2.5-4.9); Potassium 5.8 mmol/L (3.5-5.1); Protein, Total 6.6 g/dL (6.4-8.2); Sodium Level 139 mmol/L (136-145)
[2022-05-29 07:00] LABS: Bedside Glucose 239 mg/dL (74-106)
[2022-05-29 07:04] LABS: Anisocytosis 2+; Differential Comment SCANNED; Macrocytosis 1+
[2022-05-29 09:36] VITALS: PULSE 100
[2022-05-29 09:51] VITALS: BP 128/55; PULSE 113; RESP 24; TEMP 36.7; O2SAT 94
--- NOTE | 2022-05-29 10:41 | CASEMGMT ---
RN CM has been deferred per hospitalist request as had been overhwhelmed. Per rounds today, hospice consult.
--- NOTE | 2022-05-29 10:59 | CASEMGMT ---
Social Work SW was informed by MD Junior that Hospice consult is needed. SW in to speak to pt , Blue, regarding this. Mcarthur agreeable to speaking with SW. Mcarthur shared struggle with dealing emotionally with pt medical concerns. SW offered support and validation of feelings. SW inquired about what knows regarding Hospice and gave brief education on the services Hospice provides. SW explained the feels a Hospice consult is next step in pt care. Sw confirmed with pt , Blue, that Hospice consult is what pt family wants. Mcarthur presented overwhelmed at this point. SW explained if referral is sent how the process would work and reassured Mcarthur that Hospice will explain in length how services would be helpful to pt and pt's family. SW also explained that Mcarthur is under no obligation to accept Hospice Services if family does not feel it is right. Mcarthur appeared much more at ease with this information and agreeable to Hospice coming to meet with pt and family. Mcarthur stated children are involved and will be at the hospital at different times this day. SW suggested Mcarthur speak to children and coordinate a time when all family can be present so that all family involved in Hospice process and aware of the plan. Mcarthur agreeable to this. SW sent referral to Hospice and informed that family is working on coordinating a time for meeting. PLAN: Hospice Assessment SALINA Kenney
[2022-05-29] MEDS: Enoxaparin 40 MG/0.4 ML Syringe SC (11:12)
--- NOTE | 2022-05-29 11:20 | PCM.PN.HOSP ---
Subjective Subjective Follow-up for very low functional status with history of metastatic breast cancer to bones. Objective Data Objective Data Vital Signs: Vital Signs Temp Pulse Resp BP Pulse Ox O2 Del Method 98.0 F 113 H 24 H 128/55 H 94 Room Air 05/29/22 09:51 05/29/22 09:51 05/29/22 09:51 05/29/22 09:51 05/29/22 09:51 05/29/22 09:51 Oxygen Delivery Method Room Air Weight: 121 lb 4.068 oz Body Mass Index (BMI) 22.1 Intake & Output: Intake and Output for Last 24 Hours 05/27/22 05/28/22 05/29/22 23:59 23:59 23:59 Intake Total 3411.6733 / 3411.6733 1777.33 / 1777.33 810.0033 / 810.0033 Output Total 1500 / 1999 1900 / 1900 Balance 1911.6733 / 1411.6733 -122.67 / -122.67 810.0033 / 810.0033 Medical Nutrition Assessment Dietitian: Malnutrition Criteria Met Start: 05/26/22 11:52 Freq: Status: Active Protocol: Document 05/26/22 11:52 AG (Rec: 05/26/22 11:52 AG [id number]) Nutrition Malnutrition Evidence of Malnutrition Exists Yes Malnutrition (severe): Chronic Evidenced By Suboptimal Energy Intake ( Severe),Weight Loss (Severe) Clinical Problem Chronic Disease or Condition Related Malnutrition Etiology severe, chronic malutrition related to inadequate energy intake d/t altered mental status w/ increased energy needs d/t metastatic disease Signs/Symptoms as evidenced by unintentional wt loss of 56#/30% x 6 months, estimated PO intake meeting < 50% of estimated energy needs past 1-2 weeks; overall PO intake meeting <75% of estimated energy needs > 3 months Status Active Problem Recommendation Dietitian Recommendations/Changes Regular diet, ensure pudding or magic cup BID, ensure plus high protein 120mL 4x/day w/ medpass for additional calories/protein if consumed. Will follow for further determination re: plan of care and provide further recommendations regarding enteral nutrition as appropriate. Lab / Micro Data Result Diagrams: 05/29/22 04:44 05/29/22 04:44 Labs: Laboratory Results - last 24 hr 05/28/22 11:53: POC Glucose 170 H 05/28/22 17:22: POC Glucose 194 H 05/28/22 21:17: POC Glucose 177 H 05/29/22 04:44: WBC 8.0, RBC 3.32 L, Hgb 10.9 L, Hct 33.8 L, MCV 101.8 H, MCH 32.8 H, MCHC 32.2, RDW Std Deviation 70.7 H, RDW Coeff of Moises 19.1 H, Plt Count 107 L, MPV 12.1 H, Immature Gran % (Auto) 1.400 H, Neut % (Auto) 89.4 H, Lymph % (Auto) 3.6 L, [place] % (Auto) 5.2, Eos % (Auto) 0.2, Baso % (Auto) 0.2, Absolute Neuts (auto) 7.2, Absolute Lymphs (auto) 0.29 L, Nucleated RBC % 1.1, Differential Comment SCANNED, Anisocytosis 2+, Macrocytosis 1+ 05/29/22 04:44: Sodium 139, Potassium 5.8 H, Chloride 107, Carbon Dioxide 21.0, Anion Gap 11, BUN 15, Creatinine 1.37 H, Estim Creat Clear Calc 34.11, Est GFR (MDRD) Af Amer 50 L, Est GFR (MDRD) Non-Af 42 L, BUN/Creatinine Ratio 10.9, Glucose 253 H, Calcium 10.6 H, Phosphorus 6.3 H, Magnesium 2.7 H, Total Bilirubin 0.70, AST 116 H, ALT 66 H, Alkaline Phosphatase 209 H, Total Protein 6.6, Albumin 2.5 L, Globulin 4.1, Albumin/Globulin Ratio 0.6 L 05/29/22 06:05: POC Glucose 239 H Rhythm Strip Rhythm Strip: Sinus Rhythm Rate: 74 Ectopy: None Physical Exam Narrative As per nursing staff, patient was very confused agitated and restless last night and was given Haldol.Patient is on Effexor XR, Remeron buspirone and Seroquel. As per , she has severe bone pain due to metastasis. Physical exam: General: Sedated, Her head is down HEENT: Atraumatic, PERRLA, EOMI, Normocephalic Oral: Oral mucosa dry. No Gingival or Mucosal Lesions/ Ulcerations Neck: Supple, No JVD, Negative Carotid Bruits Lungs: Air entry diminished in bilateral lung bases. No crepitation/rhonchi Cardiovascular: Regular rate, Regular Rhythm, Normal S1, Normal S2, No murmurs Abdomen: Bowel Sounds diminished t, Soft, Non Tender, Non-Distended : No renal angle tenderness. No suprapubic tenderness. Extremities: No edema, Capillary Refill Less than 3 Seconds Skin: No rashes, No breakdown Musculoskeletal: Severe restricted movement of knee and hip joints. Severe knee joint TGT. Neurological: DTR 2+. Sedated. Psych/Mental Status: Sedated. Assessment & Plan Assessment/Plan (1) Generalized weakness: (2) Decreased appetite: (3) Severe malnutrition: (4) Hypercalcemia of malignancy: (5) Hypokalemia: (6) Acute dehydration: (7) Thrombocytopenia: (8) Transaminitis: PLAN: Plan 1. Acute delirium, multifactorial in etiology, likely related to dehydration/hypercalcemia/worsening depression/polypharmacy Delirium appears to be waxing and waning MRI of the brain was negative for brain parenchyma QTC on EKG admission was 444, ammonia TSH is normal. B12 is elevated. Continue with IV fluids, pain control with scheduled Tylenol, Haldol as needed 04/28: Patient is sedated and lethargic patient on multiple antianxiety and antipsychotic medications including Seroquel, Remeron, Effexor XR, buspirone and clonazepam. Hold medications for sedation. 2. Severe protein calorie malnutrition secondary to malignancy/severe depression Patient with reportedly decreased oral intake, nutrition was consulted, continue on supplements 05/29 on Remeron, 3. Hyperkalemia, 05/29: K is 5.8. 4. Hypomagnesium/Hypophosphatemia, Mg 1.8, phos 2.0, replaced, recheck 5. Hypercalcemia, corrected Ca 12.72, improved on IVF Patient had been on monthly Xgeva in the outpatient Patient had zoledronic acid 4mg IV x1 05/29: Calcium is 10.6. Continue IV fluid. 6. Dehydration/CKD stage IIIa, creatinine slightly improved compared to previous We will continue to trend labs 7. Transaminitis, improving, liver ultrasound showed normal echotexture, no intrahepatic biliary dilatation 06/09: ALT AST 66 and 116 respectively. And 290 elevated. 8. Metastatic breast cancer, follows with oncology in the outpatient 9. Type 2 DM, on home Januvia, Hgba1c is 10.9, Continue insulin sliding scale 10. MS/anxiety/depression/hyperlipidemia/neuropathy Continue with fentanyl patch, tramadol as needed 11. 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 DVT PPx- Lovenox SC 13. Code status - DNR-CCA, no intubation. I talked to the patient's near the bedside. She has metastatic breast cancer with metastasis to skull, hips and the spine. Patient has not been eating and drinking. At times he gets very agitated. She has very low functional status and high risk for decubitus ulcer, aspiration. Patient is DNR CC arrest with no intubation. I discussed the option of hospice and the patient's directly therefore we will proceed. Alkaline phosphatase Time spent with the family discussing patient's overall care and goals of care: 30 minutes Charges/Coding Visit Charges Inpatient E&M: 37149 Subs Hosp L2
[2022-05-29 12:00] LABS: Bedside Glucose 233 mg/dL (74-106)
[2022-05-29 13:00] VITALS: BP 139/55; PULSE 115; RESP 20; TEMP 36.7; O2SAT 94
[2022-05-29] MEDS: fentaNYL 25 MCG Patch TD (15:59)
[2022-05-29 17:00] LABS: Bedside Glucose 261 mg/dL (74-106)
[2022-05-29] MEDS: LORazepam 2 MG/ML Syringe 0.5 MG IV (21:00)
[2022-05-29 21:45] LABS: Bedside Glucose 217 mg/dL (74-106)
--- NOTE | 2022-05-29 23:11 | NURSING ---
While rounding on patient noted patient to have dark dried blood on bottom lip. Minimal dark dried blood in mouth. Cleaned lips and mouth as much as patient would tolerate. Will continue to monitor.
[2022-05-30] MEDS: Dextrose 5%-Lactated Ringers 1,000 ML 100 ML IV (02:28)
[2022-05-30 02:32] VITALS: BP 138/59; PULSE 118; RESP 20; TEMP 37.9; O2SAT 93
[2022-05-30] MEDS: LORazepam 2 MG/ML Syringe 0.5 MG IV ×2 (04:17→12:44)
[2022-05-30] MEDS: 0.9% Saline Lock 10 ML Syringe IV ×3 (04:18→12:45)
[2022-05-30] MEDS: Haloperidol Lactate 5 MG/ML Vial 1 MG IM (06:00)
[2022-05-30] MEDS: Morphine 2 MG/ML Syringe 1 MG IV (06:53)
[2022-05-30] MEDS: Insulin Lispro 100 UNIT/ML INSULN.PEN SC (06:56)
[2022-05-30 07:27] LABS: Absolute Neutrophil Count 6.5 X10^3/uL (2.0-7.7); Basophil# 0.02 X10^3/uL; Basophil% 0.3 % (0-1); Eosinophil# 0.02 X10^3/uL; Eosinophils% 0.3 % (0-5); Hemoglobin 10.2 g/dL (12.0-15.0); Lymphocyte % 2.8 % (19-41); Mean Corp Hgb Conc 31.9 g/dL (32-36); Mean Corpuscular Hgb 32.8 pg (27.0-32.0); Mean Corpuscular Volume 102.9 fL (81-99); Mean Platelet Vol. 13.4 fl (6.2-12.0); Monocyte# 0.39 X10^3/uL; Monocyte% 5.4 % (0-10); NRBC Flagged by Analyzer 1.3 % (0-5); Neutrophil # 6.47 X10^3/uL (2.7-7.7); Neutrophil % 89.8 % (47-70); POSITIVE COUNT YES; POSITIVE DIFFERENTIAL YES; POSITIVE MORPHOLOGY YES; Platelet Count 92 K/mm3 (150-450); RBC Distribution Width CV 18.6 % (11.6-14.6); RBC Distribution Width SD 69.6 fl (35.1-43.9); Red Blood Count 3.11 M/mm3 (4.2-5.4); White Blood Count 7.2 K/mm3 (4.4-11.0)
[2022-05-30 07:31] LABS: Bedside Glucose 238 mg/dL (74-106)
[2022-05-30 07:38] LABS: Differential Indicated SCAN CRITERIA MET
[2022-05-30 07:54] LABS: ALB/GLOB Ratio 0.6 RATIO (0.9-2.4); AST(SGOT) 80 U/L (15-37); Alanine Aminotransfer ALT/SGPT 51 U/L (13-56); Albumin, Serum 2.2 g/dL (3.2-5.0); Alkaline Phosphatase 187 U/L (45-117); Anion Gap 10 (5-15); BUN 11 mg/dL (7-18); BUN/Creat Ratio 9.3 RATIO (10-20); Calcium,Total 10.4 mg/dL (8.5-10.1); Chloride 108 mmol/L (98-107); Creatinine, Serum 1.18 mg/dL (0.55-1.02); EST Glomerular Filtration Rate 49 mL/min (>60); Est Glom Filt Rate - Afr Amer 60 mL/min (>60); Globulin 3.9 g/dL (2.2-4.2); Glucose 233 mg/dL (74-106); Protein, Total 6.1 g/dL (6.4-8.2); Sodium Level 138 mmol/L (136-145)
[2022-05-30 09:07] LABS: Anisocytosis 2+; Differential Comment SCANNED; Microcytosis 1+; Platelet Morphology LARGE; Poikilocytosis 2+
[2022-05-30 09:08] LABS: Acanthocytes 1+; Macrocytosis 1+; Platelet Estimate MOD DEC (ADEQ)
[2022-05-30 09:09] VITALS: BP 140/75; PULSE 116; RESP 18; TEMP 36.7; O2SAT 95
--- NOTE | 2022-05-30 10:37 | PCM.DC ---
Discharge Instructions Diet Discharge Diet: No restrictions (As per the patient preference. Do not feel patient is sleeping or altered mental status.) Activity Additional Activity Instructions:: Patient is going home with home hospice. Dressing / Incision Call your doctor if you observe: - (Home with home hospice care.) Follow Up Care Test Results: Test results from this visit will be discussed in further detail at your follow-up appointment, if applicable. Discharge Plan Admission Admit Date/Time: 05/25/22 16:35 Primary Reason for Your Visit: Generalized weakness, debility, severe breast with bony mets Attending Provider: Coleman Junior Primary Care Provider: Sandro Bland Consulting Providers: Marcelino Chau ; Charles Gresham ; Pepe Watson ; Brennan Rodriguez ; Albert Dennis ; Rhett Gr ; Coleman Dos Santos ; Edda Galdamez [employer]ER ; Claribel Rojas ; Kym Voss Instructions Additional Instructions / Restrictions: Patient is discharged with home hospice care. Do not give medications if patient is sleeping or lethargy. Medications to be administered under the guidance of hospice doctor Discharge Orders/Prescriptions Prescriptions: New polyethylene glycol 3350 17 gram Powder In Packet 17 g PO DAILY Qty: 30 0RF sennosides-docusate sodium [Stool Softener-Stimulant Laxat] 8.6-50 mg Tablet 2 tab PO BID 15 Days Qty: 60 0RF mirtazapine 15 mg Tablet 7.5 mg PO QHS Qty: 30 0RF Rx Instructions: Hold for sedation. lorazepam 0.5 mg tablet 0.5 mg PO Q6H PRN PRN (Reason: agitation) 3 Days Qty: 7 0RF Rx Instructions: 1 tablet every 6 hourly as needed for agitation. Hospice order. Continued dexamethasone 4 mg tablet 4 mg PO DAILY Qty: 30 0RF potassium chloride 20 mEq packet 20 meq PO BID Qty: 30 0RF clonazepam 1 MG tablet 1 mg PO QHS atenolol 25 MG tablet 25 mg PO QHS venlafaxine 150 MG tablet extended release 24 hr 300 mg PO DAILY fingolimod 0.5 MG capsule 0.5 mg PO DAILY gabapentin 600 MG tablet extended release 24 hr 600 mg PO QHS amantadine HCl 100 MG capsule 100 mg PO QHS buspirone 7.5 MG tablet 7.5 mg PO BID lisinopril 10 mg tablet 10 mg PO DAILY fentanyl 25 mcg/hr patch 72 hour 1 patch transdermal Q72H diphenhydramine-acetaminophen [Tylenol PM Extra Strength] 25-500 mg Tablet 2 tab PO QHS PRN (Reason: Pain) rosuvastatin 40 mg tablet 40 mg PO QHS Januvia 100 mg tablet 100 mg PO DAILY tramadol 50 mg tablet 50 mg PO TID PRN (Reason: Pain) (DME) Disability Placard See Rx Instructions .Route .MEDSUPPLY Qty: 1 0RF Rx Instructions: Lifetime, no expiration (DME) Wheelchair See Rx Instructions .Route .MEDSUPPLY Qty: 1 0RF Rx Instructions: As directed (DME) blood sugar diagnostic Strip See Rx Instructions .ROUTE .MEDSUPPLY Qty: 30 1RF Rx Instructions: As directed (DME) blood-glucose meter Kit See Rx Instructions .ROUTE .MEDSUPPLY Qty: 1 0RF Rx Instructions: As directed Referrals / Follow Up: Sandro Bland DO [Primary Care Provider] - Disposition Disposition (needs filled in before D/C Order can be placed): Hospice in Home
[2022-05-30 11:59] LABS: Pathologist Review Reviewed
--- NOTE | 2022-05-30 12:12 | CASEMGMT ---
Social Work SW received message that [facility] is unable to transport pt home. SW set up cot transportation for pt via [facility] for 2:00 pm. SW confirmed with pt's daughter, the correct address. SW informed daughter of pick-up time and daughter stated would inform pts , Mcarthur of the transport time. SW called Vandana at Hospice to report pick-up/transport time. Vandana voiced understanding. PLAN: Home with Hospice SALINA [facility]ney
--- NOTE | 2022-05-30 13:46 | DS.PCM_ITS ---
Providers Date of Admission: 05/25/22 Date of Discharge: 05/30/22 Primary Care Physician: Dr. Sandro Bland, Consultations 05/25/22 18:32 Consult: Oncology/Hematology Routine Consulting Provider: [facility] ([facility]) Reason for Consult: PKTY-Failure to Thrive on Chemo EMERGENT Consult: No MD Notified: Yes Date Notified: 05/25/22 Time Notified: 16:42 Method of Notification: ED Physician Initiated Reason For Visit: DEBILITY/FAILURE Diagnosis Discharge Diagnosis (1) Generalized weakness: Status: Inactive Code(s): R53.1 - Weakness (2) Decreased appetite: Status: Inactive Code(s): R63.0 - Anorexia (3) Severe malnutrition: Status: Acute Code(s): E43 - Unspecified severe protein-calorie malnutrition (4) Hypercalcemia of malignancy: Status: Chronic Code(s): E83.52 - Hypercalcemia (5) Hypokalemia: Status: Acute Code(s): E87.6 - Hypokalemia (6) Acute dehydration: Status: Acute Code(s): E86.0 - Dehydration (7) Thrombocytopenia: Status: Acute Code(s): D69.6 - Thrombocytopenia, unspecified (8) Transaminitis: Status: Acute Code(s): R74.01 - Elevation of levels of liver transaminase levels Plan 61-year-old female with history of breast cancer with metastasis to skull and spine in 2017, lung cancer and hypertension was admitted through ER for gen eralized weakness, failure to thrive, unable to do activities of daily living, not able to take oral intake including fluid and solid with intermittent confusion and altered mental status. Overall patient is going downhill. 1. Acute delirium, multifactorial in etiology, likely related to dehydrat ion/hypercalcemia/worsening depression/polypharmacy Delirium appears to be waxing and waning MRI of the brain was negative for brain parenchyma QTC on EKG admission was 444, ammonia TSH is normal. B12 is elevated. Continue with IV fluids, pain control with scheduled Tylenol, Haldol as needed 04/28: Patient is sedated and lethargic patient on multiple antianxiety and antipsychotic medications including Seroquel, Remeron, Effexor XR, buspirone and clonazepam. Hold medications for sedation. 12/10: Hospice/Perative care consult was done yesterday. Family agreed for home hospice care. Prescription given for Ativan 0.5 mg total 7 tablets as needed for agitation. Patient on Remeron. Seroquel discontinued. 2. Severe protein calorie malnutrition secondary to malignancy/severe depression Patient with reportedly decreased oral intake, nutrition was consulted, continue on supplements 05/29 on Remeron 05/30: Patient is still not able to take oral intake. 3. Hyperkalemia, 05/29: K is 5.8. 05/30: Hypokalemia resolved. 4. Hypomagnesium/Hypophosphatemia, Mg 1.8, phos 2.0, replaced, recheck 5. Hypercalcemia, corrected Ca 12.72, improved on IVF Patient had been on monthly Xgeva in the outpatient Patient had zoledronic acid 4mg IV x1 05/29: Calcium is 10.6. Continue IV fluid. 05/30: Patient is still has hypercalcemia although got better. 6. Dehydration/CKD stage IIIa, creatinine slightly improved compared to previous We will continue to trend labs 7. Transaminitis, improving, liver ultrasound showed normal echotexture, no intrahepatic biliary dilatation 06/09: ALT AST 66 and 116 respectively. Alkaline phosphatase 290 elevated. 8. Metastatic breast cancer, follows with oncology in the outpatient 9. Type 2 DM, on home Januvia, Hgba1c is 10.9, Continue insulin sliding scale 10. MS/anxiety/depression/hyperlipidemia/neuropathy Continue with fentanyl patch, tramadol as needed 11. 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 DVT PPx- Lovenox SC 13. Code status - DNR-CCA, no intubation. I talked to the patient's near the bedside. She has metastatic breast cancer with metastasis to skull, hips and the spine. Patient has not been eating and drinking. At times he gets very agitated. She has very low functio nal status and high risk for decubitus ulcer, aspiration. Patient is DNR CC arrest with no intubation. I discussed the option of hospice and the patient's directly therefore we will proceed. Discharge medication reconciliation done. Discharge follow-up instructions completed. Discharge process discussed with the patient and all questions were answered to patient's satisfaction. Total time spent, exact 45 minutes on discharge meds reconciliation, examination, coordination of care with nurses and ancillary staff, review of imaging and blood test and discussion with the patient on follow-up instructions. Discharged to home hospice care. Medications at Discharge Home Medications atenolol 25 mg tablet 25 mg PO QHS BLOOD PRESSURE 10/25/16 clonazepam 1 mg tablet 1 mg PO QHS ANXIETY 10/25/16 fingolimod 0.5 mg capsule 0.5 mg PO DAILY MULTIPLE SCLEROSIS 10/25/16 gabapentin 600 mg tablet,extended release 24 hr 600 mg PO QHS NERVE PAIN 10/25/16 venlafaxine 150 mg tablet,extended release 24 hr 300 mg PO DAILY DEPRESSION 10/25/16 amantadine HCl 100 mg capsule 100 mg PO QHS PARKINSONS 11/09/16 buspirone 7.5 mg tablet 7.5 mg PO BID ANXIETY/DEPRESSION 02/02/17 Disability Placard #1 ea 11/01/20 Wheelchair #1 ea 11/23/20 blood sugar diagnostic #30 ea 03/15/21 blood-glucose meter #1 ea 03/15/21 dexamethasone 4 mg tablet 4 mg PO DAILY #30 tabs 05/23/22 potassium chloride 20 mEq oral packet 20 meq PO BID #30 ea 05/23/22 diphenhydramine 25 mg-acetaminophen 500 mg tablet (Tylenol PM Extra Strength) 2 tab PO QHS PRN Pain 05/25/22 fentanyl 25 mcg/hr transdermal patch 1 patch transdermal Q72H PAIN 05/25/22 lisinopril 10 mg tablet 10 mg PO DAILY BLOOD PRESSURE 05/25/22 rosuvastatin 40 mg tablet 40 mg PO QHS CHOLESTEROL 05/25/22 sitagliptin phosphate 100 mg tablet (Januvia) 100 mg PO DAILY BLOOD SUGARS 05/25/22 tramadol 50 mg tablet 50 mg PO TID PRN Pain 05/25/22 lorazepam 0.5 mg tablet 0.5 mg PO Q6H PRN PRN agitation 3 days #7 tabs 05/30/22 mirtazapine 15 mg tablet 7.5 mg PO QHS #30 tabs 05/30/22 polyethylene glycol 3350 17 gram oral powder packet 17 g PO DAILY #30 ea 05/30/22 sennosides 8.6 mg-docusate sodium 50 mg tablet (Stool Softener-Stimulant Laxative) 2 tab PO BID 15 days #60 tabs 05/30/22 Physical Exam Narrative Patient is still gets very confused and agitated. On my exam patient is sleeping after Ativan. Patient's family at the bedside. Wants comfort measures only. Patient is still has poor oral intake. Going to home hospice care. Physical exam: General: Sedated, calm. Her head is down HEENT: Atraumatic, PERRLA, EOMI, Normocephalic Oral: Oral mucosa dry. No Gingival or Mucosal Lesions/ Ulcerations Neck: Supple, No JVD, Negative Carotid Bruits Lungs: Air entry diminished in bilateral lung bases. No crepitation/rhonchi Cardiovascular: Regular rate, Regular Rhythm, Normal S1, Normal S2, No murmurs Abdomen: Bowel Sounds diminished, soft, Non Tender, Non-Distended : No renal angle tenderness. No suprapubic tenderness. Extremities: No edema, Capillary Refill Less than 3 Seconds Skin: No rashes, No breakdown Musculoskeletal: Severe restricted movement of knee and hip joints. Severe knee joint TGT. Neurological: DTR 2+. Sedated. Psych/Mental Status: Sedated. Medical Records Data Medical Nutrition Assessment Dietitian: Malnutrition Criteria Met Start: 05/26/22 11:52 Freq: Status: Active Protocol: Document 05/29/22 11:32 AG (Rec: 05/29/22 11:32 [id number]) Nutrition Malnutrition Evidence of Malnutrition Exists Yes Malnutrition (severe): Chronic Evidenced By Suboptimal Energy Intake ( Severe),Weight Loss (Severe) Clinical Problem Chronic Disease or Condition Related Malnutrition Etiology severe, chronic malutrition related to inadequate energy intake d/t altered mental status w/ increased energy needs d/t metastatic disease Signs/Symptoms as evidenced by unintentional wt loss of 56#/30% x 6 months, estimated PO intake meeting < 50% of estimated energy needs past 1-2 weeks; overall PO intake meeting <75% of estimated energy needs > 3 months Status Active Problem Recommendation Dietitian Recommendations/Changes Continue to offer regular diet , ensure plus high protein 120mL 4x/day w/ medpass for additional calories/protein if consumed. Will follow for further determination re: plan of care and provide further recommendations regarding enteral nutrition as appropriate. Texture/ consistency modifications as appropriate per DAIRY BACTERIOLOGIST. Weight / BMI Weight Weight: 118 lb 2.684 oz Body Mass Index (BMI) 22.1 ABG / Lab / Microbiology Data Result Diagrams: 05/30/22 06:40 05/30/22 06:40 Laboratory: Laboratory Results - last 24 hr 05/27/22 07:50: Diff Path Review Reviewed 05/29/22 15:52: POC Glucose 261 H 05/29/22 21:06: POC Glucose 217 H 05/30/22 06:40: WBC 7.2, RBC 3.11 L, Hgb 10.2 L, Hct 32.0 L, MCV 102.9 H, MCH 32.8 H, MCHC 31.9 L, RDW Std Deviation 69.6 H, RDW Coeff of Moises 18.6 H, Plt Count 92 L, MPV 13.4 H, Immature Gran % (Auto) 1.400 H, Neut % (Auto) 89.8 H, Lymph % (Auto) 2.8 L, Lander % (Auto) 5.4, Eos % (Auto) 0.3, Baso % (Auto) 0.3, Absolute Neuts (auto) 6.5, Absolute Lymphs (auto) 0.20 L, Nucleated RBC % 1.3, Differential Comment SCANNED, Platelet Estimate MOD DEC, Plt Morphology Comment LARGE, Poikilocytosis 2+, Anisocytosis 2+, Microcytosis 1+, Macrocytosis 1+, Acanthocytes (Spur) 1+ 05/30/22 06:40: Sodium 138, Potassium 4.0, Chloride 108 H, Carbon Dioxide 20.0 L , Anion Gap 10, BUN 11, Creatinine 1.18 H, Estim Creat Clear Calc 39.60, Est GFR (MDRD) Af Amer 60, Est GFR (MDRD) Non-Af 49 L, BUN/Creatinine Ratio 9.3 L, Glucose 233 H, Calcium 10.4 H, Total Bilirubin 0.70, AST 80 H, ALT 51, Alkaline Phosphatase 187 H, Total Protein 6.1 L, Albumin 2.2 L, Globulin 3.9, Albumin/Globulin Ratio 0.6 L 05/30/22 06:43: POC Glucose 238 H D/C Instructions Discharge Diet: No restrictions (As per the patient preference. Do not feel patient is sleeping or altered mental status.) Additional Activity Instructions: Patient is going home with home hospice. Call your doctor if you observe: - (Home with home hospice care.) Meaningful Use Info Meaningful Use Diagnoses (Choose all that apply): None applicable Discharge Plan Admission Admit Date/Time: 05/25/22 16:35 Primary Reason for Your Visit: Generalized weakness, debility, severe breast with bony mets Attending Provider: Coleman Junior Primary Care Provider: Sandro Bland Consulting Providers: Marcelino Chau ; Charles Gresham ; Pepe Watson ; Brennan Rodriguez ; Albert Dennis ; Rhett Gr ; Coleman Dos Santos ; Edda Galdamez NP ; Claribel Rojas ; Kym Voss Instructions Additional Instructions / Restrictions: Patient is discharged with home hospice care. Do not give medications if patient is sleeping or lethargy. Medications to be administered under the guidance of hospice doctor Discharge Orders/Prescriptions Prescriptions: New polyethylene glycol 3350 17 gram Powder In Packet 17 g PO DAILY Qty: 30 0RF sennosides-docusate sodium [Stool Softener-Stimulant Laxat] 8.6-50 mg Tablet 2 tab PO BID 15 Days Qty: 60 0RF mirtazapine 15 mg Tablet 7.5 mg PO QHS Qty: 30 0RF Rx Instructions: Hold for sedation. lorazepam 0.5 mg tablet 0.5 mg PO Q6H PRN PRN (Reason: agitation) 3 Days Qty: 7 0RF Rx Instructions: 1 tablet every 6 hourly as needed for agitation. Hospice order. Continued dexamethasone 4 mg tablet 4 mg PO DAILY Qty: 30 0RF potassium chloride 20 mEq packet 20 meq PO BID Qty: 30 0RF clonazepam 1 MG tablet 1 mg PO QHS atenolol 25 MG tablet 25 mg PO QHS venlafaxine 150 MG tablet extended release 24 hr 300 mg PO DAILY fingolimod 0.5 MG capsule 0.5 mg PO DAILY gabapentin 600 MG tablet extended release 24 hr 600 mg PO QHS amantadine HCl 100 MG capsule 100 mg PO QHS buspirone 7.5 MG tablet 7.5 mg PO BID lisinopril 10 mg tablet 10 mg PO DAILY fentanyl 25 mcg/hr patch 72 hour 1 patch transdermal Q72H diphenhydramine-acetaminophen [Tylenol PM Extra Strength] 25-500 mg Tablet 2 tab PO QHS PRN (Reason: Pain) rosuvastatin 40 mg tablet 40 mg PO QHS Januvia 100 mg tablet 100 mg PO DAILY tramadol 50 mg tablet 50 mg PO TID PRN (Reason: Pain) (DME) Disability Placard See Rx Instructions .Route .MEDSUPPLY Qty: 1 0RF Rx Instructions: Lifetime, no expiration (DME) Wheelchair See Rx Instructions .Route .MEDSUPPLY Qty: 1 0RF Rx Instructions: As directed (DME) blood sugar diagnostic Strip See Rx Instructions .ROUTE .MEDSUPPLY Qty: 30 1RF Rx Instructions: As directed ([facility] [place] blood-glucose meter Kit See Rx Instructions .ROUTE .MEDSUPPLY Qty: 1 0RF Rx Instructions: As directed Referrals / Follow Up: Sandro Bland DO [Primary Care Provider] - Disposition Disposition (needs filled in before D/C Order can be placed): Hospice in Home Charges/Coding Visit Charges Inpatient E&M: 37536 Disch Hosp >30min
== END 2022-05-30 14:25 | disposition hospice, home (50) | DRG 640 ==
LOC: ED 16:20 → MS3 17:35
PROVIDERS: Internal Medicine; Admitting Provider Internal Medicine; Emergency Provider Emergency Medicine; PCP Family Medicine; Visit Provider Internal Medicine
DX: E86.0 Dehydration (principal); E43 Unspecified severe protein-calorie malnutrition; C79.51 Secondary malignant neoplasm of bone; C79.31 Secondary malignant neoplasm of brain; D69.6 Thrombocytopenia, unspecified; C50.912 Malignant neoplasm of unspecified site of left female breast; C50.911 Malignant neoplasm of unspecified site of right female breast; E11.65 Type 2 diabetes mellitus with hyperglycemia; E11.40 Type 2 diabetes mellitus with diabetic neuropathy, unspecified; N18.32 Chronic kidney disease, stage 3b; E11.22 Type 2 diabetes mellitus with diabetic chronic kidney disease; Z79.4 Long term (current) use of insulin; G35 Multiple sclerosis; E83.52 Hypercalcemia; I12.9 Hypertensive chronic kidney disease with stage 1 through stage 4 chronic kidney disease, or unspecified chronic kidney disease; E78.5 Hyperlipidemia, unspecified; E87.6 Hypokalemia; E87.5 Hyperkalemia; R62.7 Adult failure to thrive; F32.A Depression, unspecified; R74.01 Elevation of levels of liver transaminase levels; Z79.52 Long term (current) use of systemic steroids; Z87.891 Personal history of nicotine dependence; Z51.5 Encounter for palliative care; Z66 Do not resuscitate; R63.0 Anorexia; Z68.22 Body mass index [BMI] 22.0-22.9, adult
CPT/HCPCS: 36415; 70450; 70551; 71045; 76705; 80053; 81001; 82140; 82607; 82962; 83036; 83735; 84100; 84443; 85025; 92526; 92610; 93005; 94640; 97162; 97165; 97530; 97535; 97802; 99252; 99285; J3489; J7030; J7040; J7120; 90686; A4216; G0463